=== PATIENT | female | born 1945 | race Caucasian/White ===

== ENCOUNTER 2019-11-29 14:34 | Outpatient (REF) | payer MEDICARE, SELFPAY ==
[2019-11-29 21:16] LABS: ALT 17 U/L (14-59); AST 12 U/L (15-37); Albumin 3.5 g/dL (3.4-5.0); Alkaline Phosphatase 92 U/L (46-116); Anion Gap 6.8 mmol/L (3-11); BUN 30 mg/dL (7-18); Bilirubin, Total 0.2 mg/dL (0.2-1.0); CO2 25.2 mmol/L (21.0-32.0); CREATININE 1.37 mg/dL (0.55-1.02); Calcium 8.4 mg/dL (8.5-10.1); Calculated LDL 93 mg/dL (<100); Chloride 110 mmol/L (98-107); Cholesterol 167 mg/dL (<200); Glucose 94 mg/dL (74-106); HDL Cholesterol 47 mg/dL (40-60); Potassium 4.1 mmol/L (3.5-5.1); Sodium 142 mmol/L (136-145); TSH (W/Ref FT4) 1.13 uIU/mL (0.36-3.74); Total Protein 6.9 g/dL (6.4-8.2); Triglyceride 138 mg/dL (<150)
[2019-11-29 23:01] LABS: HCT 42.9 % (36.0-46.0); HGB 13.4 g/dL (11.2-15.7); MCH 29.5 pg (27.0-33.0); MCHC 31.2 % (32.0-36.0); MCV 94.3 fL (80-95); MPV 12.6 fL (8.0-11.0); Platelet Count 174 10^3/uL (130-400); RBC 4.55 10^6/uL (3.93-5.22); RDW 14.6 % (11.7-14.6); RDW-SD 50.3 fL; WBC 6.62 10^3/uL (4.4-10.8)
[2019-12-01 05:20] LABS: Vitamin D 25 Total 23.4 ng/ml (30-100)
== END 2019-11-29 14:54 ==
LOC: LBN 14:34
PROVIDERS: PCP Family Medicine; Visit Provider Family Medicine
DX: E11.9 Type 2 diabetes mellitus without complications (principal); I10 Essential (primary) hypertension; E55.9 Vitamin D deficiency, unspecified; R00.2 Palpitations; I25.10 Atherosclerotic heart disease of native coronary artery without angina pectoris; E66.01 Morbid (severe) obesity due to excess calories
CPT/HCPCS: 80053; 80061; 82306; 85027; 83036; 84443

== ENCOUNTER 2020-09-26 08:49 | Emergency (ER) | payer MEDICARE, SELFPAY ==
[2020-09-26] VITALS (30 sets, daily range): BP systolic 92–162; BP diastolic 46–99; PULSE 61–78; RESP 15–45; TEMP 36.3–36.6; O2SAT 93–99
--- NOTE | 2020-09-26 08:45 | RT.EKG_ITS ---
APPROVED REPORT Exam: Resting ECG Reason for Exam: sob Patient Location: E HR:65 bpm ECG Measurements Heart Rate 65 AXIS ME 189 P 54 QRSd 115 QRS -9 QT 421 T 67 QTc 439 Conclusion Sinus rhythm...normal P axis, V-rate 60- 99 Nonspecific intraventricular conduction delay...QRSd >115mS, not LBBB/RBBB
[2020-09-26 09:25] LABS: Abs Immature Grans 0.03 10^3/uL (0.0-0.06); Absolute Basophil Count 0.02 10^3/uL (0.0-0.2); Absolute Eosinophil Count 0.13 10^3/uL (0.0-0.7); Absolute Lymphocyte Count 1.22 10^3/uL (1.2-3.4); Absolute Monocyte Count 0.67 10^3/uL (0.1-0.8); Absolute Neutrophil Count 4.17 10^3/uL (1.2-6.7); Basophils % 0.3; Eosinophils % 2.1; HCT 41.2 % (36.0-46.0); HGB 12.8 g/dL (11.2-15.7); Immature Grans % 0.5; Lymphocytes % 19.6; MCH 29.1 pg (27.0-33.0); MCHC 31.1 % (32.0-36.0); MCV 93.6 fL (80-95); MPV 11.9 fL (8.0-11.0); Monocytes % 10.7; Neutrophils % 66.8; Nucleated RBC 0 %; Platelet Count 127 10^3/uL (130-400); RDW 15.1 % (11.7-14.6); RDW-SD 52.3 fL; WBC 6.24 10^3/uL (4.4-10.8)
[2020-09-26 09:26] LABS: Source Nasal/Nares
--- NOTE | 2020-09-26 09:33 | ED.GENADUL_ITS ---
Discharge Plan Disposition Patient Disposition: HOME Condition: Stable Discharge Details Clinical Impression: Acute UTI, COVID-19 ED Provider: Maddie Barlow Home Meds and New Rx's Prescriptions: New prednisone 20 mg tablet 40 mg PO DAILY 5 Days Qty: 10 RF: 0 cephalexin 500 mg capsule 500 mg PO TID 7 Days Qty: 21 RF: 0 Continued albuterol sulfate [ProAir HFA] 90 mcg/actuation HFA aerosol inhaler 1 - 2 puff Inhalation Q4H PRN Qty: 3 RF: 5 triamcinolone acetonide 0.1 % ointment 1 applic Topical BID PRN (Reason: rash) Qty: 80 RF: 3 acetaminophen [Tylenol Extra Strength] 500 MG tablet 1,000 mg PO Q4H PRN RF: 0 diphenhydramine HCl [Benadryl Allergy] 25 MG tablet 25 mg PO DAILY PRNRF: 0 furosemide 20 mg tablet 20 mg PO DAILY PRN (Reason: edema) Qty: 90 RF: 4 diltiazem HCl 30 mg tablet 30 mg PO BID PRN (Reason: Esophageal spasms) Qty: 100 RF: 0 Eliquis 5 mg tablet 5 mg PO BID Qty: 180 RF: 12 omeprazole 20 mg capsule,delayed release(DR/EC) 20 mg PO DAILY Qty: 90 RF: 4 oxybutynin chloride 5 mg tablet 10 mg PO BID PRN (Reason: bladder spasms) Qty: 360 RF: 4 diltiazem HCl 240 mg capsule,extended release 24 hr 240 mg PO DAILY Qty: 90 RF: 5 bupropion HCl 300 mg tablet extended release 24 hr 300 mg PO QAM Qty: 90 RF: 4 Discharge Instructions Instructions: Urinary Tract Infection in Women (ED), Viral Syndrome (ED) Additional Instructions: Please take your antibiotic as prescribed, yogurt daily while on antibiotic Take the prednisone daily, you received a dose today We have supplied you with a pulse oximeter, please check your oxygen levels, especially if you are feeling short of breath and if you are below 90%, you must be reevaluated and likely admitted in the emergency room, leave the Pulsoxymeter on your finger for at least a minute I scheduled you for a monoclonal antibody infusion which is going to you will help your symptoms from becoming worse You will receive a call to schedule this, I recommend receiving it Isolate completely from 14 days from diagnosis If you have been exposed to anybody, the recommendation is you make them aware that you havetested Covid positive Medical Decision Making Patient is alert, oriented, of decisional capacity, she is ambulatory for 2 minutes without hypoxia in fact she did not get below 96%, she appears well, we discussed admission, however patient would like to be discharged home, she feels comfortable being discharged home She is instructed regarding the need to isolate for the next 13 days She was given monoclonal antibody after reviewing risk and benefit and she is agreeable to this She is also placed on prednisone given her history of COPD Her chest x-ray does not show evidence of infiltrate, her diagnostic labs are reassuring She is afebrile and otherwise nontoxic in appearance at this moment She is feeling symptomatically improved Negative troponin, negative EKG, CT negative interpretation BMP within normal limits Clinically low suspicion for pulmonary embolism discharged home with stable blood pressure, 95% on room air She is given a pulse oximeter for reassessment at home and encouraged to return immediately if her sat dips low 90% Care management will follow up with patient to reassess and she is encouraged to call her doctor and let them know that she is Covid positive Medical Records Medical records reviewed: Yes I reviewed the patient's medical records. Lab Data Lab results reviewed: Yes I reviewed the patient's lab results. HPI General Mode of arrival: ambulatory . Date/Time Provider Initiated Documentation: 09/26/20 08:50 . Limitations to Documentation: no limitations . Information obtained by: patient . HPI Narrative: This 75-year-old female with history of COPD, atrial fibrillation, and hypertension presents with report of shortness of breath and cough since Thursday. She states she has been getting around her apartment okay but she has been dyspneic with exertion. She denies fever or chills. She denies any chest pain unless she is coughing. She denies any weight gain, orthopnea, calf pain or swelling. She does not smoke tobacco. She denies any falls or injuries. She states she feels weak. Denies known sick contact .she is also had urinary frequency per patient. She does live independently reportedly. She denies any new medications. She has been using her inhalers at home without relief in her symptoms. Related Data Home Medications Medication Instructions Recorded Confirmed acetaminophen [Tylenol Extra 1,000 mg PO Q4H PRN tab-cap 08/06/15 05/28/20 Strength] diphenhydramine HCl [Benadryl 25 mg PO DAILY PRN 05/20/16 05/28/20 Allergy] triamcinolone acetonide 0.1 % 1 applic TOPICAL BID PRN #80 appful 01/26/18 05/28/20 topical ointment furosemide 20 mg tablet 20 mg PO DAILY PRN #90 tab-cap 04/05/19 05/28/20 diltiazem HCl 30 mg tablet 30 mg PO BID PRN #100 tab-cap 07/01/19 05/28/20 albuterol sulfate 90 mcg/actuation 1 - 2 puff INHALATION Q4H PRN #3 11/29/19 05/28/20 aerosol inhaler inhaler apixaban 5 mg tablet 5 mg PO BID #180 tab 04/26/20 05/28/20 bupropion HCl 300 mg 24 hr tablet, 300 mg PO QAM #90 tab 04/26/20 05/28/20 extended release diltiazem HCl 240 mg capsule,24 240 mg PO DAILY #90 cap 04/26/20 05/28/20 hr,extended release omeprazole 20 mg capsule,delayed 20 mg PO DAILY #90 cap 04/26/20 05/28/20 release oxybutynin chloride 5 mg tablet 10 mg PO BID PRN #360 tab 04/26/20 05/28/20 cephalexin 500 mg PO TID 7 Days #21 cap 09/26/20 prednisone 40 mg PO DAILY 5 Days #10 tab 09/26/20 Previous Rx's Medication Instructions Recorded triamcinolone acetonide 0.1 % 1 applic TOPICAL BID PRN #80 appful 01/26/18 topical ointment furosemide 20 mg tablet 20 mg PO DAILY PRN #90 tab-cap 04/05/19 diltiazem HCl 30 mg tablet 30 mg PO BID PRN #100 tab-cap 07/01/19 albuterol sulfate 90 mcg/actuation 1 - 2 puff INHALATION Q4H PRN #3 11/29/19 aerosol inhaler inhaler apixaban 5 mg tablet 5 mg PO BID #180 tab 04/26/20 bupropion HCl 300 mg 24 hr tablet, 300 mg PO QAM #90 tab 04/26/20 extended release diltiazem HCl 240 mg capsule,24 240 mg PO DAILY #90 cap 04/26/20 hr,extended release omeprazole 20 mg capsule,delayed 20 mg PO DAILY #90 cap 04/26/20 release oxybutynin chloride 5 mg tablet 10 mg PO BID PRN #360 tab 04/26/20 cephalexin 500 mg PO TID 7 Days #21 cap 09/26/20 prednisone 40 mg PO DAILY 5 Days #10 tab 09/26/20 Allergies Allergy/AdvReac Type Severity Reaction Status Date / Time Tetanus Vaccines and Toxoid Allergy Severe Massive Verified 09/26/20 10:02 [Tetanus Vaccines \E&E\ Local Toxoid] Reaction amoxicillin Allergy Unknown HIVES Verified 09/26/20 10:02 atenolol AdvReac Intermediate Fluid Verified 09/26/20 10:02 Retention morphine AdvReac Intermediate Jittery Verified 09/26/20 10:02 codeine AdvReac Unknown ANXIETY Verified 09/26/20 10:02 Iodinated Contrast Media AdvReac Unknown ANXIETY Verified 09/26/20 10:02 [Iodinated Contrast- Oral and IV Dye] meperidine AdvReac Unknown NAUSEA/VOMI Verified 09/26/20 10:02 TING promethazine AdvReac Unknown ANXIETY Verified 09/26/20 10:02 General Stated Complaint: SOB VINEET: 3 Review of Systems All systems reviewed & are unremarkable except as noted in HPI and below PFSH Medical History (Updated 09/26/20 @ 11:30 by BRITNI Lares) Abnormal mammogram (01/08/03) Abnormal mammogram, unspecified 01/08/03 Abnormal renal function elevated creatinine Acute myocardial infarction (08/24/12) 2006 ECHO showing LVH 75% Anxiety Appendicitis (03/11/07) CAD (coronary artery disease) (03/29/13) Clostridium difficile infection 03/11/07 Clostridium difficile infection (03/11/07) COPD with acute exacerbation (04/17/16) Depressive disorder Disorder of gallbladder 03/11/07 Disorder of gallbladder (03/11/07) Essential hypertension Hiatal hernia (03/11/07) EGD; inflammation Hip arthritis (09/26/14) 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 Hyperlipidemia Lipoma 03/11/07 removed 04/05/12 by Fabrice Lares Lipoma (03/11/07) Lumbar disc prolapse with compression radiculopathy (03/11/07) right sided sciatica w/ disc herniation L5- XRAY 2015 - djd Meralgia paresthetica (01/08/02) right Morbid obesity (08/06/15) Need for subacute bacterial endocarditis prophylaxis (05/02/14) Clinda 600mg once - 60 min before procedure Osteopenia 2003 T-scores: -0.8, -0.2; -1.8 Palpitations (08/24/12) Psoriasis (08/30/12) Shingles (03/10/17) Shortness of breath (11/05/15) Tobacco use disorder quit 2004 Unspecified appendicitis 03/11/07 Urinary, incontinence, stress female (08/24/12) Ventral hernia with obstruction but no gangrene (03/11/07) epigastric and ventral Vitamin D deficiency (05/26/08) Weight loss (03/09/17) Surgical History (System 09/26/20 @ 10:02 by Ye Muñiz) Abdominal hysterectomy endometriosis Appendectomy Biopsy of breast (04/05/12) lipoma; left breast Cholecystectomy Extraction of cataract 11/14/16 DR. MARISCAL; LEFT EYE HERNIA REPAIR (~07/2013) Replacement of total knee joint 1995 LEFT 2004 RIGHT S/P abdominal hysterectomy endometriosis S/P appendectomy S/P breast biopsy, left 02/10/12 lipoma S/P cholecystectomy S/P hernia repair 07/10/13 S/P total knee replacement 02/09/95 left Status post abdominal hysterectomy Status post appendectomy Status post breast biopsy Status post cholecystectomy Status post hernia repair Status post total knee replacement Family History (System 09/26/20 @ 10:02 by Ye Muñiz) Mother , age 61 Diabetes Essential hypertension Heart disease Hyperlipidemia DVT (deep venous thrombosis) Asthma Father , age 75 Essential hypertension Heart disease Hyperlipidemia Stroke Lung cancer Sister , age 41 Lung cancer Maternal Grandfather , age 88 No problems noted. Paternal Grandfather No problems noted. Maternal Grandmother , age 88 Hyperlipidemia Hypertension Paternal Grandmother Essential hypertension Hyperlipidemia Brother , age 70 Diabetes Essential hypertension Heart disease Alcohol abuse Brother , age 68 No problems noted. Son Depression Hyperlipidemia Alcohol abuse Heart disease Hypertension Son No problems noted. Daughter Essential hypertension Depression DVT (deep venous thrombosis) Asthma Alcohol abuse Hyperlipidemia Substance abuse Social History (System 09/26/20 @ 10:02 by Ye Muñiz) Smoking/Tobacco Use Status: Never Tobacco: How many years used: 30 Smoking risk assessment performed?: Yes Alcohol Intake: never Drug use: Never Substance use type: does not use Caregiver/Support person: No Household members: none Communication Needs: Hard of Hearing Pets and animals: No Sexually active: No Current gender identity: decline to answer What is your relationship status?: How often do you talk on the phone with friends or family?: twice per week How often do you get together with friends or relatives?: decline to answer How often do you attend episcopalian or rastafari services?: decline to answer Do you belong to any clubs or organized social groups?: decline to answer Panel score (0-1 are the most socially isolated patients): 0 What type of physical activity do you participate in: none and walking Frequency: 3-4 times per week Trish/Judaism: Gnosticist Special trish needs: No Seatbelt use: always Helmet use: No Drive intox or ride w/intox guard driver: No Do you feel safe at home: Yes Do you feel safe in your relationship?: Yes Would you like helpful sources: No Exam Const General: cooperative and no acute distress Neck Neck: no JVD Chest Chest: normal inspection of the chest Resp Effort & Inspection: normal respiratory effort Auscultation: diminished lung sounds Cardio Rate: regular rate Rhythm: regular rhythm GI Inspection: normal to inspection Other: Nontender Skin General skin exam: no rashes or lesions noted Neuro General: patient alert and patient oriented x3 Extrem Other: No calf swelling or tenderness appreciated Course Vital Signs Vital signs: Vital Signs Temperature 36.6 C 09/26/20 08:54 Pulse 78 09/26/20 08:54 Respiratory Rate 22 09/26/20 08:54 Pulse Oximetry 95 09/26/20 08:54 Temperature 36.6 C 09/26/20 08:54 Temperature Source Temporal Artery Scan 09/26/20 08:54 Pulse 78 09/26/20 08:54 Respiratory Rate 22 09/26/20 09:01 Respiratory Effort 09/26/20 09:01 Respiratory Depth Normal 09/26/20 09:01 Respiratory Pattern Normal 09/26/20 09:01 Blood Pressure 142/53 H 09/26/20 09:05 Blood Pressure Position Supine 09/26/20 08:54 Pulse Oximetry 95 09/26/20 08:54 Oxygen Delivery Method Room Air 09/26/20 08:54 Oxygen Flow Rate 0 09/26/20 08:54 Pain Level 0 09/26/20 08:54 Lab/Test Results Lab/Test Results: Laboratory Tests Range/Units 09/26/20 09/26/20 09:00 09:00 WBC (4.4-10.8) 10^3/uL 6.24 RBC (3.93-5.22) 10^6/uL 4.40 Hgb (11.2-15.7) g/dL 12.8 Hct (36.0-46.0) % 41.2 MCV (80-95) fL 93.6 MCH (27.0-33.0) pg 29.1 MCHC (32.0-36.0) % 31.1 L RDW (11.7-14.6) % 15.1 H Plt Count (130-400) 10^3/uL 127 L MPV (8.0-11.0) fL 11.9 H Immature Gran % 0.5 Neutrophils % 66.8 Lymphocytes % 19.6 Monocytes % 10.7 Eosinophils % 2.1 Basophils % 0.3 Nucleated RBC % % 0 Absolute Neutrophils (1.2-6.7) 10^3/uL 4.17 Absolute Lymphocytes (1.2-3.4) 10^3/uL 1.22 Absolute Monocytes (0.1-0.8) 10^3/uL 0.67 Absolute Eosinophils (0.0-0.7) 10^3/uL 0.13 Absolute Basophils (0.0-0.2) 10^3/uL 0.02 COVID-19 Source Nasal/Nares
[2020-09-26] MEDS: Albuterol/Ipratropium 3 ML UPD VIAL UPD (09:41)
[2020-09-26] MEDS: methylPREDNISolone SUCC 125 MG VIAL IVP (09:41)
[2020-09-26 09:43] LABS: ALT 28 U/L (14-59); AST 14 U/L (15-37); Albumin 3.1 g/dL (3.4-5.0); Alkaline Phosphatase 80 U/L (46-116); Anion Gap 7.5 mmol/L (3-11); BUN 31 mg/dL (7-18); Bilirubin, Total 0.5 mg/dL (0.2-1.0); CO2 25.5 mmol/L (21.0-32.0); CREATININE 1.4 mg/dL (0.55-1.02); Calcium 8.4 mg/dL (8.5-10.1); Chloride 108 mmol/L (98-107); Estimated GFR 36.86 (mL/min/1.73m2); Glucose 105 mg/dL (74-106); NT-proBNP 127 pg/mL (<300); Potassium 4.1 mmol/L (3.5-5.1); Sodium 141 mmol/L (136-145)
[2020-09-26 09:43] LABS: Bilirubin Negative (Negative); Blood Trace-intact (Negative); Clarity Sl Cloudy (Clear); Glucose Negative (Negative); Ketones Negative (Negative); Leukocyte Esterase Small (Negative); Nitrite Positive (Negative); Urobilinogen 0.2 EU/dL (Up TO 0.2)
[2020-09-26 09:44] LABS: Troponin I < 0.05 ng/mL (<0.06)
[2020-09-26 09:51] LABS: Bacteria Many HPF (Negative); C & S Indicated? Yes; Casts Negative LPF (Negative); Crystals Rare Amorphous HPF (Negative); Epithelial Cells Few HPF (Negative); Mucus Trace (Negative)
[2020-09-26 10:27] LABS: COVID-19 PCR POSITIVE (Negative)
--- NOTE | 2020-09-26 10:54 | DI.RAD_ITS ---
Exam(s) XR PORTABLE CHEST AP EXAM: XR PORTABLE CHEST AP CLINICAL HISTORY: cough, shortness of breath since thursday, copd. TECHNIQUE: 2D digital imaging was performed. COMPARISON: No exams were available for comparison FINDINGS: Heart size is normal. The mediastinum is not widened. Lungs are clear. No infiltrates nor obvious pleural effusions. IMPRESSION: No acute pulmonary findings on this single AP portable view of the chest. DATA REPOSITORY: RADIATION DOSE DELIVERED: All CT scans at this facility use at least one of these dose optimization techniques: automated exposure control; mA and/or kV adjustment per patient size (includes targeted e xams where dose is matched to clinical indication); or iterative reconstruction.
--- NOTE | 2020-09-26 11:00 | CHAPLAIN ---
Chema Hannah lives in the [facility]. Another tenant there (an [facility] on-call retread builder) called knowing that Brielle had lost her sense of smell and taste would likely be a PUI upon arrival in the ED. She is PUI. Eleanor Garcia RN, asked if Brielle if her health information could be shared with Kiley Sol, the Director of the [facility]. Brielle gave her consent, and Eleanor then gave me permission to let Kiley know that Brielle had tested positive for COVID19. I let Kiley know about the positive test for Brielle.
[2020-09-27 07:14] VITALS: BP 138/70; PULSE 74; RESP 20; TEMP 36.6; O2SAT 97
== END 2020-09-26 13:05 | disposition home or self-care (01) ==
PROVIDERS: Emergency Provider Physician Assistant; PCP Family Medicine
DX: N39.0 Urinary tract infection, site not specified (principal); B96.29 Other Escherichia coli [E. coli] as the cause of diseases classified elsewhere; U07.1 COVID-19; R06.09 Other forms of dyspnea; J44.9 Chronic obstructive pulmonary disease, unspecified; I10 Essential (primary) hypertension
CPT/HCPCS: 80053; 87077; 87635; 93005; 94640; 96365; 99284; 71045; 81003; 81015; 83735; 83880; 84484; 85025; 87086; 87186; 93010; J2930; J7620

== ENCOUNTER 2021-03-05 19:19 | Emergency (ER) | payer MEDICARE, SELFPAY ==
[2021-03-05] VITALS (38 sets, daily range): BP systolic 111–153; BP diastolic 42–96; PULSE 61–84; RESP 13–21; TEMP 36.5; O2SAT 91–99
--- NOTE | 2021-03-05 19:15 | RT.EKG_ITS ---
APPROVED REPORT Exam: Resting ECG Reason for Exam: dizzy Patient Location: E HR:66 bpm ECG Measurements Heart Rate 66 AXIS TN 195 P 61 QRSd 111 QRS 9 QT 420 T 62 QTc 442 Conclusion Sinus rhythm...normal P axis No ST elevation
--- NOTE | 2021-03-05 19:45 | DI.RAD_ITS ---
Exam(s) XR CHEST 2V PA LATERAL EXAM: XR CHEST 2V PA LATERAL CLINICAL HISTORY: dizziness. TECHNIQUE: 2D digital imaging was performed. COMPARISON: CR XR PORTABLE CHEST AP from 09/26/2020 FINDINGS: Heart size slightly prominent. Mediastinum unchanged. Lungs are clear. No infiltrates nor pleural effusions. IMPRESSION: No acute pulmonary findings.Mild cardiomegaly. DATA REPOSITORY: RADIATION DOSE DELIVERED:
--- NOTE | 2021-03-05 19:45 | DI.CT_ITS ---
Exam(s) CT BRAIN NECK CTA EXAM: CT BRAIN NECK CTA CLINICAL HISTORY: dizziness. TECHNIQUE: Imaging Protocol: Axial CT angiography was performed with multi-slice acquisition and mu lti-planar and/or 3D reconstructions. CONTRAST MATERIAL: Intravenous: Omnipaque 350 Contrast volume:structured data in ml COMPARISON: CT CHEST FOR PULMONARY EMBOLUS from 07/16/2016 FINDINGS: CTA Neck W: Aortic arch anatomy: The aortic arch anatomy is conventional. Common carotid arteries ascend with normal luminal diameters. There is mild partially calcified plaq ue at both carotid bulbs without hemodynamically significant stenosis (approximately 10 percent bilat eral). No significant stenosis at the level of the proximal internal carotid arteries in the neck. Internal carotid arteries higher up in the neck are patent as well as in the skull base-carotid canal s. Posterior circulation: Vertebral arteries both originate in conventional fashion off of the subclavian arteries without obvi ous stenosis at their origins. Vertebral arteries ascend with equal luminal diameters within the for amen transversarium and without evidence of intraluminal thrombus nor dissection. At the skull base both vertebral arteries contribute equally to the formation of the basilar artery. There is no obvio us calcification in the vertebral arteries at the skull base. CTA Brain W: Anterior circulation: Both internal carotid arteries are patent in the skull base-carotid canals as well as within the cave rnous sinuses with some mild mural calcification therein. Supraclinoid aspects of these vessels are patent and nonaneurysmal. Both A1 segments are patent as are the anterior cerebral arteries. There is no evidence of aneurysm at the level of the anterior communicating artery. Middle cerebral arteries are. No aneurysms. Posterior circulation: Basilar artery ascends in the midline no evidence of significant stenosis. Distally basilar artery g sharri off patent bilateral superior cerebellar arteries. Above this level gives off patent bilateral posterior cerebral arteries. There are no posterior communicating arteries on either side of the cir [id number]. CT BRAIN: There is no evidence of intracranial hemorrhage, mass effect, or shift of midline structures. There are no extra-axial fluid collections. Ventricles are not enlarged or shifted. There are no ring enh ancing lesions in the brain and no abnormal meningeal enhancement. IMPRESSION: 1. Mild atherosclerotic disease at the level the carotid bifurcations on both sides the neck. No hem odynamically significant stenosis. Vertebral arteries are patent bilaterally in the neck. 2. Intracranial arteries appear patent. No incidental aneurysm seen. 3. No acute intracranial findings. No ring enhancing lesions in the brain and no abnormal meningea l enhancement. RADIATION DOSE DELIVERED: 2,195.73mGy.cm Total DLP DATA REPOSITORY: All CT scans at this facility are submitted to the National Radiology Data Registry (NRDR) Dose Index Registry (DIR) with the [employer] (A[employer]). RADIATION OPTIMIZATION: All CT scans at this facility use at least one of these dose optimization te chniques: automated exposure control; mA and/or kV adjustment per patient size (includes targeted exa ms where dose is matched to clinical indication); or iterative reconstruction.
[2021-03-05] MEDS: Meclizine 25 MG TAB PO (19:58)
--- NOTE | 2021-03-05 20:04 | W.ED.GENAD ---
Discharge Plan Disposition Patient Disposition: HOME Condition: Stable Discharge Details Clinical Impression: Dizziness, Acute UTI Primary Care Provider: Chanel Garcia ED Provider: Maddie Barlow Home Meds and New Rx's Prescriptions: New meclizine 25 mg tablet 25 mg PO BID PRNQty: 10 RF: 0 cefdinir 300 mg capsule 300 mg PO DAILY Qty: 10 RF: 0 Continued albuterol sulfate [ProAir HFA] 90 mcg/actuation HFA aerosol inhaler 1 - 2 puff Inhalation Q4H PRN Qty: 3 RF: 5 cholecalciferol (vitamin D3) 50 mcg (2,000 unit) capsule 50 mcg PO DAILY RF: 0 triamcinolone acetonide 0.1 % ointment 1 applic Topical BID PRN (Reason: rash) Qty: 80 RF: 3 acetaminophen [Tylenol Extra Strength] 500 MG tablet 1,000 mg PO Q4H PRN RF: 0 diphenhydramine HCl [Benadryl Allergy] 25 MG tablet 25 mg PO DAILY PRNRF: 0 furosemide 20 mg tablet 20 mg PO DAILY PRN (Reason: edema) Qty: 90 RF: 4 Eliquis 5 mg tablet 5 mg PO BID Qty: 180 RF: 12 omeprazole 20 mg capsule,delayed release(DR/EC) 20 mg PO DAILY Qty: 90 RF: 4 oxybutynin chloride 5 mg tablet 10 mg PO BID PRN (Reason: bladder spasms) Qty: 360 RF: 4 diltiazem HCl 240 mg capsule,extended release 24 hr 240 mg PO DAILY Qty: 90 RF: 5 diltiazem HCl 30 mg tablet 30 mg PO BID PRN (Reason: Esophageal spasms) Qty: 100 RF: 0 Discharge Instructions Instructions: Urinary Tract Infection in Women (ED), Dizziness (ED) Additional Instructions: Please follow-up with your pcp for recheck in 24 hours meclizine as needed for dizziness antibiotic starting tomorrow as prescribed regular fluid hydration Referrals: Chanel Garcia MD, [place] [Primary Care Provider] - Discharge Data Discharge Date/Time-TO BE ENTERED AT DEPARTURE: 03/06/21 00:30 Medical Decision Making pt appears well, ambulatory with steady gate Feels marked improvement We will treat for urinary tract infection, patient has had a cough for the past several 3 days and will initiate cefdinir instead of Keflex which will also treat her urinary tract infection Urine will be sent for culture Her diagnostic labs are unchanged when compared to prior Her CTA of her head and neck do not show acute abnormality, her symptoms were peripheral in nature I do not see an obvious infiltrate on patient's x-ray however virtual radiology read as possible left lower lobe infiltrate, and given her age and comorbidities, I will treat her urinary tract infection with cefdinir which should appropriately treat urinary tract infection and pneumonia Ambulatory trial with orthostatic performed, patient will ambulating independently, feels marked improvement and actually does not report any dizziness or weakness at this time Recheck in 24 to 48 hours with PCP recommended She will be discharged home at this time, orthostatics negative, ambulatory with steady gait, nonfocal neurological exam HPI General Mode of arrival: ambulatory. Date/Time Provider Initiated Documentation: 03/05/21 19:35. Limitations to Documentation: no limitations. Information obtained by: patient. HPI Narrative: This very pleasant 76-year-old female presents with report of lightheadedness and dizziness when she went from sitting to standing. Her symptoms began this afternoon. She states she went to stand up and felt lightheaded and dizzy. She had to sit right back down, she tried standing 3 times and was unsuccessful so ambulance was called. She denies any falls or injuries. She denies prior history of similar symptoms in the past. She denies any cough, wheeze, shortness of breath. She denies any known sick contacts. She denies any urinary symptoms. Related Data Home Medications Medication Instructions Recorded Confirmed acetaminophen [Tylenol Extra 1,000 mg PO Q4H PRN tab-cap 08/06/15 03/05/21 Strength] diphenhydramine HCl [Benadryl 25 mg PO DAILY PRN 05/20/16 03/05/21 Allergy] triamcinolone acetonide 0.1 % 1 applic TOPICAL BID PRN #80 appful 01/26/18 03/05/21 topical ointment furosemide 20 mg tablet 20 mg PO DAILY PRN #90 tab-cap 04/05/19 03/05/21 albuterol sulfate 90 mcg/actuation 1 - 2 puff INHALATION Q4H PRN #3 11/29/19 03/05/21 aerosol inhaler inhaler apixaban 5 mg tablet 5 mg PO BID #180 tab 04/26/20 03/05/21 diltiazem HCl 240 mg capsule,24 240 mg PO DAILY #90 cap 04/26/20 03/05/21 hr,extended release omeprazole 20 mg capsule,delayed 20 mg PO DAILY #90 cap 04/26/20 03/05/21 release oxybutynin chloride 5 mg tablet 10 mg PO BID PRN #360 tab 04/26/20 03/05/21 diltiazem HCl 30 mg tablet 30 mg PO BID PRN #100 tab-cap 09/30/20 03/05/21 cholecalciferol (vitamin D3) 50 50 mcg PO DAILY 12/24/20 03/05/21 mcg (2,000 unit) capsule meclizine 25 mg PO BID PRN #10 tab 03/05/21 cefdinir 300 mg PO DAILY #10 cap 03/06/21 Previous Rx's Medication Instructions Recorded triamcinolone acetonide 0.1 % 1 applic TOPICAL BID PRN #80 appful 01/26/18 topical ointment furosemide 20 mg tablet 20 mg PO DAILY PRN #90 tab-cap 04/05/19 albuterol sulfate 90 mcg/actuation 1 - 2 puff INHALATION Q4H PRN #3 11/29/19 aerosol inhaler inhaler apixaban 5 mg tablet 5 mg PO BID #180 tab 04/26/20 diltiazem HCl 240 mg capsule,24 240 mg PO DAILY #90 cap 04/26/20 hr,extended release omeprazole 20 mg capsule,delayed 20 mg PO DAILY #90 cap 04/26/20 release oxybutynin chloride 5 mg tablet 10 mg PO BID PRN #360 tab 04/26/20 diltiazem HCl 30 mg tablet 30 mg PO BID PRN #100 tab-cap 09/30/20 meclizine 25 mg PO BID PRN #10 tab 03/05/21 cefdinir 300 mg PO DAILY #10 cap 03/06/21 Allergies Allergy/AdvReac Type Severity Reaction Status Date / Time Tetanus Vaccines and Toxoid Allergy Severe Massive Verified 03/05/21 19:24 [Tetanus Vaccines \E&E\ Local Toxoid] Reaction amoxicillin Allergy Unknown HIVES Verified 03/05/21 19:24 atenolol AdvReac Intermediate Fluid Verified 03/05/21 19:24 Retention bupropion AdvReac Intermediate nausea Verified 01/21/21 10:55 [From Wellbutrin SR] morphine AdvReac Intermediate Jittery Verified 01/21/21 10:42 COVID-19 (SARS-CoV-2) AdvReac Mild redness Verified 01/21/21 10:57 vaccine, [place] (Pheizer) codeine AdvReac Unknown ANXIETY Verified 03/05/21 19:24 Iodinated Contrast Media AdvReac Unknown ANXIETY Verified 03/05/21 19:24 [Iodinated Contrast- Oral and IV Dye] meperidine AdvReac Unknown NAUSEA/VOMI Verified 03/05/21 19:24 TING promethazine AdvReac Unknown ANXIETY Verified 03/05/21 19:24 General Stated Complaint: GenMedical VINEET: 3 Review of Systems All systems reviewed & are unremarkable except as noted in HPI and below PFSH All Active Problems (Updated 03/05/21 @ 23:31 by BRITNI Lares) Dizziness (Acute) Acute UTI (Acute) Advance care planning (Acute) Acute UTI (Acute) COVID-19 (Acute) Tobacco use disorder (Acute) Coronary artery spasm (Acute 03/11/07) Weight loss (Chronic 03/09/17) Vitamin D deficiency (Chronic 05/26/08) Psoriasis (Chronic 08/30/12) Palpitations (Chronic 08/24/12) Osteopenia (Chronic) 2003 T-scores: -0.8, -0.2; -1.8 Need for subacute bacterial endocarditis prophylaxis (Chronic 05/02/14) Clinda 600mg once - 60 min before procedure Morbid obesity (Chronic 08/06/15) Meralgia paresthetica (Chronic 01/08/02) right 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) right sided sciatica w/ disc herniation L5- XRAY 2014 - djd Hyperlipidemia (Chronic) 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 Urinary, incontinence, stress female (Chronic 08/24/12) Essential hypertension (Chronic) Depressive disorder (Chronic) COPD with acute exacerbation (Chronic 04/17/16) Anxiety (Chronic) Abnormal renal function (Chronic) elevated creatinine CAD (coronary artery disease) (Chronic 03/29/13) Medical History (Updated 03/05/21 @ 23:31 by BRITNI Lares) Abnormal mammogram (01/08/03) Abnormal mammogram, unspecified 01/08/03 Acute myocardial infarction (08/24/12) 2006 ECHO showing LVH 75% Appendicitis (03/11/07) Clostridium difficile infection 03/11/07 Clostridium difficile infection (03/11/07) Disorder of gallbladder 03/11/07 Disorder of gallbladder (03/11/07) Hiatal hernia (03/11/07) EGD; inflammation Lipoma 03/11/07 removed 04/05/12 by Fabrice Lares Lipoma (03/11/07) Shingles (03/10/17) Shortness of breath (11/05/15) Tobacco use disorder quit 2004 Unspecified appendicitis 03/11/07 Ventral hernia with obstruction but no gangrene (03/11/07) epigastric and ventral Surgical History (System 09/26/20 @ 10:02 by Ye Muñiz) Abdominal hysterectomy endometriosis Appendectomy Biopsy of breast (04/05/12) lipoma; left breast Cholecystectomy Extraction of cataract 11/14/16 DR. MARISCAL; LEFT EYE HERNIA REPAIR (~07/2013) Replacement of total knee joint 1995 LEFT 2004 RIGHT S/P abdominal hysterectomy endometriosis S/P appendectomy S/P breast biopsy, left 02/10/12 lipoma S/P cholecystectomy S/P hernia repair 07/10/13 S/P total knee replacement 02/09/95 left Status post abdominal hysterectomy Status post appendectomy Status post breast biopsy Status post cholecystectomy Status post hernia repair Status post total knee replacement Family History (System 09/26/20 @ 10:02 by Ye Muñiz) Mother , age 61 Diabetes Essential hypertension Heart disease Hyperlipidemia DVT (deep venous thrombosis) Asthma Father , age 75 Essential hypertension Heart disease Hyperlipidemia Stroke Lung cancer Sister , age 41 Lung cancer Maternal Grandfather , age 88 No problems noted. Paternal Grandfather No problems noted. Maternal Grandmother , age 88 Hyperlipidemia Hypertension Paternal Grandmother Essential hypertension Hyperlipidemia Brother , age 70 Diabetes Essential hypertension Heart disease Alcohol abuse Brother , age 68 No problems noted. Son Depression Hyperlipidemia Alcohol abuse Heart disease Hypertension Son No problems noted. Daughter Essential hypertension Depression DVT (deep venous thrombosis) Asthma Alcohol abuse Hyperlipidemia Substance abuse Social History (System 09/26/20 @ 10:02 by Ye Muñiz) Smoking/Tobacco Use Status: Never Tobacco: How many years used: 30 Smoking risk assessment performed?: Yes Alcohol Intake: never Drug use: Never Substance use type: does not use Caregiver/Support person: No Household members: none Communication Needs: Hard of Hearing Pets and animals: No Sexually active: No Current gender identity: decline to answer What is your relationship status?: How often do you talk on the phone with friends or family?: twice per week How often do you get together with friends or relatives?: decline to answer How often do you attend episcopalian or roman catholic services?: decline to answer Do you belong to any clubs or organized social groups?: decline to answer Panel score (0-1 are the most socially isolated patients): 0 What type of physical activity do you participate in: none and walking Frequency: 3-4 times per week Trish/Congregational: Temple Special trish needs: No Seatbelt use: always Helmet use: No Drive intox or ride w/intox electric lift truck driver: No Do you feel safe at home: Yes Do you feel safe in your relationship?: Yes Would you like helpful sources: No Exam Const General: cooperative, comfortable and no acute distress Orientation: alert and oriented x3 HENMT Head: normal to inspection Mouth: oral mucosae normal Throat: uvula midline Eyes Pupils: PERRL EOM: EOM intact bilaterally and No nystagmus Neck Other: No carotid bruit Resp Effort & Inspection: normal respiratory effort Auscultation: clear to auscultation bilaterally Cardio Rate: regular rate Rhythm: regular rhythm GI Other: Nontender abdominal exam Skin General skin exam: no rashes or lesions noted Neuro General: patient alert and patient oriented x3 Cranial Nerves: no nystagmus Speech: speech normal Gait: normal gait Motor: strength 5/5 throughout Sensory Exam: no sensory deficits noted Other: Negative xzmynu-mzug-gueetp, negative heel antoine, negative pronator Extrem Other: 1+ edema to bilateral lower extremities, distal pulses intact Course Vital Signs Vital signs: Vital Signs Temperature 36.5 C 03/05/21 19:19 Pulse 70 03/05/21 19:19 Respiratory Rate 14 03/05/21 19:19 Blood Pressure 153/96 H 03/05/21 19:19 Pulse Oximetry 95 03/05/21 19:19 Temperature 36.5 C 03/05/21 19:19 Temperature Source Temporal Artery Scan 03/05/21 19:19 Pulse 70 03/05/21 19:19 Respiratory Rate 14 03/05/21 19:19 Respiratory Effort Non-Labored 03/05/21 19:27 Respiratory Depth Normal 03/05/21 19:27 Respiratory Pattern Normal 03/05/21 19:27 Blood Pressure 153/96 H 03/05/21 19:19 Blood Pressure Position Sitting 03/05/21 19:19 Pulse Oximetry 95 03/05/21 19:19 Oxygen Delivery Method Room Air 03/05/21 19:19 Oxygen Flow Rate 0 03/05/21 19:19 Pain Level 0 03/05/21 19:19
[2021-03-05 20:05] LABS: HCT 44.6 % (36.0-46.0); HGB 13.5 g/dL (11.2-15.7); MCH 28.3 pg (27.0-33.0); MCHC 30.3 % (32.0-36.0); MCV 93.5 fL (80-95); MPV 11.2 fL (8.0-11.0); Platelet Count 175 10^3/uL (130-400); RBC 4.77 10^6/uL (3.93-5.22); RDW 14.9 % (11.7-14.6); RDW-SD 51.6 fL
[2021-03-05 20:22] LABS: Bilirubin Negative (Negative); Blood Negative (Negative); Clarity Cloudy (Clear); Glucose Negative (Negative); Ketones Negative (Negative); Leukocyte Esterase Negative (Negative); Nitrite Positive (Negative); Specific Gravity >= 1.030 (1.005-1.025); Urobilinogen 0.2 EU/dL (Up TO 0.2)
[2021-03-05 20:38] LABS: Bacteria Packed HPF (Negative); C & S Indicated? Yes; Crystals Negative HPF (Negative); Epithelial Cells Few HPF (Negative); Mucus Negative (Negative); RBC Negative HPF (0-2)
[2021-03-05 20:41] LABS: ALT 17 U/L (14-59); AST 12 U/L (15-37); Albumin 3.4 g/dL (3.4-5.0); Alkaline Phosphatase 93 U/L (46-116); Anion Gap 7.8 mmol/L (3-11); BUN 27 mg/dL (7-18); Bilirubin, Total 0.4 mg/dL (0.2-1.0); CO2 27.2 mmol/L (21.0-32.0); CREATININE 1.4 mg/dL (0.55-1.02); Calcium 8.9 mg/dL (8.5-10.1); Chloride 108 mmol/L (98-107); Estimated GFR 36.76 (mL/min/1.73m2); Glucose 95 mg/dL (74-106); Potassium 4.1 mmol/L (3.5-5.1); Sodium 143 mmol/L (136-145); TSH (W/Ref FT4) 1.55 uIU/mL (0.36-3.74); Total Protein 7.9 g/dL (6.4-8.2); Troponin I < 50 ng/L (<or=60)
[2021-03-05] MEDS: Omnipaque 350 MG/ML 100 ML BTL IV (22:05)
[2021-03-05] MEDS: Normal Saline Flush 10 ML SYR IVP (22:06)
--- NOTE | 2021-03-05 22:58 | DI.VRAD_ITS ---
PROCEDURE INFORMATION: Exam: CT Angiography Head Without And With Contrast, Arteriography Exam date and time: 03/05/2021 7:53 PM Age: 76 years old Clinical indication: Other: Dizzy TECHNIQUE: Imaging protocol: Computed tomographic angiography of the head without and with contrast. Exam focused on the arteries. 3D rendering (Not supervised by radiologist): MIP and/or 3D reconstructed images were created by the technologist. Total images: [id number] COMPARISON: No relevant prior studies available. FINDINGS: ANTERIOR CIRCULATION: Right internal carotid artery: Calcification cavernous segment right ICA. Right middle cerebral artery: There is mild atherosclerotic disease in the right M1 segment without significant stenosis or occlusion. Right anterior cerebral artery: No occlusion or significant stenosis. No aneurysm. Left internal carotid artery: Calcification cavernous segment left ICA. Left middle cerebral artery: No occlusion or significant stenosis. No aneurysm. Left anterior cerebral artery: No occlusion or significant stenosis. No aneurysm. POSTERIOR CIRCULATION: Right vertebral artery: No occlusion or significant stenosis. No aneurysm. Left vertebral artery: No occlusion or significant stenosis. No aneurysm. Basilar artery: No occlusion or significant stenosis. No aneurysm. Right posterior cerebral artery: No occlusion or significant stenosis. No aneurysm. Left posterior cerebral artery: No occlusion or significant stenosis. No aneurysm. HEAD: Brain: Unremarkable. No acute intracranial hemorrhage. No significant white matter disease. No edema. Cerebral ventricles: Normal. No ventriculomegaly. Bones/joints: Unremarkable. No acute fracture. Paranasal sinuses: Visualized sinuses are normal. No fluid levels. Mastoid air cells: Visualized mastoids are normal. No mastoid effusion. Soft tissues: Unremarkable. IMPRESSION: No large vessel occlusion. Unremarkable CT head. PROCEDURE INFORMATION: Exam: CT Angiography Neck Without And With Contrast Exam date and time: 03/05/2021 7:53 PM Age: 76 years old Clinical indication: Other: Dizzy TECHNIQUE: Imaging protocol: Computed tomographic angiography of the neck without and with contrast. 3D rendering (Not supervised by radiologist): MIP and/or 3D reconstructed images were created by the technologist. COMPARISON: No relevant prior studies available. FINDINGS: Right common carotid artery: No stenosis. No dissection or occlusion. Right internal carotid artery: Mild calcified plaque involving the right carotid bulb. Right external carotid artery: No occlusion or stenosis of the origin. Left common carotid artery: No stenosis. No dissection or occlusion. Left internal carotid artery: Minimal calcified plaque involving the left carotid bulb. Left external carotid artery: No occlusion or stenosis of the origin. Right vertebral artery: No stenosis. No dissection or occlusion. Left vertebral artery: No stenosis. No dissection or occlusion. Thyroid: 7 mm right thyroid lobe nodule. Soft tissues: Normal. No significant soft tissue swelling. Bones/joints: No acute fracture. IMPRESSION: Minimal bilateral carotid stenosis. REFERENCES: NASCET CRITERIA. The degree of internal carotid artery stenosis is based on NASCET criteria. Normal is no stenosis. Mild is less than 50% stenosis. Moderate is 50-69% stenosis. Severe is 70% to 99% stenosis. Total occlusion is no detectable patent lumen. Dictated and Authenticated by: Konstantin Napier MD. Ordering:JOSE Perkins MD
--- NOTE | 2021-03-05 23:00 | DI.VRAD_ITS ---
PROCEDURE INFORMATION: Exam: XR Chest Exam date and time: 03/05/2021 7:53 PM Age: 76 years old Clinical indication: Other: Dizziness TECHNIQUE: Imaging protocol: XR of the chest. Views: 2 views. Total images: 3 COMPARISON: CR XR PORTABLE CHEST AP 09/26/2020 10:49 AM FINDINGS: Lungs: There is increased opacity in the retrocardiac region as seen on lateral view only. Pulmonary harleen: Unremarkable contours. Pleural spaces: No pleural effusion. No pneumothorax. Heart/Mediastinum: Stable mediastinal contours. Heart is mildly enlarged. Bones/joints: Unremarkable. Intraperitoneal space: Visualized upper abdomen is unremarkable. IMPRESSION: Possible lower lobe pneumonia only appreciated on the lateral view. This can be further evaluated with a noncontrast chest CT as felt clinically indicated. Dictated and Authenticated by: Konstantin Napier MD. Ordering:JOSE Perkins MD
[2021-03-05 23:03] LABS: Troponin I < 50 ng/L (<or=60)
[2021-03-05] MEDS: cefTRIAXone 1 GM/50 ML BAG IVPB (23:51)
[2021-03-06] VITALS: PULSE 70; RESP 19
[2021-03-06 00:10] VITALS: PULSE 69; RESP 19
== END 2021-03-06 00:30 | disposition home or self-care (01) ==
PROVIDERS: Emergency Provider Physician Assistant; PCP Family Medicine
DX: R42 Dizziness and giddiness (principal); N39.0 Urinary tract infection, site not specified; B96.89 Other specified bacterial agents as the cause of diseases classified elsewhere; I10 Essential (primary) hypertension
CPT/HCPCS: 36415; 70496; 70498; 80053; 85027; 93005; 96365; 99285; 71046; 81003; 81015; 83735; 84443; 84484; 87086; 93010; 99284; J0696; J3490

== ENCOUNTER 2021-03-25 10:40 | Outpatient (REF) | payer MEDICARE, SELFPAY ==
[2021-03-27 12:49] LABS: COVID-19 RT-PCR UVMMC Result Negative (Negative)
== END 2021-03-25 10:41 | disposition home or self-care (01) ==
LOC: LBN 10:40
PROVIDERS: PCP Family Medicine; Visit Provider Family Medicine
DX: R06.02 Shortness of breath (principal); Z20.822 Contact with and (suspected) exposure to COVID-19
CPT/HCPCS: U0003

== ENCOUNTER 2021-04-02 01:25 | Outpatient (CLI) | payer MEDICARE, SELFPAY ==
--- NOTE | 2021-04-02 06:45 | DI.NM_ITS ---
APPROVED REPORT Exam: Pharmacologic paired w/ low level exercise Patient Location: Out-Patient Room/Bed: Stress Nurse: Domi Louie RN Ordering Provider:CHANDRIKA ROJAS, Contact Number: [phone] BMI: 56.57 Baseline Rhythm: Atrial Fibrillation Indications: SOB Medical History Medical History: Dizziness, SOB, Hx tobacco use, Coronary artery spasm, palpitations, HLD, HTN, Depre ssive disorder, Anxiety, CAD, COPD, Asthma Cardiac Medications: Omeprazole, Diltiazem, Apixaban, Albuterol sulfate Allergies: Bupropion, Morphine, Codeine, Iodinated contrast media, Meperidine, Promethazine, Amoxicil eunice, Atenolol Cardiac Risk Factors: FHX of CAD, HTN, Hyperlipidemia, SOB, COPD, Smoking (former) , Obesity, CVD Previous Cardiac Procedures: None Pretest Chest Pain Characteristics: No chest pain, baseline dyspnea w/ minimal exertion Exercise History: Sedentary Physical Disabilities: Legs Lung Sounds: Diminished Heart Sounds: Irregular, Tachycardia Stress Test Details Test: Pharmacologic stress was paired with low level exercise. Reason for pharmacologic stress test: physical limitation. Nuclear Acquisition: Rest Tc-99m/Stress Tc-99m 1 day Rest Isotope: Tc-99m Sestamibi. Dose: 13.7 Date: 04/02/2021 Injection Time: 0930 Stress Isotope: Tc-99m Sestamibi. Dose: 45.0 Date: 04/02/2021 Injection Time: 1115 HR Resting HR Supine: 96 bpm Max Heart Rate (APMHR): 146.793828 bpm Resting HR Standin bpm Target HR (85% APMHR): 124.399429 bpm Max HR Achieved: 154 bpm % of APMHR: 105.48 Recovery HR: 102 bpm BP Resting BP Supine: 98/68 mmHg Resting BP Standin/64 mmHg Max BP: 120/64 mmHg Recovery BP: 114/64 mmHg ECG Resting ECG: Atrial Fibrillation Ectopy: None Stress ECG: Atrial Fibrillation ST Change: No significant ST segment changes noted Arrhythmia: None Recovery ECG: Atrial Fibrillation Recovery ST Change: No significant ST segment changes noted Recovery Arrhythmia: None Clinical Stress Symptoms: Dyspnea, Headache Rate Pressure Product: 07923 Stress ECG Conclusion 1. Electrocardiogram showed atrial fibrillation, poor R wave progression 2. Patient underwent pharmacologic stress coupled with low-level exercise 3. Peak heart rate achieved was greater than 100% of predicted for age 4. There was no electrocardiographic evidence of myocardial ischemia 5. See MPI report Stress Test Summary STAGE HR BP Symptoms NOTES Supine 96 98/68 1 min post Lexiscan injection 135 severe SOB 3 min post Lexiscan injection 100 112/72 GRUBER 6 min post Lexiscan injection 102 114/64 symptoms resolved Standing 105 120/64 Patient walked on treadmill while receiving lexiscan injection. Patient walked at 0.8 mph w/ 0% grade , decreased to 0.5 mph, and stopped early per patient request. MPI Conclusion Normal myocardial perfusion without evidence of ischemia or prior infarction Normal wall motion, EF 46% Radiologist Interpretation Radiologist agrees with Senior Principal Architect's Interpretation. Radiologist Interpretation by: Konstantin Dejesus MD Interpretation Date/Time: 04/02/2021 16:10:50
[2021-04-02] MEDS: Regadenoson 0.4 MG/5 ML SYR IVP (11:06)
== END 2021-04-02 01:45 ==
LOC: DI 01:26
PROVIDERS: PCP Family Medicine; Visit Provider Family Medicine
DX: R06.02 Shortness of breath (principal); I10 Essential (primary) hypertension; Z87.891 Personal history of nicotine dependence; R42 Dizziness and giddiness
CPT/HCPCS: 78452; 93016; 93018; 93017; J2785

== ENCOUNTER 2021-06-04 06:16 | Outpatient (CLI) | payer MEDICARE, SELFPAY | END 2021-06-04 06:17 | disposition home or self-care (01) | LOC: RT 06:17 | PROVIDERS: PCP Family Medicine; Visit Provider Family Medicine ==

== ENCOUNTER → 2021-06-19 00:24 | Outpatient (CLI) | payer MEDICARE, SELFPAY | PROVIDERS: PCP Family Medicine; Visit Provider Family Medicine ==

== ENCOUNTER 2022-06-03 08:57 | Outpatient (CLI) | payer MEDICARE, SELFPAY ==
[2022-06-03 12:44] LABS: HCT 47.3 % (36.0-46.0); HGB 15.1 g/dL (11.2-15.7); MCHC 31.9 % (32.0-36.0); MCV 94 fL (80-95); MPV 11.9 fL (8.0-11.0); Platelet Count 184 10^3/uL (130-400); RBC 5.04 10^6/uL (3.93-5.22); RDW 14.6 % (11.7-14.6); RDW-SD 50.5 fL; WBC 7.36 10^3/uL (4.4-10.8)
[2022-06-03 13:28] LABS: ALT 20 U/L (14-59); AST 15 U/L (15-37); Albumin 3.5 g/dL (3.4-5.0); Alkaline Phosphatase 95 U/L (46-116); Anion Gap 8.7 mmol/L (3-11); BUN 30 mg/dL (7-18); Bilirubin, Total 0.7 mg/dL (0.2-1.0); CO2 24.3 mmol/L (21.0-32.0); CREATININE 1.6 mg/dL (0.55-1.02); Calcium 8.9 mg/dL (8.5-10.1); Chloride 108 mmol/L (98-107); Estimated GFR 33.42 (mL/min/1.73m2); Glucose 99 mg/dL (74-106); Potassium 4.5 mmol/L (3.5-5.1); Sodium 141 mmol/L (136-145); TSH (W/Ref FT4) 1.38 uIU/mL (0.36-3.74); Total Protein 7.6 g/dL (6.4-8.2); Vitamin B12 332 pg/mL (193-986)
[2022-06-04 10:43] LABS: Hepatitis C Ab w Rflx HCV PCR Negative (Negative)
[2022-06-04 10:53] LABS: HIV-1/2 Ag & Ab Screen Negative (Negative)
== END 2022-06-03 08:58 | disposition home or self-care (01) ==
LOC: LOS 08:58
PROVIDERS: PCP Family Medicine; Referring Provider Family Medicine; Visit Provider Family Medicine
DX: R00.2 Palpitations (principal); I10 Essential (primary) hypertension; R63.4 Abnormal weight loss; R06.02 Shortness of breath; E78.5 Hyperlipidemia, unspecified; Z86.39 Personal history of other endocrine, nutritional and metabolic disease; Z11.4 Encounter for screening for human immunodeficiency virus [HIV]; Z11.59 Encounter for screening for other viral diseases
CPT/HCPCS: 36415; 80053; 85027; 86803; 87389; 82607; 84443

== ENCOUNTER 2022-10-10 12:30 | Outpatient (REF) | payer MEDICARE, SELFPAY | END 2022-10-10 12:31 | disposition home or self-care (01) | LOC: LBN 12:30 | PROVIDERS: PCP Family Medicine; Visit Provider Nurse Practitioner Family | DX: R39.15 Urgency of urination (principal); R82.79 Other abnormal findings on microbiological examination of urine | CPT/HCPCS: 87077; 87086; 87186 ==

== ENCOUNTER → 2022-11-13 08:22 | Outpatient (BNVA) | payer MEDICARE, SELFPAY | PROVIDERS: PCP Family Medicine; Referring Provider Family Medicine; Visit Provider Physical Therapy Assistant | DX: T81.89XD Other complications of procedures, not elsewhere classified, subsequent encounter | CPT/HCPCS: 99213 ==

== ENCOUNTER → 2022-11-20 09:52 | Outpatient (BNVA) | payer MEDICARE, SELFPAY | PROVIDERS: PCP Family Medicine; Referring Provider Family Medicine; Visit Provider Physical Therapy Assistant | DX: L98.9 Disorder of the skin and subcutaneous tissue, unspecified (principal) | CPT/HCPCS: 99212 ==

== ENCOUNTER → 2022-12-04 10:01 | Outpatient (BNVA) | payer MEDICARE, SELFPAY | PROVIDERS: PCP Family Medicine; Referring Provider Family Medicine; Visit Provider Surgery | DX: T81.89XA Other complications of procedures, not elsewhere classified, initial encounter (principal); L90.5 Scar conditions and fibrosis of skin; F17.210 Nicotine dependence, cigarettes, uncomplicated | CPT/HCPCS: 11403; 12001 ==

== ENCOUNTER 2022-12-04 11:02 | Outpatient (REF) | payer MEDICARE, SELFPAY ==
--- NOTE | 2022-12-04 10:45 | SKI_PTH ---
PATIENT: Chema Tcuker LOC: [facility] U#:[id number] AGE/SX: 77/F ROOM: RE12/04/[address]: Yvonne Newton : 1945 BED: DIS: 12/04/2022 SPEC #: [id number] RECD: 12/04/22 12:46 STATUS: CALLY REEdmund #: [id number] BETTYE: 12/04/22 10:[address]: Yvonne Newton DEPT: Surgical Specimen RECD BY: Maddie Nick ENTERED: 12/04/22 12:47 SP TYPE: OLIVIA SANON DR: Chanel Garcia MD, DC Tissues: 1 - SKIN BIOPSY(SHAVE/PUNCH) Procedures: GROSS AND MICRO LEVEL 4 SPECIAL STAIN 1 Comments: [id number]
== END 2022-12-04 11:03 | disposition home or self-care (01) ==
LOC: LBN 11:02
PROVIDERS: PCP Family Medicine; Visit Provider Surgery
DX: T81.89XA Other complications of procedures, not elsewhere classified, initial encounter (principal); L90.5 Scar conditions and fibrosis of skin
CPT/HCPCS: 88305; 88312

== ENCOUNTER → 2022-12-18 14:00 | Outpatient (BNVA) | payer MEDICARE, SELFPAY | PROVIDERS: PCP Family Medicine; Referring Provider Family Medicine; Visit Provider Surgery | DX: Z48.817 Encounter for surgical aftercare following surgery on the skin and subcutaneous tissue (principal); T81.89XD Other complications of procedures, not elsewhere classified, subsequent encounter ==

== ENCOUNTER 2023-10-23 15:25 | Outpatient (REF) | payer OTHER, SELFPAY ==
[2023-10-23 15:31] LABS: Bilirubin Negative (Negative); Blood Negative (Negative); Clarity Sl Cloudy (Clear); Glucose Negative (Negative); Ketones Trace mg/dL (Negative); Leukocyte Esterase Negative (Negative); Nitrite Negative (Negative); Urobilinogen 0.2 mg/dL (Up to 0.2)
[2023-10-23 22:23] LABS: MCH 23.6 pg (27.0-33.0); MCHC 28.2 % (32.0-36.0); MCV 84 fL (80-95); Platelet Count 186 10^3/uL (130-400); RBC 4.66 10^6/uL (3.93-5.22); RDW 18.9 % (11.7-14.6); RDW-SD 55.8 fL
[2023-10-23 23:25] LABS: ALT 20 U/L (14-59); AST 13 U/L (15-37); Albumin 3.5 g/dL (3.4-5.0); Alkaline Phosphatase 105 U/L (46-116); Anion Gap 11.5 mmol/L (3-11); BUN 29 mg/dL (7-18); Bilirubin, Total 0.57 mg/dL (0.2-1.0); CO2 27.5 mmol/L (21.0-32.0); CREATININE 1.5 mg/dL (0.55-1.02); Calculated LDL 89 mg/dL (<100); Chloride 106 mmol/L (98-107); Cholesterol 152 mg/dL (<200); Estimated GFR 35.89 (mL/min/1.73m2); Glucose 107 mg/dL (74-106); HDL Cholesterol 50 mg/dL (40-60); Magnesium 2.3 mg/dL (1.8-2.4); Potassium 4.2 mmol/L (3.5-5.1); Sodium 145 mmol/L (136-145); TSH (W/Ref FT4) 1.26 uIU/mL (0.36-3.74); Triglyceride 69 mg/dL (<150)
== END 2023-10-23 15:26 | disposition home or self-care (01) ==
LOC: LBN 15:25
PROVIDERS: PCP Family Medicine; Visit Provider Nurse Practitioner Family
DX: N39.0 Urinary tract infection, site not specified (principal); I10 Essential (primary) hypertension; R25.2 Cramp and spasm; I25.10 Atherosclerotic heart disease of native coronary artery without angina pectoris; E78.5 Hyperlipidemia, unspecified; R21 Rash and other nonspecific skin eruption; E03.9 Hypothyroidism, unspecified
CPT/HCPCS: 80053; 80061; 85027; 81003; 83735; 84443

== ENCOUNTER 2023-12-23 10:32 | Emergency (ER) | payer OTHER, SELFPAY ==
[2023-12-23] VITALS (14 sets, daily range): BP systolic 149–158; BP diastolic 64–71; PULSE 58–81; RESP 11–23; TEMP 36.3; O2SAT 93–95
--- NOTE | 2023-12-23 10:30 | RT.EKG_ITS ---
APPROVED REPORT Exam: Resting ECG Reason for Exam: dizziness Patient Location: E HR:54 bpm ECG Measurements Heart Rate [address] [id number] P [id number] QRSd 117 QRS 65 QT 476 T 58 QTc 453 Conclusion Atrial fibrillation...? atrial activity Nonspecific intraventricular conduction delay...QRSd >115mS, not LBBB/RBBB Nonspecific repol abnormality, diffuse leads...ST dep, T flat/neg, ant/lat/inf I have reviewed and interpreted ECG and agree with software generated interpretation.
--- NOTE | 2023-12-23 10:30 | DI.CT_ITS ---
Exam(s) CT HEAD WO EXAM: CT HEAD WO CLINICAL HISTORY: Fall, Closed head injury. TECHNIQUE: Imaging Protocol: Axial computed tomography images with coronal and sagittal reformatted images were created and reviewed COMPARISON: CT CT BRAIN NECK CTA from 03/05/2021 FINDINGS: Ventricles and Extra axial spaces: Normal in size and morphology for the patient's age. Hemorrhage: None. Cerebral parenchyma: No evidence of acute infarct or mass. Midline shift: None. Brainstem/Cerebellum: Normal. Calvarium: Hyperostosis frontalis interna. Visualized Paranasal sinuses:Clear. Mastoids: Clear. Soft Tissues: Unremarkable. ORBITS: Unremarkable. PITUITARY: Not enlarged. IMPRESSION: No acute intracranial process. RADIATION DOSE DELIVERED: 922.11mGy.cm Total DLP DATA REPOSITORY: All CT scans at this facility are submitted to the National Radiology Data Registry (NRDR) Dose Index Registry (DIR) with the [employer] [place] [employer] ([employer]). RADIATION OPTIMIZATION: All CT scans at this facility use at least one of these dose optimization te chniques: automated exposure control; mA and/or kV adjustment per patient size (includes targeted exa ms where dose is matched to clinical indication); or iterative reconstruction.
--- NOTE | 2023-12-23 10:45 | ED.GENADUL_ITS ---
Discharge Plan Disposition Patient Disposition: Home Condition: Stable Discharge Details Clinical Impression: Closed head injury without concussion Primary Care Provider: Chanel Garcia ED Provider: Susie Morfin Home Meds and New Rx's Prescriptions: Continued cholecalciferol (vitamin D3) 50 mcg (2,000 unit) capsule 50 mcg PO DAILY triamcinolone acetonide 0.1 % ointment 1 applic Topical BID PRN (Reason: rash) Qty: 80 3RF Rx Instructions: use topically on area. dispense 0.1% oinment in 80 gm tube Shingrix (PF) 50 mcg/0.5 mL suspension for reconstitution 0.5 ml IM ONCE Qty: 1 1RF Rx Instructions: as a single dose. Repeat in 2 months cefpodoxime 200 mg tablet 200 mg PO BID Qty: 14 0RF Rx Instructions: must administer with a meal/food acetaminophen [Tylenol Extra Strength] 500 MG tablet 1,000 mg PO Q4H PRN diphenhydramine HCl [Benadryl Allergy] 25 MG tablet 25 mg PO DAILY PRN oxybutynin chloride 5 mg tablet 10 mg PO BID PRN (Reason: bladder spasms) Qty: 360 4RF omeprazole 20 mg capsule,delayed release(DR/EC) 20 mg PO DAILY Qty: 90 4RF Eliquis 5 mg tablet 5 mg PO BID Qty: 180 12RF diltiazem HCl 30 mg tablet 30 mg PO BID PRN (Reason: Esophageal spasms) Qty: 100 0RF Rx Instructions: take for chest discomfort diltiazem HCl 240 mg capsule,extended release 24 hr 240 mg PO DAILY Qty: 90 5RF furosemide 20 mg tablet 20 mg PO DAILY PRN (Reason: edema) Qty: 90 4RF guaifenesin [Mucinex] 600 mg tablet extended release 12hr 600 mg PO Q12H PRN (Reason: congestion) Qty: 60 3RF albuterol sulfate 90 mcg/actuation HFA aerosol inhaler 1 - 2 puff Inhalation Q4H PRN Qty: 3 5RF meclizine 25 mg tablet 25 mg PO BID PRNQty: 10 0RF Discharge Instructions Instructions: Head injury in adults, Head Injury Observation (DC), Preventing Falls ED Additional Instructions: CT head within normal limits. No evidence of hemorrhage or intracranial bleeding at this time. Please return to the ER for worsening headache, confusion, blurry vision, weakness on one side of your body or the other concerns. Please take Tylenol or Ibuprofen with food every 4-6 hours as needed for pain and swelling. You may apply ice to the back of your head approximately 3 times daily as needed. Follow up with primary care provider in 3-5 days. Return to ED sooner if any worsening or concerns. Referrals: Chanel Garcia MD, [place] [Primary Care Provider] - 3 days HPI General Mode of arrival: EMS . Date/Time Provider Initiated Documentation: 12/23/23 10:44 . Limitations to Documentation: no limitations . Information obtained by: patient, EMS, RN notes reviewed and old records reviewed . HPI Narrative: 78-year-old female presents to the ER via EMS with a chief complaint of mechanical fall she reports that she fell backwards striking the back of her head on a tiled wall. She does have 7 out of 10 pain in the back of her head she has a small hematoma to the scalp no laceration no bleeding. She does take Eliquis daily for atrial fibrillation. She denies any nausea dizziness or changes in vision. No focal neurodeficits noted on exam. No other injuries denies any neck pain or back pain. Other past medical history includes obesity, coronary artery disease, COPD. Related Data Home Medications ?Medication ?Instructions ?Recorded ?Confirmed acetaminophen 500 mg tablet 1,000 mg PO Q4H PRN 08/06/15 12/23/23 (Tylenol Extra Strength) diphenhydramine HCl 25 mg tablet 25 mg PO DAILY PRN 05/20/16 12/23/23 (Benadryl Allergy) triamcinolone acetonide 0.1 % 1 applic topical BID PRN rash #80 01/26/18 12/23/23 topical ointment appful cholecalciferol (vitamin D3) 50 50 mcg PO DAILY 12/24/20 12/23/23 mcg (2,000 unit) capsule meclizine 25 mg tablet 25 mg PO BID PRN #10 tabs 03/05/21 12/23/23 oxybutynin chloride 5 mg tablet 10 mg (2 x 5 mg) PO BID PRN 06/04/23 12/23/23 bladder spasms #360 tabs apixaban 5 mg tablet (Eliquis) 5 mg PO BID #180 tabs 06/09/23 12/23/23 diltiazem HCl 240 mg capsule,24 240 mg PO DAILY #90 caps 06/09/23 12/23/23 hr,extended release diltiazem HCl 30 mg tablet 30 mg PO BID PRN Esophageal spasms 06/09/23 12/23/23 #100 tab-caps furosemide 20 mg tablet 20 mg PO DAILY PRN edema #90 06/09/23 12/23/23 tab-caps guaifenesin 600 mg tablet, 600 mg PO Q12H PRN congestion #60 06/09/23 12/23/23 extended release 12 hr (Mucinex) tabs omeprazole 20 mg capsule,delayed 20 mg PO DAILY #90 caps 06/09/23 12/23/23 release varicella-zoster glycoE [id number] 0.5 ml IM ONCE #1 ea 06/23/23 12/23/23 adj(PF) 50 mcg/0.5 mL IM susp, kit (Shingrix (PF)) albuterol sulfate 90 mcg/actuation 1 - 2 puff inhalation Q4H PRN ##3 10/09/23 12/23/23 aerosol inhaler cefpodoxime 200 mg tablet 200 mg PO BID #14 tabs 10/23/23 12/23/23 Previous Rx's ?Medication ?Instructions ?Recorded triamcinolone acetonide 0.1 % 1 applic topical BID PRN rash #80 01/26/18 topical ointment appful meclizine 25 mg tablet 25 mg PO BID PRN #10 tabs 03/05/21 oxybutynin chloride 5 mg tablet 10 mg (2 x 5 mg) PO BID PRN 06/04/23 bladder spasms #360 tabs apixaban 5 mg tablet (Eliquis) 5 mg PO BID #180 tabs 06/09/23 diltiazem HCl 240 mg capsule,24 240 mg PO DAILY #90 caps 06/09/23 hr,extended release diltiazem HCl 30 mg tablet 30 mg PO BID PRN Esophageal spasms 06/09/23 #100 tab-caps furosemide 20 mg tablet 20 mg PO DAILY PRN edema #90 06/09/23 tab-caps guaifenesin 600 mg tablet, 600 mg PO Q12H PRN congestion #60 06/09/23 extended release 12 hr (Mucinex) tabs omeprazole 20 mg capsule,delayed 20 mg PO DAILY #90 caps 06/09/23 release varicella-zoster glycoE [id number] 0.5 ml IM ONCE #1 ea 06/23/23 adj(PF) 50 mcg/0.5 mL IM susp, kit (Shingrix (PF)) albuterol sulfate 90 mcg/actuation 1 - 2 puff inhalation Q4H PRN ##3 10/09/23 aerosol inhaler cefpodoxime 200 mg tablet 200 mg PO BID #14 tabs 10/23/23 Allergies Allergy/AdvReac Type Severity Reaction Status Date / Time Tetanus Vaccines and Toxoid Allergy Severe Massive Verified 12/23/23 10:43 (Tetanus Vaccines \E&E\ Local Toxoid) Reaction amoxicillin Allergy Unknown HIVES Verified 12/23/23 10:43 atenolol AdvReac Intermediate Fluid Verified 12/23/23 10:43 Retention bupropion (From Wellbutrin AdvReac Intermediate nausea Verified 12/23/23 10:43 SR) morphine AdvReac Intermediate Jittery Verified 12/23/23 10:43 COVID-19 (SARS-CoV-2) AdvReac Mild redness Verified 12/23/23 10:43 vaccine, [place]enix (Pheizer) codeine AdvReac Unknown ANXIETY Verified 12/23/23 10:43 Iodinated Contrast Media AdvReac Unknown ANXIETY Verified 12/23/23 10:43 (Iodinated Contrast- Oral and IV Dye) meperidine AdvReac Unknown NAUSEA/VOMI Verified 12/23/23 10:43 TING promethazine AdvReac Unknown ANXIETY Verified 12/23/23 10:43 General Stated Complaint: Fall/Non TraumaCriteria VINEET: 3 Review of Systems All systems reviewed & are unremarkable except as noted in HPI and below Constitutional Constitutional: Reports frequent falls Integumentary/Breasts Skin/Breast: Reports skin pain and Reports skin swelling Neurologic Neurologic: Reports frequent falls Exam Narrative Exam Narrative: General: Well Developed, Awake and Alert, conversant. Patient is obese. Skin: Warm and Dry HEENT: Head: No palpable deformities, Normocephalic. She does have some scalp swelling hematoma noted to her occipital scalp. No laceration or bleeding noted. Eyes: Pupils PERRLA, EOM's intact. No periorbital eccymosis or step off Ears: Canal patent. Tympanic membranes are clear . No lucia's sign, no hemptympanum. Nose/Face: Atraumatic. Facial bones nontender to palpation and stable with manipulation. Mouth/Throat: No intraoral trauma. Teeth and mandible are intact. Neck: No midline tenderness, no step off, no deformity to palpation of C-spine. Trachea midline. Chest: No surface trauma. Nontender without crepitus or deformity. Lungs clear to ausculatation bilaterally. Heart: RRR, no rubs, murmurs or gallop. Abdomen: No abrasions, ecchymosis, or surface trauma. Nondistended. Nontender to palpation no guarding, rebound, or rigidity. Pelvis: Nontender to palpation and stable to compression. Femoral pulses strong and equal Extremities: no surface trauma. Sensation intact. Peripheral pulses intact and equal. Neuro: ANO x4, GCS 15, cranial nerves II through XII intact. Motor and sensory exam nonfocal. Reflexes are symmetric. Course Vital Signs Vital signs: Vital Signs Temperature 36.3 C L 12/23/23 10:34 Pulse 65 12/23/23 10:34 Respiratory Rate 20 12/23/23 10:34 Blood Pressure 158/64 H 12/23/23 10:34 Pulse Oximetry 93 12/23/23 10:34 Temperature 36.3 C L 12/23/23 10:34 Temperature Source Oral 12/23/23 10:34 Pulse 65 12/23/23 10:34 Respiratory Rate 20 12/23/23 10:34 Respiratory Effort Normal 12/23/23 10:42 Blood Pressure 158/64 H 12/23/23 10:34 Blood Pressure Position Sitting 12/23/23 10:34 Pulse Oximetry 93 12/23/23 10:34 Oxygen Delivery Method Room Air 12/23/23 10:34 Oxygen Flow Rate 0 12/23/23 10:34 Medical Decision Making 78-year-old female presents to the ER via EMS with a chief complaint of mechanical fall she reports that she fell backwards striking the back of her hea d on a tiled wall. She does have 7 out of 10 pain in the back of her head she has a small hematoma to the scalp no laceration no bleeding. She does take Eliquis daily for atrial fibrillation. She denies any nausea dizziness or changes in vision. No focal neurodeficits noted on exam. No other injuries denies any neck pain or back pain. Other past medical history includes obesity, coronary artery disease, COPD. CT WNL, Will discharge with strict return instructions and home care. Discussed CT results with patient who verbalized understanding. Patient discharged in ambulatory condition with her walker she remained hemodynamically stable throughout the remainder of her stay. Discussed tricked return instructions she verbalized understanding. This text was generated using [employer] dictation system, please disregard any oddities of phrase or misspellings. Imaging Data Radiologic Study: Imaging: CT Scan Radiologist's impression: FINDINGS: Ventricles and Extra axial spaces: Normal in size and morphology for the patient's age. Hemorrhage: None. Cerebral parenchyma: No evidence of acute infarct or mass. Midline shift: None. Brainstem/Cerebellum: Normal. Calvarium: Hyperostosis frontalis interna. Visualized Paranasal sinuses:Clear. Mastoids: Clear. Soft Tissues: Unremarkable. ORBITS: Unremarkable. PITUITARY: Not enlarged. IMPRESSION: No acute intracranial process. Quality:SDOH Health Related Social Needs: No Data to Display PFSH All Active Problems (Updated 12/23/23 @ 12:14 by Susie Morfin NP) Closed head injury without concussion (Acute) Leg cramps (Acute ~10/23/23) Trigger finger of left hand (Acute) Non-healing surgical wound (Acute) CAD (coronary artery disease) (Chronic 03/29/13) Abnormal renal function (Chronic) elevated creatinine Anxiety (Chronic) COPD with acute exacerbation (Chronic 04/17/16) Depressive disorder (Chronic) Essential hypertension (Chronic) Urinary, incontinence, stress female (Chronic 08/24/12) 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 Hyperlipidemia (Chronic) 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) right sided sciatica w/ disc herniation L5- XRAY 2014 - djd Meralgia paresthetica (Chronic 01/08/02) right Morbid obesity (Chronic 08/06/15) Need for subacute bacterial endocarditis prophylaxis (Chronic 05/02/14) Clinda 600mg once - 60 min before procedure Osteopenia (Chronic) 2003 T-scores: -0.8, -0.2; -1.8 Palpitations (Chronic 08/24/12) Psoriasis (Chronic 08/30/12) Vitamin D deficiency (Chronic 05/26/08) Weight loss (Chronic 03/09/17) Coronary artery spasm (Acute 03/11/07) Tobacco use disorder (Acute) Acute UTI (Acute) COVID-19 (Acute) New onset-12/23/21 Advance care planning (Acute) Shortness of breath (Acute) Sleep apnea (Acute) Screening for HIV (human immunodeficiency virus) (Acute) Subcutaneous mass of toe of right foot (Acute) medial aspect base of right great toe Skin lesion (Acute) Urinary tract infection (Acute) Medical History Abnormal mammogram (01/08/03) Appendicitis (03/11/07) Clostridium difficile infection (03/11/07) Disorder of gallbladder (03/11/07) Lipoma (03/11/07) Tobacco use disorder quit 2004 Abnormal mammogram, unspecified 01/08/03 Clostridium difficile infection 03/11/07 Unspecified appendicitis 03/11/07 Disorder of gallbladder 03/11/07 Lipoma 03/11/07 removed 04/05/12 by Fabrice Lares Ventral hernia with obstruction but no gangrene (03/11/07) epigastric and ventral Shortness of breath (11/05/15) Shingles (03/10/17) Hiatal hernia (03/11/07) EGD; inflammation Acute myocardial infarction (08/24/12) 2006 ECHO showing LVH 75% Surgical History Status post abdominal hysterectomy Status post appendectomy Status post breast biopsy Status post cholecystectomy Status post hernia repair Status post total knee replacement S/P abdominal hysterectomy endometriosis S/P cholecystectomy S/P appendectomy S/P total knee replacement 02/09/95 left S/P breast biopsy, left 02/10/12 lipoma S/P hernia repair 07/10/13 Replacement of total knee joint 1995 LEFT 2004 RIGHT Abdominal hysterectomy endometriosis HERNIA REPAIR (~07/2013) Cholecystectomy Extraction of cataract 11/14/16 DR. MARISCAL; LEFT EYE Biopsy of breast (04/05/12) lipoma; left breast Appendectomy Family History Mother , age 61 Diabetes Essential hypertension Heart disease Hyperlipidemia DVT (deep venous thrombosis) Asthma Father , age 75 Essential hypertension Heart disease Hyperlipidemia Stroke Lung cancer Sister , age 41 Lung cancer Maternal Grandfather , age 88 No problems noted. Paternal Grandfather No problems noted. Maternal Grandmother , age 88 Hyperlipidemia Hypertension Paternal Grandmother Essential hypertension Hyperlipidemia Brother , age 70 Diabetes Essential hypertension Heart disease Alcohol abuse Brother , age 68 No problems noted. Son Depression Hyperlipidemia Alcohol abuse Heart disease Hypertension Son No problems noted. Daughter Essential hypertension Depression DVT (deep venous thrombosis) Asthma Alcohol abuse Hyperlipidemia Substance abuse Social History Smoking/Tobacco Use Status: Former Tobacco Use tobacco type: cigarettes Quit Date: 12/17/03 Tobacco: How many years used: 30 Smoking risk assessment performed?: Yes Alcohol Intake: never Drug use: Never Substance use type: does not use Caregiver/Support person: No Household members: none Communication Needs: Hard of Hearing Pets and animals: No Sexually active: No Current gender identity: female and decline to answer What is your relationship status?: How often do you talk on the phone with friends or family?: twice per week How often do you get together with friends or relatives?: decline to answer How often do you attend baptist or hindu services?: decline to answer Do you belong to any clubs or organized social groups?: decline to answer Panel score (0-1 are the most socially isolated patients): 0 What type of physical activity do you participate in: none and walking Frequency: 3-4 times per week Trish/Yarsani: Uatsdin Special trish needs: No Seatbelt use: always Helmet use: No Drive intox or ride w/intox lease purchase driver: No Do you feel safe at home: Yes Do you feel safe in your relationship?: Yes Would you like helpful sources: No
[2023-12-23] MEDS: Acetaminophen 500 MG TAB PO (11:00)
== END 2023-12-23 12:29 | disposition home or self-care (01) ==
PROVIDERS: Emergency Provider Registered Nurse Emergency; PCP Family Medicine
DX: S09.8XXA Other specified injuries of head, initial encounter (principal); I25.10 Atherosclerotic heart disease of native coronary artery without angina pectoris; I25.2 Old myocardial infarction; I48.91 Unspecified atrial fibrillation; J44.9 Chronic obstructive pulmonary disease, unspecified; Z79.01 Long term (current) use of anticoagulants; Z87.891 Personal history of nicotine dependence; W01.198A Fall on same level from slipping, tripping and stumbling with subsequent striking against other object, initial encounter; Y93.01 Activity, walking, marching and hiking; Y92.018 Other place in single-family (private) house as the place of occurrence of the external cause
CPT/HCPCS: 93005; 99284; 70450; 93010

== ENCOUNTER 2023-12-28 12:01 | Emergency (ER) | payer OTHER, SELFPAY ==
[2023-12-28] VITALS (26 sets, daily range): BP systolic 142–201; BP diastolic 51–114; PULSE 60–98; RESP 10–30; TEMP 36.5; O2SAT 78–98
--- NOTE | 2023-12-28 12:00 | RT.EKG_ITS ---
APPROVED REPORT Exam: Resting ECG Reason for Exam: shortness of breath Patient Location: E HR:82 bpm ECG Measurements Heart Rate 82 AXIS MO [id number] P [id number] QRSd 118 QRS 32 QT 419 T 46 QTc 490 Conclusion Atrial fibrillation...V-rate 62-101, irreg A-activity Nonspecific intraventricular conduction delay...QRSd >115mS, not LBBB/RBBB Rate controlled atrial fibrillation at a rate of 82. Normal axis. Interventricular conduction delay . QTc within normal limits. No ST segment abnormalities. T wave flattening lead aVL and lead III. Appears similar to prior dated earlier this month.
[2023-12-28 13:00] LABS: Abs Immature Grans 0.01 10^3/uL (0.0-0.06); Absolute Basophil Count 0.03 10^3/uL (0.0-0.2); Absolute Eosinophil Count 0.28 10^3/uL (0.0-0.7); Absolute Lymphocyte Count 1.71 10^3/uL (1.2-3.4); Absolute Monocyte Count 0.73 10^3/uL (0.1-0.8); Absolute Neutrophil Count 3.06 10^3/uL (1.2-6.7); Basophils % 0.5 %; Eosinophils % 4.8 %; HCT 37.4 % (36.0-46.0); HGB 10.6 g/dL (11.2-15.7); Immature Grans % 0.2 %; Lymphocytes % 29.4 %; MCH 22.8 pg (27.0-33.0); MCHC 28.3 % (32.0-36.0); MCV 81 fL (80-95); MPV 10.9 fL (8.0-11.0); Monocytes % 12.5 %; Neutrophils % 52.6 %; Platelet Count 149 10^3/uL (130-400); RBC 4.64 10^6/uL (3.93-5.22); RDW 19.6 % (11.7-14.6); RDW-SD 56.2 fL; WBC 5.82 10^3/uL (4.4-10.8)
[2023-12-28 13:12] LABS: INR 1.1 (0.9-1.1); Prothrombin Time 11.1 sec (9.1-11.1)
[2023-12-28 13:34] LABS: Bilirubin Negative (Negative); Blood Negative (Negative); Clarity Clear (Clear); Glucose Negative (Negative); Ketones Negative (Negative); Leukocyte Esterase Negative (Negative); Nitrite Negative (Negative); Specific Gravity 1.015 (1.005-1.025); pH 6.5 (5-8)
[2023-12-28 13:37] LABS: ALT 19 U/L (14-59); AST 18 U/L (15-37); Albumin 3.4 g/dL (3.4-5.0); Alkaline Phosphatase 97 U/L (46-116); Anion Gap 7.3 mmol/L (3-11); BUN 18 mg/dL (7-18); Bilirubin, Total 0.74 mg/dL (0.2-1.0); CO2 30.7 mmol/L (21.0-32.0); CREATININE 1.3 mg/dL (0.55-1.02); Calcium 9.2 mg/dL (8.5-10.1); Chloride 106 mmol/L (98-107); Estimated GFR 42.62 (mL/min/1.73m2); Glucose 95 mg/dL (74-106); Lipase 18 U/L (16-77); Potassium 3.7 mmol/L (3.5-5.1); Sodium 144 mmol/L (136-145); Total Protein 7.4 g/dL (6.4-8.2); Troponin I 10 ng/L (<or=51)
[2023-12-28] MEDS: Omnipaque 350 MG/ML 100 ML BTL IJ (14:00)
[2023-12-28] MEDS: Normal Saline - Diluent 50 ML VIAL IJ (14:02)
[2023-12-28] MEDS: LORazepam 2 MG/ML VIAL 0.5 MG IVP (14:17)
--- NOTE | 2023-12-28 14:30 | ED.GENADUL_ITS ---
Discharge Plan Disposition Patient Disposition: Home Condition: Stable Discharge Details Clinical Impression: Rectal bleeding Primary Care Provider: Chanel Garcia ED Provider: Chito Brown Home Meds and New Rx's Prescriptions: Continued cholecalciferol (vitamin D3) 50 mcg (2,000 unit) capsule 50 mcg PO DAILY triamcinolone acetonide 0.1 % ointment 1 applic Topical BID PRN (Reason: rash) Qty: 80 3RF Rx Instructions: use topically on area. dispense 0.1% oinment in 80 gm tube Shingrix (PF) 50 mcg/0.5 mL suspension for reconstitution 0.5 ml IM ONCE Qty: 1 1RF Rx Instructions: as a single dose. Repeat in 2 months acetaminophen [Tylenol Extra Strength] 500 MG tablet 1,000 mg PO Q4H PRN diphenhydramine HCl [Benadryl Allergy] 25 MG tablet 25 mg PO DAILY PRN oxybutynin chloride 5 mg tablet 10 mg PO BID PRN (Reason: bladder spasms) Qty: 360 4RF omeprazole 20 mg capsule,delayed release(DR/EC) 20 mg PO DAILY Qty: 90 4RF diltiazem HCl 30 mg tablet 30 mg PO BID PRN (Reason: Esophageal spasms) Qty: 100 0RF Rx Instructions: take for chest discomfort diltiazem HCl 240 mg capsule,extended release 24 hr 240 mg PO DAILY Qty: 90 5RF furosemide 20 mg tablet 20 mg PO DAILY PRN (Reason: edema) Qty: 90 4RF guaifenesin [Mucinex] 600 mg tablet extended release 12hr 600 mg PO Q12H PRN (Reason: congestion) Qty: 60 3RF albuterol sulfate 90 mcg/actuation HFA aerosol inhaler 1 - 2 puff Inhalation Q4H PRN Qty: 3 5RF meclizine 25 mg tablet 25 mg PO BID PRNQty: 10 0RF Held Eliquis 5 mg tablet 5 mg PO BID Qty: 180 12RF Hold Instructions: Resume on 01/04/24. HOLD ELIQUIS UNTIL CLEARED BY PCP/CARDIOLOGY TO RESTART Discharge Instructions Instructions: GI bleed Additional Instructions: You were seen in the emergency department for your bleeding internal hemorrhoid, GI bleeding is common at your age. You need to be taking lots of [id number] stool softeners so that you are not straining to go to the bathroom and worsening your hemorrhoid. Your CT showed no active GI bleeding, you need to speak with your primary care provider about possibly restarting Eliquis, you need to monitor yourself for increased GI bleeding once this happens. Please return to the emergency department for any increasing signs of blood loss like dizziness, syncope, severe increase in GI bleeding. Referrals: Chanel Garcia MD, [place] [Primary Care Provider] - Discharge Data Discharge Date/Time-TO BE ENTERED AT DEPARTURE: 12/28/23 15:54 HPI General Date/Time Provider Initiated Documentation: 12/28/23 12:29 . HPI Narrative: This 78-year-old female presents with report as bleeding from her rectum status post fall. Patient states that she fell on Thursday and has had some intermittent bleeding since Thursday from her rectum. She denies any actual stool but when she sits on the toilet she notes blood in the bowl. Patient states she takes Eliquis and discontinued her Eliquis last evening. She states she has not had bleeding since early this morning. She denies any new shortness of breath or chest discomfort. She denies any fever or chills. She does have some pain around the tailbone region per patient. She denies any pain medication that she has been taking. Has had hemorrhoidal bleeding before denies prior GI bleed. Denies any alcohol use or nonsteroidal use. Related Data Home Medications ?Medication ?Instructions ?Recorded ?Confirmed acetaminophen 500 mg tablet 1,000 mg PO Q4H PRN 08/06/15 12/28/23 (Tylenol Extra Strength) diphenhydramine HCl 25 mg tablet 25 mg PO DAILY PRN 05/20/16 12/28/23 (Benadryl Allergy) triamcinolone acetonide 0.1 % 1 applic topical BID PRN rash #80 01/26/18 12/28/23 topical ointment appful cholecalciferol (vitamin D3) 50 50 mcg PO DAILY 12/24/20 12/28/23 mcg (2,000 unit) capsule meclizine 25 mg tablet 25 mg PO BID PRN #10 tabs 03/05/21 12/28/23 oxybutynin chloride 5 mg tablet 10 mg (2 x 5 mg) PO BID PRN 06/04/23 12/28/23 bladder spasms #360 tabs apixaban 5 mg tablet (Eliquis) 5 mg PO BID #180 tabs 06/09/23 12/28/23 diltiazem HCl 240 mg capsule,24 240 mg PO DAILY #90 caps 06/09/23 12/28/23 hr,extended release diltiazem HCl 30 mg tablet 30 mg PO BID PRN Esophageal spasms 06/09/23 12/28/23 #100 tab-caps furosemide 20 mg tablet 20 mg PO DAILY PRN edema #90 06/09/23 12/28/23 tab-caps guaifenesin 600 mg tablet, 600 mg PO Q12H PRN congestion #60 06/09/23 12/28/23 extended release 12 hr (Mucinex) tabs omeprazole 20 mg capsule,delayed 20 mg PO DAILY #90 caps 06/09/23 12/28/23 release varicella-zoster glycoE [id number] 0.5 ml IM ONCE #1 ea 06/23/23 12/28/23 adj(PF) 50 mcg/0.5 mL IM susp, kit (Shingrix (PF)) albuterol sulfate 90 mcg/actuation 1 - 2 puff inhalation Q4H PRN ##3 10/09/23 12/28/23 aerosol inhaler Previous Rx's ?Medication ?Instructions ?Recorded triamcinolone acetonide 0.1 % 1 applic topical BID PRN rash #80 01/26/18 topical ointment appful meclizine 25 mg tablet 25 mg PO BID PRN #10 tabs 03/05/21 oxybutynin chloride 5 mg tablet 10 mg (2 x 5 mg) PO BID PRN 06/04/23 bladder spasms #360 tabs apixaban 5 mg tablet (Eliquis) 5 mg PO BID #180 tabs 06/09/23 diltiazem HCl 240 mg capsule,24 240 mg PO DAILY #90 caps 06/09/23 hr,extended release diltiazem HCl 30 mg tablet 30 mg PO BID PRN Esophageal spasms 06/09/23 #100 tab-caps furosemide 20 mg tablet 20 mg PO DAILY PRN edema #90 06/09/23 tab-caps guaifenesin 600 mg tablet, 600 mg PO Q12H PRN congestion #60 06/09/23 extended release 12 hr (Mucinex) tabs omeprazole 20 mg capsule,delayed 20 mg PO DAILY #90 caps 06/09/23 release varicella-zoster glycoE [id number] 0.5 ml IM ONCE #1 ea 06/23/23 adj(PF) 50 mcg/0.5 mL IM susp, kit (Shingrix (PF)) albuterol sulfate 90 mcg/actuation 1 - 2 puff inhalation Q4H PRN ##3 10/09/23 aerosol inhaler Allergies Allergy/AdvReac Type Severity Reaction Status Date / Time Tetanus Vaccines and Toxoid Allergy Severe Massive Verified 12/28/23 12:16 (Tetanus Vaccines \E&E\ Local Toxoid) Reaction amoxicillin Allergy Unknown HIVES Verified 12/28/23 12:16 atenolol AdvReac Intermediate Fluid Verified 12/28/23 12:16 Retention bupropion (From Wellbutrin AdvReac Intermediate nausea Verified 12/28/23 12:16 SR) morphine AdvReac Intermediate Jittery Verified 12/28/23 12:16 COVID-19 (SARS-CoV-2) AdvReac Mild redness Verified 12/28/23 12:16 vaccine, [place] (Pheizer) codeine AdvReac Unknown ANXIETY Verified 12/28/23 12:16 Iodinated Contrast Media AdvReac Unknown ANXIETY Verified 12/28/23 12:16 (Iodinated Contrast- Oral and IV Dye) meperidine AdvReac Unknown NAUSEA/VOMI Verified 12/28/23 12:16 TING promethazine AdvReac Unknown ANXIETY Verified 12/28/23 12:16 General Stated Complaint: RespSymp VINEET: 3 Exam Narrative Exam Narrative: 78-year-old female presenting in no acute distress, abdomen nontender, small bruises noted lumbar spine sacral region, external hemorrhoids noted without any evidence of bleeding, at the 11 o'clock position with anoscope, patient does have an macerated internal hemorrhoid that has the appearance of recent bleeding and is tender, no obvious external bleeding, alert and oriented, ambulatory with steady gait, cardiac rate rhythm regular, distal pulses intact Course Vital Signs Vital signs: Vital Signs Temperature 36.5 C 12/28/23 12:13 Pulse 79 12/28/23 12:13 Respiratory Rate 24 12/28/23 12:13 Blood Pressure 201/75 H 12/28/23 12:13 Pulse Oximetry 96 12/28/23 12:13 Temperature 36.5 C 12/28/23 14:17 Temperature Source Oral 12/28/23 12:33 Pulse 79 12/28/23 12:33 Respiratory Rate 24 12/28/23 12:33 Respiratory Effort Normal, Non-Labored, Short of Breath 12/28/23 13:07 Blood Pressure 201/75 H 12/28/23 12:33 Blood Pressure Position Sitting 12/28/23 12:33 Pulse Oximetry 96 12/28/23 12:33 Oxygen Delivery Method Room Air 12/28/23 12:33 Oxygen Flow Rate 0 12/28/23 12:33 Lab/Test Results Lab/Test Results: Laboratory Tests Range/Units 12/28/23 12/28/23 12:08 12:27 WBC (4.4-10.8) 10^3/uL 5.82 RBC (3.93-5.22) 10^6/uL 4.64 Hgb (11.2-15.7) g/dL 10.6 L Hct (36.0-46.0) % 37.4 MCV (80-95) fL 81 MCH (27.0-33.0) pg 22.8 L MCHC (32.0-36.0) % 28.3 L RDW (11.7-14.6) % 19.6 H Plt Count (130-400) 10^3/uL 149 MPV (8.0-11.0) fL 10.9 Immature Gran % % 0.2 Neutrophils % % 52.6 Lymphocytes % % 29.4 Monocytes % % 12.5 Eosinophils % % 4.8 Basophils % % 0.5 Nucleated RBC % (0.0-0.3) % 0.0 Absolute Neutrophils (1.2-6.7) 10^3/uL 3.06 Absolute Lymphocytes (1.2-3.4) 10^3/uL 1.71 Absolute Monocytes (0.1-0.8) 10^3/uL 0.73 Absolute Eosinophils (0.0-0.7) 10^3/uL 0.28 Absolute Basophils (0.0-0.2) 10^3/uL 0.03 PT (9.1-11.1) sec 11.1 INR (0.9-1.1) 1.1 Sodium (136-145) mmol/L 144 Potassium (3.5-5.1) mmol/L 3.7 Chloride (98-107) mmol/L 106 Carbon Dioxide (21.0-32.0) mmol/L 30.7 Anion Gap (3-11) mmol/L 7.3 BUN (7-18) mg/dL 18 Creatinine (0.55-1.02) mg/dL 1.3 H Est GFR (CKD-EPI 2020) (mL/min/1.73m2) 42.62 Glucose (74-106) mg/dL 95 Calcium (8.5-10.1) mg/dL 9.2 Total Bilirubin (0.2-1.0) mg/dL 0.74 AST (15-37) U/L 18 ALT (14-59) U/L 19 Alkaline Phosphatase (46-116) U/L 97 Troponin I (<or=51) ng/L 10 Total Protein (6.4-8.2) g/dL 7.4 Albumin (3.4-5.0) g/dL 3.4 Lipase (16-77) U/L 18 Urine Color (Yellow) Yellow Urine Clarity (Clear) Clear Urine pH (5-8) 6.5 Ur Specific [place] (1.005-1.025) 1.015 Urine Protein (Neg-Trace) mg/dL Negative Urine Ketones (Negative) mg/dL Negative Urine Blood (Negative) Negative Urine Nitrite (Negative) Negative Urine Bilirubin (Negative) Negative Urine Urobilinogen (Up to 0.2) mg/dL 2.0 H Ur Leukocyte Esterase (Negative) Negative Urine Glucose (Negative) mg/dL Negative ABO/Rh A Negative Antibody Screen NEGATIVE Medical Decision Making 78-year-old female in no acute distress with internal hemorrhoid I suspect is bleeding, given recent trauma and patient being anticoagulated on Eliquis I did order CT abdomen and pelvis. If the CT abdomen and pelvis is negative and patient remains hemodynamically stable, surgical consult given that patient is on Eliquis with a recently bleeding internal hemorrhoid. Hemodynamically stable aside from mild elevation in blood pressure. Hemoglobin 10.6 unchanged from prior. Pending CTA and surgical consultation at this time. Quality:SDOH Health Related Social Needs: No Data to Display PFSH All Active Problems (Updated 12/28/23 @ 15:15 by BRITNI Triana) Rectal bleeding (Acute) Atrial fibrillation (Chronic) Closed head injury without concussion (Acute) Leg cramps (Acute ~10/23/23) Trigger finger of left hand (Acute) Non-healing surgical wound (Acute) CAD (coronary artery disease) (Chronic 03/29/13) Abnormal renal function (Chronic) elevated creatinine Anxiety (Chronic) COPD with acute exacerbation (Chronic 04/17/16) Depressive disorder (Chronic) Essential hypertension (Chronic) Urinary, incontinence, stress female (Chronic 08/24/12) 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 Hyperlipidemia (Chronic) 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) right sided sciatica w/ disc herniation L5- XRAY 2014 - djd Meralgia paresthetica (Chronic 01/08/02) right Morbid obesity (Chronic 08/06/15) Need for subacute bacterial endocarditis prophylaxis (Chronic 05/02/14) Clinda 600mg once - 60 min before procedure Osteopenia (Chronic) 2003 T-scores: -0.8, -0.2; -1.8 Palpitations (Chronic 08/24/12) Psoriasis (Chronic 08/30/12) Vitamin D deficiency (Chronic 05/26/08) Weight loss (Chronic 03/09/17) Coronary artery spasm (Acute 03/11/07) Tobacco use disorder (Acute) Acute UTI (Acute) COVID-19 (Acute) New onset-12/23/21 Advance care planning (Acute) Shortness of breath (Acute) Sleep apnea (Acute) Screening for HIV (human immunodeficiency virus) (Acute) Subcutaneous mass of toe of right foot (Acute) medial aspect base of right great toe Skin lesion (Acute) Urinary tract infection (Acute) Medical History Abnormal mammogram (01/08/03) Appendicitis (03/11/07) Clostridium difficile infection (03/11/07) Disorder of gallbladder (03/11/07) Lipoma (03/11/07) Tobacco use disorder quit 2004 Abnormal mammogram, unspecified 01/08/03 Clostridium difficile infection 03/11/07 Unspecified appendicitis 03/11/07 Disorder of gallbladder 03/11/07 Lipoma 03/11/07 removed 04/05/12 by Fabrice Lares Ventral hernia with obstruction but no gangrene (03/11/07) epigastric and ventral Shortness of breath (11/05/15) Shingles (03/10/17) Hiatal hernia (03/11/07) EGD; inflammation Acute myocardial infarction (08/24/12) 2006 ECHO showing LVH 75% Surgical History Status post abdominal hysterectomy Status post appendectomy Status post breast biopsy Status post cholecystectomy Status post hernia repair Status post total knee replacement S/P abdominal hysterectomy endometriosis S/P cholecystectomy S/P appendectomy S/P total knee replacement 02/09/95 left S/P breast biopsy, left 02/10/12 lipoma S/P hernia repair 07/10/13 Replacement of total knee joint 1995 LEFT 2004 RIGHT Abdominal hysterectomy endometriosis HERNIA REPAIR (~07/2013) Cholecystectomy Extraction of cataract 11/14/16 DR. MARISCAL; LEFT EYE Biopsy of breast (04/05/12) lipoma; left breast Appendectomy Family History Mother , age 61 Diabetes Essential hypertension Heart disease Hyperlipidemia DVT (deep venous thrombosis) Asthma Father , age 75 Essential hypertension Heart disease Hyperlipidemia Stroke Lung cancer Sister , age 41 Lung cancer Maternal Grandfather , age 88 No problems noted. Paternal Grandfather No problems noted. Maternal Grandmother , age 88 Hyperlipidemia Hypertension Paternal Grandmother Essential hypertension Hyperlipidemia Brother , age 70 Diabetes Essential hypertension Heart disease Alcohol abuse Brother , age 68 No problems noted. Son Depression Hyperlipidemia Alcohol abuse Heart disease Hypertension Son No problems noted. Daughter Essential hypertension Depression DVT (deep venous thrombosis) Asthma Alcohol abuse Hyperlipidemia Substance abuse Social History Smoking/Tobacco Use Status: Former Tobacco Use tobacco type: cigarettes Quit Date: 12/17/03 Tobacco: How many years used: 30 Smoking risk assessment performed?: Yes Alcohol Intake: never Drug use: Never Substance use type: does not use Caregiver/Support person: No Household members: none Communication Needs: Hard of Hearing Pets and animals: No Sexually active: No Current gender identity: female and decline to answer What is your relationship status?: How often do you talk on the phone with friends or family?: twice per week How often do you get together with friends or relatives?: decline to answer How often do you attend restorationist or holiness services?: decline to answer Do you belong to any clubs or organized social groups?: decline to answer Panel score (0-1 are the most socially isolated patients): 0 What type of physical activity do you participate in: none and walking Frequency: 3-4 times per week Trish/Yarsani: Rastafarian Special trish needs: No Seatbelt use: always Helmet use: No Drive intox or ride w/intox team driver: No Do you feel safe at home: Yes Do you feel safe in your relationship?: Yes Would you like helpful sources: No
--- NOTE | 2023-12-28 14:37 | DI.CT_ITS ---
Exam(s) CT ABDOMEN PELVIS CTA EXAM: CT ABDOMEN PELVIS CTA CLINICAL HISTORY: rectal bleeding post fall. TECHNIQUE: Imaging Protocol: Axial CT angiography was performed with multi-slice acquisition and m ulti-planar and/or 3D reconstructions. CONTRAST MATERIAL: Intravenous: Omnipaque 350 Contrast volume:100 mL Oral: no COMPARISON: DX [facility]U from 10/04/2008 CR LUMBAR SPINE COMPLETE from 09/26/2014 CT CHEST FOR PULMONARY EMBOLUS from 07/16/2016 CT,NM,TMT NM MPI REST STRESS GRP from 04/02/2021 FINDINGS: Vascular Structures: The heart is enlarged. Celiac [place]:Mild narrowing at origin. SMA: No evidence of stenosis. LUIS EDUARDO: Patent. Renal Arteries: No evidence of stenosis. There is a single renal artery perfusing each kidney. Are retroaortic left renal vein. Aorta: No aneurysm. No dissection. Atherosclerotic calcifications and mild mural thrombus. Iliac Arteries: Dfdu-qj-bofrjody atherosclerotic calcifications. No evidence of stenosis. Common Femoral Arteries: No evidence of stenosis. Soft Tissues:Prior anterior abdominal wall hernia repair with mesh in place. No recurrence hernia. Edema in the anterior abdominal wall. No focal collection. Lung bases:Mild right lower lobe atelectasis. Expiratory changes. The heart is enlarged. Liver: Normal size. Normal density. No measurable mass. Gallbladder and biliary tract: Status post cholecystectomy. No gallbladder wall thickening. No bili brian dilation. Pancreas: Normal density, no abnormal calcifications or inflammatory process. Spleen: Normal. Kidneys: Normal size, contour and axis. No obstructive uropathy. No masses seen. No evidence of calcu li. Adrenal glands: No masses seen. Bladder: No gross wall thickening. No evidence of calculi. No evidence of mass. Bowel: No obstruction or bowel wall thickening. Mild diverticulosis. Normal quantity of stool. No active GI bleeding identified. Peritoneal cavity: No ascites. No focal collection. No mesenteric inflammatory response. Bones: Moderate compression fracture of L4 appears old. No acute spine or pelvic fractures Lymph nodes: Within normal limits. Reproductive: Status post hysterectomy. IMPRESSION: Atherosclerotic changes of the aorta and branch vessels however no significant stenosis. Mild diverticulosis. No active GI bleed is identified. RADIATION DOSE DELIVERED: Total DLP DATA REPOSITORY: All CT scans at this facility are submitted to the National Radiology Data Registry (NRDR) Dose Index Registry (DIR) with the [employer] (ACR). RADIATION OPTIMIZATION: All CT scans at this facility use at least one of these dose optimization te chniques: automated exposure control; mA and/or kV adjustment per patient size (includes targeted exa ms where dose is matched to clinical indication); or iterative reconstruction.
[2023-12-28 14:56] LABS: Troponin I 11 ng/L (<or=51)
--- NOTE | 2023-12-28 14:59 | W.EDPROG ---
Date of service: 12/28/23 Time of Service: 14:59 Medical Decision Making This dictation utilizes [id number] dictation software and may contain unedited grammatical errors. Patient seen in signout from Maddie Barlow PA-C, please see her complete note. Essentially this 78-year-old female has a macerated area inside her rectum of internal hemorrhoid that is bleeding. She had a fall 1 week ago and discontinued Eliquis due to this, she has been having intermittent blood and up in the toilet when using the bathroom. She has been hemodynamically stable, has anemia with a hemoglobin of 10.6 and a negative CTA of the abdomen/pelvis that was pending at time of signout. Per land the plan is consult with surgery to make sure there is no need for admission and the patient can likely go home with follow-up at her PCP/Gen Surg outpatient visit. Patients' medical history: Myocardial infarction, atrial fibrillation, coronary artery disease, COPD, hypertension, hyperlipidemia, morbid obesity. Pertinent exam findings / vital signs include benign abdomen, see Maddie Barlow note for rectal exam. Differential / pathologies of concern include bleeding internal hemorrhoid, anemia. Diagnostic studies of: -Reviewed labs, went over them with surgery, platelet and hemoglobin count is fine for discharge, CTA shows no active GI bleeding. Interventions of: -Recommend stool softeners, follow-up with PCP for timing of restarting Eliquis. ED Course/Assessment/Plan: 78-year-old female presents with some intermittent blood per rectum, noted when she is toileting, she had stopped her Eliquis from a fall last week, her hemoglobin and platelets are fine I did discuss with general surgery on-call Dr. Cardona, reasonable for disposition home, recommends that she perform stool softeners to help not exacerbate her hemorrhoid, patient was comfortable with this disposition and will return for any further episodes of bleeding and will follow-up with her primary care provider for timing on restarting Eliquis. Findings not consistent with active GI bleeding, extravasation, symptomatic anemia. Disposition of rectal bleeding. Patient verbalized understanding of the plan and return to ED criteria and engaged in shared decision making. Medical Records Medical records reviewed: Yes I reviewed the patient's medical records. Imaging Data Radiologic Study: Attestation: I personally reviewed and interpreted this imaging study as follows: Imaging: CT Scan Radiologist's impression: EXAM: CT ABDOMEN PELVIS CTA CLINICAL HISTORY: rectal bleeding post fall. TECHNIQUE: Imaging Protocol: Axial CT angiography was performed with multi-slice acquisition and multi-planar and/or 3D reconstructions. CONTRAST MATERIAL: Intravenous: Omnipaque 350 Contrast volume:100 mL Oral: no COMPARISON: DX [facility]U from 10/04/2008 CR LUMBAR SPINE COMPLETE from 09/26/2014 CT CHEST FOR PULMONARY EMBOLUS from 07/16/2016 CT,NM,TMT NM MPI REST STRESS GRP from 04/02/2021 FINDINGS: Vascular Structures: The heart is enlarged. Celiac Kinsley:Mild narrowing at origin. SMA: No evidence of stenosis. LUIS EDUARDO: Patent. Renal Arteries: No evidence of stenosis. There is a single renal artery perfusing each kidney. Are retroaortic left renal vein. Aorta: No aneurysm. No dissection. Atherosclerotic calcifications and mild mural thrombus. Iliac Arteries: Cwea-of-tfansbbr atherosclerotic calcifications. No evidence of stenosis. Common Femoral Arteries: No evidence of stenosis. Soft Tissues:Prior anterior abdominal wall hernia repair with mesh in place. No recurrence hernia. Edema in the anterior abdominal wall. No focal collection. Lung bases:Mild right lower lobe atelectasis. Expiratory changes. The heart is enlarged. Liver: Normal size. Normal density. No measurable mass. Gallbladder and biliary tract: Status post cholecystectomy. No gallbladder wall thickening. No biliary dilation. Pancreas: Normal density, no abnormal calcifications or inflammatory process. Spleen: Normal. Kidneys: Normal size, contour and axis. No obstructive uropathy. No masses seen. No evidence of calculi. Adrenal glands: No masses seen. Bladder: No gross wall thickening. No evidence of calculi. No evidence of mass. Bowel: No obstruction or bowel wall thickening. Mild diverticulosis. Normal quantity of stool. No active GI bleeding identified. Peritoneal cavity: No ascites. No focal collection. No mesenteric inflammatory response. Bones: Moderate compression fracture of L4 appears old. No acute spine or pelvic fractures Lymph nodes: Within normal limits. Reproductive: Status post hysterectomy. IMPRESSION: Atherosclerotic changes of the aorta and branch vessels however no significant stenosis. Mild diverticulosis. No active GI bleed is identified. Lab Data Lab results reviewed: Yes I reviewed the patient's lab results. Labs: Laboratory Tests Range/Units 12/28/23 12/28/23 12/28/23 12:08 12:27 14:24 WBC (4.4-10.8) 10^3/uL 5.82 RBC (3.93-5.22) 10^6/uL 4.64 Hgb (11.2-15.7) g/dL 10.6 L Hct (36.0-46.0) % 37.4 MCV (80-95) fL 81 MCH (27.0-33.0) pg 22.8 L MCHC (32.0-36.0) % 28.3 L RDW (11.7-14.6) % 19.6 H Plt Count (130-400) 10^3/uL 149 MPV (8.0-11.0) fL 10.9 Immature Gran % % 0.2 Neutrophils % % 52.6 Lymphocytes % % 29.4 Monocytes % % 12.5 Eosinophils % % 4.8 Basophils % % 0.5 Nucleated RBC % (0.0-0.3) % 0.0 Absolute Neutrophils (1.2-6.7) 10^3/uL 3.06 Absolute Lymphocytes (1.2-3.4) 10^3/uL 1.71 Absolute Monocytes (0.1-0.8) 10^3/uL 0.73 Absolute Eosinophils (0.0-0.7) 10^3/uL 0.28 Absolute Basophils (0.0-0.2) 10^3/uL 0.03 PT (9.1-11.1) sec 11.1 INR (0.9-1.1) 1.1 Sodium (136-145) mmol/L 144 Potassium (3.5-5.1) mmol/L 3.7 Chloride (98-107) mmol/L 106 Carbon Dioxide (21.0-32.0) mmol/L 30.7 Anion Gap (3-11) mmol/L 7.3 BUN (7-18) mg/dL 18 Creatinine (0.55-1.02) mg/dL 1.3 H Est GFR (CKD-EPI 2020) (mL/min/1.73m2) 42.62 Glucose (74-106) mg/dL 95 Calcium (8.5-10.1) mg/dL 9.2 Total Bilirubin (0.2-1.0) mg/dL 0.74 AST (15-37) U/L 18 ALT (14-59) U/L 19 Alkaline Phosphatase (46-116) U/L 97 Troponin I (<or=51) ng/L 10 11 Total Protein (6.4-8.2) g/dL 7.4 Albumin (3.4-5.0) g/dL 3.4 Lipase (16-77) U/L 18 Urine Color (Yellow) Yellow Urine Clarity (Clear) Clear Urine pH (5-8) 6.5 Ur Specific [place] (1.005-1.025) 1.015 Urine Protein (Neg-Trace) mg/dL Negative Urine Ketones (Negative) mg/dL Negative Urine Blood (Negative) Negative Urine Nitrite (Negative) Negative Urine Bilirubin (Negative) Negative Urine Urobilinogen (Up to 0.2) mg/dL 2.0 H Ur Leukocyte Esterase (Negative) Negative Urine Glucose (Negative) mg/dL Negative ABO/Rh A Negative Antibody Screen NEGATIVE Quality:SDOH Health Related Social Needs: No Data to Display Discharge Plan Disposition Patient Disposition: Home Condition: Stable Discharge Details Clinical Impression: Rectal bleeding Primary Care Provider: Chanel Garcia ED Provider: Chito Brown Home Meds and New Rx's Prescriptions: Continued cholecalciferol (vitamin D3) 50 mcg (2,000 unit) capsule 50 mcg PO DAILY triamcinolone acetonide 0.1 % ointment 1 applic Topical BID PRN (Reason: rash) Qty: 80 3RF Rx Instructions: use topically on area. dispense 0.1% oinment in 80 gm tube Shingrix (PF) 50 mcg/0.5 mL suspension for reconstitution 0.5 ml IM ONCE Qty: 1 1RF Rx Instructions: as a single dose. Repeat in 2 months acetaminophen [Tylenol Extra Strength] 500 MG tablet 1,000 mg PO Q4H PRN diphenhydramine HCl [Benadryl Allergy] 25 MG tablet 25 mg PO DAILY PRN oxybutynin chloride 5 mg tablet 10 mg PO BID PRN (Reason: bladder spasms) Qty: 360 4RF omeprazole 20 mg capsule,delayed release(DR/EC) 20 mg PO DAILY Qty: 90 4RF diltiazem HCl 30 mg tablet 30 mg PO BID PRN (Reason: Esophageal spasms) Qty: 100 0RF Rx Instructions: take for chest discomfort diltiazem HCl 240 mg capsule,extended release 24 hr 240 mg PO DAILY Qty: 90 5RF furosemide 20 mg tablet 20 mg PO DAILY PRN (Reason: edema) Qty: 90 4RF guaifenesin [Mucinex] 600 mg tablet extended release 12hr 600 mg PO Q12H PRN (Reason: congestion) Qty: 60 3RF albuterol sulfate 90 mcg/actuation HFA aerosol inhaler 1 - 2 puff Inhalation Q4H PRN Qty: 3 5RF meclizine 25 mg tablet 25 mg PO BID PRNQty: 10 0RF Held Eliquis 5 mg tablet 5 mg PO BID Qty: 180 12RF Hold Instructions: Resume on 01/04/24. HOLD ELIQUIS UNTIL CLEARED BY PCP/CARDIOLOGY TO RESTART Discharge Instructions Instructions: GI bleed Additional Instructions: You were seen in the emergency department for your bleeding internal hemorrhoid, GI bleeding is common at your age. You need to be taking lots of [id number] stool softeners so that you are not straining to go to the bathroom and worsening your hemorrhoid. Your CT showed no active GI bleeding, you need to speak with your primary care provider about possibly restarting Eliquis, you need to monitor yourself for increased GI bleeding once this happens. Please return to the emergency department for any increasing signs of blood loss like dizziness, syncope, severe increase in GI bleeding. Referrals: Chanel Garcia MD, [place] [Primary Care Provider] - Discharge Data Discharge Date/Time-TO BE ENTERED AT DEPARTURE: 12/28/23 15:54
[2023-12-28 15:33] LABS: Troponin I 9 ng/L (<or=51)
== END 2023-12-28 15:54 | disposition home or self-care (01) ==
PROVIDERS: Physician Assistant; Emergency Provider Physician Assistant; PCP Family Medicine
DX: K62.5 Hemorrhage of anus and rectum; D64.9 Anemia, unspecified; K64.8 Other hemorrhoids; I25.2 Old myocardial infarction; I48.91 Unspecified atrial fibrillation; Z79.01 Long term (current) use of anticoagulants
CPT/HCPCS: 00123; 36415; 80053; 83690; 86850; 86900; 86901; 93005; 96374; 99285; 46600; 74174; 81003; 84484; 85025; 85610; 93010; J2060; J3490

== ENCOUNTER 2023-12-31 08:50 | Outpatient (CLI) | payer OTHER, SELFPAY ==
--- NOTE | 2023-12-31 08:30 | DI.RAD_ITS ---
Exam(s) XR SHOULDER RT COMPLETE 2+V EXAM: XR SHOULDER RT COMPLETE 2+V CLINICAL HISTORY: right shoulder pain, M25.511. TECHNIQUE: 2D digital imaging was performed. Five views. COMPARISON: No exams were available for comparison FINDINGS: BONES: No acute fracture is present. No bony destructive lesion is seen. JOINTS: No dislocation present. The glenohumeral joint space is maintained. Minimal periarticular s purring. Mild spurring at the AC joint and undersurface of the acromion. SOFT TISSUE: Normal. IMPRESSION: Mild degenerative changes. DATA REPOSITORY: RADIATION DOSE DELIVERED:
--- NOTE | 2023-12-31 08:30 | DI.RAD_ITS ---
Exam(s) XR CHEST 2V PA LATERAL EXAM: XR CHEST 2V PA LATERAL CLINICAL HISTORY: SOB, R06.02; essential HTN, I10. TECHNIQUE: 2D digital imaging was performed. COMPARISON: CR,XR XR CHEST 2V PA LATERAL from 03/05/[address] ABDOMEN PELVIS CTA from 12/28/2023 FINDINGS: 2 views: There is cardiomegaly again evident. The mediastinum is not widened There is pulmonary venous hypertension pattern. No actual airspace edema and no pleural effusions. No confluent infiltrates. Slight tenting of the right hemidiaphragm noted. IMPRESSION: Cardiomegaly. Pulmonary venous hypertension pattern. No Lisa B lines. DATA REPOSITORY: RADIATION DOSE DELIVERED:
== END 2023-12-31 09:10 ==
LOC: DI 08:50
PROVIDERS: PCP Family Medicine; Visit Provider Family Medicine
DX: M25.511 Pain in right shoulder (principal); I10 Essential (primary) hypertension; R06.02 Shortness of breath
CPT/HCPCS: 71046; 73030

== ENCOUNTER 2023-12-31 11:06 | Outpatient (REF) | payer OTHER, SELFPAY ==
[2023-12-31 13:11] LABS: HGB 10.4 g/dL (11.2-15.7); MCH 22.6 pg (27.0-33.0); MCHC 28.1 % (32.0-36.0); MCV 80 fL (80-95); Platelet Count 150 10^3/uL (130-400); RDW 19.9 % (11.7-14.6); RDW-SD 57.1 fL; WBC 4.83 10^3/uL (4.4-10.8)
[2023-12-31 13:26] LABS: ALT 16 U/L (14-59); AST 15 U/L (15-37); Albumin 3.5 g/dL (3.4-5.0); Alkaline Phosphatase 96 U/L (46-116); Anion Gap 5.8 mmol/L (3-11); BUN 22 mg/dL (7-18); Bilirubin, Total 0.67 mg/dL (0.2-1.0); CO2 29.2 mmol/L (21.0-32.0); CREATININE 1.4 mg/dL (0.55-1.02); Calcium 8.9 mg/dL (8.5-10.1); Chloride 108 mmol/L (98-107); Estimated GFR 38.99 (mL/min/1.73m2); Glucose 108 mg/dL (74-106); Potassium 4.3 mmol/L (3.5-5.1); Sodium 143 mmol/L (136-145); TSH (W/Ref FT4) 1.69 uIU/mL (0.36-3.74)
[2023-12-31 13:31] LABS: Hemoglobin A1C 5.6 % (<5.7)
== END 2023-12-31 11:07 | disposition home or self-care (01) ==
LOC: LBN 11:06
PROVIDERS: PCP Family Medicine; Visit Provider Family Medicine
DX: I48.91 Unspecified atrial fibrillation (principal); I10 Essential (primary) hypertension; E11.9 Type 2 diabetes mellitus without complications; E03.9 Hypothyroidism, unspecified; R06.02 Shortness of breath; Z23 Encounter for immunization; M25.511 Pain in right shoulder
CPT/HCPCS: 80053; 85027; 83036; 84443

== ENCOUNTER 2024-02-16 15:56 | Outpatient (CLI) | payer MEDICARE, SELFPAY ==
--- NOTE | 2024-02-16 09:30 | DI.RAD_ITS ---
Exam(s) XR SHOULDER LT COMPLETE 2+V EXAM: XR SHOULDER LT COMPLETE 2+V CLINICAL HISTORY: LEFT SHOULDER PAIN. TECHNIQUE: 2D digital imaging was performed of the left shoulder. Two images were obtained. AP, Gr ashey, Y-view and axillary views were obtained. COMPARISON: No exams were available for comparison FINDINGS: BONES: No acute fracture is present. No bony destructive lesion is seen. JOINTS: No dislocation present. There are degenerative changes seen at the acromioclavicular joint. The glenohumeral joint is well maintained. SOFT TISSUE: There is a faint calcification in the soft tissues adjacent to the greater tuberosity beckman ggesting calcific tendinitis. IMPRESSION: Degenerative changes of the AC joint and calcific tendinitis. DATA REPOSITORY: RADIATION DOSE DELIVERED:
== END 2024-02-16 15:57 | disposition home or self-care (01) ==
LOC: DIORS 15:56
PROVIDERS: PCP Family Medicine; Referring Provider Family Medicine; Visit Provider Student in an Organized Health Care Education/Training Program
DX: M25.512 Pain in left shoulder (principal); M19.011 Primary osteoarthritis, right shoulder; M19.012 Primary osteoarthritis, left shoulder; G56.01 Carpal tunnel syndrome, right upper limb; I48.91 Unspecified atrial fibrillation; Z79.01 Long term (current) use of anticoagulants; J44.9 Chronic obstructive pulmonary disease, unspecified; E66.01 Morbid (severe) obesity due to excess calories; Z68.43 Body mass index [BMI] 50.0-59.9, adult
CPT/HCPCS: 99214; 73030

== ENCOUNTER 2024-03-04 00:51 | Outpatient (CLI) | payer MEDICARE, SELFPAY ==
--- NOTE | 2024-03-04 11:10 | DI.RAD_ITS ---
Exam(s) RF JOINT INJ. FLUORO GUID RAD EXAM: RF JOINT INJ. FLUORO GUID RAD CLINICAL HISTORY: R SHOULDER PAIN,fluoro guided injection,arthritis,m19.011. TECHNIQUE: 2D and realtime digital imaging was performed. CONTRAST MATERIAL: Intra-articular Omnipaque 300 total 1 cc COMPARISON: Prior plain films reviewed. FINDINGS: This RIGHT shoulder glenohumeral joint therapeutic injection was performed at the request of the [facility] orthopedic surgeon. Patient was consented prior to this procedure Patient was placed in supine position on the fluoroscopy table. Using sterile technique and adequate skin-subcutaneous anesthesia, fluoroscopic guidance was used to advance a 22 gauge spinal needle into the glenohumeral joint via an anterior approach. Intra-articular position was confirmed with injection of Omnipaque 300. Thereafter a sterile solution of 40 milligrams Depo-Medrol and 4 cc 0.5 percent bupivacaine was injec mxax into the joint. Patient tolerated this procedure well and there were no intraprocedural complications. IMPRESSION: Successful right glenohumeral joint steroid injection using fluoroscopic guidance. RADIATION DOSE DELIVERED: Ka,r=7.74mGy
--- NOTE | 2024-03-04 11:10 | DI.RAD_ITS ---
Exam(s) RF JOINT INJ. FLUORO GUID RAD EXAM: RF JOINT INJ. FLUORO GUID RAD CLINICAL HISTORY: L SHOULDER PAIN,fluoro guided injection,m19.012. TECHNIQUE: 2D and realtime digital imaging was performed. CONTRAST MATERIAL: Intra-articular Omnipaque 300-1 cc COMPARISON: Prior plain films reviewed. FINDINGS: This left shoulder glenohumeral joint therapeutic injection was performed at the request of the refer [facility] orthopedic surgeon. Patient was consented prior to this procedure Patient was placed in supine position on the fluoroscopy table. Using sterile technique and adequate skin-subcutaneous anesthesia, fluoroscopic guidance was used to advance a 22 gauge spinal needle into the glenohumeral joint via an anterior approach. Intra-articular position was confirmed with injection of 1 cc of Omnipaque 300. Thereafter a sterile solution of 40 milligrams Depo-Medrol and 4 cc 0.5 percent bupivacaine was injec maxx into the joint. Patient tolerated this procedure well and there were no intraprocedural complications IMPRESSION: Successful left shoulder glenohumeral joint steroid injection using fluoroscopic guidance. RADIATION DOSE DELIVERED: Ka,r=11.8mGy
[2024-03-04] MEDS: methylPREDNISolone ACETATE 40 MG/ML VIAL IM (12:30)
[2024-03-04] MEDS: Bupivacaine 0.5% Pres-Free 10 ML VIAL 6 ML IJ (12:32)
[2024-03-04] MEDS: Omnipaque 300 MG/ML 10 ML BTL IJ (12:33)
[2024-03-04] MEDS: Lidocaine 1% Pres-Free 30 ML VIAL IJ (12:34)
== END 2024-03-04 01:11 ==
LOC: DI 00:51
PROVIDERS: PCP Family Medicine; Visit Provider Student in an Organized Health Care Education/Training Program
DX: M19.011 Primary osteoarthritis, right shoulder (principal); M19.012 Primary osteoarthritis, left shoulder
CPT/HCPCS: 20610; 77002; J0665; J1010

== ENCOUNTER → 2024-03-17 10:20 | Outpatient (BNVA) | payer MEDICARE, SELFPAY | PROVIDERS: PCP Family Medicine; Referring Provider Student in an Organized Health Care Education/Training Program; Visit Provider Nurse Practitioner Adult Health | DX: G56.01 Carpal tunnel syndrome, right upper limb (principal) | CPT/HCPCS: 95907; 99214 ==

== ENCOUNTER 2024-04-14 11:14 | Outpatient (CLI) | payer MEDICARE, SELFPAY ==
[2024-04-14 12:01] LABS: ALT 22 U/L (14-59); AST 17 U/L (15-37); Albumin 3.4 g/dL (3.4-5.0); Alkaline Phosphatase 95 U/L (46-116); Anion Gap 5.3 mmol/L (3-11); BUN 24 mg/dL (7-18); Bilirubin, Total 0.56 mg/dL (0.2-1.0); CO2 29.7 mmol/L (21.0-32.0); CREATININE 1.3 mg/dL (0.55-1.02); Calcium 9.7 mg/dL (8.5-10.1); Chloride 108 mmol/L (98-107); Estimated GFR 42.35 (mL/min/1.73m2); Glucose 107 mg/dL (74-106); Potassium 4.6 mmol/L (3.5-5.1); Sodium 143 mmol/L (136-145); Total Protein 7.6 g/dL (6.4-8.2); Vitamin B12 424 pg/mL (193-986)
== END 2024-04-14 11:15 | disposition home or self-care (01) ==
LOC: LBO 11:15
PROVIDERS: PCP Family Medicine; Visit Provider Family Medicine
DX: E55.9 Vitamin D deficiency, unspecified (principal); I10 Essential (primary) hypertension; E53.8 Deficiency of other specified B group vitamins
CPT/HCPCS: 36415; 80053; 82306; 82607

== ENCOUNTER → 2024-05-26 14:32 | Outpatient (BNVA) | payer MEDICARE, SELFPAY | PROVIDERS: PCP Family Medicine; Referring Provider Family Medicine; Visit Provider Student in an Organized Health Care Education/Training Program | DX: G56.01 Carpal tunnel syndrome, right upper limb (principal); M18.12 Unilateral primary osteoarthritis of first carpometacarpal joint, left hand; R20.0 Anesthesia of skin | CPT/HCPCS: 99214 ==

== ENCOUNTER 2024-07-03 21:24 | Observation (INO) | payer MEDICARE, SELFPAY ==
--- NOTE | 2024-07-03 21:15 | RT.EKG_ITS ---
APPROVED REPORT Exam: Resting ECG Reason for Exam: SOB Patient Location: E HR:69 bpm ECG Measurements Heart Rate 69 AXIS IN [id number] P [id number] QRSd 118 QRS 57 QT 447 T 63 QTc 478 Conclusion Atrial fibrillation, rate 69 No interval abnormalities No STEMI No significant changes from priors
--- NOTE | 2024-07-03 21:15 | DI.RAD_ITS ---
Exam(s) XR CHEST 2V PA LATERAL EXAM: XR CHEST 2V PA LATERAL CLINICAL HISTORY: Shortness of breath TECHNIQUE: 2D digital imaging was performed. Two views. COMPARISON: CR XR CHEST 2V PA LATERAL from 12/31/2023 FINDINGS: Exam was performed on a stretcher. Exam is limited by under penetration and part due to patient bod y habitus. Abdominal soft tissues overlie the lung bases which are mostly obscured. There overlying monitoring leads. HEART: Enlarged, not significantly changed. Aorta: Not dilated. Calcification at the arch. PULMONARY VASCULATURE: Prominent. Main pulmonary artery is enlarged which is unchanged. MEDIASTINUM: Unremarkable. LUNGS: Extremely limited evaluation. Pulmonary edema not excluded. Basilar infiltrates also not exc luded. PLEURAL SPACE: No pleural effusion or pneumothorax. BONE:Unremarkable for age. SOFT TISSUES: Unremarkable. IMPRESSION: Extremely limited exam. Cardiomegaly. Question CHF. The preliminary [facility] report was reviewed. DATA REPOSITORY: RADIATION DOSE DELIVERED:
[2024-07-03 21:23] VITALS: BP 158/72; PULSE 70; RESP 22; TEMP 36.4; O2SAT 98
[2024-07-03 21:28] VITALS: BP 161/57; PULSE 67; RESP 19; TEMP 36.4; O2SAT 98
[2024-07-03 21:51] VITALS: PULSE 73; RESP 24; RESP 5; RESP 7; O2SAT 97
[2024-07-03 21:51] LABS: Abs Immature Grans 0.02 10^3/uL (0.0-0.06); Absolute Basophil Count 0.05 10^3/uL (0.0-0.2); Absolute Eosinophil Count 0.36 10^3/uL (0.0-0.7); Absolute Lymphocyte Count 1.31 10^3/uL (1.2-3.4); Absolute Monocyte Count 0.87 10^3/uL (0.1-0.8); Absolute Neutrophil Count 4.36 10^3/uL (1.2-6.7); Basophils % 0.7 %; Eosinophils % 5.2 %; HCT 30.4 % (36.0-46.0); HGB 8.5 g/dL (11.2-15.7); Immature Grans % 0.3 %; Lymphocytes % 18.8 %; MCH 20.9 pg (27.0-33.0); MCV 75 fL (80-95); Monocytes % 12.5 %; Neutrophils % 62.5 %; RBC 4.07 10^6/uL (3.93-5.22); RDW 20.8 % (11.7-14.6); RDW-SD 54.4 fL; WBC 6.97 10^3/uL (4.4-10.8)
[2024-07-03] MEDS: Albuterol/Ipratropium 3 ML UPD VIAL UPD (21:51)
[2024-07-03] MEDS: methylPREDNISolone SUCC 125 MG VIAL IVP (21:52)
[2024-07-03 22:07] LABS: Anisocytosis 1+; Diff Comment RBC Morph Reviewed; Hypochromasia 1+; Platelet Count 150 10^3/uL (130-400)
[2024-07-03 22:08] LABS: Microcytosis 1+
--- NOTE | 2024-07-03 22:36 | ED.GENADUL_ITS ---
Discharge Plan Disposition Patient Disposition: Admit to [facility] Condition: Stable Discharge Details Chief Complaint: RespSymp Clinical Impression: COPD with acute exacerbation, CAD (coronary artery disease), Essential hypertension, Shortness of breath, Sleep apnea Primary Care Provider: Chanel Garcia ED Provider: Kelly Nicolas Home Meds and New Rx's Prescriptions: No Action cholecalciferol (vitamin D3) 50 mcg (2,000 unit) capsule 50 mcg PO DAILY fluticasone propion-salmeterol [Advair Diskus] 500-50 mcg/dose blister with device 1 inh inhalation BID Qty: 180 5RF furosemide 40 mg tablet 40 mg PO DAILY Qty: 90 4RF triamcinolone acetonide 0.1 % ointment 1 applic Topical BID PRN (Reason: rash) Qty: 80 3RF Rx Instructions: use topically on area. dispense 0.1% oinment in 80 gm tube Shingrix (PF) 50 mcg/0.5 mL suspension for reconstitution 0.5 ml IM ONCE Qty: 1 1RF Rx Instructions: as a single dose. Repeat in 2 months acetaminophen [Tylenol Extra Strength] 500 MG tablet 1,000 mg PO Q4H PRN diphenhydramine HCl [Benadryl Allergy] 25 MG tablet 25 mg PO DAILY PRN omeprazole 20 mg capsule,delayed release(DR/EC) 20 mg PO DAILY Qty: 90 4RF Eliquis 5 mg tablet 5 mg PO BID Qty: 180 12RF diltiazem HCl 30 mg tablet 30 mg PO BID PRN (Reason: Esophageal spasms) Qty: 100 0RF Rx Instructions: take for chest discomfort diltiazem HCl 240 mg capsule,extended release 24 hr 240 mg PO DAILY Qty: 90 5RF guaifenesin [Mucinex] 600 mg tablet extended release 12hr 600 mg PO Q12H PRN (Reason: congestion) Qty: 60 3RF albuterol sulfate 90 mcg/actuation HFA aerosol inhaler 1 - 2 puff Inhalation Q4H PRN Qty: 3 5RF oxybutynin chloride 5 mg tablet 10 mg PO BID PRN (Reason: bladder spasms) Qty: 360 4RF HPI General Mode of arrival: EMS . Date/Time Provider Initiated Documentation: 07/03/24 21:29 . Limitations to Documentation: no limitations . Information obtained by: patient, EMS and old records reviewed . HPI Narrative: This is a 79-year-old female patient with a past medical history significant for COPD, atrial fibrillation on Eliquis, CAD, hyperlipidemia, and sleep apnea presenting for evaluation of shortness of breath. The patient reports that she has had increased work of breathing especially with exertion, that has not responded to her home inhalers. She reports that she has been taking her furosemide as prescribed for her edema, and has noted improvement in her peripheral edema and a decrease in her weight. She has not had any fevers, states she has a chronic cough with mucus but this is not changed from her baseline. She has not required hospitalization for her breathing in some time, and has not taken steroids recently. EMS noted the patient to have no wheezing, but had marked increase in her work of breathing just with standing and pivoting to the stretcher. She was placed on supplemental oxygen for transport. Related Data Home Medications ?Medication ?Instructions ?Recorded ?Confirmed acetaminophen 500 mg tablet 1,000 mg PO Q4H PRN 08/05/07/03/24 (Tylenol Extra Strength) diphenhydramine HCl 25 mg tablet 25 mg PO DAILY PRN 05/20/16 07/03/24 (Benadryl Allergy) triamcinolone acetonide 0.1 % 1 applic topical BID PRN rash #80 01/26/18 07/03/24 topical ointment appful cholecalciferol (vitamin D3) 50 50 mcg PO DAILY 12/24/20 07/03/24 mcg (2,000 unit) capsule apixaban 5 mg tablet (Eliquis) 5 mg PO BID #180 tabs 06/09/23 07/03/24 diltiazem HCl 240 mg capsule,24 240 mg PO DAILY #90 caps 06/09/23 07/03/24 hr,extended release diltiazem HCl 30 mg tablet 30 mg PO BID PRN Esophageal spasms 06/09/23 07/03/24 #100 tab-caps guaifenesin 600 mg tablet, 600 mg PO Q12H PRN congestion #60 06/09/23 07/03/24 extended release 12 hr (Mucinex) tabs omeprazole 20 mg capsule,delayed 20 mg PO DAILY #90 caps 06/09/23 07/03/24 release varicella-zoster glycoE [id number] 0.5 ml IM ONCE #1 ea 06/23/23 07/03/24 adj(PF) 50 mcg/0.5 mL IM susp, kit (Shingrix (PF)) albuterol sulfate 90 mcg/actuation 1 - 2 puff inhalation Q4H PRN ##3 10/09/23 07/03/24 aerosol inhaler fluticasone 500 mcg-salmeterol 50 1 inh inhalation BID #180 ea 12/31/23 07/03/24 mcg/dose blistr powdr for inhalation (Advair Diskus) furosemide 40 mg tablet 40 mg PO DAILY edema #90 tab-caps 12/31/23 07/03/24 oxybutynin chloride 5 mg tablet 10 mg (2 x 5 mg) PO BID PRN 06/14/24 07/03/24 bladder spasms #360 tabs Previous Rx's ?Medication ?Instructions ?Recorded triamcinolone acetonide 0.1 % 1 applic topical BID PRN rash #80 01/26/18 topical ointment appful apixaban 5 mg tablet (Eliquis) 5 mg PO BID #180 tabs 06/09/23 diltiazem HCl 240 mg capsule,24 240 mg PO DAILY #90 caps 06/09/23 hr,extended release diltiazem HCl 30 mg tablet 30 mg PO BID PRN Esophageal spasms 06/09/23 #100 tab-caps guaifenesin 600 mg tablet, 600 mg PO Q12H PRN congestion #60 06/09/23 extended release 12 hr (Mucinex) tabs omeprazole 20 mg capsule,delayed 20 mg PO DAILY #90 caps 06/09/23 release varicella-zoster glycoE [id number] 0.5 ml IM ONCE #1 ea 06/23/23 adj(PF) 50 mcg/0.5 mL IM susp, kit (Shingrix (PF)) albuterol sulfate 90 mcg/actuation 1 - 2 puff inhalation Q4H PRN ##3 10/09/23 aerosol inhaler fluticasone 500 mcg-salmeterol 50 1 inh inhalation BID #180 ea 12/31/23 mcg/dose blistr powdr for inhalation (Advair Diskus) furosemide 40 mg tablet 40 mg PO DAILY edema #90 tab-caps 12/31/23 oxybutynin chloride 5 mg tablet 10 mg (2 x 5 mg) PO BID PRN 06/14/24 bladder spasms #360 tabs Allergies Allergy/AdvReac Type Severity Reaction Status Date / Time Tetanus Vaccines and Toxoid Allergy Severe Massive Verified 07/03/24 21:35 (Tetanus Vaccines \E&E\ Local Toxoid) Reaction amoxicillin Allergy Unknown HIVES Verified 07/03/24 21:35 atenolol AdvReac Intermediate Fluid Verified 07/03/24 21:35 Retention bupropion (From Wellbutrin AdvReac Intermediate nausea Verified 07/03/24 21:35 SR) morphine AdvReac Intermediate Jittery Verified 07/03/24 21:35 COVID-19 (SARS-CoV-2) AdvReac Mild redness Verified 07/03/24 21:35 vaccine, [place] (Pheizer) codeine AdvReac Unknown ANXIETY Verified 07/03/24 21:35 Iodinated Contrast Media AdvReac Unknown ANXIETY Verified 07/03/24 21:35 (Iodinated Contrast- Oral and IV Dye) meperidine AdvReac Unknown NAUSEA/VOMI Verified 07/03/24 21:35 TING promethazine AdvReac Unknown ANXIETY Verified 07/03/24 21:35 General Stated Complaint: RespSymp VINEET: 3 Exam Narrative Exam Narrative: Gen: Awake and alert, in acute respiratory distress HEENT: Non-icteric sclera Neck: Supple Lungs: Increased respiratory effort and tachypnea appreciated, with diminished lung sounds in the bases. CV: Appears well perfused, heart with irregularly irregular rate and rhythm, strong distal pulses Abdomen: Non-distended MSK: Moves 4 extremities without apparent limitation in ROM. The patient has 2+ peripheral edema bilaterally, no unilateral calf tenderness Skin: Visualized skin without rashes, cyanosis. Neuro: No obvious focal deficits or facial asymmetry. Speaks in full, clear sentences. Gait deferred Psych: Appropriate for situation. Course Vital Signs Vital signs: Vital Signs Temperature 36.4 C L 07/03/24 21: Pulse 70 07/03/24 21:23 Respiratory Rate 22 07/03/24 21:23 Blood Pressure 158/72 H 07/03/24 21:23 Pulse Oximetry 98 07/03/24 21:23 Temperature 36.4 C 07/03/24 21:28 Temperature Source Temporal Artery Scan 07/03/24 21:28 Pulse 73 07/03/24 21:51 Respiratory Rate 24 07/03/24 21:51 Respiratory Effort Short of Breath, Labored 07/03/24 21:28 Respiratory Depth Normal 07/03/24 21:28 Blood Pressure 161/57 H 07/03/24 21:28 Blood Pressure Position Sitting 07/03/24 21:28 Pulse Oximetry 97 07/03/24 21:51 Oxygen Delivery Method Nasal Cannula 07/03/24 21:51 Oxygen Flow Rate 1 07/03/24 21:51 Lab/Test Results Lab/Test Results: Laboratory Tests Range/Units 07/03/24 21:45 WBC (4.4-10.8) 10^3/uL 6.97 RBC (3.93-5.22) 10^6/uL 4.07 Hgb (11.2-15.7) g/dL 8.5 L Hct (36.0-46.0) % 30.4 L MCV (80-95) fL 75 L MCH (27.0-33.0) pg 20.9 L MCHC (32.0-36.0) % 28.0 L RDW (11.7-14.6) % 20.8 H Plt Count (130-400) 10^3/uL 150 MPV (8.0-11.0) fL Immature Gran % % 0.3 Neutrophils % % 62.5 Lymphocytes % % 18.8 Monocytes % % 12.5 Eosinophils % % 5.2 Basophils % % 0.7 Nucleated RBC % (0.0-0.3) % 0.0 Absolute Neutrophils (1.2-6.7) 10^3/uL 4.36 Absolute Lymphocytes (1.2-3.4) 10^3/uL 1.31 Absolute Monocytes (0.1-0.8) 10^3/uL 0.87 H Absolute Eosinophils (0.0-0.7) 10^3/uL 0.36 Absolute Basophils (0.0-0.2) 10^3/uL 0.05 RBC Morphology See Below Hypochromasia 1+ Anisocytosis 1+ Microcytosis 1+ Sodium Cancelled Potassium Cancelled Chloride Cancelled Carbon Dioxide Cancelled Anion Gap Cancelled BUN Cancelled Creatinine Cancelled Est GFR (CKD-EPI 2020) Cancelled Glucose Cancelled Calcium Cancelled Magnesium Cancelled Total Bilirubin Cancelled AST Cancelled ALT Cancelled Alkaline Phosphatase Cancelled Troponin I Cancelled NT-Pro-B Natriuret Pep Cancelled Total Protein Cancelled Albumin Cancelled Medical Decision Making This is a 79-year-old female patient presenting for evaluation of shortness of breath. Differential includes but is not limited to reactive airway disease exacerbation, heart failure exacerbation and pulmonary edema, pleural effusion, pneumothorax, pneumonia, bronchitis, no upper respiratory symptoms to suggest URI. The patient is without DVT symptoms to significantly increase my concern for PE, and she is appropriately anticoagulated. I considered ACS, arrhythmia, metabolic and electrolyte derangements, dehydration, anemia. My initial EKG shows an atrial fibrillation with a controlled ventricular rate, and no evidence for acute ischemia, interval abnormality, or ectopy. No significant change from priors. We will obtain laboratory studies to include CBC, CMP, magnesium, troponin, BNP, and will obtain a chest x-ray. I will provide the patient with a duo nebulizer treatment as well as a dose of methylprednisolone for presumed reactive airway disease exacerbation in the setting of her diminished lung sounds. -I independently interpreted the laboratory studies, which show no significant leukocytosis or thrombocytopenia, the patient does have a slightly worsened anemia compared to priors, but these are over 1-year-old, hemoglobin 8.5. The ch emistry panel is without evidence of electrolyte abnormality, new or worsening kidney dysfunction, or liver injury. BNP is slightly elevated to 642, initial troponin negative. Chest x-ray without obvious large lobar pneumonia, does have some venous congestion, limited slightly by habitus and patient positioning. I did confirm with the patient that she has never had an allergy to ceftriaxone and note that it has been given on prior ED visits. I provided her with a dose of ceftriaxone and azithromycin given the presumed COPD component to her respiratory distress. The patient has been saturating in between 90 and 94% here in the emergency department, with minimal exertion remains with significant decrease in her work of breathing that is concerning enough to me that I worry about the patient's success in the outpatient environment. I reached out to the hospitalist, who has graciously accepted this patient for admission to their service. The patient remained hemodynamically appropriate while under my care, transferred to their service with incident. Kelly Nicolas MD Quality:SDOH Health Related Social Needs: Health related social needs food insecurity (Z59.41), transportation insecurity (Z59.82), problems with daily activities (Z73.9) Health related social needs details TRANSPORTATION TO AND FROM APPTS AND GETTING AROUND [facility] All Active Problems (Updated 07/03/24 @ 23:59 by Kelly Nicolas MD) Numbness of left hand (Acute) Arthritis of carpometacarpal (CMC) joint of left thumb (Acute) Morbid obesity with BMI of 50.0-59.9, adult (Acute) B12 deficiency (Acute) Carpal tunnel syndrome of right wrist (Acute) Arthritis of right shoulder region (Acute) Arthritis of left shoulder region (Acute) Right shoulder pain (Acute) Atrial fibrillation (Chronic) Leg cramps (Acute ~10/23/23) Trigger finger of left hand (Acute) Non-healing surgical wound (Acute) CAD (coronary artery disease) (Chronic 03/29/13) Abnormal renal function (Chronic) elevated creatinine Anxiety (Chronic) COPD with acute exacerbation (Chronic 04/17/16) Depressive disorder (Chronic) Essential hypertension (Chronic) Urinary, incontinence, stress female (Chronic 08/24/12) 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 Hyperlipidemia (Chronic) 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) right sided sciatica w/ disc herniation L5- XRAY 2014 - djd Meralgia paresthetica (Chronic 01/08/02) right Morbid obesity (Chronic 08/06/15) Need for subacute bacterial endocarditis prophylaxis (Chronic 05/02/14) Clinda 600mg once - 60 min before procedure Osteopenia (Chronic) 2003 T-scores: -0.8, -0.2; -1.8 Palpitations (Chronic 08/24/12) Psoriasis (Chronic 08/30/12) Vitamin D deficiency (Chronic 05/26/08) Weight loss (Chronic 03/09/17) Coronary artery spasm (Acute 03/11/07) Tobacco use disorder (Acute) Acute UTI (Acute) COVID-19 (Acute) New onset-12/23/21 Advance care planning (Acute) Shortness of breath (Acute) Sleep apnea (Acute) Screening for HIV (human immunodeficiency virus) (Acute) Subcutaneous mass of toe of right foot (Acute) medial aspect base of right great toe Skin lesion (Acute) Urinary tract infection (Acute) Medical History Abnormal mammogram (01/08/03) Appendicitis (03/11/07) Clostridium difficile infection (03/11/07) Disorder of gallbladder (03/11/07) Lipoma (03/11/07) Tobacco use disorder quit 2004 Abnormal mammogram, unspecified 01/08/03 Clostridium difficile infection 03/11/07 Unspecified appendicitis 03/11/07 Disorder of gallbladder 03/11/07 Lipoma 03/11/07 removed 04/05/12 by Fabrice Lares Ventral hernia with obstruction but no gangrene (03/11/07) epigastric and ventral Shortness of breath (11/05/15) Shingles (03/10/17) Hiatal hernia (03/11/07) EGD; inflammation Acute myocardial infarction (08/24/12) 2006 ECHO showing LVH 75% Surgical History Status post abdominal hysterectomy Status post appendectomy Status post breast biopsy Status post cholecystectomy Status post hernia repair Status post total knee replacement S/P abdominal hysterectomy endometriosis S/P cholecystectomy S/P appendectomy S/P total knee replacement 02/09/95 left S/P breast biopsy, left 02/10/12 lipoma S/P hernia repair 07/10/13 Replacement of total knee joint 1995 LEFT 2004 RIGHT Abdominal hysterectomy endometriosis HERNIA REPAIR (~07/2013) Cholecystectomy Extraction of cataract 11/14/16 DR. MARISCAL; LEFT EYE Biopsy of breast (04/05/12) lipoma; left breast Appendectomy Family History Mother , age 61 Diabetes Essential hypertension Heart disease Hyperlipidemia DVT (deep venous thrombosis) Asthma Father , age 75 Essential hypertension Heart disease Hyperlipidemia Stroke Lung cancer Sister , age 41 Lung cancer Maternal Grandfather , age 88 No problems noted. Paternal Grandfather No problems noted. Maternal Grandmother , age 88 Hyperlipidemia Hypertension Paternal Grandmother Essential hypertension Hyperlipidemia Brother , age 70 Diabetes Essential hypertension Heart disease Alcohol abuse Brother , age 68 No problems noted. Son Depression Hyperlipidemia Alcohol abuse Heart disease Hypertension Son No problems noted. Daughter Essential hypertension Depression DVT (deep venous thrombosis) Asthma Alcohol abuse Hyperlipidemia Substance abuse Social History Smoking/Tobacco Use Status: Former Tobacco Use tobacco type: cigarettes Quit Date: 12/17/03 Tobacco: How many years used: 30 Smoking risk assessment performed?: Yes Alcohol Intake: never Drug use: Never Substance use type: does not use Caregiver/Support person: No Household members: none Housing: apartment Communication Needs: Hard of Hearing Pets and animals: No Sexually active: No Current gender identity: female and decline to answer What is your relationship status?: How often do you talk on the phone with friends or family?: twice per week How often do you get together with friends or relatives?: decline to answer How often do you attend yarsani or tenriism services?: decline to answer Do you belong to any clubs or organized social groups?: decline to answer Panel score (0-1 are the most socially isolated patients): 0 What type of physical activity do you participate in: none and walking Frequency: 3-4 times per week Trish/Buddhist: Yarsanism Special trish needs: No Seatbelt use: always Helmet use: No Drive intox or ride w/intox trolley coach driver: No Do you feel safe at home: Yes Do you feel safe in your relationship?: Yes Would you like helpful sources: No
[2024-07-03 22:42] LABS: ALT 14 U/L (14-59); AST 19 U/L (15-37); Albumin 3.6 g/dL (3.4-5.0); Alkaline Phosphatase 83 U/L (46-116); Anion Gap 5.5 mmol/L (3-11); BUN 44 mg/dL (7-18); Bilirubin, Total 0.7 mg/dL (0.2-1.0); CO2 30.5 mmol/L (21.0-32.0); CREATININE 1.5 mg/dL (0.55-1.02); Calcium 9.5 mg/dL (8.5-10.1); Chloride 106 mmol/L (98-107); Estimated GFR 35.67 (mL/min/1.73m2); Glucose 96 mg/dL (74-106); Magnesium 2.4 mg/dL (1.8-2.4); NT-proBNP 642 pg/mL (<300); Potassium 3.8 mmol/L (3.5-5.1); Sodium 142 mmol/L (136-145); Total Protein 7.2 g/dL (6.4-8.2); Troponin I 14 ng/L (<or=51)
--- NOTE | 2024-07-03 23:25 | DI.VRAD_ITS ---
PROCEDURE INFORMATION: Exam: XR Chest Exam date and time: 07/03/2024 10:57 PM Age: 79 years old Clinical indication: Shortness of breath TECHNIQUE: Imaging protocol: Radiologic exam of the chest. Views: 2 views. COMPARISON: CR XR CHEST 2V PA LATERAL 12/31/2023 9:17 AM FINDINGS: Lungs: Study limited by patient body habitus and apical lordotic projection. Equivocal pulmonary venous congestion. Allowing for limitations there is no discernible airspace opacity. Pleural spaces: Unremarkable. No pleural effusion. No pneumothorax. Heart/Mediastinum: Allowing for study limitations there is equivocal cardiomegaly. Bones/joints: Unremarkable. IMPRESSION: 1. Study limited by patient body habitus and apical lordotic projection. 2. Equivocal pulmonary venous congestion. Dictated and Authenticated by: Melchor Conti MD. Orderin St. Andrei Mendoza MD
[2024-07-03] MEDS: AZITHROMYCIN 500 MG in Normal Saline 250 ML 250 MG IVPB (23:55)
[2024-07-03 23:58] LABS: Troponin I 13 ng/L (<or=51)
[2024-07-04] VITALS (8 sets, daily range): BP systolic 120–151; BP diastolic 61–97; PULSE 84–98; RESP 16–24; TEMP 36.4–36.7; O2SAT 93–97
--- NOTE | 2024-07-04 00:03 | HPE_ITS ---
Date of service: 07/04/24 Time of Service: 00:03 Assessment and Plan Assessment and plan (1) COPD with acute exacerbation: Status: Chronic Assessment and plan: -patient presented with increased SOB despite inhaler use at home -given methylpred and nebs in ED, breating improved at ret but still dyspnic with exertion -continue prednisone 40mg daily, nebs and prn albuterol -continue CTX and azithro (2) Sleep apnea: Status: Acute Assessment and plan: - CPAP HS (3) Atrial fibrillation: Status: Chronic Assessment and plan: -continue home dilt and eliquis (4) CAD (coronary artery disease): Status: Chronic Assessment and plan: -not currently on therapy (5) Morbid obesity with BMI of 50.0-59.9, adult: Status: Acute Assessment and plan: -recommend ongoing weight loss discussions with PCP History of Present Illness History of Present Illness Chief Complaint: Shortness of breath Narrative: 79-year-old morbidly obese female with a past medical history of COPD, A-fib on Eliquis, coronary artery disease, hyperlipidemia and sleep apnea presented to the emergency department shortness of breath. Patient states that over the last few days she has had increased exertional dyspnea that did not respond to her home inhalers. Additionally, she has been taking Lasix for bilateral lower extremity edema and has even noticed improvement of her edema as well as decrease in her weight. She denied any fever, states she has a chronic cough but no change in her mucus production, denies lightheadedness, dizziness, nausea vomiting or diarrhea. In the emergency department the patient was noted as having normal vital signs, normal CBC and CMP but was short of breath particularly with exertion. Imaging was also without any acute findings. Patient had IV methylprednisolone and nebulizer treatment he did have some improvement of her symptoms, though she continued to be extremely dyspneic with exertion even desaturating with ambulation. At which time emergency room physician paged hospitalist for admission for patient with exertional dyspnea secondary to acute exacerbation of COPD. Review of Systems All systems reviewed & are unremarkable except as noted in HPI and below PFSH All Active Problems (Updated 07/03/24 @ 23:59 by Kelly Nicolas MD) Numbness of left hand (Acute) Arthritis of carpometacarpal (CMC) joint of left thumb (Acute) Morbid obesity with BMI of 50.0-59.9, adult (Acute) B12 deficiency (Acute) Carpal tunnel syndrome of right wrist (Acute) Arthritis of right shoulder region (Acute) Arthritis of left shoulder region (Acute) Right shoulder pain (Acute) Atrial fibrillation (Chronic) Leg cramps (Acute ~10/23/23) Trigger finger of left hand (Acute) Non-healing surgical wound (Acute) CAD (coronary artery disease) (Chronic 03/29/13) Abnormal renal function (Chronic) elevated creatinine Anxiety (Chronic) COPD with acute exacerbation (Chronic 04/17/16) Depressive disorder (Chronic) Essential hypertension (Chronic) Urinary, incontinence, stress female (Chronic 08/24/12) 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 Hyperlipidemia (Chronic) 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) right sided sciatica w/ disc herniation L5- XRAY 2014 - djd Meralgia paresthetica (Chronic 01/08/02) right Morbid obesity (Chronic 08/06/15) Need for subacute bacterial endocarditis prophylaxis (Chronic 05/02/14) Clinda 600mg once - 60 min before procedure Osteopenia (Chronic) 2003 T-scores: -0.8, -0.2; -1.8 Palpitations (Chronic 08/24/12) Psoriasis (Chronic 08/30/12) Vitamin D deficiency (Chronic 05/26/08) Weight loss (Chronic 03/09/17) Coronary artery spasm (Acute 03/11/07) Tobacco use disorder (Acute) Acute UTI (Acute) COVID-19 (Acute) New onset-12/23/21 Advance care planning (Acute) Shortness of breath (Acute) Sleep apnea (Acute) Screening for HIV (human immunodeficiency virus) (Acute) Subcutaneous mass of toe of right foot (Acute) medial aspect base of right great toe Skin lesion (Acute) Urinary tract infection (Acute) Medical History Abnormal mammogram (01/08/03) Appendicitis (03/11/07) Clostridium difficile infection (03/11/07) Disorder of gallbladder (03/11/07) Lipoma (03/11/07) Tobacco use disorder quit 2004 Abnormal mammogram, unspecified 01/08/03 Clostridium difficile infection 03/11/07 Unspecified appendicitis 03/11/07 Disorder of gallbladder 03/11/07 Lipoma 03/11/07 removed 04/05/12 by Fabrice Lares Ventral hernia with obstruction but no gangrene (03/11/07) epigastric and ventral Shortness of breath (11/05/15) Shingles (03/10/17) Hiatal hernia (03/11/07) EGD; inflammation Acute myocardial infarction (08/24/12) 2006 ECHO showing LVH 75% Surgical History Status post abdominal hysterectomy Status post appendectomy Status post breast biopsy Status post cholecystectomy Status post hernia repair Status post total knee replacement S/P abdominal hysterectomy endometriosis S/P cholecystectomy S/P appendectomy S/P total knee replacement 02/09/95 left S/P breast biopsy, left 02/10/12 lipoma S/P hernia repair 07/10/13 Replacement of total knee joint 1995 LEFT 2004 RIGHT Abdominal hysterectomy endometriosis HERNIA REPAIR (~07/2013) Cholecystectomy Extraction of cataract 11/14/16 DR. MARISCAL; LEFT EYE Biopsy of breast (04/05/12) lipoma; left breast Appendectomy Family History Mother , age 61 Diabetes Essential hypertension Heart disease Hyperlipidemia DVT (deep venous thrombosis) Asthma Father , age 75 Essential hypertension Heart disease Hyperlipidemia Stroke Lung cancer Sister , age 41 Lung cancer Maternal Grandfather , age 88 No problems noted. Paternal Grandfather No problems noted. Maternal Grandmother , age 88 Hyperlipidemia Hypertension Paternal Grandmother Essential hypertension Hyperlipidemia Brother , age 70 Diabetes Essential hypertension Heart disease Alcohol abuse Brother , age 68 No problems noted. Son Depression Hyperlipidemia Alcohol abuse Heart disease Hypertension Son No problems noted. Daughter Essential hypertension Depression DVT (deep venous thrombosis) Asthma Alcohol abuse Hyperlipidemia Substance abuse Social History Smoking/Tobacco Use Status: Former Tobacco Use tobacco type: cigarettes Quit Date: 12/17/03 Tobacco: How many years used: 30 Smoking risk assessment performed?: Yes Alcohol Intake: never Drug use: Never Substance use type: does not use Caregiver/Support person: No Household members: none Housing: apartment Communication Needs: Hard of Hearing Pets and animals: No Sexually active: No Current gender identity: female and decline to answer What is your relationship status?: How often do you talk on the phone with friends or family?: twice per week How often do you get together with friends or relatives?: decline to answer How often do you attend gnosticist or confucianism services?: decline to answer Do you belong to any clubs or organized social groups?: decline to answer Panel score (0-1 are the most socially isolated patients): 0 What type of physical activity do you participate in: none and walking Frequency: 3-4 times per week Trish/Cheondoism: Restorationist Special trish needs: No Seatbelt use: always Helmet use: No Drive intox or ride w/intox fast food delivery driver: No Do you feel safe at home: Yes Do you feel safe in your relationship?: Yes Would you like helpful sources: No Meds Allergies and Home Medications Allergies Allergy/AdvReac Type Severity Reaction Status Date / Time Tetanus Vaccines and Toxoid Allergy Severe Massive Verified 07/03/24 21:35 (Tetanus Vaccines \E&E\ Local Toxoid) Reaction amoxicillin Allergy Unknown HIVES Verified 07/03/24 21:35 atenolol AdvReac Intermediate Fluid Verified 07/03/24 21:35 Retention bupropion (From Wellbutrin AdvReac Intermediate nausea Verified 07/03/24 21:35 SR) morphine AdvReac Intermediate Jittery Verified 07/03/24 21:35 COVID-19 (SARS-CoV-2) AdvReac Mild redness Verified 07/03/24 21:35 vaccine, [place] (Pheizer) codeine AdvReac Unknown ANXIETY Verified 07/03/24 21:35 Iodinated Contrast Media AdvReac Unknown ANXIETY Verified 07/03/24 21:35 (Iodinated Contrast- Oral and IV Dye) meperidine AdvReac Unknown NAUSEA/VOMI Verified 07/03/24 21:35 TING promethazine AdvReac Unknown ANXIETY Verified 07/03/24 21:35 Home Medications ?Medication ?Instructions ?Recorded ?Confirmed ?Type acetaminophen 500 mg tablet 1,000 mg PO Q4H PRN 08/06/15 07/03/24 History (Tylenol Extra Strength) diphenhydramine HCl 25 mg tablet 25 mg PO DAILY PRN 05/20/16 07/03/24 History (Benadryl Allergy) triamcinolone acetonide 0.1 % 1 applic topical BID PRN rash #80 01/26/18 07/03/24 Rx topical ointment appful cholecalciferol (vitamin D3) 50 50 mcg PO DAILY 12/24/20 07/03/24 History mcg (2,000 unit) capsule apixaban 5 mg tablet (Eliquis) 5 mg PO BID #180 tabs 06/09/23 07/03/24 Rx diltiazem HCl 240 mg capsule,24 240 mg PO DAILY #90 caps 06/09/23 07/03/24 Rx hr,extended release diltiazem HCl 30 mg tablet 30 mg PO BID PRN Esophageal spasms 06/09/23 07/03/24 Rx #100 tab-caps guaifenesin 600 mg tablet, 600 mg PO Q12H PRN congestion #60 06/09/23 07/03/24 Rx extended release 12 hr (Mucinex) tabs omeprazole 20 mg capsule,delayed 20 mg PO DAILY #90 caps 06/09/23 07/03/24 Rx release varicella-zoster glycoE [id number] 0.5 ml IM ONCE #1 ea 06/23/23 07/03/24 Rx adj(PF) 50 mcg/0.5 mL IM susp, kit (Shingrix (PF)) albuterol sulfate 90 mcg/actuation 1 - 2 puff inhalation Q4H PRN ##3 10/09/23 07/03/24 Rx aerosol inhaler fluticasone 500 mcg-salmeterol 50 1 inh inhalation BID #180 ea 12/31/23 07/03/24 Rx mcg/dose blistr powdr for inhalation (Advair Diskus) furosemide 40 mg tablet 40 mg PO DAILY edema #90 tab-caps 12/31/23 07/03/24 Rx oxybutynin chloride 5 mg tablet 10 mg (2 x 5 mg) PO BID PRN 06/14/24 07/03/24 Rx bladder spasms #360 tabs Exam Narrative Exam Narrative: Morbidly obese female laying in bed in no acute distress, ANO x 4, heart regular rate rhythm, lungs with minimal end expiratory wheezing bilaterally though diminished breath sounds due to body habitus, abdomen morbidly obese, soft, nontender, nondistended Results Labs 07/03/24 21:45 07/03/24 22:05 Labs: Laboratory Results - last 24 hr 07/03/24 07/03/24 07/03/24 21:45 22:05 23:35 WBC 6.97 RBC 4.07 Hgb 8.5 L Hct 30.4 L MCV 75 L MCH 20.9 L MCHC 28.0 L RDW 20.8 H Plt Count 150 MPV Immature Gran % 0.3 Neutrophils % 62.5 Lymphocytes % 18.8 Monocytes % 12.5 Eosinophils % 5.2 Basophils % 0.7 Nucleated RBC % 0.0 Absolute Neutrophils 4.36 Absolute Lymphocytes 1.31 Absolute Monocytes 0.87 H Absolute Eosinophils 0.36 Absolute Basophils 0.05 RBC Morphology See Below Hypochromasia 1+ Anisocytosis 1+ Microcytosis 1+ Sodium Cancelled 142 Potassium Cancelled 3.8 Chloride Cancelled 106 Carbon Dioxide Cancelled 30.5 Anion Gap Cancelled 5.5 BUN Cancelled 44 H Creatinine Cancelled 1.5 H Est GFR (CKD-EPI 2020) Cancelled 35.67 Glucose Cancelled 96 Calcium Cancelled 9.5 Magnesium Cancelled 2.4 Total Bilirubin Cancelled 0.7 AST Cancelled 19 ALT Cancelled 14 Alkaline Phosphatase Cancelled 83 Troponin I Cancelled 14 13 NT-Pro-B Natriuret Pep Cancelled 642 H Total Protein Cancelled 7.2 Albumin Cancelled 3.6 Last Vital Signs Temp 97.6 F 07/03/24 21:28 Pulse 73 07/03/24 21:51 Resp 24 07/03/24 21:51 BP 161/57 H 07/03/24 21:28 Pulse Ox 97 07/03/24 21:51 Time Spent Time spent with Patient: >75 minutes Time was spent: preparing to see the patient(eg.review tests), obtaining and/or reviewing separately otained hiistory, ordering medications,tests, procedures, referring, communicating with other health career development director, indepentently interpreting results, counseling the patient and care coordination
[2024-07-04] MEDS: Water,Injection,Sterile 10 ML VIAL (00:54)
[2024-07-04] MEDS: cefTRIAXone 1 GM/50 ML BAG IVPB (00:58)
--- NOTE | 2024-07-04 01:18 | W.PCEDHO ---
Registration Status: Primary Language: Preferred Language: ED Information & Data Chief Complaint RespSymp 07/03/24 22:36 Triage Note Pt BIBEMS w/ increasing SOB 07/03/24 21:23 @home. COPD hx, but not on home O2. Reports sxs started ~0000 Thursday into Thursday evening. Tried home inhalers and 'took an extra fluid pill' and reports no improvement in sxs. Denies other sxs. Medical / Surgical History (Last Reviewed 05/26/24 @ 17:34 by Rakesh Holloway MD) Abnormal mammogram (01/08/03) Appendicitis (03/11/07) Clostridium difficile infection (03/11/07) Disorder of gallbladder (03/11/07) Lipoma (03/11/07) Tobacco use disorder Abnormal mammogram, unspecified Clostridium difficile infection Unspecified appendicitis Disorder of gallbladder Lipoma Ventral hernia with obstruction but no gangrene (03/11/07) Shortness of breath (11/05/15) Shingles (03/10/17) Hiatal hernia (03/11/07) Acute myocardial infarction (08/24/12) (Last Reviewed 05/26/24 @ 17:34 by Rakesh Holloway MD) Status post abdominal hysterectomy Status post appendectomy Status post breast biopsy Status post cholecystectomy Status post hernia repair Status post total knee replacement S/P abdominal hysterectomy S/P cholecystectomy S/P appendectomy S/P total knee replacement S/P breast biopsy, left S/P hernia repair Replacement of total knee joint Abdominal hysterectomy HERNIA REPAIR (~07/2013) Cholecystectomy Extraction of cataract Biopsy of breast (04/05/12) Appendectomy Most Recent Vital Signs Temperature 36.4 C 07/03/24 21:28 Temperature Source Temporal Artery Scan 07/03/24 21:28 Pulse 73 07/03/24 21:51 Respiratory Rate 24 07/03/24 21:51 Respiratory Effort Short of Breath, Labored 07/03/24 21:28 Respiratory Depth Normal 07/03/24 21:28 Blood Pressure 161/57 H 07/03/24 21:28 Blood Pressure Position Sitting 07/03/24 21:28 Pulse Oximetry 95 07/04/24 00:40 Oxygen Delivery Method Nasal Cannula 07/04/24 00:40 Oxygen Flow Rate 2 07/04/24 00:40 Allergies Tetanus Vaccines and Toxoid (Tetanus Vaccines \E&E\ Toxoid) Allergy (Severe, Verified 07/03/24 21:35) Massive Local Reaction amoxicillin Allergy (Unknown, Verified 07/03/24 21:35) HIVES atenolol Adverse Reaction (Intermediate, Verified 07/03/24 21:35) Fluid Retention bupropion (From Wellbutrin SR) Adverse Reaction (Intermediate, Verified 07/03/24 21:35) nausea morphine Adverse Reaction (Intermediate, Verified 07/03/24 21:35) Jittery COVID-19 (SARS-CoV-2) vaccine, [place] Adverse Reaction (Mild, Verified 07/03/24 21:35) redness (Pheizer) codeine Adverse Reaction (Unknown, Verified 07/03/24 21:35) ANXIETY Iodinated Contrast Media (Iodinated Contrast- Oral and IV Dye) Adverse Reaction (Unknown, Verified 07/03/24 21:35) ANXIETY meperidine Adverse Reaction (Unknown, Verified 07/03/24 21:35) NAUSEA/VOMITING promethazine Adverse Reaction (Unknown, Verified 07/03/24 21:35) ANXIETY Precautions Isolation Standard precaution 07/03/24 21:28 IV IV Catheter Type [Right Hand] Peripheral IV IV Catheter Gauge [Right Hand] 20 Diagnostics 07/04/24 07/03/24 07/03/24 Range/Units 00:30 23:35 22:05 WBC (4.4-10.8) 10^3/uL RBC (3.93-5.22) 10^6/uL Hgb (11.2-15.7) g/dL Hct (36.0-46.0) % MCV (80-95) fL MCH (27.0-33.0) pg MCHC (32.0-36.0) % RDW (11.7-14.6) % Plt Count (130-400) 10^3/uL MPV (8.0-11.0) fL Immature Gran % % Neutrophils % % Lymphocytes % % Monocytes % % Eosinophils % % Basophils % % Nucleated RBC % (0.0-0.3) % Absolute Neutrophils (1.2-6.7) 10^3/uL Absolute Lymphocytes (1.2-3.4) 10^3/uL Absolute Monocytes (0.1-0.8) 10^3/uL Absolute Eosinophils (0.0-0.7) 10^3/uL Absolute Basophils (0.0-0.2) 10^3/uL RBC Morphology Hypochromasia Anisocytosis Microcytosis Sodium 142 Potassium 3.8 Chloride 106 Carbon Dioxide 30.5 Anion Gap 5.5 BUN 44 H Creatinine 1.5 H Est GFR (CKD-EPI 2020) 35.67 Glucose 96 Calcium 9.5 Magnesium 2.4 Total Bilirubin 0.7 AST 19 ALT 14 Alkaline Phosphatase 83 Troponin I Cancelled 13 14 NT-Pro-B Natriuret Pep 642 H Total Protein 7.2 Albumin 3.6 05/25/25 Range/Units 21:45 WBC 6.97 (4.4-10.8) 10^3/uL RBC 4.07 (3.93-5.22) 10^6/uL Hgb 8.5 L (11.2-15.7) g/dL Hct 30.4 L (36.0-46.0) % MCV 75 L (80-95) fL MCH 20.9 L (27.0-33.0) pg MCHC 28.0 L (32.0-36.0) % RDW 20.8 H (11.7-14.6) % Plt Count 150 (130-400) 10^3/uL MPV (8.0-11.0) fL Immature Gran % 0.3 % Neutrophils % 62.5 % Lymphocytes % 18.8 % Monocytes % 12.5 % Eosinophils % 5.2 % Basophils % 0.7 % Nucleated RBC % 0.0 (0.0-0.3) % Absolute Neutrophils 4.36 (1.2-6.7) 10^3/uL Absolute Lymphocytes 1.31 (1.2-3.4) 10^3/uL Absolute Monocytes 0.87 H (0.1-0.8) 10^3/uL Absolute Eosinophils 0.36 (0.0-0.7) 10^3/uL Absolute Basophils 0.05 (0.0-0.2) 10^3/uL RBC Morphology See Below Hypochromasia 1+ Anisocytosis 1+ Microcytosis 1+ Sodium Cancelled Potassium Cancelled Chloride Cancelled Carbon Dioxide Cancelled Anion Gap Cancelled BUN Cancelled Creatinine Cancelled Est GFR (CKD-EPI 2020) Cancelled Glucose Cancelled Calcium Cancelled Magnesium Cancelled Total Bilirubin Cancelled AST Cancelled ALT Cancelled Alkaline Phosphatase Cancelled Troponin I Cancelled NT-Pro-B Natriuret Pep Cancelled Total Protein Cancelled Albumin Cancelled Intake and Output - 24 Hour Total 07/03/24 21:17 thru 07/04/24 00:54 Intake Total 250 Balance 250 Weight 156.036 kg Intake: IV 250 Falls Risk Assessment History of Falls No History 07/03/24 21:28 Contributing Factors Impairments 07/03/24 21:28 Ambulatory Aids Uses ambulatory device + 07/03/24 21:28 Tubes/Lines None 07/03/24 21:28 Gait Evaluation W/any additional score 07/03/24 21:28 Cognition No cognitive impairment 07/03/24 21:28 Fall Total Score 53 07/03/24 21:28 Level of Risk High Risk 07/03/24 21:28 Problems (Last Reviewed 05/26/24 @ 17:34 by Rakesh Holloway MD) Morbid obesity with BMI of 50.0-59.9, adult (Acute) Atrial fibrillation (Chronic) CAD (coronary artery disease) (Chronic 03/29/13) COPD with acute exacerbation (Chronic 04/17/16) Sleep apnea (Acute) v v v v v v v v v Sending and/or Receiving Nurses: Please use comment section below to note any information pertinent to the patient hand-off not included above. Information / Comments:no questions Report received from:Jeannine MILLARD
[2024-07-04 06:26] LABS: HCT 32.1 % (36.0-46.0); HGB 8.8 g/dL (11.2-15.7); MCH 20.6 pg (27.0-33.0); MCV 75 fL (80-95); Platelet Count 150 10^3/uL (130-400); RBC 4.27 10^6/uL (3.93-5.22); RDW-SD 55.3 fL; WBC 7.24 10^3/uL (4.4-10.8)
[2024-07-04 06:35] LABS: Anion Gap 7.1 mmol/L (3-11); BUN 37 mg/dL (7-18); CO2 29.9 mmol/L (21.0-32.0); CREATININE 1.3 mg/dL (0.55-1.02); Calcium 9.2 mg/dL (8.5-10.1); Chloride 104 mmol/L (98-107); Estimated GFR 42.35 (mL/min/1.73m2); Glucose 166 mg/dL (74-106); Potassium 4.1 mmol/L (3.5-5.1); Sodium 141 mmol/L (136-145)
[2024-07-04 07:21] LABS: RDW 20.7 % (11.7-14.6)
[2024-07-04 07:22] LABS: MCHC 27.4 % (32.0-36.0)
[2024-07-04] MEDS: predniSONE 20 MG TAB 40 MG PO (08:05)
[2024-07-04] MEDS: Normal Saline Flush 10 ML SYR IVP ×2 (08:05)
[2024-07-04] MEDS: dilTIAZem CD 120 MG CAPCR 240 MG PO (08:05)
[2024-07-04] MEDS: Omeprazole 20 MG CAPCR PO (08:06)
[2024-07-04] MEDS: Apixaban 5 MG TAB PO (08:06)
[2024-07-04] MEDS: Acetaminophen 325 MG TAB PO (08:12)
[2024-07-04] MEDS: Budesonide/Formoterol 160/4.5 6 GM 60 PUFF INH IH (08:21)
[2024-07-04 12:37] LABS: Iron 23 ug/dL (50-170); Total Iron Binding Capacity 462 ug/dL (250-450); Transferrin Sat 5 % (15-50)
--- NOTE | 2024-07-04 12:46 | DSE_ITS ---
Date of service: 07/04/24 Time of Service: 12:46 DS: Diagnosis Discharge Diagnosis (1) COPD with acute exacerbation: Status: Chronic (2) Sleep apnea: Status: Acute (3) Atrial fibrillation: Status: Chronic (4) CAD (coronary artery disease): Status: Chronic (5) Morbid obesity with BMI of 50.0-59.9, adult: Status: Acute Discharge Plan Disposition Patient Disposition: Home Condition: Improving Discharge Details Reason For Visit: Exertional dysonea Admit Date/Time: 07/04/24 00:02 Admit Provider: Galen Lancaster Attending Provider: Galen Lancaster Primary Care Provider: Chanel Garcia Hospital Course Hospital Course: This 79-year-old morbidly obese female with a past medical history of COPD ( no official PFT results on file), A-fib on Eliquis, coronary artery disease, hyperlipidemia and sleep apnea presented to the emergency department shortness of breath; reported increased exertional dyspnea not responding to home inhalers, increased orthopnea. [place] in the ED showed normal vital signs, normal CMP and CBC except for H&H at 8.5 & 30.4 with previous values in 12/2023 at 10.4 & 37. Imaging result suspicious for pulmonary edema/CHF as per reports.The patient mentioned taking Lasix for bilateral lower extremity edema with noticeable improvement. In the ED, the patient received IV methylprednisolone and nebulizer treatment with some improvement in symptoms but remained short of breath particularly with exertion and even desaturating with ambulation.The hospitalist admitted the patient for patient with exertional dyspnea secondary to acute exacerbation of COPD. Iron studies were positive and IV iron was administered; oral supplementation on discharge. The patient was hemodynamically stable,ambulating without exertion or hypoxia on RA and requested to be discharged home and agrees to complete outpatient echocardigram. Patient aware to take furosemide 20 mg orally around 16:00 on Tuesdays and Thursday in addition to her morning dose; on subsequent days ,she will resume only her morning home dose. Follow-up with PCP within 7 days of discharge,please. Commendations for PCP follow-up: Iron studies follow-up Anemia work-up GLP-1 follow-up and discussion PFT testing Outpatient echocardiogram f/u -last on 10/10/2014 with grade 1- diastolic dysfunction Discussed with Dr. Bashir Home Meds and New Rx's Prescriptions: New prednisone 20 mg Tablet 40 mg PO DAILY Qty: 6 0RF Rx Instructions: The hospital dispensed your doses for Thursday and Thursday after you pointed that delivery would not occur until . ferrous sulfate 325 mg (65 mg iron) tablet 325 mg PO DAILY Qty: 30 0RF Continued cholecalciferol (vitamin D3) 50 mcg (2,000 unit) capsule 50 mcg PO DAILY fluticasone propion-salmeterol [Advair Diskus] 500-50 mcg/dose blister with device 1 inh inhalation BID Qty: 180 5RF furosemide 40 mg tablet 40 mg PO DAILY Qty: 90 4RF triamcinolone acetonide 0.1 % ointment 1 applic Topical BID PRN (Reason: rash) Qty: 80 3RF Rx Instructions: use topically on area. dispense 0.1% oinment in 80 gm tube Shingrix (PF) 50 mcg/0.5 mL suspension for reconstitution 0.5 ml IM ONCE Qty: 1 1RF Rx Instructions: as a single dose. Repeat in 2 months diphenhydramine HCl [Benadryl Allergy] 25 MG tablet 25 mg PO DAILY PRN omeprazole 20 mg capsule,delayed release(DR/EC) 20 mg PO DAILY Qty: 90 4RF Eliquis 5 mg tablet 5 mg PO BID Qty: 180 12RF diltiazem HCl 30 mg tablet 30 mg PO BID PRN (Reason: Esophageal spasms) Qty: 100 0RF Rx Instructions: take for chest discomfort diltiazem HCl 240 mg capsule,extended release 24 hr 240 mg PO DAILY Qty: 90 5RF guaifenesin [Mucinex] 600 mg tablet extended release 12hr 600 mg PO Q12H PRN (Reason: congestion) Qty: 60 3RF albuterol sulfate 90 mcg/actuation HFA aerosol inhaler 1 - 2 puff Inhalation Q4H PRN Qty: 3 5RF oxybutynin chloride 5 mg tablet 10 mg PO BID PRN (Reason: bladder spasms) Qty: 360 4RF Changed acetaminophen [Tylenol Extra Strength] 500 MG tablet 1,000 mg PO TID PRNQty: 0 0RF Discharge Instructions Referrals: Chanel Garcia MD, [place] [Primary Care Provider] - (Follow-up within 7 days of discharge) Activity:: Activity as Tolerated Equipment/Supplies:: No Equipment Needed Diet:: heart healthy Discharge Orders Discharge Orders: Discharge Order (Routine); Ordered 07/04/24 Ordered By: Lillian Cantu Other Ambulatory Orders: US echocardiogram (Routine) Timeframe: 10 Day Facility: [facility] - Location: DIAGNOSTIC IMAGING Ordered By: Lillian Cantu DS: Summary Time Spent with Patient providing and/or coordinating discharge services: Greater than 30 minutes Status at Discharge Functional status at discharge: uses cane/walker Overall status at discharge: patient is progressing back to baseline Mental Status: mental status grossly normal Speech and Movement: speech and movement normal Mood: congruent mood Affect: normal affect Quality:SDOH Health Related Social Needs: Health related social needs food insecurity (Z59.41), transportation insecurity (Z59.82), problems with daily activities (Z73.9) Health related social needs details TRANSPORTATION TO AND FROM APPTS AND GETTING AROUND Health related social needs details: TRANSPORTATION TO AND FROM APPTS AND GETTING AROUND Exam Narrative Exam Narrative: This 79 yo morbidly obese female patient appearing of stated age , in bed in no acute distress, ANO x 4, heart regular rate rhythm positive murmur, no wheezing , decreased left base breath sound , abdomen morbidly obese, soft, nontender, nondistended, moves all 4 ext, ambulates in hallway w/o hypoxia or decompensation Psych Mental Status: mental status grossly normal Speech and Movement: speech and movement normal Mood: congruent mood Affect: normal affect DS: Data Vitals/I&O Vitals and I&O: Vital Signs Temperature 36.7 C 07/04/24 11:50 Temperature Source Temporal Artery Scan 07/04/24 11:50 Pulse 98 H 07/04/24 11:50 Pulse Rhythm Irregular 07/04/24 01:45 Respiratory Rate 16 07/04/24 11:50 Respiratory Effort Normal 07/04/24 01:45 Respiratory Depth Normal 07/04/24 01:45 Respiratory Pattern Normal 07/04/24 01:45 Blood Pressure 134/61 07/04/24 11:50 Blood Pressure Mean 85 07/04/24 11:50 Blood Pressure Position Sitting 07/03/24 21:28 Pulse Oximetry 95 07/04/24 11:50 Oxygen Delivery Method Room Air 07/04/24 11:50 Oxygen Flow Rate 0 07/04/24 11:50 Pain Level 4 07/04/24 08:12 Comment Dyspnea on exertion 07/04/24 01:45 Intake & Output 07/03/24 07/04/24 07/04/24 23:59 11:59 23:59 Intake Total 1440 / 1440 Balance 1440 / 1440 Weight 156.036 kg 152.861 kg Intake: IV 300 / 300 Oral 1140 / 1140 Other: Urine Color Yellow Urine Appearance Clear Urine Odor Normal Comment voided in bathroom Data Completed and Pending Labs on day of discharge: Labs from last 24 hours 07/04/24 07/04/24 07/03/24 06:00 00:30 23:35 WBC 7.24 RBC 4.27 Hgb 8.8 L Hct 32.1 L MCV 75 L MCH 20.6 L MCHC 27.4 L RDW 20.7 H Plt Count 150 MPV Immature Gran % Neutrophils % Lymphocytes % Monocytes % Eosinophils % Basophils % Nucleated RBC % Absolute Neutrophils Absolute Lymphocytes Absolute Monocytes Absolute Eosinophils Absolute Basophils RBC Morphology Hypochromasia Anisocytosis Microcytosis Sodium 141 Potassium 4.1 Chloride 104 Carbon Dioxide 29.9 Anion Gap 7.1 BUN 37 H Creatinine 1.3 H Est GFR (CKD-EPI 2020) 42.35 Glucose 166 H Calcium 9.2 Magnesium Iron 23 L TIBC 462 H Transferrin % Sat 5 L Ferritin Pending Total Bilirubin AST ALT Alkaline Phosphatase Troponin I Cancelled 13 NT-Pro-B Natriuret Pep Total Protein Albumin 07/03/24 07/03/24 22:05 21:45 WBC 6.97 RBC 4.07 Hgb 8.5 L Hct 30.4 L MCV 75 L MCH 20.9 L MCHC 28.0 L RDW 20.8 H Plt Count 150 MPV Immature Gran % 0.3 Neutrophils % 62.5 Lymphocytes % 18.8 Monocytes % 12.5 Eosinophils % 5.2 Basophils % 0.7 Nucleated RBC % 0.0 Absolute Neutrophils 4.36 Absolute Lymphocytes 1.31 Absolute Monocytes 0.87 H Absolute Eosinophils 0.36 Absolute Basophils 0.05 RBC Morphology See Below Hypochromasia 1+ Anisocytosis 1+ Microcytosis 1+ Sodium 142 Cancelled Potassium 3.8 Cancelled Chloride 106 Cancelled Carbon Dioxide 30.5 Cancelled Anion Gap 5.5 Cancelled BUN 44 H Cancelled Creatinine 1.5 H Cancelled Est GFR (CKD-EPI 2020) 35.67 Cancelled Glucose 96 Cancelled Calcium 9.5 Cancelled Magnesium 2.4 Cancelled Iron TIBC Transferrin % Sat Ferritin Total Bilirubin 0.7 Cancelled AST 19 Cancelled ALT 14 Cancelled Alkaline Phosphatase 83 Cancelled Troponin I 14 Cancelled NT-Pro-B Natriuret Pep 642 H Cancelled Total Protein 7.2 Cancelled Albumin 3.6 Cancelled PFSH All Active Problems (Updated 07/04/24 @ 13:23 by Lillian Cantu APRN) Numbness of left hand (Acute) Arthritis of carpometacarpal (CMC) joint of left thumb (Acute) Morbid obesity with BMI of 50.0-59.9, adult (Acute) B12 deficiency (Acute) Carpal tunnel syndrome of right wrist (Acute) Arthritis of right shoulder region (Acute) Arthritis of left shoulder region (Acute) Right shoulder pain (Acute) Atrial fibrillation (Chronic) Leg cramps (Acute ~10/23/23) Trigger finger of left hand (Acute) Non-healing surgical wound (Acute) CAD (coronary artery disease) (Chronic 03/29/13) Abnormal renal function (Chronic) elevated creatinine Anxiety (Chronic) COPD with acute exacerbation (Chronic 04/17/16) Depressive disorder (Chronic) Essential hypertension (Chronic) Urinary, incontinence, stress female (Chronic 08/24/12) 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 Hyperlipidemia (Chronic) 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) right sided sciatica w/ disc herniation L5- XRAY 2014 - djd Meralgia paresthetica (Chronic 01/08/02) right Morbid obesity (Chronic 08/06/15) Need for subacute bacterial endocarditis prophylaxis (Chronic 05/02/14) Clinda 600mg once - 60 min before procedure Osteopenia (Chronic) 2003 T-scores: -0.8, -0.2; -1.8 Palpitations (Chronic 08/24/12) Psoriasis (Chronic 08/30/12) Vitamin D deficiency (Chronic 05/26/08) Weight loss (Chronic 03/09/17) Coronary artery spasm (Acute 03/11/07) Tobacco use disorder (Acute) Acute UTI (Acute) COVID-19 (Acute) New onset-12/23/21 Advance care planning (Acute) Shortness of breath (Acute) Sleep apnea (Acute) Screening for HIV (human immunodeficiency virus) (Acute) Subcutaneous mass of toe of right foot (Acute) medial aspect base of right great toe Skin lesion (Acute) Urinary tract infection (Acute) Medical History Abnormal mammogram (01/08/03) Appendicitis (03/11/07) Clostridium difficile infection (03/11/07) Disorder of gallbladder (03/11/07) Lipoma (03/11/07) Tobacco use disorder quit 2004 Abnormal mammogram, unspecified 01/08/03 Clostridium difficile infection 03/11/07 Unspecified appendicitis 03/11/07 Disorder of gallbladder 03/11/07 Lipoma 03/11/07 removed 04/05/12 by Fabrice Lares Ventral hernia with obstruction but no gangrene (03/11/07) epigastric and ventral Shortness of breath (11/05/15) Shingles (03/10/17) Hiatal hernia (03/11/07) EGD; inflammation Acute myocardial infarction (08/24/12) 2006 ECHO showing LVH 75% Surgical History Status post abdominal hysterectomy Status post appendectomy Status post breast biopsy Status post cholecystectomy Status post hernia repair Status post total knee replacement S/P abdominal hysterectomy endometriosis S/P cholecystectomy S/P appendectomy S/P total knee replacement 02/09/95 left S/P breast biopsy, left 02/10/12 lipoma S/P hernia repair 07/10/13 Replacement of total knee joint 1995 LEFT 2004 RIGHT Abdominal hysterectomy endometriosis HERNIA REPAIR (~07/2013) Cholecystectomy Extraction of cataract 11/14/16 DR. MARISCAL; LEFT EYE Biopsy of breast (04/05/12) lipoma; left breast Appendectomy Family History Mother , age 61 Diabetes Essential hypertension Heart disease Hyperlipidemia DVT (deep venous thrombosis) Asthma Father , age 75 Essential hypertension Heart disease Hyperlipidemia Stroke Lung cancer Sister , age 41 Lung cancer Maternal Grandfather , age 88 No problems noted. Paternal Grandfather No problems noted. Maternal Grandmother , age 88 Hyperlipidemia Hypertension Paternal Grandmother Essential hypertension Hyperlipidemia Brother , age 70 Diabetes Essential hypertension Heart disease Alcohol abuse Brother , age 68 No problems noted. Son Depression Hyperlipidemia Alcohol abuse Heart disease Hypertension Son No problems noted. Daughter Essential hypertension Depression DVT (deep venous thrombosis) Asthma Alcohol abuse Hyperlipidemia Substance abuse Social History Smoking/Tobacco Use Status: Former Tobacco Use tobacco type: cigarettes Quit Date: 12/17/03 Tobacco: How many years used: 30 Smoking risk assessment performed?: Yes Alcohol Intake: never Drug use: Never Substance use type: does not use Caregiver/Support person: No Household members: none Housing: apartment Communication Needs: Hard of Hearing Pets and animals: No Sexually active: No Current gender identity: female and decline to answer What is your relationship status?: How often do you talk on the phone with friends or family?: twice per week How often do you get together with friends or relatives?: decline to answer How often do you attend muslim or oriental orthodox services?: decline to answer Do you belong to any clubs or organized social groups?: decline to answer Panel score (0-1 are the most socially isolated patients): 0 What type of physical activity do you participate in: none and walking Frequency: 3-4 times per week Trish/Nondenominational: Religious Special trish needs: No Seatbelt use: always Helmet use: No Drive intox or ride w/intox electric train driver: No Do you feel safe at home: Yes Do you feel safe in your relationship?: Yes Would you like helpful sources: No Time Spent with Patient Time Spent with Patient: 70-84 minutes4 Time was spent: preparing to see the patient(eg.review tests), obtaining and/or reviewing separately otained hiistory, ordering medications,tests, procedures, referring, communicating with other health healthcare market consultant, indepentently interpreting results, counseling the patient and care coordination
[2024-07-04] MEDS: FERUMOXYTOL 510 MG in Normal Saline 50 ML 134 MG IVPB (14:11)
[2024-07-06 15:33] LABS: Ferritin 20 ng/mL (8-252)
== END 2024-07-04 15:08 | disposition home or self-care (01) ==
LOC: ER 07-04 00:47 → MS 07-04 01:41
PROVIDERS: Admitting Provider Family Medicine; Emergency Provider Emergency Medicine; PCP Family Medicine; Responsible Provider Nurse Practitioner Acute Care; Visit Provider Family Medicine
DX: J44.1 Chronic obstructive pulmonary disease with (acute) exacerbation (principal); I48.91 Unspecified atrial fibrillation; I25.10 Atherosclerotic heart disease of native coronary artery without angina pectoris; E66.01 Morbid (severe) obesity due to excess calories; Z68.43 Body mass index [BMI] 50.0-59.9, adult; I51.89 Other ill-defined heart diseases; Z79.899 Other long term (current) drug therapy; Z79.01 Long term (current) use of anticoagulants; E78.5 Hyperlipidemia, unspecified; Z73.9 Problem related to life management difficulty, unspecified; Z59.82 Transportation insecurity; Z59.41 Food insecurity; E53.8 Deficiency of other specified B group vitamins; M19.011 Primary osteoarthritis, right shoulder; M19.012 Primary osteoarthritis, left shoulder; I10 Essential (primary) hypertension; E55.9 Vitamin D deficiency, unspecified; G57.11 Meralgia paresthetica, right lower limb
CPT/HCPCS: 00123; 36415; 80048; 80053; 85027; 93005; 94640; 96365; 96367; 96375; 99285; 71046; 82728; 83540; 83550; 83735; 83880; 84484; 85025; 93010; 94664; 94760; 99236; G0378; J0456; J0696; J2919; J7512; J7620; Q0138

== ENCOUNTER 2024-07-13 06:07 | Day surgery (SDC) | payer MEDICARE, SELFPAY ==
[2024-07-13 06:29] VITALS: BP 129/91; PULSE 67; RESP 18; TEMP 36.6; O2SAT 97
[2024-07-13] MEDS: Cephalexin 500 MG CAP 1000 MG PO (06:35)
--- NOTE | 2024-07-13 07:10 | PDOC.DSDIS_ITS ---
Date of service: 07/13/24 Discharge Plan Disposition Patient Disposition: Home Condition: Good Discharge Details Reason For Visit: R ECTR Attending Provider: Rakesh Holloway Primary Care Provider: Chanel Garcia Home Meds and New Rx's Prescriptions: New ibuprofen 600 mg tablet 600 mg PO TID PRN (Reason: pain) Qty: 90 0RF Continued cholecalciferol (vitamin D3) 50 mcg (2,000 unit) capsule 50 mcg PO DAILY fluticasone propion-salmeterol [Advair Diskus] 500-50 mcg/dose blister with device 1 inh inhalation BID Qty: 180 5RF Zepbound 2.5 mg/0.5 mL pen injector 2.5 mg subcut QWEEK Qty: 6 3RF Patient Comments: haven't started furosemide 40 mg tablet 60 mg PO QDAY Qty: 135 4RF triamcinolone acetonide 0.1 % ointment 1 applic Topical BID PRN (Reason: rash) Qty: 80 3RF Rx Instructions: use topically on area. dispense 0.1% oinment in 80 gm tube Shingrix (PF) 50 mcg/0.5 mL suspension for reconstitution 0.5 ml IM ONCE Qty: 1 1RF Rx Instructions: as a single dose. Repeat in 2 months omeprazole 20 mg capsule,delayed release(DR/EC) 20 mg PO DAILY Qty: 90 4RF Eliquis 5 mg tablet 5 mg PO BID Qty: 180 12RF diltiazem HCl 30 mg tablet 30 mg PO BID PRN (Reason: Esophageal spasms) Qty: 100 0RF Rx Instructions: take for chest discomfort diltiazem HCl 240 mg capsule,extended release 24 hr 240 mg PO DAILY Qty: 90 5RF albuterol sulfate 90 mcg/actuation HFA aerosol inhaler 1 - 2 puff Inhalation Q4H PRN Qty: 3 5RF oxybutynin chloride 5 mg tablet 10 mg PO BID PRN (Reason: bladder spasms) Qty: 360 4RF acetaminophen [Tylenol Extra Strength] 500 MG tablet 1,000 mg PO TID PRNQty: 0 0RF ferrous sulfate 325 mg (65 mg iron) tablet 325 mg PO DAILY Qty: 30 0RF Discharge Instructions Stand Alone Forms: Jewel Bui Tunnel Release, Dustin Montoya (DSU) Referrals: Rakesh Holloway MD [ [facility] STAFF PHYSICIAN] - Activity:: Activity as Tolerated Remove Dressings/Wound Care:: 48 hours Shower/Bathe:: 48 hours Diet:: As Tolerated Discharge Orders Discharge Orders: Discharge Order (Routine); Ordered 07/13/24 Ordered By: Pj Haile DS: Diagnosis Discharge Diagnosis (1) Carpal tunnel syndrome of right wrist: Status: Acute
--- NOTE | 2024-07-13 07:31 | W.PM.OP ---
Operative Note Operative Note PRE-OP DIAGNOSIS: Right Carpal Tunnel Syndrome POST-OP DIAGNOSIS: same PROCEDURE: Right Endoscopic Carpal Tunnel Release SURGEON: Rakesh Holloway ANESTHESIA TYPE: Local By Surgeon Refer to Anesthesia Record ESTIMATED BLOOD LOSS: 0 PATHOLOGY: none sent TOURNIQUET TIME: 6 COMPLICATIONS: None Patient was transported to: same day Patient's condition: stable Indications: I have seen Brielle in clinic for symptoms of carpal tunnel syndrome. The numbness, tingling, and pain limited function. Clinical exam findings confirmed the diagnosis of carpal tunnel syndrome. Nonoperative measures such as bracing, time, activity modifications had been tried but disability and pain persisted. I discussed carpal tunnel release with the patient. I reviewed the risks of the procedure to include, but not limited to, bleeding, infection, pain, stiffness, incomplete release, damage to nerves or vessels, persistent numbness, recurrence. Despite these risks, the patient elected to proceed. Findings: There was tightened carpal tunnel. This was dilated and released successfully with the endoscopic with increased space within the tunnel. The antebrachial fascia was released proximally freeing the median nerve at the wrist. Procedure Description: Brielle was greeted in the preoperative holding area where the correct side was identified and marked. The consent was reviewed with the patient and signed. The history and physical was updated. All questions were answered. SHe was taken back to the operating room. The patient was placed into the supine position on the operating room table with the right arm on an arm board. A nonsterile tourniquet was placed high onto the arm. All bony prominences were well padded. Prophylactic antibiotics in the form of Cephalexin were administered in DSU prior to coming to the OR. The right arm was then prepped with Chloraprep and draped in a standard fashion with stockinette and extremity drape. A timeout to confirm correct identity, side and site, procedure, allergies, anesthesia, and medical concerns was performed. The surgical site was marked in the volar wrist creases in line with the radial border of the fourth ray. This area was anesthetized with approximately 6cc of 1% Lidocaine. The limb was then exsanguinated with an Esmarch. The skin was incised with a 15 blade, approximately 1cm. The skin only was cut and the deeper tissue was dissected bluntly with a tenotomy scissor, avoiding passing nerve and venous structures. The fascia was penetrated and opened bluntly. A two-prong skin hook was placed under this proximal fascial edge. A series of hamate finders were used to identify and dilate the carpal tunnel. Synovial elevator was used to free synovial attachments to the underside of the transverse carpal ligament. My thumb was kept in the palm to ann the distal extent of the carpal tunnel and correctly position the hand. The Microaire endoscope was inserted without difficulty and without resistance. Excellent visualization showed horizontally running fibers of the transverse carpal ligament (TCL). The distal extent of the TCL was visualized and the end of the scope palpated with the thumb. The blade was elevated and withdrawn from distal to proximal. The TCL was split into two flaps. The endoscope was reinserted to confirm complete release and any remnant ligament was incised. The scope was withdrawn and the proximal aspect of the carpal tunnel was grossly inspected and appeared release with the median nerve visible. The antebrachial fascia at the level of the wrist was then freed from the overlying skin and then the underlying median nerve with blunt dissection. This was transected longitudinally for about 3cm proximal to the wrist incision. The wound was then irrigated with easy flow of irrigant distally and proximally. The incision was closed with a single 4-0 Nylon suture. The wound was dressed with Xeroform, Gauze, Kerlix and Jae. The tourniquet was deflated with the initial dressing and held with some pressure. Blood flow returned easily to all digits with capillary refill less than 2 seconds. The patient tolerated the procedure well and was returned to the Same Day Surgery area in a stable condition suffering no known complication. Date of Procedure: 07/13/24
[2024-07-13] MEDS: Sodium Bicarbonate 50 MEQ/50 ML VIAL (07:35)
[2024-07-13] MEDS: Lidocaine 1% Multi-Dose W/EPI 1/100,000 50 ML VIAL (07:35)
[2024-07-13 08:05] VITALS: BP 120/78; PULSE 79; RESP 16; TEMP 36.6; O2SAT 97
== END 2024-07-13 08:19 | disposition home or self-care (01) ==
PROVIDERS: PCP Family Medicine; Visit Provider Student in an Organized Health Care Education/Training Program
PROC: 01N54ZZ Release Median Nerve, Percutaneous Endoscopic Approach (ICD-10-PCS; CPT 29848; principal; 2024-07-13 07:30)
DX: G56.01 Carpal tunnel syndrome, right upper limb (principal)
CPT/HCPCS: 29848; J2004

== ENCOUNTER → 2024-07-22 10:49 | Outpatient (BNVA) | payer MEDICARE, SELFPAY | PROVIDERS: PCP Family Medicine; Referring Provider Family Medicine; Visit Provider Physician Assistant | DX: Z47.89 Encounter for other orthopedic aftercare (principal); G56.01 Carpal tunnel syndrome, right upper limb | CPT/HCPCS: 99024 ==

== ENCOUNTER 2024-07-29 00:24 | Outpatient (CLI) | payer MEDICARE, SELFPAY ==
--- NOTE | 2024-07-29 13:10 | DI.US_ITS ---
APPROVED REPORT EXAM: Comprehensive 2D, Doppler, and color-flow Echocardiogram Patient Location: Out-Patient [employer]: [employer] ([employer]) Indications: SOB, A Fib, Acute exac COPD Other Information Study Quality: Fair. Technically limited study due to body habitus. Conclusion Moderate concentric left ventricular hypertrophy. Ejection fraction is 60%. Wall motion is normal Normal right ventricular size and function Right atrium is mildly dilated. Left atrium is moderately dilated The aortic valve is calcified and probably trileaflet. There is moderate aortic stenosis. Peak gradient is 42, mean 27 mmHg. Calculated aortic valve area is 1 cm??. There is trace aortic regurgitation Mitral annular calcification and calcified mitral leaflets. Moderate mitral stenosis, mild mitral regurgitation Mild to moderate tricuspid regurgitation. Estimated right ventricular systolic pressure is 41 mmHg Wall motion Left Ventricle The left ventricle is normal size. The left ventricular systolic function is normal. The left ventricular ejection fraction is within the normal range. Moderate concentric left ventricular hypertrophy. There is normal LV segmental wall motion. There is no ventricular septal defect visualized. LVEF is 60%. Right Ventricle Right ventricle is grossly normal in size. Right ventricular systolic function is grossly normal. Atria Left atrium is moderately dilated. Right atrium is mildly dilated. The interatrial septum is intact with no evidence for an atrial septal defect. Aortic Valve Aortic valve is calcified. Aortic valve is probably trileaflet. Moderate aortic stenosis. Highest mean aortic valve gradient is 42.44mmHg. Highest mean aortic valve gradient is 27.12mmHg. Calculated RUBIN by the continuity equation is 1.0cm2. Trace aortic regurgitation. Mitral Valve The mitral valve is calcified and displays decreased opening. Moderate mitral stenosis. Mild mitral regurgitation. Tricuspid Valve The tricuspid valve is normal in structure. There is no tricuspid valve stenosis. Mild to moderate tricuspid regurgitation. The RVSP is 40.8 mmHg. Pulmonic Valve The pulmonary valve is normal in structure. There is no pulmonic valvular stenosis. Trace pulmonic regurgitation. Great Vessels The aortic root is normal in size. The ascending aorta is normal in size. Aortic arch is not well visualized. The IVC collapses <50% with inspiration. Pericardium There is no pericardial effusion. 2D Dimensions IVSD d PLAX 1.32 cm F: 0.6-1.0 Ao Root d 2.66 cm F: 2.7 - 3.3 LVPW d PLAX 1.33 cm F: 0.6 - 1.0 Ao Asc Diam d 3.05 cm F: 2.3 - 3.1 LVID d PLAX 5.03 cm F: 3.8 - 5.2 LVDs 3.44 cm F: 2.2 - 3.5 LV EF Teichholz 59.3 % FS 31.64 % LV EDV (Teich) 120.2 mL LV ESV (Teich) 48.9 mL M-Mode TAPSE 2.42 cm (M/F) >1.7 Auto EF LV EDV A4C 159.5 mL LV EDV A2C 186.7 mL LV EDV BP 174.2 mL LV ESV A4C 70.0 mL LV ESV A2C 79.4 mL LV ESV BP 75.8 mL LVEF(%) A4C 56.1 % LVEF(%) A2C 57.5 % LVEF(%) BP 56.5 % LV SV A4C 89.5 ml LV SV A2C 107.3 ml LV SV BP 98.4 ml LV CO A4C 4.0 L/min LV CO A2C 5.4 L/min LV CO BP 4.7 L/min HR A4C 45.06 BPM HR A2C 50.14 BPM LV EDV Index (BP) LA Volume LA Length A4C 6.8 cm LA Length A2C 5.8 cm LA Area A4C s 29.74 cm2 LA Area A2C s 26.58 cm2 LA Vol A4C A-L 110.51 mL LA Vol A2C A-L 102.84 mL LA Vol Biplane A-L 115.1 mL LA Vol/BSA A4C A-L LA Vol/BSA A2C A-L LA Vol/BSA BP A-L 47.6 mL/m2 LA Vol A4C MOD 104.1 mL LA Vol A2C MOD 98.9 mL LA Vol BP MOD 109.3 mL RA Volume RA Area A4C 20.5 cm2 RA ESV A4C (A-L) 54.0mL RA Vol/BSA A4C A-L RA Length A4C 6.6 cm RA ESV A4C (MOD) 51.8mL LV Diastology MV E' medial 0.073 (>0.07 m/s) MV E Vmax 2.08 (0.4-1.3 m/s) MV E' lateral 0.113 (>0.1 m/s) Aortic Valve AoV Vmax 3.26 m/s LVOT Vmax 1.03 m/s AoV Peak Grad 42.4 mmHg LVOT Peak Grad 4.3 mmHg AoV Area (Vmax) 0.98 cm2 LVOT VTI 0.308 m AoV VTI 0.965 m LVOT Mean Grad 2.9 mmHg AoV Mean Buddy. 2.49 m/s LVOT SV 95.81 mL AoV Mean Grad 27.1 mmHg LVOT Diam s 1.95 cm AoV Area (VTI) 0.99 cm2 AV Regurg Peak Gr. 42.44 mmHg Velocity Ratio 0.32 Mitral Valve MV Vmax TIPS 2.29 m/s MR Vmax 3.53 m/s MV Mean Grad 8.7 (<2mmHg) MR VTI 1.354 m MV PHT 172 msec MR Peak Grad 60.3 mmHg MV Area PHT 1.35 cm2 MR Mean Grad 41.8 mmHg MV VTI 0.654 m Pulmonary Valve PV Vmax 0.82 (0.5-1.5 m/s) RVOT Vmax 0.78 m/s PV Peak Grad 2.7 mmHg RVOT Peak Gr. 2.5 mmHg PV Mean Buddy 0.61 m/s RVOT VTI 0.194 m PV Mean Grad 1.7 mmHg RVOT Mean Gr. 1.2 mmHg Tricuspid Valve RA Pressure 8.00 mmHg TR Vmax 2.87 m/s TV S' 0.12 m/s TR Peak Grad 32.8 mmHg RVSP (TR) 40.8 mmHg
== END 2024-07-29 00:44 ==
LOC: DI 00:24
PROVIDERS: PCP Family Medicine; Visit Provider Internal Medicine Cardiovascular Disease
DX: I48.91 Unspecified atrial fibrillation (principal); J44.1 Chronic obstructive pulmonary disease with (acute) exacerbation; R06.02 Shortness of breath
CPT/HCPCS: 93306

== ENCOUNTER 2024-07-29 01:18 | Outpatient (CLI) | payer MEDICARE, SELFPAY ==
[2024-07-29 14:22] LABS: HCT 41.6 % (36.0-46.0); HGB 11.9 g/dL (11.2-15.7); MCH 24.3 pg (27.0-33.0); MCHC 28.6 % (32.0-36.0); MCV 85 fL (80-95); Platelet Count 152 10^3/uL (130-400); RDW-SD 87.6 fL; WBC 7.68 10^3/uL (4.4-10.8)
[2024-07-29 14:48] LABS: RDW 30.1 % (11.7-14.6)
[2024-07-29 15:54] LABS: Iron 178 ug/dL (50-170)
[2024-07-29 16:03] LABS: ALT 24 U/L (14-59); AST 16 U/L (15-37); Albumin 3.6 g/dL (3.4-5.0); Alkaline Phosphatase 103 U/L (46-116); Anion Gap 6.4 mmol/L (3-11); BUN 23 mg/dL (7-18); Bilirubin, Total 0.7 mg/dL (0.2-1.0); CO2 33.6 mmol/L (21.0-32.0); CREATININE 1.5 mg/dL (0.55-1.02); Calcium 9.1 mg/dL (8.5-10.1); Chloride 103 mmol/L (98-107); Estimated GFR 35.67 (mL/min/1.73m2); Ferritin 47 ng/mL (8-252); Glucose 119 mg/dL (74-106); Potassium 3.6 mmol/L (3.5-5.1); Sodium 143 mmol/L (136-145); Total Protein 7.4 g/dL (6.4-8.2)
== END 2024-07-29 01:19 | disposition home or self-care (01) ==
LOC: LBO 01:18
PROVIDERS: PCP Family Medicine; Visit Provider Family Medicine
DX: D50.9 Iron deficiency anemia, unspecified (principal); I10 Essential (primary) hypertension
CPT/HCPCS: 36415; 80053; 85027; 82728; 83540

== ENCOUNTER 2024-08-05 00:59 | Outpatient (CLI) | payer MEDICARE, SELFPAY ==
[2024-08-05] MEDS: Inhaler, Assist Device 1 EACH MC (16:00)
[2024-08-05] MEDS: Levalbuterol HFA 15 GM INH 4 PUFF IH (16:01)
--- NOTE | 2024-08-14 10:17 | W.PFT ---
Date of service: 08/05/24 Time of Service: 14:55 Pulmonary Function Test Result Indications: COPD Interpretation Spirometry: No airflow limitation. Restrictive spirometry. No significant bronchodilator response. Lung Volumes: Moderate restrictive lung disease Diffusion Capacity: Borderline diffusion Airway Pressure: Normal airways resistance Impression Moderate restrictive lung disease with a borderline low diffusion but no airflow obstruction. Clinical Correlation therefore is recommended.
== END 2024-08-05 01:00 | disposition home or self-care (01) ==
LOC: RT 01:00
PROVIDERS: PCP Family Medicine; Visit Provider Student in an Organized Health Care Education/Training Program
DX: J44.9 Chronic obstructive pulmonary disease, unspecified (principal)
CPT/HCPCS: 94060; 94726; 94729; 94762

== ENCOUNTER 2024-08-22 10:21 | Observation (INO) | payer MEDICARE, SELFPAY ==
[2024-08-22] VITALS (57 sets, daily range): BP systolic 110–180; BP diastolic 48–115; PULSE 52–89; RESP 10–26; TEMP 36–36.7; O2SAT 91–96
--- NOTE | 2024-08-22 10:45 | RT.EKG_ITS ---
APPROVED REPORT Exam: Resting ECG Reason for Exam: weakness Patient Location: E HR:69 bpm ECG Measurements Heart Rate 69 AXIS MN [id number] P [id number] QRSd 123 QRS 36 QT 467 T 58 QTc 502 Conclusion Atrial fibrillation...? atrial activity Nonspecific intraventricular conduction delay...QRSd >115mS, not LBBB/RBBB No Occlusion MD
[2024-08-22 11:07] LABS: Glucose Negative (Negative)
[2024-08-22 11:10] LABS: Abs Immature Grans 0.02 10^3/uL (0.0-0.06); HCT 41.4 % (36.0-46.0); HGB 12.3 g/dL (11.2-15.7); Immature Grans % 0.3 %; MCH 24.9 pg (27.0-33.0); MCHC 29.7 % (32.0-36.0); MCV 84 fL (80-95); Platelet Count 168 10^3/uL (130-400); RBC 4.93 10^6/uL (3.93-5.22); RDW 25.3 % (11.7-14.6); RDW-SD 75.3 fL; WBC 7.89 10^3/uL (4.4-10.8)
[2024-08-22] MEDS: Normal Saline 500 ML IV (11:13)
[2024-08-22 11:20] LABS: Anisocytosis 2+; Hypochromasia 1+
[2024-08-22 11:36] LABS: ALT 18 U/L (14-59); AST 19 U/L (15-37); Albumin 3.6 g/dL (3.4-5.0); Alkaline Phosphatase 93 U/L (46-116); Anion Gap 8.3 mmol/L (3-11); BUN 32 mg/dL (7-18); Bilirubin, Total 0.7 mg/dL (0.2-1.0); CO2 30.7 mmol/L (21.0-32.0); Calcium 9.1 mg/dL (8.5-10.1); Chloride 105 mmol/L (98-107); Estimated GFR 38.75 (mL/min/1.73m2); Glucose 108 mg/dL (74-106); Potassium 3.8 mmol/L (3.5-5.1); Sodium 144 mmol/L (136-145); TSH (W/Ref FT4) 0.98 uIU/mL (0.36-3.74); Total Protein 7.2 g/dL (6.4-8.2); Troponin I 13 ng/L (<or=51)
[2024-08-22 12:46] LABS: Troponin I 11 ng/L (<or=51)
[2024-08-22] MEDS: Normal Saline - Diluent 50 ML VIAL IJ (13:09)
[2024-08-22] MEDS: Omnipaque 350 MG/ML 500 ML BTL-Imaging package IJ (13:13)
--- NOTE | 2024-08-22 13:14 | DI.CT_ITS ---
Exam(s) CT BRAIN NECK CTA EXAM: CT BRAIN NECK CTA CLINICAL HISTORY: confusion. TECHNIQUE: Imaging Protocol: Axial CT angiography was performed with multi- slice acquisition and multi-planar and/or 3D reconstructions. CONTRAST MATERIAL: Intravenous: Omnipaque 350 contrast volume:70 mL COMPARISON: CT CT BRAIN NECK CTA from 03/05/[address] HEAD WO from 12/23/2023 FINDINGS: The evaluation is somewhat limited due to the patient's body habitus. CT Head W/O and W: Ventricles and Extra axial spaces: Normal in size and morphology for the patient's age. Hemorrhage: None. Cerebral parenchyma: There is no evidence of an acute territorial infarct or mass effect. There is an old area of encephalomalacia involving the left occipital lobe. Midline shift: None. Brainstem/Cerebellum: Normal. Calvarium: Normal. Visualized Paranasal sinuses/Mastoids: Clear. Soft Tissues: Unremarkable. Enhancement: Unremarkable. CTA Neck W: Common Carotid: Right: No dissection, occlusion or significant stenosis. Mild atherosclerotic calcification is seen in the carotid bulb. No significant stenosis is seen. Left: No dissection, occlusion or significant stenosis. There is mild atherosclerotic calcifications seen in the carotid bulb. No significant stenosis is present. External Carotid: Right: No occlusion or significant stenosis. Left: There is no evidence of occlusion. There is atherosclerotic calcification at the origin of the left external carotid artery with marked stenosis present. Internal Carotid: Right: No dissection, occlusion or significant stenosis. Left: No dissection, occlusion or significant stenosis. Vertebral Artery: Right: No dissection, occlusion or significant stenosis. Left: No dissection, occlusion or significant stenosis. Lung Apices: Normal. Bones: Within normal limits for the patient's age. Soft Tissues: Normal. Thyroid gland: Unremarkable. CTA Brain W: Internal Carotid Arteries: Atherosclerotic calcification is seen in the cavernous portions of the internal carotid arteries bilaterally. Less than 50 percent stenosis is noted. Anterior Cerebral Arteries: Right: No aneurysm, occlusion or significant stenosis. Left: No aneurysm, occlusion or significant stenosis. Middle Cerebral Arteries: Right: No aneurysm, occlusion or significant stenosis. Left: No aneurysm, occlusion or significant stenosis. Posterior Cerebral Arteries: Right: No aneurysm, occlusion or significant stenosis. Left: No aneurysm, occlusion or significant stenosis. Vertebral Arteries: Right: No aneurysm, occlusion or significant stenosis. Left: No aneurysm, occlusion or significant stenosis. Basilar Artery: No aneurysm, occlusion or significant stenosis. IMPRESSION: 1. No large vessel occlusion or significant stenosis on the CT angiography of the head. 2. No acute intracranial process. 3. Atherosclerotic calcification is seen at the origin of the left external carotid artery. This results in marked stenosis. RADIATION DOSE DELIVERED: 2,634.53mGy.cm Total DLP DATA REPOSITORY: All CT scans at this facility are submitted to the National Radiology Data Registry (NRDR) Dose Index Registry (DIR) with the [employer] (ACR). RADIATION OPTIMIZATION: All CT scans at this facility use at least one of these dose optimization techniques: automated exposure control; mA and/or kV adjustment per patient size (includes targeted exams where dose is matched to clinical indication); or iterative reconstruction.
--- NOTE | 2024-08-22 15:15 | DI.MRI_ITS ---
Exam(s) MR BRAIN WO EXAM: MR BRAIN WO CLINICAL HISTORY: confusion TECHNIQUE: Multiplanar multisequence MRI of the brain was performed. COMPARISON: No exams were available for comparison FINDINGS: CEREBRAL PARENCHYMA: There is no evidence of intracranial hemorrhage, mass effect, or shift of midline structures. There are no extra-axial fluid collections. Ventricles are not enlarged or shifted. There is no significant focal signal abnormality in the cerebellar hemispheres nor within the greg and midbrain. There is a thin ribbon of restricted diffusion in the periventricular white matter immediately adjacent to the left lateral ventricle, consistent with acute ischemic event. PITUITARY GLAND: No mass nor parasellar abnormality. No obvious abnormality in the cavernous sinuses. FLOW VOIDS: The expected flow void are noted. No evidence of obvious aneurysm nor obvious vascular malformation. PARANASAL SINUSES: The visualized paranasal sinuses appear unremarkable. No obvious finding ORBITS: Previous bilateral cataract surgery. IMPRESSION: There is thin strip of restricted diffusion in the white matter adjacent to the left lateral ventricle. Concern for acute ischemic event. No hemorrhage. Report called by myself to ER provider 08/22/2024 at 4:35 p.m. DATA REPOSITORY:
--- NOTE | 2024-08-22 16:17 | ED.GENADUL_ITS ---
Discharge Plan Discharge Details Chief Complaint: AMS/LOC Primary Care Provider: Chanel Garcia ED Provider: Maddie Barlow Home Meds and New Rx's Prescriptions: No Action cholecalciferol (vitamin D3) 50 mcg (2,000 unit) capsule 50 mcg PO DAILY fluticasone propion-salmeterol [Advair Diskus] 500-50 mcg/dose blister with device 1 inh inhalation BID Qty: 180 5RF Zepbound 2.5 mg/0.5 mL pen injector 2.5 mg subcut QWEEK Qty: 6 3RF Patient Comments: haven't started furosemide 40 mg tablet 60 mg PO QDAY Qty: 135 4RF triamcinolone acetonide 0.1 % ointment 1 applic Topical BID PRN (Reason: rash) Qty: 80 3RF Rx Instructions: use topically on area. dispense 0.1% oinment in 80 gm tube Shingrix (PF) 50 mcg/0.5 mL suspension for reconstitution 0.5 ml IM ONCE Qty: 1 1RF Rx Instructions: as a single dose. Repeat in 2 months omeprazole 20 mg capsule,delayed release(DR/EC) 20 mg PO DAILY Qty: 90 4RF diltiazem HCl 30 mg tablet 30 mg PO BID PRN (Reason: Esophageal spasms) Qty: 100 0RF Rx Instructions: take for chest discomfort albuterol sulfate 90 mcg/actuation HFA aerosol inhaler 1 - 2 puff Inhalation Q4H PRN Qty: 3 5RF oxybutynin chloride 5 mg tablet 10 mg PO BID PRN (Reason: bladder spasms) Qty: 360 4RF ferrous sulfate 325 mg (65 mg iron) tablet 325 mg PO DAILY Qty: 90 4RF diltiazem HCl 240 mg capsule,extended release 24hr 240 mg PO DAILY Qty: 90 5RF Eliquis 5 mg tablet 5 mg PO BID Qty: 180 12RF acetaminophen [Tylenol Extra Strength] 500 MG tablet 1,000 mg PO TID PRNQty: 0 0RF ibuprofen 600 mg tablet 600 mg PO TID PRN (Reason: pain) Qty: 90 0RF HPI General Date/Time Provider Initiated Documentation: 08/22/24 10:45 . HPI Narrative: This is a 79-year-old female with a history of COPD, atrial fibrillation, B12 deficiency, depression, coronary artery disease, palpitations, and chronic anticoagulation, presenting with confusion. She reports feeling well when she went to bed around 9 or 10 PM but woke up at approximately 2 AM feeling confused. She was unable to use her [place] or phone, devices she normally operates without difficulty. She is unsure of what transpired between waking up at 2 AM and her arrival here. She recalls a sense of something being amiss. Despite feeling very confused, she is unable to describe any other sensations. She reports no pain, including headaches or known trauma. She also reports no falls today or similar symptoms in the past. She does not consume alcohol and has not started any new medications. She reports no urinary symptoms. Related Data Home Medications ?Medication ?Instructions ?Recorded ?Confirmed triamcinolone acetonide 0.1 % 1 applic topical BID PRN rash #80 01/26/18 08/22/24 topical ointment appful cholecalciferol (vitamin D3) 50 50 mcg PO DAILY 08/22/24 mcg (2,000 unit) capsule diltiazem HCl 30 mg tablet 30 mg PO BID PRN Esophageal spasms 06/09/23 08/22/24 #100 tab-caps omeprazole 20 mg capsule,delayed 20 mg PO DAILY #90 ca ps 06/09/23 08/22/24 release varicella-zoster glycoE [id number] 0.5 ml IM ONCE #1 e a 06/23/23 08/22/24 adj(PF) 50 mcg/0.5 mL IM susp, kit (Shingrix (PF)) albuterol sulfate 90 mcg/actuation 1 - 2 puff inhalati on Q4H PRN ##3 10/09/23 08/22/24 aerosol inhaler fluticasone 500 mcg-salmeterol 50 1 inh inhalation BID #180 ea 12/31/23 08/22/24 mcg/dose blistr powdr for inhalation (Advair Diskus) oxybutynin chloride 5 mg tablet 10 mg (2 x 5 mg) PO BI D PRN 06/14/24 08/22/24 bladder spasms #360 tabs acetaminophen 500 mg tablet 1,000 mg (2 x 500 mg) PO T ID PRN 07/04/24 08/22/24 (Tylenol Extra Strength) #0 tab-caps furosemide 40 mg tablet 60 mg (1.5 x 40 mg) PO QDAY edema 07/12/24 08/22/24 #135 tab-caps tirzepatide (weight loss) 2.5 2.5 mg (0.5 mL) subcut Q WEEK #6 mL 07/12/24 08/22/24 mg/0.5 mL subcutaneous pen injector (Zepbound) ibuprofen 600 mg tablet 600 mg PO TID PRN pain #90 t abs 07/13/24 08/22/24 ferrous sulfate 325 mg (65 mg 325 mg PO DAILY #90 tabs 07/29/24 08/22/24 iron) tablet diltiazem HCl 240 mg capsule,24 240 mg PO DAILY #90 ca ps 08/01/24 08/22/24 hr,extended release apixaban 5 mg tablet (Eliquis) 5 mg PO BID #180 tabs 0 08/22/24 08/22/24 Previous Rx's ?Medication ?Instructions ?Recorded triamcinolone acetonide 0.1 % 1 applic topical BID PRN rash #80 01/26/18 topical ointment appful diltiazem HCl 30 mg tablet 30 mg PO BID PRN Esophageal spasms 06/09/23 #100 tab-caps omeprazole 20 mg capsule,delayed 20 mg PO DAILY #90 ca ps 06/09/23 release varicella-zoster glycoE [id number] 0.5 ml IM ONCE #1 e a 06/23/23 adj(PF) 50 mcg/0.5 mL IM susp, kit (Shingrix (PF)) albuterol sulfate 90 mcg/actuation 1 - 2 puff inhalati on Q4H PRN ##3 10/09/23 aerosol inhaler fluticasone 500 mcg-salmeterol 50 1 inh inhalation BID #180 ea 12/31/23 mcg/dose blistr powdr for inhalation (Advair Diskus) oxybutynin chloride 5 mg tablet 10 mg (2 x 5 mg) PO BI D PRN 06/14/24 bladder spasms #360 tabs acetaminophen 500 mg tablet 1,000 mg (2 x 500 mg) PO T ID PRN 07/04/24 (Tylenol Extra Strength) #0 tab-caps furosemide 40 mg tablet 60 mg (1.5 x 40 mg) PO QDAY edema 07/12/24 #135 tab-caps tirzepatide (weight loss) 2.5 2.5 mg (0.5 mL) subcut Q WEEK #6 mL 07/12/24 mg/0.5 mL subcutaneous pen injector (Zepbound) ibuprofen 600 mg tablet 600 mg PO TID PRN pain #90 t abs 07/13/24 ferrous sulfate 325 mg (65 mg 325 mg PO DAILY #90 tabs 07/29/24 iron) tablet diltiazem HCl 240 mg capsule,24 240 mg PO DAILY #90 ca ps 08/01/24 hr,extended release apixaban 5 mg tablet (Eliquis) 5 mg PO BID #180 tabs 0 08/22/24 Allergies Allergy/AdvReac Type Severity Reaction Status Date / Time Tetanus Vaccines and Toxoid Allergy Severe Massive Verified 08/22/24 11:39 (Tetanus Vaccines \E&E\ Local Toxoid) Reaction amoxicillin Allergy Unknown HIVES Verified 08/22/24 11:39 atenolol AdvReac Intermediate Fluid Verified 08/22/24 11:39 Retention bupropion (From Wellbutrin AdvReac Intermediate nausea Verified 08/22/24 11:39 SR) morphine AdvReac Intermediate Jittery Verified 08/22/24 11:39 COVID-19 (SARS-CoV-2) AdvReac Mild redness Verified 08/22/24 11:39 vaccine, [place] (Pheizer) codeine AdvReac Unknown ANXIETY Verified 08/22/24 11:39 Iodinated Contrast Media AdvReac Unknown ANXIETY Verified 08/22/24 11:39 (Iodinated Contrast- Oral and IV Dye) meperidine AdvReac Unknown NAUSEA/VOMI Verified 08/22/24 11:39 TING promethazine AdvReac Unknown ANXIETY Verified 08/22/24 11:39 General Stated Complaint: AMS/LOC VINEET: 3 Exam Narrative Exam Narrative: General Appearance: Alert and oriented, tearful. Vital signs: Within normal limits. HEENT: Within normal limits. Respiratory: Clear to auscultation, no respiratory distress. Cardiovascular: Regular rate and rhythm, no murmur. Gastrointestinal: No abdominal tenderness. Neurological: Negative [id number]-[id number] test, negative heel-antoine test, GCS 15, negative pronator drift. Psychiatric: Tearful. Course Vital Signs Vital signs: Vital Signs Pulse 79 08/22/24 10:32 Respiratory Rate 20 08/22/24 10:32 Blood Pressure 180/54 H 08/22/24 10:32 Pulse Oximetry 93 08/22/24 10:32 Temperature 36.4 C L 08/22/24 11:22 Temperature Source Oral 08/22/24 11:22 Pulse 59 L 08/22/24 15:31 Pulse 59 L 08/22/24 15:31 Respiratory Rate 16 08/22/24 15:31 Blood Pressure 151/62 H 08/22/24 15:30 Blood Pressure Mean 88 08/22/24 15:30 Pulse Oximetry 91 L 08/22/24 15:31 Oxygen Delivery Method Room Air 08/22/24 14:35 Oxygen Flow Rate 0 08/22/24 14:35 Pain Level 0 08/22/24 11:22 Lab/Test Results Lab/Test Results: Laboratory Tests Range/Units 08/22/24 08/22/24 08/22/24 10:30 11:00 12:00 WBC (4.4-10.8) 10^3/uL 7.89 RBC (3.93-5.22) 10^6/uL 4.93 Hgb (11.2-15.7) g/dL 12.3 Hct (36.0-46.0) % 41.4 MCV (80-95) fL 84 MCH (27.0-33.0) pg 24.9 L MCHC (32.0-36.0) % 29.7 L RDW (11.7-14.6) % 25.3 H Plt Count (130-400) 10^3/uL 168 MPV (8.0-11.0) fL Immature Gran % % 0.3 Neutrophils % % 66.9 Lymphocytes % % 17.2 Monocytes % % 10.9 Eosinophils % % 3.9 Basophils % % 0.8 Nucleated RBC % (0.0-0.3) % 0.0 Absolute Neutrophils (1.2-6.7) 10^3/uL 5.28 Absolute Lymphocytes (1.2-3.4) 10^3/uL 1.36 Absolute Monocytes (0.1-0.8) 10^3/uL 0.86 H Absolute Eosinophils (0.0-0.7) 10^3/uL 0.31 Absolute Basophils (0.0-0.2) 10^3/uL 0.06 RBC Morphology See Below Hypochromasia 1+ Anisocytosis 2+ Sodium (136-145) mmol/L 144 Potassium (3.5-5.1) mmol/L 3.8 Chloride (98-107) mmol/L 105 Carbon Dioxide (21.0-32.0) mmol/L 30.7 Anion Gap (3-11) mmol/L 8.3 BUN (7-18) mg/dL 32 H Creatinine (0.55-1.02) mg/dL 1.4 H Est GFR (CKD-EPI 2020) (mL/min/1.73m2) 38.75 Glucose (74-106) mg/dL 108 H Calcium (8.5-10.1) mg/dL 9.1 Total Bilirubin (0.2-1.0) mg/dL 0.7 AST (15-37) U/L 19 ALT (14-59) U/L 18 Alkaline Phosphatase (46-116) U/L 93 Troponin I (<or=51) ng/L 13 11 Total Protein (6.4-8.2) g/dL 7.2 Albumin (3.4-5.0) g/dL 3.6 TSH (0.36-3.74) uIU/mL 0.98 Urine Color (Yellow) Other Urine Clarity (Clear) Sl Cloudy Urine pH (5-8) 7.0 Ur Specific [place] (1.005-1.025) 1.015 Urine Protein (Neg-Trace) mg/dL Negative Urine Ketones (Negative) mg/dL Negative Urine Blood (Negative) Negative Urine Nitrite (Negative) Negative Urine Bilirubin (Negative) Negative Urine Urobilinogen (Up to 0.2) mg/dL 0.2 Ur Leukocyte Esterase (Negative) Negative Urine Glucose (Negative) mg/dL Negative Medical Decision Making Results: Two troponins negative. Elevated creatinine and BUN. CBC within normal limits. Urinalysis negative for infection. CTA head and neck: no acute abnormality, atherosclerotic stenosis in external carotid artery. Initial Assessment: 79-year-old female with history of COPD, atrial fibrillation, B12 deficiency, depression, coronary artery disease, palpitations, chronic anticoagulation, presents with confusion. Symptoms started around 2:00 AM, resolved by 2:00 PM. No pain, headache, trauma, falls, alcohol consumption, new medications, or urinary symptoms. Alert and oriented, able to follow commands, difficulty with phone, negative [id number]-nadk-baipyb, negative heel antoine, GCS 15, negative pronator drift, no abdominal tenderness, cardiac regular sinus, lungs clear, tearful. Differential Diagnosis: - TGA: Suspected due to transient nature of symptoms, resolved by 2 PM. Plan: observation, MRI. - TIA: Suspected due to transient nature of symptoms, resolved by 2 PM. Plan: observation, MRI, potential addition of aspirin or Eliquis. ED Course: - Two troponins negative. - Creatinine and BUN consistent with higher. - CBC within normal limits. - Urinalysis did not show infection. - CTA head and neck does not show acute abnormality, read by me. - Atherosclerotic stenosis in external carotid artery. - Case discussed with Dr. Aldana, neurologist at [facility]. - MRI pending. Final Assessment: Symptoms resolved by 2 PM. Observation for 24 hours recommended. MRI pending. Potential addition of aspirin or Eliquis if acute stroke confirmed. Clinical Impression: - TGA - TIA Disposition: - Admission: 24-hour observation under Dr. Jauregui's service. - Follow-Up: Check lipid panel. MDM Components Evaluation: - Number of Differential Diagnoses or Management Options: TGA, TIA. - Amount and Complexity of Data Reviewed: Troponins, creatinine, BUN, CBC, urinalysis, CTA head and neck, consultation with Dr. Aldana. - Risk of Complication and Morbidity or Mortality: Potential acute stroke, requires observation and further diagnostic imaging. Quality:SDOH Health Related Social Needs: Health related social needs food insecurity transpo in security daily activities Health related social needs details TRANSPORTATION TO AND FROM [facility] AND GETTING AROUND [facility] All Active Problems COPD (chronic obstructive pulmonary disease) (Chronic) Numbness of left hand (Acute) Arthritis of carpometacarpal (CMC) joint of left thumb (Acute) Morbid obesity with BMI of 50.0-59.9, adult (Acute) B12 deficiency (Acute) Carpal tunnel syndrome of right wrist (Acute) S/P ECTR: 07/13/2024 Arthritis of right shoulder region (Acute) Arthritis of left shoulder region (Acute) Right shoulder pain (Acute) Atrial fibrillation (Chronic) Leg cramps (Acute ~10/23/23) Trigger finger of left hand (Acute) Non-healing surgical wound (Acute) CAD (coronary artery disease) (Chronic 03/29/13) Abnormal renal function (Chronic) elevated creatinine Anxiety (Chronic) COPD with acute exacerbation (Chronic 04/17/16) Depressive disorder (Chronic) Essential hypertension (Chronic) Urinary, incontinence, stress female (Chronic 08/24/12) 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 Hyperlipidemia (Chronic) 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) right sided sciatica w/ disc herniation L5- XRAY 2015 - djd Meralgia paresthetica (Chronic 01/08/02) right Morbid obesity (Chronic 08/06/15) Need for subacute bacterial endocarditis prophylaxis (Chronic 05/02/14) Clinda 600mg once - 60 min before procedure Osteopenia (Chronic) 2003 T-scores: -0.8, -0.2; -1.8 Palpitations (Chronic 08/24/12) Psoriasis (Chronic 08/30/12) Vitamin D deficiency (Chronic 05/26/08) Weight loss (Chronic 03/09/17) Coronary artery spasm (Acute 03/11/07) Tobacco use disorder (Acute) Acute UTI (Acute) COVID-19 (Acute) New onset-12/23/21 Advance care planning (Acute) Shortness of breath (Acute) Sleep apnea (Acute) Screening for HIV (human immunodeficiency virus) (Acute) Subcutaneous mass of toe of right foot (Acute) medial aspect base of right great toe Skin lesion (Acute) Urinary tract infection (Acute) Medical History Diastolic dysfunction Abnormal mammogram (01/08/03) Appendicitis (03/11/07) Clostridium difficile infection (03/11/07) Disorder of gallbladder (03/11/07) Lipoma (03/11/07) Tobacco use disorder quit 2004 Abnormal mammogram, unspecified 01/08/03 Clostridium difficile infection 03/11/07 Unspecified appendicitis 03/11/07 Disorder of gallbladder 03/11/07 Lipoma 03/11/07 removed 04/05/12 by Fabrice Lares Ventral hernia with obstruction but no gangrene (03/11/07) epigastric and ventral Shortness of breath (11/05/15) Shingles (03/10/17) Hiatal hernia (03/11/07) EGD; inflammation Acute myocardial infarction (08/24/12) 2006 ECHO showing LVH 75% Surgical History (Updated 07/13/24 @ 07:10 by BRITNI Jin) Status post abdominal hysterectomy Status post appendectomy Status post breast biopsy Status post cholecystectomy Status post hernia repair Status post total knee replacement S/P abdominal hysterectomy endometriosis S/P cholecystectomy S/P appendectomy S/P total knee replacement 02/09/95 left S/P breast biopsy, left 02/10/12 lipoma S/P hernia repair 07/10/13 Replacement of total knee joint 1995 LEFT 2005 RIGHT Abdominal hysterectomy endometriosis HERNIA REPAIR (~07/2013) Cholecystectomy Extraction of cataract 11/14/16 DR. MARISCAL; LEFT EYE Biopsy of breast (04/05/12) lipoma; left breast Appendectomy Family History Mother , age 61 Diabetes Essential hypertension Heart disease Hyperlipidemia DVT (deep venous thrombosis) Asthma Father , age 75 Essential hypertension Heart disease Hyperlipidemia Stroke Lung cancer Sister , age 41 Lung cancer Maternal Grandfather , age 88 No problems noted. Paternal Grandfather No problems noted. Maternal Grandmother , age 88 Hyperlipidemia Hypertension Paternal Grandmother Essential hypertension Hyperlipidemia Brother , age 70 Diabetes Essential hypertension Heart disease Alcohol abuse Brother , age 68 No problems noted. Son Depression Hyperlipidemia Alcohol abuse Heart disease Hypertension Son No problems noted. Daughter Essential hypertension Depression DVT (deep venous thrombosis) Asthma Alcohol abuse Hyperlipidemia Substance abuse Social History Smoking/Tobacco Use Status: Former Tobacco Use tobacco type: cigarettes Quit Date: 12/17/03 Tobacco: How many years used: 30 Smoking risk assessment performed?: Yes Alcohol Intake: never Drug use: Never Substance use type: does not use Caregiver/Support person: No Household members: none Housing: apartment Communication Needs: Hard of Hearing Pets and animals: No Sexually active: No Current gender identity: female and decline to answer What is your relationship status?: How often do you talk on the phone with friends or family?: twice per week How often do you get together with friends or relatives?: decline to answer How often do you attend caodaism or amish services?: decline to answer Do you belong to any clubs or organized social groups?: decline to answer Panel score (0-1 are the most socially isolated patients): 0 What type of physical activity do you participate in: none and walking Frequency: 3-4 times per week Trish/Anabaptist: Anabaptist Special trish needs: No Seatbelt use: always Helmet use: No Drive intox or ride w/intox 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
--- NOTE | 2024-08-22 16:57 | NUR.NOTE ---
Patient stated she needed to go to the bathroom. I advised her that I would check in briefly with her nurse and be back. Per nurse she can get up and use the commode as she has done a few times already today. Returned to room to assist patient and she refused to use commode becoming agitated and wanting to go to the bathroom. I told her I would want to check back in with her nurse and would return, to which she was very upset and was yelling at me as I left the room. Per nurse she can go to the bathroom if she goes by wheelchair, nurse confirmed that she could stand and pivot on her own as she has done it a few times already today. Returned to patient, she yelled at me to get there and help her. Assisted her into a sitting position with minimal need for help. Patient was able to stand and pivot to chair with minimal assistance. Brought patient into the hallway to go to the bathroom. She was very agitated by items being in the way as well as a patient being in the hallway near the bathroom. I went around patient to open the bathroom door. From there I began to move her into the bathroom and without saying anything or waiting for me to stop she got up, took a few steps and fell. I then called to a nurse who was nearby for help.
--- NOTE | 2024-08-22 17:26 | HPE_ITS ---
Date of service: 08/22/24 Time of Service: 17:26 Assessment and Plan Assessment and plan (1) CVA (cerebral vascular accident): Status: Chronic Assessment and plan: Will place cs to pt/ot/st. complete bubble study. d/w neuro in am 2/2 new finding of cva while on eliquis (2) CAD (coronary artery disease): Status: Chronic Assessment and plan: stable (3) Essential hypertension: Status: Chronic Assessment and plan: optimize in outpatient setting (4) Hyperlipidemia: Status: Chronic Assessment and plan: cw statin, will d/w neuro maximizing therapy (5) Tobacco use disorder: Status: Acute Assessment and plan: nicoderm as needed (6) Atrial fibrillation: Status: Chronic Assessment and plan: HR at 59, cw eliquis History of Present Illness History of Present Illness Chief Complaint: confusion Narrative: This is a 79-year-old female who presents to the ED today with confusion which resolved by the time the patient was seen in the ED. Patient went to bed approximately 10:00 last night and woke up at 2 this morning feeling confused and having difficulty opening her Mckenna or other devices was brought into the ED for further evaluation and treatment. While she was in the ED a consultation to teleneurology was done. Recommendation was to do a CT MRI and echocardiogram and her MRI asked she did show a small CVA. Patient will be admitted to the hospital service for further evaluation and treatment. Of note the patient is on Eliquis but states that she has not taken it over the last 3 to 4 days. This information is not verified but reported to the patient. Of note the patient did get a echocardiogram in July but has not had a formal. In reviewing the ED note, the patient was presented to Dr. Mendez of the neurology service. In reviewing her diagnostic data her CBC is essentially benign CMP does show an elevation of her BUN and creatinine of 32/1.4. Glucose 108 urinalysis is benign. Brain MRI shows a thin strip of restricted diffusion in the white matter adjacent to the left lateral ventricle concerning for ischemic event no hemorrhage CT done on admission was negative EKG showed possible A-fib but awaiting official read by cardiology. In reviewing her EKG she does appear to have paroxysmal A-fib. Patient is on Eliquis normally but has not taken it over the last few days Review of Systems All systems reviewed & are unremarkable except as noted in HPI and below PFSH All Active Problems (Updated 08/22/24 @ 17:34 by Baljit Jauregui MD) CVA (cerebral vascular accident) (Chronic) COPD (chronic obstructive pulmonary disease) (Chronic) Numbness of left hand (Acute) Arthritis of carpometacarpal (CMC) joint of left thumb (Acute) Morbid obesity with BMI of 50.0-59.9, adult (Acute) B12 deficiency (Acute) Carpal tunnel syndrome of right wrist (Acute) S/P ECTR: 07/13/2024 Arthritis of right shoulder region (Acute) Arthritis of left shoulder region (Acute) Right shoulder pain (Acute) Atrial fibrillation (Chronic) Leg cramps (Acute ~10/23/23) Trigger finger of left hand (Acute) Non-healing surgical wound (Acute) CAD (coronary artery disease) (Chronic 03/29/13) Abnormal renal function (Chronic) elevated creatinine Anxiety (Chronic) COPD with acute exacerbation (Chronic 04/17/16) Depressive disorder (Chronic) Essential hypertension (Chronic) Urinary, incontinence, stress female (Chronic 08/24/12) 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 Hyperlipidemia (Chronic) 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) right sided sciatica w/ disc herniation L5- XRAY 2015 - djd Meralgia paresthetica (Chronic 01/08/02) right Morbid obesity (Chronic 08/06/15) Need for subacute bacterial endocarditis prophylaxis (Chronic 05/02/14) Clinda 600mg once - 60 min before procedure Osteopenia (Chronic) 2003 T-scores: -0.8, -0.2; -1.8 Palpitations (Chronic 08/24/12) Psoriasis (Chronic 08/30/12) Vitamin D deficiency (Chronic 05/26/08) Weight loss (Chronic 03/09/17) Coronary artery spasm (Acute 03/11/07) Tobacco use disorder (Acute) Acute UTI (Acute) COVID-19 (Acute) New onset-12/23/21 Advance care planning (Acute) Shortness of breath (Acute) Sleep apnea (Acute) Screening for HIV (human immunodeficiency virus) (Acute) Subcutaneous mass of toe of right foot (Acute) medial aspect base of right great toe Skin lesion (Acute) Urinary tract infection (Acute) Medical History (Updated 08/22/24 @ 17:34 by Baljit Jauregui MD) Diastolic dysfunction Abnormal mammogram (01/08/03) Appendicitis (03/11/07) Clostridium difficile infection (03/11/07) Disorder of gallbladder (03/11/07) Lipoma (03/11/07) Tobacco use disorder quit 2004 Abnormal mammogram, unspecified 01/08/03 Clostridium difficile infection 03/11/07 Unspecified appendicitis 03/11/07 Disorder of gallbladder 03/11/07 Lipoma 03/11/07 removed 04/05/12 by Fabrice Lares Ventral hernia with obstruction but no gangrene (03/11/07) epigastric and ventral Shortness of breath (11/05/15) Shingles (03/10/17) Hiatal hernia (03/11/07) EGD; inflammation Acute myocardial infarction (08/24/12) 2006 ECHO showing LVH 75% Surgical History (Updated 07/13/24 @ 07:10 by BRITNI Jin) Status post abdominal hysterectomy Status post appendectomy Status post breast biopsy Status post cholecystectomy Status post hernia repair Status post total knee replacement S/P abdominal hysterectomy endometriosis S/P cholecystectomy S/P appendectomy S/P total knee replacement 02/09/95 left S/P breast biopsy, left 02/10/12 lipoma S/P hernia repair 07/10/13 Replacement of total knee joint 1995 LEFT 2004 RIGHT Abdominal hysterectomy endometriosis HERNIA REPAIR (~07/2013) Cholecystectomy Extraction of cataract 11/14/16 DR. MARISCAL; LEFT EYE Biopsy of breast (04/05/12) lipoma; left breast Appendectomy Family History Mother , age 61 Diabetes Essential hypertension Heart disease Hyperlipidemia DVT (deep venous thrombosis) Asthma Father , age 75 Essential hypertension Heart disease Hyperlipidemia Stroke Lung cancer Sister , age 41 Lung cancer Maternal Grandfather , age 88 No problems noted. Paternal Grandfather No problems noted. Maternal Grandmother , age 88 Hyperlipidemia Hypertension Paternal Grandmother Essential hypertension Hyperlipidemia Brother , age 70 Diabetes Essential hypertension Heart disease Alcohol abuse Brother , age 68 No problems noted. Son Depression Hyperlipidemia Alcohol abuse Heart disease Hypertension Son No problems noted. Daughter Essential hypertension Depression DVT (deep venous thrombosis) Asthma Alcohol abuse Hyperlipidemia Substance abuse Social History Smoking/Tobacco Use Status: Former Tobacco Use tobacco type: cigarettes Quit Date: 12/17/03 Tobacco: How many years used: 30 Smoking risk assessment performed?: Yes Alcohol Intake: never Drug use: Never Substance use type: does not use Caregiver/Support person: No Household members: none Housing: apartment Communication Needs: Hard of Hearing Pets and animals: No Sexually active: No Current gender identity: female and decline to answer What is your relationship status?: How often do you talk on the phone with friends or family?: twice per week How often do you get together with friends or relatives?: decline to answer How often do you attend hindu or jewish services?: decline to answer Do you belong to any clubs or organized social groups?: decline to answer Panel score (0-1 are the most socially isolated patients): 0 What type of physical activity do you participate in: none and walking Frequency: 3-4 times per week Trish/Protestant: Adventism Special trish needs: No Seatbelt use: always Helmet use: No Drive intox or ride w/intox class a regional truck driver: No Would you like helpful sources: No Additional Social history: confused Meds Allergies and Home Medications Allergies Allergy/AdvReac Type Severity Reaction Status Date / Time Tetanus Vaccines and Toxoid Allergy Severe Massive Verified 08/22/24 11:39 (Tetanus Vaccines \E&E\ Local Toxoid) Reaction amoxicillin Allergy Unknown HIVES Verified 08/22/24 11:39 atenolol AdvReac Intermediate Fluid Verified 08/22/24 11:39 Retention bupropion (From Wellbutrin AdvReac Intermediate nausea Verified 08/22/24 11:39 SR) morphine AdvReac Intermediate Jittery Verified 08/22/24 11:39 COVID-19 (SARS-CoV-2) AdvReac Mild redness Verified 08/22/24 11:39 vaccine, [place] (Pheizer) codeine AdvReac Unknown ANXIETY Verified 08/22/24 11:39 Iodinated Contrast Media AdvReac Unknown ANXIETY Verified 08/22/24 11:39 (Iodinated Contrast- Oral and IV Dye) meperidine AdvReac Unknown NAUSEA/VOMI Verified 08/22/24 11:39 TING promethazine AdvReac Unknown ANXIETY Verified 08/22/24 11:39 Home Medications ?Medication ?Instructions ?Recorded ?Confirmed ?Type triamcinolone acetonide 0.1 % 1 applic topical BID PRN rash #80 01/26/18 08/22/24 Rx topical ointment appful cholecalciferol (vitamin D3) 50 50 mcg PO DAILY 08/22/24 History mcg (2,000 unit) capsule diltiazem HCl 30 mg tablet 30 mg PO BID PRN Esophageal spasms 06/09/23 08/22/24 Rx #100 tab-caps omeprazole 20 mg capsule,delayed 20 mg PO DAILY #90 ca ps 06/09/23 08/22/24 Rx release varicella-zoster glycoE [id number] 0.5 ml IM ONCE #1 e a 06/23/23 08/22/24 Rx adj(PF) 50 mcg/0.5 mL IM susp, kit (Shingrix (PF)) albuterol sulfate 90 mcg/actuation 1 - 2 puff inhalati on Q4H PRN ##3 10/09/23 08/22/24 Rx aerosol inhaler fluticasone 500 mcg-salmeterol 50 1 inh inhalation BID #180 ea 12/31/23 08/22/24 Rx mcg/dose blistr powdr for inhalation (Advair Diskus) oxybutynin chloride 5 mg tablet 10 mg (2 x 5 mg) PO BI D PRN 06/14/24 08/22/24 Rx bladder spasms #360 tabs acetaminophen 500 mg tablet 1,000 mg (2 x 500 mg) PO T ID PRN 07/04/24 08/22/24 Rx (Tylenol Extra Strength) #0 tab-caps furosemide 40 mg tablet 60 mg (1.5 x 40 mg) PO QDAY edema 07/12/24 08/22/24 Rx #135 tab-caps tirzepatide (weight loss) 2.5 2.5 mg (0.5 mL) subcut Q WEEK #6 mL 07/12/24 08/22/24 Rx mg/0.5 mL subcutaneous pen injector (Zepbound) ibuprofen 600 mg tablet 600 mg PO TID PRN pain #90 t abs 07/13/24 08/22/24 Rx ferrous sulfate 325 mg (65 mg 325 mg PO DAILY #90 tabs 07/29/24 08/22/24 Rx iron) tablet diltiazem HCl 240 mg capsule,24 240 mg PO DAILY #90 ca ps 08/01/24 08/22/24 Rx hr,extended release apixaban 5 mg tablet (Eliquis) 5 mg PO BID #180 tabs 0 08/22/24 08/22/24 Rx Exam Narrative Exam Narrative: HEEENT-NCAT MMM EOMI PERRLA, SYMMETRIC SMILE AND EYEBROW RAISE CV-IR IR NO MRG LUNGS-CTAB NO AMU SNTNDBSA EXT-1PLUS ANETA BILAT NEURO-CN 2-12 INTACT TESTED, NO FOCAL DEFICIETS [id number] Results Labs 08/22/24 11:00 08/22/24 11:00 Labs: Laboratory Results - last 24 hr 08/22/24 08/22/24 08/22/24 10:30 11:00 12:00 WBC 7.89 RBC 4.93 Hgb 12.3 Hct 41.4 MCV 84 MCH 24.9 L MCHC 29.7 L RDW 25.3 H Plt Count 168 MPV Immature Gran % 0.3 Neutrophils % 66.9 Lymphocytes % 17.2 Monocytes % 10.9 Eosinophils % 3.9 Basophils % 0.8 Nucleated RBC % 0.0 Absolute Neutrophils 5.28 Absolute Lymphocytes 1.36 Absolute Monocytes 0.86 H Absolute Eosinophils 0.31 Absolute Basophils 0.06 RBC Morphology See Below Hypochromasia 1+ Anisocytosis 2+ Sodium 144 Potassium 3.8 Chloride 105 Carbon Dioxide 30.7 Anion Gap 8.3 BUN 32 H Creatinine 1.4 H Est GFR (CKD-EPI 2020) 38.75 Glucose 108 H Calcium 9.1 Total Bilirubin 0.7 AST 19 ALT 18 Alkaline Phosphatase 93 Troponin I 13 11 Total Protein 7.2 Albumin 3.6 TSH 0.98 Urine Color Other Urine Clarity Sl Cloudy Urine pH 7.0 Ur Specific [place] 1.015 Urine Protein Negative Urine Ketones Negative Urine Blood Negative Urine Nitrite Negative Urine Bilirubin Negative Urine Urobilinogen 0.2 Ur Leukocyte Esterase Negative Urine Glucose Negative Last Vital Signs Temp 36.4 C L 08/22/24 11:22 Pulse 59 L 08/22/24 15:31 Resp 16 08/22/24 15:31 BP 151/62 H 08/22/24 15:30 Pulse Ox 91 L 08/22/24 15:31 Time Spent Time spent with Patient: 40-54 minutes Time was spent: preparing to see the patient(eg.review tests), obtaining and/or reviewing separately otained hiistory, ordering medications,tests, procedures, referring, communicating with other health career technical education teacher, indepentently interpreting results, counseling the patient and care coordination
--- NOTE | 2024-08-22 17:53 | W.PC.ACHO ---
Registration Status: REG ER Primary Language: Preferred Language: Luxembourgish ED Information & Data Chief Complaint AMS/LOC 08/22/24 16:18 Triage Note pt confused. oriented to 08/22/24 10:36 person. not sure what is going on but knows something is wrong. thinks this started during the night when she got up to go to the bathroom. unable to work her phone or tablet. thinks she has been awake since then. denies recent falls but feels weak all over. Medical / Surgical History (Last Reviewed 07/13/24 @ 06:30 by Berta Conroy RN) Diastolic dysfunction Abnormal mammogram (01/08/03) Appendicitis (03/11/07) Clostridium difficile infection (03/11/07) Disorder of gallbladder (03/11/07) Lipoma (03/11/07) Tobacco use disorder Abnormal mammogram, unspecified Clostridium difficile infection Unspecified appendicitis Disorder of gallbladder Lipoma Ventral hernia with obstruction but no gangrene (03/11/07) Shortness of breath (11/05/15) Shingles (03/10/17) Hiatal hernia (03/11/07) Acute myocardial infarction (08/24/12) (Last Reviewed 07/13/24 @ 06:30 by Berta Conroy RN) Status post abdominal hysterectomy Status post appendectomy Status post breast biopsy Status post cholecystectomy Status post hernia repair Status post total knee replacement S/P abdominal hysterectomy S/P cholecystectomy S/P appendectomy S/P total knee replacement S/P breast biopsy, left S/P hernia repair Replacement of total knee joint Abdominal hysterectomy HERNIA REPAIR (~07/2013) Cholecystectomy Extraction of cataract Biopsy of breast (04/05/12) Appendectomy Most Recent Vital Signs Temperature 36.4 C L 08/22/24 11:22 Temperature Source Oral 08/22/24 11:22 Pulse 64 08/22/24 17:30 Pulse 65 08/22/24 17:30 Respiratory Rate 13 08/22/24 17:30 Blood Pressure 151/62 H 08/22/24 15:30 Blood Pressure Mean 88 08/22/24 15:30 Pulse Oximetry 95 08/22/24 17:30 Oxygen Delivery Method Room Air 08/22/24 14:35 Oxygen Flow Rate 0 08/22/24 14:35 Pain Level 0 08/22/24 11:22 Allergies Tetanus Vaccines and Toxoid (Tetanus Vaccines \E&E\ Toxoid) Allergy (Severe, Verified 08/22/24 11:39) Massive Local Reaction amoxicillin Allergy (Unknown, Verified 08/22/24 11:39) HIVES atenolol Adverse Reaction (Intermediate, Verified 08/22/24 11:39) Fluid Retention bupropion (From Wellbutrin SR) Adverse Reaction (Intermediate, Verified 08/22/24 11:39) nausea morphine Adverse Reaction (Intermediate, Verified 08/22/24 11:39) Jittery COVID-19 (SARS-CoV-2) vaccine, [place] Adverse Reaction (Mild, Verified 08/22/24 11:39) redness (Pheizer) codeine Adverse Reaction (Unknown, Verified 08/22/24 11:39) ANXIETY Iodinated Contrast Media (Iodinated Contrast- Oral and IV Dye) Adverse Reaction (Unknown, Verified 08/22/24 11:39) ANXIETY meperidine Adverse Reaction (Unknown, Verified 08/22/24 11:39) NAUSEA/VOMITING promethazine Adverse Reaction (Unknown, Verified 08/22/24 11:39) ANXIETY Active Medications Generic Name Dose Route Start Last Admin Trade Name Woodyq PRN Reason Stop Dose Admin Iohexol 500 ml 08/22/24 13:15 08/22/24 13:13 Omnipaque 350 Mg/Ml 500 Ml Btl-Imaging Package IJ 09/21/24 23:59 70 ml DIRECTED CHRISTINA Administration Sodium Chloride 50 ml 08/22/24 13:15 08/22/24 13:09 Normal Saline - Diluent 50 Ml Vial IJ 50 ml .FOR DI USE CHRISTINA Administration IV IV Catheter Type [Right Peripheral IV Antecubital] IV Catheter Gauge [Right 18 Antecubital] Diet Orders Category Date Time Status Regular/Normal [DIET] Nutrition 08/22/24 Dinner Active Diagnostics 08/22/24 08/22/24 08/22/24 Range/Units 12:00 11:00 10:30 WBC 7.89 (4.4-10.8) 10^3/uL RBC 4.93 (3.93-5.22) 10^6/uL Hgb 12.3 (11.2-15.7) g/dL Hct 41.4 (36.0-46.0) % MCV 84 (80-95) fL MCH 24.9 L (27.0-33.0) pg MCHC 29.7 L (32.0-36.0) % RDW 25.3 H (11.7-14.6) % Plt Count 168 (130-400) 10^3/uL MPV (8.0-11.0) fL Immature Gran % 0.3 % Neutrophils % 66.9 % Lymphocytes % 17.2 % Monocytes % 10.9 % Eosinophils % 3.9 % Basophils % 0.8 % Nucleated RBC % 0.0 (0.0-0.3) % Absolute Neutrophils 5.28 (1.2-6.7) 10^3/uL Absolute Lymphocytes 1.36 (1.2-3.4) 10^3/uL Absolute Monocytes 0.86 H (0.1-0.8) 10^3/uL Absolute Eosinophils 0.31 (0.0-0.7) 10^3/uL Absolute Basophils 0.06 (0.0-0.2) 10^3/uL RBC Morphology See Below Hypochromasia 1+ Anisocytosis 2+ Sodium 144 (136-145) mmol/L Potassium 3.8 (3.5-5.1) mmol/L Chloride 105 (98-107) mmol/L Carbon Dioxide 30.7 (21.0-32.0) mmol/L Anion Gap 8.3 (3-11) mmol/L BUN 32 H (7-18) mg/dL Creatinine 1.4 H (0.55-1.02) mg/dL Est GFR (CKD-EPI 2020) 38.75 (mL/min/1.73m2) Glucose 108 H (74-106) mg/dL Calcium 9.1 (8.5-10.1) mg/dL Total Bilirubin 0.7 (0.2-1.0) mg/dL AST 19 (15-37) U/L ALT 18 (14-59) U/L Alkaline Phosphatase 93 (46-116) U/L Troponin I 11 13 (<or=51) ng/L Total Protein 7.2 (6.4-8.2) g/dL Albumin 3.6 (3.4-5.0) g/dL TSH 0.98 (0.36-3.74) uIU/mL Urine Color Other (Yellow) Urine Clarity Sl Cloudy (Clear) Urine pH 7.0 (5-8) Ur Specific [place] 1.015 (1.005-1.025) Urine Protein Negative (Neg-Trace) mg/dL Urine Ketones Negative (Negative) mg/dL Urine Blood Negative (Negative) Urine Nitrite Negative (Negative) Urine Bilirubin Negative (Negative) Urine Urobilinogen 0.2 (Up to 0.2) mg/dL Ur Leukocyte Esterase Negative (Negative) Urine Glucose Negative (Negative) mg/dL Intake and Output - 24 Hour Total 08/22/24 10:15 thru 08/22/24 14:54 Intake Total 10 Output Total 1000 Balance -990 Weight 156 kg Intake: IV 10 Output: Urine 1000 Other: # Voids 3 Falls Risk Assessment History of Falls No History 08/22/24 11:22 Contributing Factors Confusion,Impairments, 08/22/24 11:22 Medications Ambulatory Aids Uses ambulatory device 08/22/24 11:22 Tubes/Lines With any additional score 08/22/24 11:22 Gait Evaluation W/any additional score 08/22/24 11:22 Cognition Cognitive impairment 08/22/24 11:22 Fall Total Score 79 08/22/24 11:22 Level of Risk Maximum Risk 08/22/24 11:22 Problems (Last Reviewed 07/13/24 @ 06:30 by Berta Conroy RN) CVA (cerebral vascular accident) (Chronic) Atrial fibrillation (Chronic) CAD (coronary artery disease) (Chronic 03/29/13) Essential hypertension (Chronic) Hyperlipidemia (Chronic) Tobacco use disorder (Acute) Notes 08/22/24 16:57 Nursing Notes by Domi Kaufman Patient stated she needed to go to the bathroom. I advised her that I would check in briefly with her nurse and be back. Per nurse she can get up and use the commode as she has done a few times already today. Returned to room to assist patient and she refused to use commode becoming agitated and wanting to go to the bathroom. I told her I would want to check back in with her nurse and would return, to which she was very upset and was yelling at me as I left the room. Per nurse she can go to the bathroom if she goes by wheelchair, nurse confirmed that she could stand and pivot on her own as she has done it a few times already today. Returned to patient, she yelled at me to get there and help her. Assisted her into a sitting position with minimal need for help. Patient was able to stand and pivot to chair with minimal assistance. Brought patient into the hallway to go to the bathroom. She was very agitated by items being in the way as well as a patient being in the hallway near the bathroom. I went around patient to open the bathroom door. From there I began to move her into the bathroom and without saying anything or waiting for me to stop she got up, took a few steps and fell. I then called to a nurse who was nearby for help. Initialized on 08/22/24 16:57 - END OF NOTE v v v v v v v v v Sending and/or Receiving Nurses: Please use comment section below to note any information pertinent to the patient hand-off not included above. Information / Comments: 18 G R AC, per ED nurse pt fell in ED, right elbow skin abrasion noted. Report received from: Ramya Butler ED Nurse
[2024-08-22] MEDS: Normal Saline Flush 10 ML SYR (19:57)
[2024-08-22] MEDS: Apixaban 5 MG TAB PO (19:57)
[2024-08-23 01:13] VITALS: BP 143/68; PULSE 67; RESP 22; TEMP 36; O2SAT 93
[2024-08-23 06:17] VITALS: BP 165/75; PULSE 89; RESP 18; TEMP 36.8; O2SAT 94
[2024-08-23] MEDS: Cholecalciferol (Vitamin D3) 1,000 UNIT TAB 2000 UNITS PO (08:27)
[2024-08-23] MEDS: Omeprazole 20 MG CAPCR PO (08:27)
[2024-08-23] MEDS: Furosemide 40 MG TAB 60 MG PO (08:27)
[2024-08-23] MEDS: dilTIAZem CD 120 MG CAPCR 240 MG PO (08:27)
[2024-08-23] MEDS: Apixaban 5 MG TAB PO (08:28)
--- NOTE | 2024-08-23 11:40 | PT.INIE ---
PT Notes Visit Reasons: TIA (cardiology) Physical Therapy Inpatient Initial Evaluation Date: 08/23/2024 Referring Doctor:Dr Jauregui PT Orders: PT CONSULT:PT Evaluation and treatment Precautions:Standard Patient Profile/Admitting Diagnosis: Chema is a 79yo female who presented to the ED on 08/22/2024 with confusion which resolved prior to her being assessed in ED. While she was in the ED a consultation to teleneurology was done. Recommendation was to do a CT MRI and echocardiogram and her MRI did show a small CVA There is thin strip of restricted diffusion in the white matter adjacent to the left lateral ventricle. Patient will be admitted to the hospital service for further evaluation and treatment. PMHX: CVA (cerebral vascular accident) (Chronic) COPD (chronic obstructive pulmonary disease) (Chronic) Numbness of left hand (Acute) Arthritis of carpometacarpal (CMC) joint of left thumb (Acute) Morbid obesity with BMI of 50.0-59.9, adult (Acute) B12 deficiency (Acute) Carpal tunnel syndrome of right wrist (Acute) S/P ECTR: 5Arthritis of right shoulder region (Acute) Arthritis of left shoulder region (Acute) Right shoulder pain (Acute) Atrial fibrillation (Chronic) Leg cramps (Acute ~10/23/23) Trigger finger of left hand (Acute) Non-healing surgical wound (Acute) CAD (coronary artery disease) (Chronic 03/29/13) Abnormal renal function (Chronic) elevated creatinine Anxiety (Chronic) COPD with acute exacerbation (Chronic 04/17/16) Depressive disorder (Chronic) Essential hypertension (Chronic) Urinary, incontinence, stress female (Chronic 08/24/12) 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 Hyperlipidemia (Chronic) 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) right sided sciatica w/ disc herniation L5- XRAY 2014 - djd Meralgia paresthetica (Chronic 01/08/02) right Morbid obesity (Chronic 08/06/15) Need for subacute bacterial endocarditis prophylaxis (Chronic 05/02/14) Clinda 600mg once - 60 min before procedure Osteopenia (Chronic) 2003 T-scores: -0.8, -0.2; -1.8 Palpitations (Chronic 08/24/12) Psoriasis (Chronic 08/30/12) Vitamin D deficiency (Chronic 05/26/08) Weight loss (Chronic 03/09/17) Coronary artery spasm (Acute 03/11/07) Tobacco use disorder (Acute) Acute UTI (Acute) COVID-19 (Acute) New onset-12/23/21Advance care planning (Acute) Shortness of breath (Acute) Sleep apnea (Acute) Screening for HIV (human immunodeficiency virus) (Acute) Subcutaneous mass of toe of right foot (Acute) medial aspect base of right great toeSkin lesion (Acute) Urinary tract infection (Acute) Medical History (Updated 08/22/24 @ 17:34 by Baljit Jauregui MD) Diastolic dysfunction Abnormal mammogram (01/08/03) Appendicitis (03/11/07) Clostridium difficile infection (03/11/07) Disorder of gallbladder (03/11/07) Lipoma (03/11/07) Tobacco use disorder quit 2004Abnormal mammogram, unspecified 01/08/03Clostridium difficile infection 03/11/07Unspecified appendicitis 03/11/07Disorder of gallbladder 03/11/07Lipoma 03/11/07 removed 04/05/12 by Fabrice LaresVentral hernia with obstruction but no gangrene (03/11/07) epigastric and ventral Shortness of breath (11/05/15) Shingles (03/10/17) Hiatal hernia (03/11/07) EGD; inflammation Acute myocardial infarction (08/24/12) 2006 ECHO showing LVH 75% Surgical History (Updated 07/13/24 @ 07:10 by BRITNI Jin) Status post abdominal hysterectomy Status post appendectomy Status post breast biopsy Status post cholecystectomy Status post hernia repair Status post total knee replacement S/P abdominal hysterectomy endometriosis S/P cholecystectomy S/P appendectomy S/P total knee replacement 02/09/95 leftS/P breast biopsy, left 02/10/12 lipomaS/P hernia repair 07/10/13Replacement of total knee joint 1995 LEFT 2004 RIGHTAbdominal hysterectomy endometriosis HERNIA REPAIR (~07/2013) Cholecystectomy Extraction of cataract 11/14/16 DR. MARISCAL; LEFT EYE Biopsy of breast (04/05/12) lipoma; left breast Appendectomy Social History/Home Situation: Pt resides in [facility], operated by [facility] with elevator access.. SHe is independent with [employer], independent showers , independent HM, she has friends or takes cab to grocery store. Equipment Owned/DME: [employer] Subjective:Pt reports she was going home today. She states they offer 2 meals per day but you have to pay for them. She states sometimes she goes to lunch. She states she has a high bed and a tall chair she sits on. SHe notes needing assist to get up from low surfaces. Objective: [] General Observation: Pt presented semireclined. Mental Status: A+0x 4, cooperative , motivated , able to follow instructions and agreeable to participate in PT evaluation Pain:denies ROM: [] BUE:WNL Right Lower Extremity: WFL Left Lower Extremity: WFL Strength: [] Right Upper Extremity: 3/5 Left Upper Extremity: 3/5 Right Lower Extremity:hip 3/5 , knee and ankle 5/5 Left Lower Extremity: hip 3/5 knee and ankle 5/5 Sensation: intact Bed Mobility/Transfers: [] Supine to sit Independent Sit to stand SBA from >19 height, Max A of 2 from 17 Stand to sit SBA Bed to chair SBA with 4WW Gait: amb with 4ww SBA 100 feet x 2 with w/c follow for safety. Pt demonstrates ability to manage brakes and control 4WW without assistance for turning and speed. Balance: [] Static Sitting: Normal Dynamic Sitting: Good Static Standing: Good Dynamic Standing: good - Special Tests: [] Mobility Limitations Standardized Measure [] [facility] AM-PAC 6 clicks Basic Mobility Inpatient Short Form: [] Raw Score: 22 CMS Score:20.91% Informed Consent/Education: Patient instructed in purpose of PT consult. Assessment: Brielle demonstrates no residual deficits. Pt with no impairments in motor coordination. at this time Patient is a 79yo female who presents with clinical signs and symptoms consistent with current/admitting diagnoses that have resulted to mobility limitations, gait instability, generalized weakness, and impairment of motor control as demonstrated by the following impairment level findings: 1. Decreased strength to BLE hip major muscle groups 2. Impaired standing balance 3. Impaired functional activity tolerance Impairments are contributing to the following functional limitations: 1. Inability to safely ambulate without assistive device 2. Increase completion time for mobility ADL performance 3. Increased fall risk Patient is assessed as a low complexity based on the following: History: 79-year-old female with impairment level findings, functional limitations, and past medical history as indicated above Examination: Demonstrable impairment in strength, balance, and mobility level with underlying impairments and functional limitations as documented above Presentation: stable Decision Making:low Goals: N/A. pt discharge to home with HHPT Plan of Care/Treatment Plan: N/A. DISCHARGE RECOMMENDATIONS: Home with HHPT TREATMENT CODE/TIME:43582, [id number]/ [id number] Thank you for the opportunity to participate in the care of this patient. Jessa Gillespie PT [facility]
--- NOTE | 2024-08-23 12:23 | W.SPSTE ---
Date of service: 08/23/24 Time of Service: 12:23 Subjective Clinical (Bedside) Swallow Evaluation - Inpatient Speech Language Pathology Referred by: (Can this auto-populate from the consult order?) Time(s) of visit: 12:10-12:15, 12:24-12:35 Total patient contact: 21 min Referral Type: Routine Swallow Consult Precautions: Standard, Fall, Full Code Reason for Referral/HPI: Patient is a 79 y/o F who with history of HTN, HL, CHF, CAD, COPD, Afib on Eliquis, presented to [facility] ED after waking up in the middle of the night feeling confused and unable to do normal tasks. On initial presentation she was alert but not oriented, unable to answer basic quetsions, but without aphasia. Imaging completed was admitted with CVA, with small area of restricted diffusion in white matter adjacent to left lateral ventricle concerning for ischemic event. [employer] consulted to rule out dysphagia concerns prior to d/c and provide d/c recommendations. [employer] IMPRESSIONS & RECOMMENDATIONS: Patient presents with safe/WFL swallow function at this time. She is partially edentulous but tolerates a regular texture diet at baseline, and appears with good tolerance as well this date. Very brief cognitive/communication screen indicates FURTHER INPATIENT [employer] SERVICES: No further [employer] services indicated DISCHARGE RECOMMENDATIONS: Please place outpatient [employer] referral if indicated upon follow up with neurology/PCP Diet Recommendations: ? SOLIDS: 7-Regular Solids LIQUIDS: 0-Thin Liquids MEDICATIONS: Whole With 0-Thin Liquids RISK MANAGEMENT: Level of Assistance/Supervision: Independent Positioning and environment: Up to chair Oral hygiene BID/2x per day Using friction with toothbrush on all oral structures as tolerated Education Provided to: Nursing Patient Physician Topics Addressed: impact of current diagnoses on swallow function role of [employer] in management of swallow disorders overt s/sx to monitor for re: potential aspiration of food / liquids impact of current diagnosis on cognitive/communication function s/sx to monitor to indicate outpatient [employer] referral. SUBJECTIVE: Patient received: alert/awake. Agreeable to evaluation. Pain Reported n/a Baseline Swallow Function: Patient denies swallowing difficulty prior to admission and eats a regular diet at baseline. Denies new swallowing deficits. 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 Speech: WFL Oral Mechanism Examination: Dentition: Partial natural dentition Oral mucosa: WFL ? Cranial Nerve Assessment: CN V ? Trigeminal Facial Sensation WNL Jaw Strength/ROM WNL ?WNL CN VII- Facial WNL labial ROM, strength, coordination. WNL lingual sensation WNL CN IX ? Glossopharyngeal WNL palatal elevation with phonation. No evidence of nasal emissions WNL CN X ? Vagus WNL Vocal quality and volume. Strong/sharp volitional cough WNL CX XII ? Hypoglossal MILD/SLIGHT deviation to R , normal strength to resistance bilaterally and protrusion. WNL/MILD PO Intake: Trials Assessed: IDDSI 0 Thin Liquids IDDSI 6 Soft & Bite Size Solid IDDSI 7 Regular Solid Oral Phase Findings: WFL Pharyngeal Phase Findings: WFL Esophageal Phase Findings: ? No observed or reported symptoms at bedside ? [place] Swallow Protocol Results: PASS Complete/uninterrupted without s/sx aspiration PLAN: No further [employer] services indicated at this time. Please re-refer as needed.
--- NOTE | 2024-08-23 13:47 | DSE_ITS ---
Date of service: 08/23/24 Time of Service: 13:47 DS: Diagnosis Discharge Diagnosis (1) CVA (cerebral vascular accident): Status: Chronic (2) CAD (coronary artery disease): Status: Chronic (3) Essential hypertension: Status: Chronic (4) Hyperlipidemia: Status: Chronic (5) Tobacco use disorder: Status: Acute (6) Atrial fibrillation: Status: Chronic Discharge Plan Disposition Patient Disposition: Home Condition: Stable Discharge Details Reason For Visit: TIA Admit Date/Time: 08/22/24 16:07 Admit Provider: Baljit Jauregui Attending Provider: Baljit Jauregui Primary Care Provider: Chanel Garcia Hospital Course Hospital Course: This is a 79-year-old female who presents with confusion for 1 day duration. While she was in the hospital an MRI was performed which was indicative of CVA and I added that documentation (1. I did discuss the case with neurology at [facility] Dr. Cerda who recommended resuming her Eliquis and statin. We did offer physical, occupational, speech, and medical social work but the patient did not want this as an outpatient. I will also fax into her PCP Dr. Garcia. History of Present Illness Chief Complaint: confusion Narrative: This is a 79-year-old female who presents to the ED today with confusion which resolved by the time the patient was seen in the ED. Patient went to bed approximately 10:00 last night and woke up at 2 this morning feeling confused and having difficulty opening her Mckenna or other devices was brought into the ED for further evaluation and treatment. While she was in the ED a consultation to teleneurology was done. Recommendation was to do a CT MRI and echocardiogram and her MRI asked she did show a small CVA. Patient will be admitted to the hospital service for further evaluation and treatment. Of note the patient is on Eliquis but states that she has not taken it over the last 3 to 4 days. This information is not verified but reported to the patient. Of note the patient did get a echocardiogram in July but has not had a formal. In reviewing the ED note, the patient was presented to Dr. Mendez of the neurology service. In reviewing her diagnostic data her CBC is essentially benign CMP does show an elevation of her BUN and creatinine of 32/1.4. Glucose 108 urinalysis is benign. Brain MRI shows a thin strip of restricted diffusion in the white matter adjacent to the left lateral ventricle concerning for ischemic event no hemorrhage CT done on admission was negative EKG showed possible A-fib but awaiting official read by cardiology. In reviewing her EKG she does appear to have paroxysmal A-fib. Patient is on Eliquis normally but has not taken it over the last few days Assessment and plan (1) CVA (cerebral vascular accident): Status: Chronic Assessment and plan: Will place cs to pt/ot/st. complete bubble study. d/w neuro in am 2/2 new finding of cva while on eliquis (2) CAD (coronary artery disease): Status: Chronic Assessment and plan: stable (3) Essential hypertension: Status: Chronic Assessment and plan: optimize in outpatient setting (4) Hyperlipidemia: Status: Chronic Assessment and plan: cw statin, will d/w neuro maximizing therapy (5) Tobacco use disorder: Status: Acute Assessment and plan: nicoderm as needed (6) Atrial fibrillation: Status: Chronic Assessment and plan: HR at 59, cw eliquis MRI Brain MPRESSION: There is thin strip of restricted diffusion in the white matter adjacent to the left lateral ventricle. Concern for acute ischemic event. No hemorrhage. Recommendations for Follow Up Recommended tests to be ordered by follow up provider: Follow up with echocardiogram with bubble study at discretion of PCP Home Meds and New Rx's Prescriptions: New simvastatin 20 mg tablet 20 mg PO DAILY Qty: 30 0RF Continued cholecalciferol (vitamin D3) 50 mcg (2,000 unit) capsule 50 mcg PO DAILY fluticasone propion-salmeterol [Advair Diskus] 500-50 mcg/dose blister with device 1 inh inhalation BID Qty: 180 5RF Zepbound 2.5 mg/0.5 mL pen injector 2.5 mg subcut QWEEK Qty: 6 3RF Patient Comments: haven't started furosemide 40 mg tablet 60 mg PO QDAY Qty: 135 4RF triamcinolone acetonide 0.1 % ointment 1 applic Topical BID PRN (Reason: rash) Qty: 80 3RF Rx Instructions: use topically on area. dispense 0.1% oinment in 80 gm tube omeprazole 20 mg capsule,delayed release(DR/EC) 20 mg PO DAILY Qty: 90 4RF diltiazem HCl 30 mg tablet 30 mg PO BID PRN (Reason: Esophageal spasms) Qty: 100 0RF Rx Instructions: take for chest discomfort albuterol sulfate 90 mcg/actuation HFA aerosol inhaler 1 - 2 puff Inhalation Q4H PRN Qty: 3 5RF oxybutynin chloride 5 mg tablet 10 mg PO BID PRN (Reason: bladder spasms) Qty: 360 4RF ferrous sulfate 325 mg (65 mg iron) tablet 325 mg PO DAILY Qty: 90 4RF diltiazem HCl 240 mg capsule,extended release 24hr 240 mg PO DAILY Qty: 90 5RF Eliquis 5 mg tablet 5 mg PO BID Qty: 180 12RF acetaminophen [Tylenol Extra Strength] 500 MG tablet 1,000 mg PO TID PRNQty: 0 0RF ibuprofen 600 mg tablet 600 mg PO TID PRN (Reason: pain) Qty: 90 0RF Discontinued Shingrix (PF) 50 mcg/0.5 mL suspension for reconstitution 0.5 ml IM ONCE Qty: 1 1RF Rx Instructions: as a single dose. Repeat in 2 months Discharge Instructions Referrals: Chanel Garcia MD, [place] [Primary Care Provider, Medicine] Referral Note: follow up in 5-7 days Activity:: Activity as Tolerated Equipment/Supplies:: No Equipment Needed Diet:: As Tolerated Discharge Orders Discharge Orders: Discharge Order (Routine); Ordered 08/23/24 Ordered By: Baljit Jauregui DS: Summary Time Spent with Patient providing and/or coordinating discharge services: Greater than 30 minutes Status at Discharge Functional status at discharge: uses cane/walker Overall status at discharge: patient is progressing back to baseline Mental Status: mental status grossly normal Speech and Movement: speech and movement normal Mood: congruent mood Affect: normal affect Quality:SDOH Health Related Social Needs: Health related social needs daily activities Health related social needs details Feels like she cou ld use a little more help. Health related social needs details: Feels like she could use a little more help. Exam Psych Mental Status: mental status grossly normal Speech and Movement: speech and movement normal Mood: congruent mood Affect: normal affect DS: Data Vitals/I&O Vitals and I&O: Vital Signs Temperature 36.8 C 08/23/24 06:17 Temperature Source Temporal Artery Scan 08/23/24 06:17 Pulse 89 08/23/24 06:17 Pulse Rhythm Regular 08/22/24 18:12 Pulse 65 08/22/24 17:30 Respiratory Rate 18 08/23/24 06:17 Respiratory Effort Normal, Non-Labored 08/22/24 18:12 Respiratory Depth Normal 08/22/24 18:12 Respiratory Pattern Normal 08/22/24 18:12 Blood Pressure 165/75 H 08/23/24 06:17 Blood Pressure Mean 105 08/23/24 06:17 Pulse Oximetry 94 08/23/24 06:17 Oxygen Delivery Method Room Air 08/23/24 06:17 Oxygen Flow Rate 0 08/23/24 06:17 Pain Level 0 08/23/24 08:34 Comment pt requested to be left alone to sleep, will get when pt wakes up 08/23/24 00:33 Intake & Output 08/22/24 08/23/24 08/23/24 23:59 11:59 23:59 Intake Total 1060 / 1070 450 / 690 240 / 690 Output Total 1750 / 1750 700 / 700 Balance -690 / -680 -250 / -10 240 / -10 Weight 151.999 kg 150.1 kg Intake: IV 510 / 520 Oral 550 / 550 450 / 690 240 / 690 Output: Urine 1750 / 1750 700 / 700 Other: Urine Color Yellow Yellow Urine Appearance Cloudy Cloudy Urine Odor Normal Normal Stool Size Small Small Moderate Stool Characteristics Soft Soft Formed Formed Brown Brown PFSH All Active Problems (Updated 08/22/24 @ 17:34 by Baljit Jauregui MD) CVA (cerebral vascular accident) (Chronic) COPD (chronic obstructive pulmonary disease) (Chronic) Numbness of left hand (Acute) Arthritis of carpometacarpal (CMC) joint of left thumb (Acute) Morbid obesity with BMI of 50.0-59.9, adult (Acute) B12 deficiency (Acute) Carpal tunnel syndrome of right wrist (Acute) S/P ECTR: 07/13/2024 Arthritis of right shoulder region (Acute) Arthritis of left shoulder region (Acute) Right shoulder pain (Acute) Atrial fibrillation (Chronic) Leg cramps (Acute ~10/23/23) Trigger finger of left hand (Acute) Non-healing surgical wound (Acute) CAD (coronary artery disease) (Chronic 03/29/13) Abnormal renal function (Chronic) elevated creatinine Anxiety (Chronic) COPD with acute exacerbation (Chronic 04/17/16) Depressive disorder (Chronic) Essential hypertension (Chronic) Urinary, incontinence, stress female (Chronic 08/24/12) 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 Hyperlipidemia (Chronic) 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) right sided sciatica w/ disc herniation L5- XRAY 2014 - djd Meralgia paresthetica (Chronic 01/08/02) right Morbid obesity (Chronic 08/06/15) Need for subacute bacterial endocarditis prophylaxis (Chronic 05/02/14) Clinda 600mg once - 60 min before procedure Osteopenia (Chronic) 2003 T-scores: -0.8, -0.2; -1.8 Palpitations (Chronic 08/24/12) Psoriasis (Chronic 08/30/12) Vitamin D deficiency (Chronic 05/26/08) Weight loss (Chronic 03/09/17) Coronary artery spasm (Acute 03/11/07) Tobacco use disorder (Acute) Acute UTI (Acute) COVID-19 (Acute) New onset-12/23/21 Advance care planning (Acute) Shortness of breath (Acute) Sleep apnea (Acute) Screening for HIV (human immunodeficiency virus) (Acute) Subcutaneous mass of toe of right foot (Acute) medial aspect base of right great toe Skin lesion (Acute) Urinary tract infection (Acute) Medical History (Updated 08/22/24 @ 17:34 by Baljit Jauregui MD) Diastolic dysfunction Abnormal mammogram (01/08/03) Appendicitis (03/11/07) Clostridium difficile infection (03/11/07) Disorder of gallbladder (03/11/07) Lipoma (03/11/07) Tobacco use disorder quit 2004 Abnormal mammogram, unspecified 01/08/03 Clostridium difficile infection 03/11/07 Unspecified appendicitis 03/11/07 Disorder of gallbladder 03/11/07 Lipoma 03/11/07 removed 04/05/12 by Fabrice Lares Ventral hernia with obstruction but no gangrene (03/11/07) epigastric and ventral Shortness of breath (11/05/15) Shingles (03/10/17) Hiatal hernia (03/11/07) EGD; inflammation Acute myocardial infarction (08/24/12) 2006 ECHO showing LVH 75% Surgical History (Updated 07/13/24 @ 07:10 by BRITNI Jin) Status post abdominal hysterectomy Status post appendectomy Status post breast biopsy Status post cholecystectomy Status post hernia repair Status post total knee replacement S/P abdominal hysterectomy endometriosis S/P cholecystectomy S/P appendectomy S/P total knee replacement 02/09/95 left S/P breast biopsy, left 02/10/12 lipoma S/P hernia repair 07/10/13 Replacement of total knee joint 1995 LEFT 2005 RIGHT Abdominal hysterectomy endometriosis HERNIA REPAIR (~07/2013) Cholecystectomy Extraction of cataract 11/14/16 DR. MARISCAL; LEFT EYE Biopsy of breast (04/05/12) lipoma; left breast Appendectomy Family History Mother , age 61 Diabetes Essential hypertension Heart disease Hyperlipidemia DVT (deep venous thrombosis) Asthma Father , age 75 Essential hypertension Heart disease Hyperlipidemia Stroke Lung cancer Sister , age 41 Lung cancer Maternal Grandfather , age 88 No problems noted. Paternal Grandfather No problems noted. Maternal Grandmother , age 88 Hyperlipidemia Hypertension Paternal Grandmother Essential hypertension Hyperlipidemia Brother , age 70 Diabetes Essential hypertension Heart disease Alcohol abuse Brother , age 68 No problems noted. Son Depression Hyperlipidemia Alcohol abuse Heart disease Hypertension Son No problems noted. Daughter Essential hypertension Depression DVT (deep venous thrombosis) Asthma Alcohol abuse Hyperlipidemia Substance abuse Social History Smoking/Tobacco Use Status: Former Tobacco Use tobacco type: cigarettes Quit Date: 12/17/03 Tobacco: How many years used: 30 Smoking risk assessment performed?: Yes Alcohol Intake: never Drug use: Never Substance use type: does not use Caregiver/Support person: No Household members: none Housing: apartment Communication Needs: Hard of Hearing Pets and animals: No Sexually active: No Current gender identity: female and decline to answer What is your relationship status?: How often do you talk on the phone with friends or family?: twice per week How often do you get together with friends or relatives?: decline to answer How often do you attend religion or buddhism services?: decline to answer Do you belong to any clubs or organized social groups?: decline to answer Panel score (0-1 are the most socially isolated patients): 0 What type of physical activity do you participate in: none and walking Frequency: 3-4 times per week Trish/Congregational: [employer] Special trish needs: No Seatbelt use: always Helmet use: No Drive intox or ride w/intox 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
[2024-08-23] MEDS: Normal Saline Flush 10 ML SYR (14:00)
--- NOTE | 2024-08-23 14:04 | CMDISCH_ITS ---
Date of service: 08/23/24 Time of Service: 14:04 LACE Index Scoring Tool Questions: Length of Stay (in days): 1 Was the patient admitted via the E.D.?: Yes Comorbidities: Chronic Pulmonary Disease E.D. Visits: 2 Answers: Total Score: 8 Risk of Readmission: Low Risk Care Management Discharge Plan Reason for Hospitalization: TIA Discharge Plan: Chema will be discharged home today, with no new service as patient declined wanting home health. She will follow up with her community providers and continue per her plan of care. Chema will transport via private vehicle. Patient/Family Education Needs: Review discharge instructions, activity, limitations, and plan of care. Discuss Ask me three. SDOH Health Related Social Needs: Health related social needs daily activities Health related social needs details Feels like she cou ld use a little more help. Health related social needs details: Feels like she could use a little more help.
--- NOTE | 2024-08-23 15:02 | CHAPLAIN ---
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 She lives at the [facility] and told me about what she's been doing lately. Her daughter was visiting with her. Brielle said she's being discharged today and looking forward to going home.
--- NOTE | 2024-08-26 14:50 | PDOC.HHF2F_ITS ---
Home Health Referral Home Health Orders Clinical synopsis of why skilled professionals are needed: cva Medical diagnosis necessitation home health referral: cva Physical Therapist: Check all that apply Increase strength & endurance for safe mobility at home: Ordered To design/establish home maintenance program: Ordered Fall reduction therapy program for patient with history of frequent falls: Ordered Home safety evaluation and teaching/gait training including stair management (if applicable): Ordered Occupational Therapist: Evaluate and treat for patient unable to perform ADL/IADL/self-care: Ordered Upper extremity strengthening, range and motion: Ordered Speech Therapist: Check all that apply For swallow evaluation/therapy due to dysphagia: Ordered Cognition/memory: Ordered Speech/communication disorders: Ordered Xray Tech: Assist with community resources: Ordered Assist with longterm care planning: Ordered Home Bound Status Requires the aid of supportive device (check all that apply): Walker Patient has a condition such that leaving home is medically contraindicated (Describe): cva Describe why leaving home would require a considerable and taxing effort: Req uires frequent rest periods Encounter Date and Reason: I certify that a FTF encounter for this patient was performed on August 26, 2024 and that such encounter was related to the primary reason the patient requires home health services. The encounter was conducted in the following manner: * By me as the certifying physician, HAIR STYLIST, PA or * By an inpatient physician, HAIR STYLIST or PA during an inpatient stay who communicated findings to me, Certification And Authentication I certify that I composed the above information based on my clinical judgment relating to this patient's medical condition and, if applicable, clinical findings communicated to me by the NPP or inpatient physician who performed the FTF encounter. Name of Provider that will be monitoring home health services: Chanel Garcia
--- NOTE | 2024-09-27 17:03 | HPE_ITS ---
Date of service: 09/27/24 Time of Service: 17:04 Assessment and Plan Assessment and plan (1) GIB (gastrointestinal bleeding): Status: Chronic Assessment and plan: Per ED physician consulted general surgery has been placed and plan for further intervention on this hospitalization. I have not put the patient in the ICU precautionary as she does have some continued GI bleed and has been on Eliquis. Repeat CBC in the a.m. (2) CAD (coronary artery disease): Status: Chronic Assessment and plan: No active chest pain or anginal equivalents at this time monitor (3) Atrial fibrillation: Status: Chronic Assessment and plan: Patient had been on Eliquis but will need to see what her scope shows before resuming this medication. Will do has-bled score in the a.m. (4) CVA (cerebral vascular accident): Status: Chronic Assessment and plan: Recent admission for this problem in August. But as mentioned above for some reason her chart is not reflective of this history. Will reach out to IT in the a.m. (5) COPD with acute exacerbation: Status: Chronic Assessment and plan: Continue with inhalers. History of Present Illness History of Present Illness Chief Complaint: GIB Narrative: This is a 79-year-old female who was actually here in August of this year and at that time suffered a CVA. Patient does not have any significant sequelae from the CVA but for what ever reason that hospital stay is not in her regular chart. At any rate patient comes in today with complaints of bright red blood per rectum. This this is an intermittent problem and she was seen in December 2023 for the same issue. Patient states that that usually resolves but this time it did not resolve she continues to bleed. Of note, the patient was started on Eliquis secondary to her recent CVA. If I remember right the patient was only taking her Eliquis intermittently when she had her CVA. Patient states that her last colonoscopy was approximately 10 years ago and the only thing she remembers about it is that she became hypotensive and required 2 different attempts secondary to her low blood pressure. Patient did get an echocardiogram on her last admission but I cannot access that data for some reason. In reviewing her prior history though she has been diagnosed with aortic stenosis in the past. Patient did get a CT angiogram of her abdomen and pelvis and it was benign. She is noted to have mild hypokalemia as well as an elevated BUN to creatinine ratio. Her hemoglobin is currently 11 and hematocrit is 36. Review of Systems All systems reviewed & are unremarkable except as noted in HPI and below PFSH All Active Problems (Updated 09/27/24 @ 17:09 by Baljit Jauregui MD) GIB (gastrointestinal bleeding) (Chronic) Rectal bleed (Acute) Aortic stenosis (Chronic) Foot pain, left (Acute) Left carotid stenosis (Acute) CVA (cerebral vascular accident) (Chronic) COPD (chronic obstructive pulmonary disease) (Chronic) Numbness of left hand (Acute) Arthritis of carpometacarpal (CMC) joint of left thumb (Acute) Morbid obesity with BMI of 50.0-59.9, adult (Acute) B12 deficiency (Acute) Carpal tunnel syndrome of right wrist (Acute) S/P ECTR: 07/13/2024 Arthritis of right shoulder region (Acute) Arthritis of left shoulder region (Acute) Right shoulder pain (Acute) Atrial fibrillation (Chronic) Leg cramps (Acute ~10/23/23) Trigger finger of left hand (Acute) Non-healing surgical wound (Acute) CAD (coronary artery disease) (Chronic 03/29/13) Abnormal renal function (Chronic) elevated creatinine Anxiety (Chronic) COPD with acute exacerbation (Chronic 04/17/16) Depressive disorder (Chronic) Essential hypertension (Chronic) Urinary, incontinence, stress female (Chronic 08/24/12) 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 Hyperlipidemia (Chronic) 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) right sided sciatica w/ disc herniation L5- XRAY 2014 - djd Meralgia paresthetica (Chronic 01/08/02) right Morbid obesity (Chronic 08/06/15) Need for subacute bacterial endocarditis prophylaxis (Chronic 05/02/14) Clinda 600mg once - 60 min before procedure Osteopenia (Chronic) 2003 T-scores: -0.8, -0.2; -1.8 Palpitations (Chronic 08/24/12) Psoriasis (Chronic 08/30/12) Vitamin D deficiency (Chronic 05/26/08) Weight loss (Chronic 03/09/17) Coronary artery spasm (Acute 03/11/07) Tobacco use disorder (Acute) Acute UTI (Acute) COVID-19 (Acute) New onset-12/23/21 Advance care planning (Acute) Shortness of breath (Acute) Sleep apnea (Acute) Screening for HIV (human immunodeficiency virus) (Acute) Subcutaneous mass of toe of right foot (Acute) medial aspect base of right great toe Skin lesion (Acute) Urinary tract infection (Acute) Medical History (Updated 09/27/24 @ 17:09 by Baljit Jauregui MD) Diastolic dysfunction Abnormal mammogram (01/08/03) Appendicitis (03/11/07) Clostridium difficile infection (03/11/07) Disorder of gallbladder (03/11/07) Lipoma (03/11/07) Tobacco use disorder quit 2004 Abnormal mammogram, unspecified 01/08/03 Clostridium difficile infection 03/11/07 Unspecified appendicitis 03/11/07 Disorder of gallbladder 03/11/07 Lipoma 03/11/07 removed 04/05/12 by Fabrice Lares Ventral hernia with obstruction but no gangrene (03/11/07) epigastric and ventral Shortness of breath (11/05/15) Shingles (03/10/17) Hiatal hernia (03/11/07) EGD; inflammation Acute myocardial infarction (08/24/12) 2006 ECHO showing LVH 75% Surgical History (Updated 08/24/24 @ 00:03 by BASILIO SHERMAN) Status post abdominal hysterectomy Status post appendectomy Status post breast biopsy Status post cholecystectomy Status post hernia repair Status post total knee replacement S/P abdominal hysterectomy endometriosis S/P cholecystectomy S/P appendectomy S/P total knee replacement 02/09/95 left S/P breast biopsy, left 02/10/12 lipoma S/P hernia repair 07/10/13 Replacement of total knee joint 1995 LEFT 2004 RIGHT Abdominal hysterectomy endometriosis HERNIA REPAIR (~07/2013) Cholecystectomy Extraction of cataract 11/14/16 DR. MARISCAL; LEFT EYE Biopsy of breast (04/05/12) lipoma; left breast Appendectomy Family History Mother , age 61 Diabetes Essential hypertension Heart disease Hyperlipidemia DVT (deep venous thrombosis) Asthma Father , age 75 Essential hypertension Heart disease Hyperlipidemia Stroke Lung cancer Sister , age 41 Lung cancer Maternal Grandfather , age 88 No problems noted. Paternal Grandfather No problems noted. Maternal Grandmother , age 88 Hyperlipidemia Hypertension Paternal Grandmother Essential hypertension Hyperlipidemia Brother , age 70 Diabetes Essential hypertension Heart disease Alcohol abuse Brother , age 68 No problems noted. Son Depression Hyperlipidemia Alcohol abuse Heart disease Hypertension Son No problems noted. Daughter Essential hypertension Depression DVT (deep venous thrombosis) Asthma Alcohol abuse Hyperlipidemia Substance abuse Social History Smoking/Tobacco Use Status: Former Tobacco Use tobacco type: cigarettes Quit Date: 12/17/03 Tobacco: How many years used: 30 Smoking risk assessment performed?: Yes Alcohol Intake: never Drug use: Never Substance use type: does not use Caregiver/Support person: No Household members: none Housing: apartment Communication Needs: Hard of Hearing Pets and animals: No Sexually active: No Current gender identity: female and decline to answer What is your relationship status?: How often do you talk on the phone with friends or family?: twice per week How often do you get together with friends or relatives?: decline to answer How often do you attend zoroastrianism or yazidi services?: decline to answer Do you belong to any clubs or organized social groups?: decline to answer Panel score (0-1 are the most socially isolated patients): 0 What type of physical activity do you participate in: none and walking Frequency: 3-4 times per week Trish/Latter Day: Restorationism Special trish needs: No Seatbelt use: always Helmet use: No Drive intox or ride w/intox solo truck driver: No Do you feel safe at home: Yes Do you feel safe in your relationship?: Yes Would you like helpful sources: No Meds Allergies and Home Medications Allergies Allergy/AdvReac Type Severity Reaction Status Date / Time Tetanus Vaccines and Toxoid Allergy Severe Massive Verified 09/27/24 14:16 (Tetanus Vaccines \E&E\ Local Toxoid) Reaction amoxicillin Allergy Unknown HIVES Verified 09/27/24 14:16 atenolol AdvReac Intermediate Fluid Verified 09/27/24 14:16 Retention bupropion (From Wellbutrin AdvReac Intermediate nausea Verified 09/27/24 14:16 SR) morphine AdvReac Intermediate Jittery Verified 09/27/24 14:16 COVID-19 (SARS-CoV-2) AdvReac Mild redness Verified 09/27/24 14:16 vaccine, [place]oenix (Pheizer) codeine AdvReac Unknown ANXIETY Verified 09/27/24 14:16 Iodinated Contrast Media AdvReac Unknown ANXIETY Verified 09/27/24 14:16 (Iodinated Contrast- Oral and IV Dye) meperidine AdvReac Unknown NAUSEA/VOMI Verified 09/27/24 14:16 TING promethazine AdvReac Unknown ANXIETY Verified 09/27/24 14:16 Home Medications ?Medication ?Instructions ?Recorded ?Confirmed ?Type triamcinolone acetonide 0.1 % 1 applic topical BID PRN rash #80 01/26/18 09/27/24 Rx topical ointment appful cholecalciferol (vitamin D3) 50 50 mcg PO DAILY 09/27/24 History mcg (2,000 unit) capsule acetaminophen 500 mg tablet 1,000 mg (2 x 500 mg) PO T ID PRN 09/06/24 09/27/24 Rx (Tylenol Extra Strength) pain #90 tab-caps albuterol sulfate 90 mcg/actuation 1 - 2 puff inhalati on Q4H PRN ##3 09/06/24 09/27/24 Rx aerosol inhaler atorvastatin 40 mg tablet 40 mg PO QHS #90 tabs 09/27/24 Rx diltiazem HCl 240 mg capsule,24 240 mg PO DAILY #90 ca ps 09/06/24 09/27/24 Rx hr,extended release diltiazem HCl 30 mg tablet 30 mg PO BID PRN Esophageal spasms 09/06/24 09/27/24 Rx #100 tab-caps fluticasone 500 mcg-salmeterol 50 1 inh inhalation BID #180 ea 09/06/24 09/27/24 Rx mcg/dose blistr powdr for inhalation (Advair Diskus) furosemide 40 mg tablet 60 mg (1.5 x 40 mg) PO QDAY edema 09/06/24 09/27/24 Rx #135 tab-caps omeprazole 20 mg capsule,delayed 20 mg PO DAILY #90 ca ps 09/06/24 09/27/24 Rx release oxybutynin chloride 5 mg tablet 10 mg (2 x 5 mg) PO BI D PRN 09/06/24 09/27/24 Rx bladder spasms #360 tabs apixaban 5 mg tablet (Eliquis) 5 mg PO BID #180 tabs 0 09/09/24 09/27/24 Rx bupropion HCl 300 mg 24 hr tablet, 300 mg PO QAM #90 t abs 09/20/24 09/27/24 Rx extended release Exam Narrative Exam Narrative: HEENT-normocephalic atraumatic mucous membranes moist oropharynx is clear Neck-no lymphadenopathy no JVD no thyromegaly [id number] systolic ejection murmur regular rate and rhythm Pulm-clear to auscultation bilaterally good air exchange no accessory muscle use Abdomen-distended bowel sounds present x 4 no significant tenderness to palpation Extremities-1+ lower extremity bilaterally Neurologic-cranial nerves II through XII intact as tested reflexes upper lower extremity normal as tested Psych-alert and orient x 3 no apparent distress can give linear history Results Labs 08/22/24 11:00 08/22/24 11:00 Last Vital Signs Temp 36.8 C 08/23/24 06:17 Pulse 89 08/23/24 06:17 Resp 18 08/23/24 06:17 BP 165/75 H 08/23/24 06:17 Pulse Ox 94 08/23/24 06:17 Time Spent Time spent with Patient: 40-54 minutes Time was spent: preparing to see the patient(eg.review tests), obtaining and/or reviewing separately otained hiistory, ordering medications,tests, procedures, referring, communicating with other health care process manager, indepentently interpreting results, counseling the patient and care coordination
== END 2024-08-23 14:41 | disposition home or self-care (01) ==
LOC: ER 10:45 → MS 17:52
PROVIDERS: Admitting Provider Hospitalist; Emergency Provider Physician Assistant; PCP Family Medicine; Responsible Provider Hospitalist; Visit Provider Hospitalist
DX: I63.9 Cerebral infarction, unspecified (principal); I48.0 Paroxysmal atrial fibrillation; I25.10 Atherosclerotic heart disease of native coronary artery without angina pectoris; E78.5 Hyperlipidemia, unspecified; I11.0 Hypertensive heart disease with heart failure; I50.9 Heart failure, unspecified; J44.9 Chronic obstructive pulmonary disease, unspecified; Z79.01 Long term (current) use of anticoagulants; F17.210 Nicotine dependence, cigarettes, uncomplicated; Z79.899 Other long term (current) drug therapy; E66.01 Morbid (severe) obesity due to excess calories; Z68.43 Body mass index [BMI] 50.0-59.9, adult; E53.8 Deficiency of other specified B group vitamins; F41.9 Anxiety disorder, unspecified; F32.A Depression, unspecified; N39.3 Stress incontinence (female) (male); G57.11 Meralgia paresthetica, right lower limb; E55.9 Vitamin D deficiency, unspecified; M85.80 Other specified disorders of bone density and structure, unspecified site
CPT/HCPCS: 00123; 36415; 70496; 70498; 80053; 92610; 93005; 94640; 96360; 97161; 97530; 99285; 70551; 81003; 84443; 84484; 85025; 93010; 94664; 99222; 99239; G0378

== ENCOUNTER 2024-09-09 01:28 | Outpatient (CLI) | payer MEDICARE, SELFPAY ==
--- NOTE | 2024-09-09 08:00 | DI.RAD_ITS ---
Exam(s) XR FOOT LT COMPLETE EXAM: XR FOOT LT COMPLETE CLINICAL HISTORY: left foot pain, Lateral aspect, M79.672. TECHNIQUE: 2D digital imaging was performed. COMPARISON: No exams were available for comparison FINDINGS: 3 views There is osteopenia. No evidence of fracture nor diastasis of the Lisfranc joint. Soft tissue swelling dorsally of the meta tarsals but no metatarsal fractures. There are minimal degenerative changes in the great toe metatarsophalangeal joint and other articulations. There is enthesophyte on the posterior calcaneus Achilles insertion site. IMPRESSION: As above but no acute osseous findings. DATA REPOSITORY: RADIATION DOSE DELIVERED:
== END 2024-09-09 01:48 ==
PROVIDERS: PCP Family Medicine; Visit Provider Family Medicine
DX: M19.072 Primary osteoarthritis, left ankle and foot (principal); M77.52 Other enthesopathy of left foot and ankle
CPT/HCPCS: 73630

== ENCOUNTER 2024-09-27 12:41 | Inpatient (IN) | payer MEDICARE, SELFPAY ==
[2024-09-27] VITALS (35 sets, daily range): BP systolic 108–143; BP diastolic 49–90; PULSE 53–79; RESP 12–24; TEMP 36.6–36.7; O2SAT 84–97
--- NOTE | 2024-09-27 13:19 | W.ED.GENAD ---
Discharge Plan Disposition Patient Disposition: Admit to [facility] Discharge Details Clinical Impression: Rectal bleed Primary Care Provider: Chanel Garcia ED Provider: Vicente Paula Home Meds and New Rx's Prescriptions: No Action cholecalciferol (vitamin D3) 50 mcg (2,000 unit) capsule 50 mcg PO DAILY bupropion HCl 300 mg tablet extended release 24 hr 300 mg PO QAM Qty: 90 4RF triamcinolone acetonide 0.1 % ointment 1 applic Topical BID PRN (Reason: rash) Qty: 80 3RF Rx Instructions: use topically on area. dispense 0.1% oinment in 80 gm tube atorvastatin 40 mg tablet 40 mg PO QHS Qty: 90 4RF oxybutynin chloride 5 mg tablet 10 mg PO BID PRN (Reason: bladder spasms) Qty: 360 4RF omeprazole 20 mg capsule,delayed release(DR/EC) 20 mg PO DAILY Qty: 90 4RF furosemide 40 mg tablet 60 mg PO QDAY Qty: 135 4RF fluticasone propion-salmeterol [Advair Diskus] 500-50 mcg/dose blister with device 1 inh inhalation BID Qty: 180 5RF diltiazem HCl 240 mg capsule,extended release 24 hr 240 mg PO DAILY Qty: 90 5RF diltiazem HCl 30 mg tablet 30 mg PO BID PRN (Reason: Esophageal spasms) Qty: 100 0RF Rx Instructions: take for chest discomfort albuterol sulfate 90 mcg/actuation HFA aerosol inhaler 1 - 2 puff Inhalation Q4H PRN Qty: 3 5RF acetaminophen [Tylenol Extra Strength] 500 mg tablet 1,000 mg PO TID PRN (Reason: pain) Qty: 90 4RF Eliquis 5 mg tablet 5 mg PO BID Qty: 180 12RF HPI General Date/Time Provider Initiated Documentation: 09/27/24 12:53. HPI Narrative: The patient is a 79-year-old female with a history of atrial fibrillation, presenting with a bleeding hemorrhoid. She reports the presence of a 2-inch internal hemorrhoid that has been bleeding since September 26, 2024, with blood visible in the toilet water following bowel movements. The patient experiences nausea secondary to the bleeding. She denies fever, chills, pain, lightheadedness, or weakness. Due to the severity of the bleeding, she omitted her dose of Eliquis last night. She recalls a previous significant drop in iron levels, suggestive of internal bleeding. The patient has a recent history of cerebrovascular accident (stroke) resulting in memory impairment and difficulty with her right hand, although she reports no significant issues with reading or speaking. She notes that her internal hemorrhoid was initially diagnosed on anoscope several years ago. PAST SURGICAL HISTORY: Cholecystectomy, appendectomy, and hysterectomy. Related Data Home Medications ?Medication ?Instructions ?Recorded ?Confirmed triamcinolone acetonide 0.1 % 1 applic topical BID PRN rash #80 01/26/18 09/27/24 topical ointment appful cholecalciferol (vitamin D3) 50 50 mcg PO DAILY 12/24/20 09/27/24 mcg (2,000 unit) capsule acetaminophen 500 mg tablet 1,000 mg (2 x 500 mg) PO TID PRN 09/06/24 09/27/24 (Tylenol Extra Strength) pain #90 tab-caps albuterol sulfate 90 mcg/actuation 1 - 2 puff inhalation Q4H PRN ##3 09/06/24 09/27/24 aerosol inhaler atorvastatin 40 mg tablet 40 mg PO QHS #90 tabs 09/06/24 09/27/24 diltiazem HCl 240 mg capsule,24 240 mg PO DAILY #90 caps 09/06/24 09/27/24 hr,extended release diltiazem HCl 30 mg tablet 30 mg PO BID PRN Esophageal spasms 09/06/24 09/27/24 #100 tab-caps fluticasone 500 mcg-salmeterol 50 1 inh inhalation BID #180 ea 09/06/24 09/27/24 mcg/dose blistr powdr for inhalation (Advair Diskus) furosemide 40 mg tablet 60 mg (1.5 x 40 mg) PO QDAY edema 09/06/24 09/27/24 #135 tab-caps omeprazole 20 mg capsule,delayed 20 mg PO DAILY #90 caps 09/06/24 09/27/24 release oxybutynin chloride 5 mg tablet 10 mg (2 x 5 mg) PO BID PRN 09/06/24 09/27/24 bladder spasms #360 tabs apixaban 5 mg tablet (Eliquis) 5 mg PO BID #180 tabs 09/09/24 09/27/24 bupropion HCl 300 mg 24 hr tablet, 300 mg PO QAM #90 tabs 09/20/24 09/27/24 extended release Previous Rx's ?Medication ?Instructions ?Recorded triamcinolone acetonide 0.1 % 1 applic topical BID PRN rash #80 01/26/18 topical ointment appful acetaminophen 500 mg tablet 1,000 mg (2 x 500 mg) PO TID PRN 09/06/24 (Tylenol Extra Strength) pain #90 tab-caps albuterol sulfate 90 mcg/actuation 1 - 2 puff inhalation Q4H PRN ##3 09/06/24 aerosol inhaler atorvastatin 40 mg tablet 40 mg PO QHS #90 tabs 09/06/24 diltiazem HCl 240 mg capsule,24 240 mg PO DAILY #90 caps 09/06/24 hr,extended release diltiazem HCl 30 mg tablet 30 mg PO BID PRN Esophageal spasms 09/06/24 #100 tab-caps fluticasone 500 mcg-salmeterol 50 1 inh inhalation BID #180 ea 09/06/24 mcg/dose blistr powdr for inhalation (Advair Diskus) furosemide 40 mg tablet 60 mg (1.5 x 40 mg) PO QDAY edema 09/06/24 #135 tab-caps omeprazole 20 mg capsule,delayed 20 mg PO DAILY #90 caps 09/06/24 release oxybutynin chloride 5 mg tablet 10 mg (2 x 5 mg) PO BID PRN 09/06/24 bladder spasms #360 tabs apixaban 5 mg tablet (Eliquis) 5 mg PO BID #180 tabs 09/09/24 bupropion HCl 300 mg 24 hr tablet, 300 mg PO QAM #90 tabs 09/20/24 extended release Allergies Allergy/AdvReac Type Severity Reaction Status Date / Time Tetanus Vaccines and Toxoid Allergy Severe Massive Verified 09/27/24 14:16 (Tetanus Vaccines \E&E\ Local Toxoid) Reaction amoxicillin Allergy Unknown HIVES Verified 09/27/24 14:16 atenolol AdvReac Intermediate Fluid Verified 09/27/24 14:16 Retention bupropion (From Wellbutrin AdvReac Intermediate nausea Verified 09/27/24 14:16 SR) morphine AdvReac Intermediate Jittery Verified 09/27/24 14:16 COVID-19 (SARS-CoV-2) AdvReac Mild redness Verified 09/27/24 14:16 vaccine, [place] (Pheizer) codeine AdvReac Unknown ANXIETY Verified 09/27/24 14:16 Iodinated Contrast Media AdvReac Unknown ANXIETY Verified 09/27/24 14:16 (Iodinated Contrast- Oral and IV Dye) meperidine AdvReac Unknown NAUSEA/VOMI Verified 09/27/24 14:16 TING promethazine AdvReac Unknown ANXIETY Verified 09/27/24 14:16 General Stated Complaint: GI Bleed VINEET: 3 Review of Systems All systems reviewed & are unremarkable except as noted in HPI and below Exam Narrative Exam Narrative: Gen: A&O NAD HEENT: NCAT, EOMI, not icteric. External ears normal. No rhinorrhea. Moist mucous membranes. Neck: Supple, full range of motion, no observable masses, No meningeal sign. Lungs: No Respiratory distress. CV: RRR, no edema. Abdomen: Soft, nondistended, No rebound tenderness. Rectal: Normal external examination. There is a bloodsoaked piece of tissue adjacent to the anus. No palpable masses on digital exam, chaperoned by FREEMAN Shabazz, no stool or blood on digital exam glove. MSK: No joint swelling, no redness. Skin: No rashes, petechiae, lesions. Normal color per patient. Neuro: Normal Gait, Grossly intact. Psych: Appropriate for situation. Course Consultations Consultation #1: Case discussed with Dr. Marlow of general surgery was agreeable to plan for admission for colonoscopy Time: 15:23 Consultation #2: Case discussed with Dr. Jauregui hospitalist who is agreeable to admit patient for further care. Vital Signs Vital signs: Vital Signs Temperature 36.6 C 09/27/24 12:49 Pulse 69 09/27/24 12:49 Respiratory Rate 14 09/27/24 12:49 Blood Pressure 108/90 09/27/24 12:49 Pulse Oximetry 93 09/27/24 12:49 Temperature 36.6 C 09/27/24 12:49 Temperature Source Oral 09/27/24 12:49 Pulse 69 09/27/24 12:49 Respiratory Rate 14 09/27/24 12:49 Blood Pressure 108/90 09/27/24 12:49 Blood Pressure Position Sitting 09/27/24 12:49 Pulse Oximetry 93 09/27/24 12:49 Oxygen Delivery Method Room Air 09/27/24 12:49 Oxygen Flow Rate 0 09/27/24 12:49 Lab/Test Results Lab/Test Results: Laboratory Tests Range/Units 09/27/24 09/27/24 09/27/24 13:05 13:19 14:29 WBC (4.4-10.8) 10^3/uL 8.69 RBC (3.93-5.22) 10^6/uL 4.39 Hgb (11.2-15.7) g/dL 10.8 L Hct (36.0-46.0) % 36.5 MCV (80-95) fL 83 MCH (27.0-33.0) pg 24.6 L MCHC (32.0-36.0) % 29.6 L RDW (11.7-14.6) % 20.0 H Plt Count (130-400) 10^3/uL 174 MPV (8.0-11.0) fL 11.0 Immature Gran % % 0.3 Neutrophils % % 70.5 Lymphocytes % % 16.1 Monocytes % % 9.7 Eosinophils % % 2.8 Basophils % % 0.6 Nucleated RBC % (0.0-0.3) % 0.0 Absolute Neutrophils (1.2-6.7) 10^3/uL 6.13 Absolute Lymphocytes (1.2-3.4) 10^3/uL 1.40 Absolute Monocytes (0.1-0.8) 10^3/uL 0.84 H Absolute Eosinophils (0.0-0.7) 10^3/uL 0.24 Absolute Basophils (0.0-0.2) 10^3/uL 0.05 PT (9.1-11.1) sec 11.4 H INR (0.9-1.1) 1.1 Sodium (136-145) mmol/L 142 Potassium (3.5-5.1) mmol/L 3.3 L Chloride (98-107) mmol/L 103 Carbon Dioxide (21.0-32.0) mmol/L 29.5 Anion Gap (3-11) mmol/L 9.5 BUN (7-18) mg/dL 28 H Creatinine (0.55-1.02) mg/dL 1.4 H Est GFR (CKD-EPI 2020) (mL/min/1.73m2) 38.75 Glucose (74-106) mg/dL 104 Calcium (8.5-10.1) mg/dL 9.1 Total Bilirubin (0.2-1.0) mg/dL 0.7 AST (15-37) U/L 20 ALT (14-59) U/L 16 Alkaline Phosphatase (46-116) U/L 83 Troponin I (<or=51) ng/L 15 12 Total Protein (6.4-8.2) g/dL 7.1 Albumin (3.4-5.0) g/dL 3.6 ABO/Rh A Negative Antibody Screen NEGATIVE Medical Decision Making 79-year-old female presents as above. Vital signs within normal limits. Physical exam notable for no obvious ongoing rectal bleeding, no palpable masses or visualized hemorrhoids on rectal exam. Given patient's history of anticoagulation, and reported prior history of bleeding internal hemorrhoid, will obtain CTA abdomen pelvis to assess for possible acute GI hemorrhage. Will check labs to assess for acute anemia, given patient's medical comorbidities, will likely admit patient for colonoscopy as she would be too high risk for outpatient elective procedures given her recent stroke. ECG Data Interpretation: Rhythm: A-fib Rate: 65 bpm [place]: Normal axis Intervals: Normal intervals Other findings: No acute ST segment or T wave changes to suggest acute ischemia. Quality:SDOH Health Related Social Needs: Health related social needs daily activities Health related social needs details Feels like she could use a little more help. PFSH All Active Problems (Updated 09/27/24 @ 15:32 by Vicente Paula MD) Rectal bleed (Acute) Aortic stenosis (Chronic) Foot pain, left (Acute) Left carotid stenosis (Acute) CVA (cerebral vascular accident) (Chronic) COPD (chronic obstructive pulmonary disease) (Chronic) Numbness of left hand (Acute) Arthritis of carpometacarpal (CMC) joint of left thumb (Acute) Morbid obesity with BMI of 50.0-59.9, adult (Acute) B12 deficiency (Acute) Carpal tunnel syndrome of right wrist (Acute) S/P ECTR: 07/13/2024 Arthritis of right shoulder region (Acute) Arthritis of left shoulder region (Acute) Right shoulder pain (Acute) Atrial fibrillation (Chronic) Leg cramps (Acute ~10/23/23) Trigger finger of left hand (Acute) Non-healing surgical wound (Acute) CAD (coronary artery disease) (Chronic 03/29/13) Abnormal renal function (Chronic) elevated creatinine Anxiety (Chronic) COPD with acute exacerbation (Chronic 04/17/16) Depressive disorder (Chronic) Essential hypertension (Chronic) Urinary, incontinence, stress female (Chronic 08/24/12) 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 Hyperlipidemia (Chronic) 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) right sided sciatica w/ disc herniation L5- XRAY 2014 - djd Meralgia paresthetica (Chronic 01/08/02) right Morbid obesity (Chronic 08/06/15) Need for subacute bacterial endocarditis prophylaxis (Chronic 05/02/14) Clinda 600mg once - 60 min before procedure Osteopenia (Chronic) 2003 T-scores: -0.8, -0.2; -1.8 Palpitations (Chronic 08/24/12) Psoriasis (Chronic 08/30/12) Vitamin D deficiency (Chronic 05/26/08) Weight loss (Chronic 03/09/17) Coronary artery spasm (Acute 03/11/07) Tobacco use disorder (Acute) Acute UTI (Acute) COVID-19 (Acute) New onset-12/23/21 Advance care planning (Acute) Shortness of breath (Acute) Sleep apnea (Acute) Screening for HIV (human immunodeficiency virus) (Acute) Subcutaneous mass of toe of right foot (Acute) medial aspect base of right great toe Skin lesion (Acute) Urinary tract infection (Acute) Medical History (Updated 09/27/24 @ 15:32 by Vicente Paula MD) Diastolic dysfunction Abnormal mammogram (01/08/03) Appendicitis (03/11/07) Clostridium difficile infection (03/11/07) Disorder of gallbladder (03/11/07) Lipoma (03/11/07) Tobacco use disorder quit 2004 Abnormal mammogram, unspecified 01/08/03 Clostridium difficile infection 03/11/07 Unspecified appendicitis 03/11/07 Disorder of gallbladder 03/11/07 Lipoma 03/11/07 removed 04/05/12 by Fabrice Lares Ventral hernia with obstruction but no gangrene (03/11/07) epigastric and ventral Shortness of breath (11/05/15) Shingles (03/10/17) Hiatal hernia (03/11/07) EGD; inflammation Acute myocardial infarction (08/24/12) 2006 ECHO showing LVH 75% Surgical History (Updated 08/24/24 @ 00:03 by BASILIO SHERMAN) Status post abdominal hysterectomy Status post appendectomy Status post breast biopsy Status post cholecystectomy Status post hernia repair Status post total knee replacement S/P abdominal hysterectomy endometriosis S/P cholecystectomy S/P appendectomy S/P total knee replacement 02/09/95 left S/P breast biopsy, left 02/10/12 lipoma S/P hernia repair 07/10/13 Replacement of total knee joint 1995 LEFT 2005 RIGHT Abdominal hysterectomy endometriosis HERNIA REPAIR (~07/2013) Cholecystectomy Extraction of cataract 11/14/16 DR. MARISCAL; LEFT EYE Biopsy of breast (04/05/12) lipoma; left breast Appendectomy Family History Mother , age 61 Diabetes Essential hypertension Heart disease Hyperlipidemia DVT (deep venous thrombosis) Asthma Father , age 75 Essential hypertension Heart disease Hyperlipidemia Stroke Lung cancer Sister , age 41 Lung cancer Maternal Grandfather , age 88 No problems noted. Paternal Grandfather No problems noted. Maternal Grandmother , age 88 Hyperlipidemia Hypertension Paternal Grandmother Essential hypertension Hyperlipidemia Brother , age 70 Diabetes Essential hypertension Heart disease Alcohol abuse Brother , age 68 No problems noted. Son Depression Hyperlipidemia Alcohol abuse Heart disease Hypertension Son No problems noted. Daughter Essential hypertension Depression DVT (deep venous thrombosis) Asthma Alcohol abuse Hyperlipidemia Substance abuse Social History Smoking/Tobacco Use Status: Former Tobacco Use tobacco type: cigarettes Quit Date: 12/17/03 Tobacco: How many years used: 30 Smoking risk assessment performed?: Yes Alcohol Intake: never Drug use: Never Substance use type: does not use Caregiver/Support person: No Household members: none Housing: apartment Communication Needs: Hard of Hearing Pets and animals: No Sexually active: No Current gender identity: female and decline to answer What is your relationship status?: How often do you talk on the phone with friends or family?: twice per week How often do you get together with friends or relatives?: decline to answer How often do you attend mandaen or druze services?: decline to answer Do you belong to any clubs or organized social groups?: decline to answer Panel score (0-1 are the most socially isolated patients): 0 What type of physical activity do you participate in: none and walking Frequency: 3-4 times per week Trish/Muslim: Adventism Special trish needs: No Seatbelt use: always Helmet use: No Drive intox or ride w/intox truck driver salesperson: No Do you feel safe at home: Yes Do you feel safe in your relationship?: Yes Would you like helpful sources: No
[2024-09-27 13:39] LABS: Abs Immature Grans 0.03 10^3/uL (0.0-0.06); HCT 36.5 % (36.0-46.0); HGB 10.8 g/dL (11.2-15.7); Immature Grans % 0.3 %; MCH 24.6 pg (27.0-33.0); MCHC 29.6 % (32.0-36.0); MCV 83 fL (80-95); MPV 11.0 fL (8.0-11.0); Platelet Count 174 10^3/uL (130-400); RBC 4.39 10^6/uL (3.93-5.22); RDW 20.0 % (11.7-14.6); RDW-SD 61.1 fL; WBC 8.69 10^3/uL (4.4-10.8)
[2024-09-27 13:40] LABS: INR 1.1 (0.9-1.1); Prothrombin Time 11.4 sec (9.1-11.1)
[2024-09-27 13:47] LABS: ALT 16 U/L (14-59); AST 20 U/L (15-37); Albumin 3.6 g/dL (3.4-5.0); Alkaline Phosphatase 83 U/L (46-116); Anion Gap 9.5 mmol/L (3-11); BUN 28 mg/dL (7-18); Bilirubin, Total 0.7 mg/dL (0.2-1.0); CO2 29.5 mmol/L (21.0-32.0); Calcium 9.1 mg/dL (8.5-10.1); Chloride 103 mmol/L (98-107); Estimated GFR 38.75 (mL/min/1.73m2); Glucose 104 mg/dL (74-106); Potassium 3.3 mmol/L (3.5-5.1); Sodium 142 mmol/L (136-145); Total Protein 7.1 g/dL (6.4-8.2)
--- NOTE | 2024-09-27 14:15 | RT.EKG_ITS ---
APPROVED REPORT Exam: Resting ECG Reason for Exam: Chest Pain Patient Location: E HR:65 bpm ECG Measurements Heart Rate 65 AXIS MO [id number] P [id number] QRSd 135 QRS 69 QT 506 T 88 QTc 528 Conclusion Atrial fibrillation...? atrial activity Nonspecific intraventricular conduction delay...QRSd >115mS, not LBBB/RBBB ------ No STEMI
[2024-09-27 14:55] LABS: Troponin I 15 ng/L (<or=51)
[2024-09-27 15:06] LABS: Troponin I 12 ng/L (<or=51)
[2024-09-27] MEDS: Omnipaque 350 MG/ML 100 ML BTL IJ (16:12)
[2024-09-27] MEDS: Normal Saline - Diluent 50 ML VIAL IJ (16:12)
[2024-09-27] MEDS: Normal Saline Flush 10 ML SYR IVP ×2 (16:13→20:42)
[2024-09-27 16:24] LABS: Troponin I 12 ng/L (<or=51)
--- NOTE | 2024-09-27 16:25 | DI.CT_ITS ---
Exam(s) CT ABDOMEN PELVIS CTA EXAM: CT ABDOMEN PELVIS CTA CLINICAL HISTORY: Concern for GI bleed. TECHNIQUE: Imaging Protocol: Axial computed tomography images with coronal and sagittal reformatted images were created and reviewed CONTRAST MATERIAL: Intravenous: Omnipaque 350 Contrast volume:100 ml Oral: no COMPARISON: CT CT ABDOMEN PELVIS CTA from 12/28/2023 FINDINGS: ABDOMEN and PELVIS: Exam is limited by patient body habitus. Lung Bases: No acute findings. Liver: Normal density. No suspicious mass. Gallbladder and biliary tract: Cholecystectomy. The clips create artifact.. No biliary dilation. Pancreas: Normal density. No abnormal calcifications or inflammatory process. No evidence of mass. Spleen: Normal. Kidneys: Normal size, contour and axis. No radiodense stones. No obstructive uropathy. No suspicious masses seen. Retroaortic left renal vein. Adrenal glands: No masses seen. Vasculature: Abdominal aorta non-dilated. Moderate atherosclerotic changes. Soft tissues: Prior lower anterior abdominal wall hernia repair with mesh in place. Edema in the lower anterior abdominal wall. No focal abscess. Bladder: No gross wall thickening. No calculi.No focal mass. Bowel: No obstruction. No bowel wall thickening. Mild sigmoid diverticulosis. No evidence of diverticulitis. Normal quantity of stool. No GI bleed is visualized. Peritoneal cavity: No ascites. No focal collection. No mesenteric inflammatory response. No free air. Bones: Stable L4 compression fracture. Reproductive organs: Hysterectomy. Lymph nodes: No pathologically enlarged lymph nodes. IMPRESSION:: No acute abnormality in the abdomen or pelvis. No visible GI bleed. RADIATION DOSE DELIVERED: Total DLP Total DLP DATA REPOSITORY: All CT scans at this facility are submitted to the National Radiology Data Registry (NRDR) Dose Index Registry (DIR) with the [employer] (A[employer]). RADIATION OPTIMIZATION: All CT scans at this facility use at least one of these dose optimization techniques: automated exposure control; mA and/or kV adjustment per patient size (includes targeted exams where dose is matched to clinical indication); or iterative reconstruction.
--- NOTE | 2024-09-27 20:08 | W.PC.ACHO ---
Registration Status: ADM IN Primary Language: Preferred Language: Hungarian ED Information & Data Chief Complaint GI Bleed 09/27/24 14:19 Triage Note States she has been bleeding 09/27/24 12:49 profusely from a hemorrhoid for two days. Has changed the dressing 4 times today. Medical / Surgical History (Last Reviewed 07/13/24 @ 06:30 by Berta Conroy, RN) Diastolic dysfunction Abnormal mammogram (01/08/03) Appendicitis (03/11/07) Clostridium difficile infection (03/11/07) Disorder of gallbladder (03/11/07) Lipoma (03/11/07) Tobacco use disorder Abnormal mammogram, unspecified Clostridium difficile infection Unspecified appendicitis Disorder of gallbladder Lipoma Ventral hernia with obstruction but no gangrene (03/11/07) Shortness of breath (11/05/15) Shingles (03/10/17) Hiatal hernia (03/11/07) Acute myocardial infarction (08/24/12) (Last Reviewed 07/13/24 @ 06:30 by Berta Cornoy RN) Status post abdominal hysterectomy Status post appendectomy Status post breast biopsy Status post cholecystectomy Status post hernia repair Status post total knee replacement S/P abdominal hysterectomy S/P cholecystectomy S/P appendectomy S/P total knee replacement S/P breast biopsy, left S/P hernia repair Replacement of total knee joint Abdominal hysterectomy HERNIA REPAIR (~07/2013) Cholecystectomy Extraction of cataract Biopsy of breast (04/05/12) Appendectomy Most Recent Vital Signs Temperature 36.6 C 09/27/24 12:49 Temperature Source Oral 09/27/24 12:49 Pulse 60 09/27/24 15:20 Pulse 63 09/27/24 16:00 Respiratory Rate 14 09/27/24 16:00 Respiratory Effort Normal 09/27/24 14:31 Respiratory Depth Normal 09/27/24 14:31 Respiratory Pattern Normal 09/27/24 14:31 Blood Pressure 116/75 09/27/24 15:01 Blood Pressure Mean 79 09/27/24 15:01 Blood Pressure Position Sitting 09/27/24 12:49 Pulse Oximetry 94 09/27/24 15:10 Oxygen Delivery Method Room Air 09/27/24 12:49 Oxygen Flow Rate 0 09/27/24 12:49 Pain Level 8 09/27/24 14:31 Allergies Tetanus Vaccines and Toxoid (Tetanus Vaccines \E&E\ Toxoid) Allergy (Severe, Verified 09/27/24 14:16) Massive Local Reaction amoxicillin Allergy (Unknown, Verified 09/27/24 14:16) HIVES atenolol Adverse Reaction (Intermediate, Verified 09/27/24 14:16) Fluid Retention bupropion (From Wellbutrin SR) Adverse Reaction (Intermediate, Verified 09/27/24 14:16) nausea morphine Adverse Reaction (Intermediate, Verified 09/27/24 14:16) Jittery COVID-19 (SARS-CoV-2) vaccine, phoenix Adverse Reaction (Mild, Verified 09/27/24 14:16) redness (Pheizer) codeine Adverse Reaction (Unknown, Verified 09/27/24 14:16) ANXIETY Iodinated Contrast Media (Iodinated Contrast- Oral and IV Dye) Adverse Reaction (Unknown, Verified 09/27/24 14:16) ANXIETY meperidine Adverse Reaction (Unknown, Verified 09/27/24 14:16) NAUSEA/VOMITING promethazine Adverse Reaction (Unknown, Verified 09/27/24 14:16) ANXIETY Precautions Isolation Fall precaution 09/27/24 12:53 Active Medications Generic Name Dose Route Start Last Admin Trade Name Freq PRN Reason Stop Dose Admin Iohexol 100 ml 09/27/24 15:00 09/27/24 16:12 Omnipaque 350 Mg/Ml 100 Ml Btl IJ 10/27/24 23:59 100 ml DIRECTED CHRISTINA Administration Sodium Chloride 0 ml 09/27/24 14:48 09/27/24 16:13 Normal Saline Flush 10 Ml Syr IVP 10 ml PRN PRN Administration Sodium Chloride 50 ml 09/27/24 15:00 09/27/24 16:12 Normal Saline - Diluent 50 Ml Vial IJ 50 ml DIRECTED CHRISTINA Administration IV IV Catheter Type [Right Saline Lock Antecubital] IV Catheter Gauge [Right 20 Antecubital] Diet Orders Category Date Time Status Nothing Per Oral [DIET] Nutrition 09/27/24 16:24 Active Diagnostics 09/27/24 09/27/24 09/27/24 Range/Units 15:55 14:29 13:19 WBC (4.4-10.8) 10^3/uL RBC (3.93-5.22) 10^6/uL Hgb (11.2-15.7) g/dL Hct (36.0-46.0) % MCV (80-95) fL MCH (27.0-33.0) pg MCHC (32.0-36.0) % RDW (11.7-14.6) % Plt Count (130-400) 10^3/uL MPV (8.0-11.0) fL Immature Gran % % Neutrophils % % Lymphocytes % % Monocytes % % Eosinophils % % Basophils % % Nucleated RBC % (0.0-0.3) % Absolute Neutrophils (1.2-6.7) 10^3/uL Absolute Lymphocytes (1.2-3.4) 10^3/uL Absolute Monocytes (0.1-0.8) 10^3/uL Absolute Eosinophils (0.0-0.7) 10^3/uL Absolute Basophils (0.0-0.2) 10^3/uL PT (9.1-11.1) sec INR (0.9-1.1) Sodium (136-145) mmol/L Potassium (3.5-5.1) mmol/L Chloride (98-107) mmol/L Carbon Dioxide (21.0-32.0) mmol/L Anion Gap (3-11) mmol/L BUN (7-18) mg/dL Creatinine (0.55-1.02) mg/dL Est GFR (CKD-EPI 2020) (mL/min/1.73m2) Glucose (74-106) mg/dL Calcium (8.5-10.1) mg/dL Total Bilirubin (0.2-1.0) mg/dL AST (15-37) U/L ALT (14-59) U/L Alkaline Phosphatase (46-116) U/L Troponin I 12 12 15 (<or=51) ng/L Total Protein (6.4-8.2) g/dL Albumin (3.4-5.0) g/dL ABO/Rh Antibody Screen 09/27/24 Range/Units 13:05 WBC 8.69 (4.4-10.8) 10^3/uL RBC 4.39 (3.93-5.22) 10^6/uL Hgb 10.8 L (11.2-15.7) g/dL Hct 36.5 (36.0-46.0) % MCV 83 (80-95) fL MCH 24.6 L (27.0-33.0) pg MCHC 29.6 L (32.0-36.0) % RDW 20.0 H (11.7-14.6) % Plt Count 174 (130-400) 10^3/uL MPV 11.0 (8.0-11.0) fL Immature Gran % 0.3 % Neutrophils % 70.5 % Lymphocytes % 16.1 % Monocytes % 9.7 % Eosinophils % 2.8 % Basophils % 0.6 % Nucleated RBC % 0.0 (0.0-0.3) % Absolute Neutrophils 6.13 (1.2-6.7) 10^3/uL Absolute Lymphocytes 1.40 (1.2-3.4) 10^3/uL Absolute Monocytes 0.84 H (0.1-0.8) 10^3/uL Absolute Eosinophils 0.24 (0.0-0.7) 10^3/uL Absolute Basophils 0.05 (0.0-0.2) 10^3/uL PT 11.4 H (9.1-11.1) sec INR 1.1 (0.9-1.1) Sodium 142 (136-145) mmol/L Potassium 3.3 L (3.5-5.1) mmol/L Chloride 103 (98-107) mmol/L Carbon Dioxide 29.5 (21.0-32.0) mmol/L Anion Gap 9.5 (3-11) mmol/L BUN 28 H (7-18) mg/dL Creatinine 1.4 H (0.55-1.02) mg/dL Est GFR (CKD-EPI 2020) 38.75 (mL/min/1.73m2) Glucose 104 (74-106) mg/dL Calcium 9.1 (8.5-10.1) mg/dL Total Bilirubin 0.7 (0.2-1.0) mg/dL AST 20 (15-37) U/L ALT 16 (14-59) U/L Alkaline Phosphatase 83 (46-116) U/L Troponin I (<or=51) ng/L Total Protein 7.1 (6.4-8.2) g/dL Albumin 3.6 (3.4-5.0) g/dL ABO/Rh A Negative Antibody Screen NEGATIVE Intake and Output - 24 Hour Total 09/27/24 12:41 thru 09/27/24 13:28 Weight 154.221 kg Other: Emesis Description None Falls Risk Assessment History of Falls Previous History 09/27/24 12:53 Contributing Factors Impairments,Incontinence 09/27/24 12:53 Ambulatory Aids Uses ambulatory device + 09/27/24 12:53 Tubes/Lines None 09/27/24 12:53 Gait Evaluation W/any additional score 09/27/24 12:53 Cognition No cognitive impairment 09/27/24 12:53 Fall Total Score 71 09/27/24 12:53 Level of Risk High Risk 09/27/24 12:53 Problems (Last Reviewed 07/13/24 @ 06:30 by Berta Conroy RN) Rectal bleed (Acute) v v v v v v v v v Sending and/or Receiving Nurses: Please use comment section below to note any information pertinent to the patient hand-off not included above. Information / Comments: Report received from: Rafael Gonzalez rn
[2024-09-27] MEDS: Furosemide 20 MG TAB 60 MG PO (20:38)
[2024-09-27] MEDS: Atorvastatin 40 MG TAB PO (20:38)
[2024-09-27] MEDS: POTASSIUM CHLORIDE/0.9% NACL 1,000 ML 75 MEQ IV (20:40)
[2024-09-28] VITALS (11 sets, daily range): BP systolic 120–159; BP diastolic 55–80; PULSE 55–81; RESP 12–38; TEMP 36–36.9; O2SAT 90–94
[2024-09-28] MEDS: Acetaminophen 325 MG TAB PO (01:01)
[2024-09-28] MEDS: Lidocaine 5% Patch 1 PATCH TP (03:37)
[2024-09-28] MEDS: Normal Saline Flush 10 ML SYR IVP ×3 (06:14→20:52)
[2024-09-28 06:27] LABS: Abs Immature Grans 0.02 10^3/uL (0.0-0.06); HCT 36.6 % (36.0-46.0); HGB 10.8 g/dL (11.2-15.7); Immature Grans % 0.3 %; MCH 24.3 pg (27.0-33.0); MCHC 29.5 % (32.0-36.0); MCV 82 fL (80-95); MPV 10.2 fL (8.0-11.0); Platelet Count 145 10^3/uL (130-400); RBC 4.44 10^6/uL (3.93-5.22); RDW 19.7 % (11.7-14.6); RDW-SD 59.3 fL; WBC 6.89 10^3/uL (4.4-10.8)
[2024-09-28 06:48] LABS: ALT 14 U/L (14-59); AST 30 U/L (15-37); Albumin 3.3 g/dL (3.4-5.0); Alkaline Phosphatase 83 U/L (46-116); Anion Gap 7.6 mmol/L (3-11); BUN 22 mg/dL (7-18); Bilirubin, Total 0.8 mg/dL (0.2-1.0); CO2 28.4 mmol/L (21.0-32.0); Calcium 9.1 mg/dL (8.5-10.1); Chloride 106 mmol/L (98-107); Estimated GFR 46.62 (mL/min/1.73m2); Glucose 101 mg/dL (74-106); Potassium 3.6 mmol/L (3.5-5.1); Sodium 142 mmol/L (136-145); Total Protein 6.9 g/dL (6.4-8.2)
[2024-09-28] MEDS: dilTIAZem CD 120 MG CAPCR 240 MG PO (08:14)
--- NOTE | 2024-09-28 08:39 | TELEFU_ITS ---
Date of service: 09/29/24 Time of Service: 12:34 Nutrition Note NOTE: Have visited with patient yesterday and today. Patient NPO yesterday and advanced to clears before colonoscopy today as she is being treated for GIB and continues to have runny/bloods stool. She has a history including CAD, AFib, CVA, COPD, B12 deficiency, depression, obesity, osteopenia, vitamin D deficiency. pt weight history indicates in the 150-155kg is more her UBW. 2+edema noted to bilat leg - pt ordered for furosemide Estimated energy needs are slightly inflated due to current edema skewing predictive equations. -2406kcals (recommend ~2000 for weight loss). 98-127g protein (1.7-2.2g/kg of IBW), 2406mL fluid (1mL per required kcal) NFPE - patientd declined at this time. Obvious edema to bilat legs noted. Diet interview: Lives alone in senior housing in [facility] where she gets meals on wheels to support her intake. She occasionally will do a Plexus protein/meal replacement shake around 3pm. Lunch is biggest meal (meals on wheels) and she gave an example of dinner as ramen. She states she has lost about 60lbs since October and feels this was needed, although it doesn't sound like a lot of it was intentional. She had a CVA about 2 weeks ago and states appetite has been down - taste is off - could be from meds or the CVA. Nutrition DX: Inadequate protein intake and other essential nutrients (including fiber, vitamin C, Iron, Calcium) related to her usual meal pattern of often skip ping breakfast, eating meals on wheels and having low fiber starch based dinner often- with occasional protein/meal replacement drink. I would estimate she often only meets about half of her hestimated protein needs. Would recommend: B12 lab d/t termite treater helper use of PPI, history of deficiency and no current supplement on home med list. Will trial some higher protein ONS with her to see if we can get more consistent protein intake. Would recommend liquid protein concentrate ordered TID for nursing to administer Will monitor intake, labs, weight, ONS tolerance/acceptance Time Spent in Nutritional Counseling and Treatment: 15 min
[2024-09-28] MEDS: buPROPion-XL 150 MG TABCR 300 MG PO (08:42)
[2024-09-28] MEDS: Omeprazole 20 MG CAPCR PO (08:42)
--- NOTE | 2024-09-28 08:43 | INITIAL_ITS ---
Date of service: 09/28/24 Time of Service: 08:43 Care Management Initial Assmt Initial Assessment Reason for Hospitalization: GIB Functional Status/Living Situation Patient Presentation: Brielle, as Chema prefers to be called, was sitting up in bed when CM met with her. She was polite but a bit reserved in manner. Brielle lives alone at [facility]. She has 3 children who live locally. When asked if they had a close, supportive relationship , she was non-committal and stated they are very busy. Her son Anthony did come to visit while CM was meeting with her. During a discussion regarding Advance Directives, Brielle identified her friend Marie Flores as her main support. She stated she is her health care agent as well as financial person. 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 She uses a walker for ambulatory assistance and is independent with ADLs. Brielle did admit that it is difficult for her to get food. She can go to the store and shop however she has difficulty getting the groceries into her apartment as she needs to use her walker. She explained that the [facility] has an elevator but to enter the building you either need to climb stairs or use a ramp. Brielle did state that they can eat at the [facility] however she noted that the food is not very healthy. Brielle was admitted with a GI bleed. Her H&H is stable as are her vital signs. She was seen by surgery in consultation today and will likely have a colonoscopy tomorrow. Town of Residence: [facility] Resides with: Alone Significant Other/Family: Local Employment Status: Retired Instrumental Activities of Daily Living (ADLs): Independent Medications Medication Management: No Issues/Barriers identified Physical Functioning/Mobility Assistive Device: walker Advance Directives Advance Directives: Do you have an Advance Directive: N , 19:23 AD On File at [facility]: N 03/25/21, 11:02 Date Asked 09/27/24 09/27/24, 12:44 AD Date Reviewed COLST On File at [facility] Yes 12/23/23, 11:16 COLST Date Scanned 06/23/23 07/11/24, 12:52 Code Status Resuscitation Status DNR/DNI Insurance Coverage/Financial Issues Insurance: BC/BS Medicare Advantage Care Team Visit Care Team Role Provider Type Chanel Garcia MD, DC Primary Care Provider GAYLE CONTRERAS MEDICAL STAFF InPatient Viktor Pan Other Providers OTHER Dagoberto Marlow DO Other Providers OSTEOPATHIC DOCTOR Vicente Paula MD Emergency Provider [facility] STAFF PHYSICIAN Baljit Jauregui MD Admit Provider [facility] STAFF PHYSICIAN Attending Provider Discharge Potential Discharge Needs: PCP F/U Appt and Surgical F/U Appt Anticipated Barriers to Discharge: None Identified Patient/Family Education Needs: Review discharge instructions, discuss Ask Me Three Transportation: Private vehicle Plan: Anticipate Brielle will be discharged home with no new services when medically cleared. She will follow up with her PCP, surgeon and plan of care and transport with family. CM will follow and continue to assess for discharge needs. Social Determinants of Health Screening Social Determinants of health last assessed in clinic: 09/27/24 Will the Patient Participate in the Screening?: Declined to provide Do you worry about having a steady place to live?: no Problems where you live: no known problems In the past 12 months, have you had to go without electric, gas, oil or water in your home?: no Has lack of transportation kept you from medical appointments or from doing things needed for daily living?: no Has anyone in your life made you feel unsafe or unsupported?: no How hard is it for you to pay for the very basics like food, housing, medical care, and heating? Would you say it is:: Not hard at all Do you want help finding or keeping work or a job?: I do not need or want help If for any reason you need help with day-to-day activities such as bathing, preparing meals, shopping, managing finances, etc., do you get the help you need?: I don?t need any help How often do you feel lonely or isolated from those around you?: Never Do you speak a language other than German at home?: No Does the patient want assistance with any of the above?: No Comments: Patient at this time is complaining of fatigue and does not wish to answer the questions presently. PFSH All Active Problems (Updated 09/28/24 @ 13:12 by Dagoberto Marlow DO) Hemorrhoids (Acute) Anticoagulated (Acute) Anemia (Chronic) COPD with acute exacerbation (Acute 04/17/16) GIB (gastrointestinal bleeding) (Chronic) Rectal bleed (Acute) Foot pain, left (Acute) Left carotid stenosis (Acute) Numbness of left hand (Acute) Arthritis of carpometacarpal (CMC) joint of left thumb (Acute) B12 deficiency (Acute) Carpal tunnel syndrome of right wrist (Acute) S/P ECTR: 07/13/2024 Arthritis of right shoulder region (Acute) Arthritis of left shoulder region (Acute) Right shoulder pain (Acute) Leg cramps (Acute ~10/23/23) Trigger finger of left hand (Acute) Non-healing surgical wound (Acute) Abnormal renal function (Chronic) elevated creatinine Anxiety (Chronic) Depressive disorder (Chronic) Essential hypertension (Chronic) Urinary, incontinence, stress female (Chronic 08/24/12) 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 Hyperlipidemia (Chronic) 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) right sided sciatica w/ disc herniation L5- XRAY 2014 - djd Meralgia paresthetica (Chronic 01/08/02) right Morbid obesity (Chronic 08/06/15) Need for subacute bacterial endocarditis prophylaxis (Chronic 05/02/14) Clinda 600mg once - 60 min before procedure Osteopenia (Chronic) 2003 T-scores: -0.8, -0.2; -1.8 Palpitations (Chronic 08/24/12) Psoriasis (Chronic 08/30/12) Vitamin D deficiency (Chronic 05/26/08) Weight loss (Chronic 03/09/17) Coronary artery spasm (Acute 03/11/07) Tobacco use disorder (Acute) Acute UTI (Acute) COVID-19 (Acute) New onset-12/23/21 Advance care planning (Acute) Shortness of breath (Acute) Screening for HIV (human immunodeficiency virus) (Acute) Subcutaneous mass of toe of right foot (Acute) medial aspect base of right great toe Skin lesion (Acute) Urinary tract infection (Acute) Medical History (Updated 09/28/24 @ 13:12 by Dagoberto Marlow DO) CVA (cerebral vascular accident) Sleep apnea COPD (chronic obstructive pulmonary disease) Aortic stenosis Atrial fibrillation CAD (coronary artery disease) (03/29/13) Morbid obesity with BMI of 50.0-59.9, adult Diastolic dysfunction Abnormal mammogram (01/08/03) Appendicitis (03/11/07) Clostridium difficile infection (03/11/07) Disorder of gallbladder (03/11/07) Lipoma (03/11/07) Tobacco use disorder quit 2004 Abnormal mammogram, unspecified 01/08/03 Clostridium difficile infection 03/11/07 Unspecified appendicitis 03/11/07 Disorder of gallbladder 03/11/07 Lipoma 03/11/07 removed 04/05/12 by Fabrice Lares Ventral hernia with obstruction but no gangrene (03/11/07) epigastric and ventral Shortness of breath (11/05/15) Shingles (03/10/17) Hiatal hernia (03/11/07) EGD; inflammation Acute myocardial infarction (08/24/12) 2006 ECHO showing LVH 75% Surgical History (Updated 08/24/24 @ 00:03 by BASILIO SHERMAN) Status post abdominal hysterectomy Status post appendectomy Status post breast biopsy Status post cholecystectomy Status post hernia repair Status post total knee replacement S/P abdominal hysterectomy endometriosis S/P cholecystectomy S/P appendectomy S/P total knee replacement 02/09/95 left S/P breast biopsy, left 02/10/12 lipoma S/P hernia repair 07/10/13 Replacement of total knee joint 1995 LEFT 2004 RIGHT Abdominal hysterectomy endometriosis HERNIA REPAIR (~07/2013) Cholecystectomy Extraction of cataract 11/14/16 DR. MARISCAL; LEFT EYE Biopsy of breast (04/05/12) lipoma; left breast Appendectomy Family History Mother , age 61 Diabetes Essential hypertension Heart disease Hyperlipidemia DVT (deep venous thrombosis) Asthma Father , age 75 Essential hypertension Heart disease Hyperlipidemia Stroke Lung cancer Sister , age 41 Lung cancer Maternal Grandfather , age 88 No problems noted. Paternal Grandfather No problems noted. Maternal Grandmother , age 88 Hyperlipidemia Hypertension Paternal Grandmother Essential hypertension Hyperlipidemia Brother , age 70 Diabetes Essential hypertension Heart disease Alcohol abuse Brother , age 68 No problems noted. Son Depression Hyperlipidemia Alcohol abuse Heart disease Hypertension Son No problems noted. Daughter Essential hypertension Depression DVT (deep venous thrombosis) Asthma Alcohol abuse Hyperlipidemia Substance abuse Social History Smoking/Tobacco Use Status: Former Tobacco Use tobacco type: cigarettes Quit Date: 12/17/03 Tobacco: How many years used: 30 Smoking risk assessment performed?: Yes Alcohol Intake: never Drug use: Never Substance use type: does not use Caregiver/Support person: No Household members: none Housing: apartment Communication Needs: Hard of Hearing Pets and animals: No Sexually active: No Current gender identity: female and decline to answer What is your relationship status?: How often do you talk on the phone with friends or family?: twice per week How often do you get together with friends or relatives?: decline to answer How often do you attend holiness or jain services?: decline to answer Do you belong to any clubs or organized social groups?: decline to answer Panel score (0-1 are the most socially isolated patients): 0 What type of physical activity do you participate in: none and walking Frequency: 3-4 times per week Trish/Gnosticism: Muslim Special trish needs: No Seatbelt use: always Helmet use: No Drive intox or ride w/intox certified driver examiner: No Do you feel safe at home: Yes Do you feel safe in your relationship?: Yes Would you like helpful sources: No
--- NOTE | 2024-09-28 08:55 | PT.INIE ---
PT Notes Visit Reasons: GIB Physical Therapy Inpatient Initial Evaluation Date: 09/28/2024 Referring Doctor: Baljit Jauregui MD PT Orders: PT CONSULT: Eval/Treat Precautions: Fall. Standard. Activity as tolerated. Patient Profile/Admitting Diagnosis: Emily is a 79-year-old female with past medical history significant for recent CVA CAD, AF, and COPD who presented to the ED with bleeding hemorrhoids with onset on September 26. patient also reported worsening nausea due to said bleeding. PMHX: All Active Problems (Updated 09/27/24 @ 17:09 by Baljit Jauregui MD) GIB (gastrointestinal bleeding) (Chronic) Rectal bleed (Acute) Aortic stenosis (Chronic) Foot pain, left (Acute) Left carotid stenosis (Acute) CVA (cerebral vascular accident) (Chronic) COPD (chronic obstructive pulmonary disease) (Chronic) Numbness of left hand (Acute) Arthritis of carpometacarpal (CMC) joint of left thumb (Acute) Morbid obesity with BMI of 50.0-59.9, adult (Acute) B12 deficiency (Acute) Carpal tunnel syndrome of right wrist (Acute) S/P ECTR: 07/13/2024 Arthritis of right shoulder region (Acute) Arthritis of left shoulder region (Acute) Right shoulder pain (Acute) Atrial fibrillation (Chronic) Leg cramps (Acute ~10/23/23) Trigger finger of left hand (Acute) Non-healing surgical wound (Acute) CAD (coronary artery disease) (Chronic 03/29/13) Abnormal renal function (Chronic) elevated creatinine Anxiety (Chronic) COPD with acute exacerbation (Chronic 04/17/16) Depressive disorder (Chronic) Essential hypertension (Chronic) Urinary, incontinence, stress female (Chronic 08/24/12) 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 Hyperlipidemia (Chronic) 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) right sided sciatica w/ disc herniation L5- XRAY 2014 - djd Meralgia paresthetica (Chronic 01/08/02) right Morbid obesity (Chronic 08/06/15) Need for subacute bacterial endocarditis prophylaxis (Chronic 05/02/14) Clinda 600mg once - 60 min before procedure Osteopenia (Chronic) 2003 T-scores: -0.8, -0.2; -1.8 Palpitations (Chronic 08/24/12) Psoriasis (Chronic 08/30/12) Vitamin D deficiency (Chronic 05/26/08) Weight loss (Chronic 03/09/17) Coronary artery spasm (Acute 03/11/07) Tobacco use disorder (Acute) Acute UTI (Acute) COVID-19 (Acute) New onset-12/23/21 Advance care planning (Acute) Shortness of breath (Acute) Sleep apnea (Acute) Screening for HIV (human immunodeficiency virus) (Acute) Subcutaneous mass of toe of right foot (Acute) medial aspect base of right great toe Skin lesion (Acute) Urinary tract infection (Acute) Medical History (Updated 09/27/24 @ 17:09 by Baljit Jauregui MD) Diastolic dysfunction Abnormal mammogram (01/08/03) Appendicitis (03/11/07) Clostridium difficile infection (03/11/07) Disorder of gallbladder (03/11/07) Lipoma (03/11/07) Tobacco use disorder quit 2004 Abnormal mammogram, unspecified 01/08/03 Clostridium difficile infection 03/11/07 Unspecified appendicitis 03/11/07 Disorder of gallbladder 03/11/07 Lipoma 03/11/07 removed 04/05/12 by Fabrice Lares Ventral hernia with obstruction but no gangrene (03/11/07) epigastric and ventral Shortness of breath (11/05/15) Shingles (03/10/17) Hiatal hernia (03/11/07) EGD; inflammation Acute myocardial infarction (08/24/12) 2006 ECHO showing LVH 75% Surgical History (Updated 08/24/24 @ 00:03 by BASILIO SHERMAN) Status post abdominal hysterectomy Status post appendectomy Status post breast biopsy Status post cholecystectomy Status post hernia repair Status post total knee replacement S/P abdominal hysterectomy endometriosis S/P cholecystectomy S/P appendectomy S/P total knee replacement 02/09/95 left S/P breast biopsy, left 02/10/12 lipoma S/P hernia repair 07/10/13 Replacement of total knee joint 1995 LEFT 2004 RIGHT Abdominal hysterectomy endometriosis HERNIA REPAIR (~07/2013) Cholecystectomy Extraction of cataract 11/14/16 DR. MARISCAL; LEFT EYE Biopsy of breast (04/05/12) lipoma; left breast Appendectomy Social History/Home Situation: Lives alone in an independent custodial facility. Independent with all mobility ADl performance using her 4WW. Rides the RCT or with friends for grocery shopping. Subjective: Agreeable to trying out walking out of her room with walker. Denied headache, chest pain, and lightheadedness throughout session. has had 4 falls in the past year. Patient stated that she has decrased about 10 lbs from last night's measurement. Objective: General Observation: B leg swelling. High BMI. Mental Status: Alert and oriented as to person, place, time, and purpose. Able to pay attention, focus, and respond appropriately. Pain: None reported Vital Signs: HR highest of 124 bpm during ambulation activity. Weighed 332 lbs as measured by Nurse Cristina prior to walking today. ROM: Right Upper Extremity: Shoulder Flexion WFL. Shoulder abduction WFL. Elbow flexion WFL. Wrist flexion WFL. Functional opening and closing of hand WFL. Left Upper Extremity: Shoulder Flexion WFL. Shoulder abduction WFL. Elbow flexion WFL. Wrist flexion WFL. Functional opening and closing of hand WFL. Right Lower Extremity: Hip flexion WFL. Hip abduction WFL. Knee flexion WFL. Ankle dorsiflexion WFL. Ankle plantarflexion WFL. Left Lower Extremity: Hip flexion WFL. Hip abduction WFL. Knee flexion WFL. Ankle dorsiflexion WFL. Ankle plantarflexion WFL. Strength: Right Upper Extremity: Shoulder flexors 4-/5. Shoulder abductors 4-/5. Elbow flexors 4-/5. Elbow extensors 4-/5. Deployment Manager weak but functional. Left Upper Extremity: Shoulder flexors 4-/5. Shoulder abductors 4-/5. Elbow flexors 4-/5. Elbow extensors 4-/5. Deployment Manager strong. Right Lower Extremity: Hip flexors 4-/5. Hip abductors 4-/5. Knee flexors 4/5. Knee extensors 4-/5. Ankle dorsiflexors 4/5. Ankle plantarflexors 4/5. Left Lower Extremity: Hip flexors 4-/5. Hip abductors 4-/5. Knee flexors 4/5. Knee extensors 4-/5. Ankle dorsiflexors 4/5. Ankle plantarflexors 4/5. Bed Mobility/Transfers: Minimal cueing provided for use of B hands as needed for support, movement sequence, AD management, and posture to reduce fall risk and minimize pain report Sit to stand contact guard assist with definite use of B hands for support Stand to sit contact guard assist with definite use of B hands for support Bed to reclining chair contact guard assist with definite use of B hands for support Reclining chair to bed contact guard assist with definite use of B hands for support Gait: After adjusting walker to appropriate height, facilitated safe and correct performance of level surface ambulation covering distance of 80 feet using front wheeled walker with wheelchair follow provided for safety. Gait wide-based. Step height and length decreased. Minimal shortness of breath subsided with rest. Stairs: Not done THERA EX: Instructed and guided patient with safe and great performance of seated exercises after ambulation activity as follows: Seated marches x 10 Ankle DF/PF x 10 Bilateral quadriceps sets with 5 sh x 10 reps Balance: Static Sitting: Normal Dynamic Sitting: Normal Static Standing: Fair Dynamic Standing: Fair Special Tests: Mobility Limitations Standardized Measure [facility] AM-PAC 6 clicks Basic Mobility Inpatient Short Form: Raw Score: 18 CMS Score: 47% deficit Informed Consent/Education: Patient was instructed in purpose of PT consult and plan of care. Agreeable to proceed with established PT POC to achieve personal goals. Assessment: Patient with pre-existing balance issues with 4 falls in the past year and with recent history of CVA in August of 2024 who was managing at home using her 4-wheeled walker now admitted due to gastrointestinal bleeding associated with her hemorrhoids. Patient presents with clinical signs and symptoms consistent with current/admitting diagnoses that have resulted to mobility limitations, gait instability, generalized weakness, and overall ADL decline as demonstrated by the following impairment level findings: 1. Decreased strength to B UE/LE major muscle groups 2. Impaired standing balance 3. Impaired activity tolerance 4. Shortness of breath 5. Swelling in B legs and feet Impairments are contributing to the following functional limitations: 1. Decline in bed mobility skills 2. Decline in transfer skills 3. Difficulty with ambulation without assistive device and physical assistance 4. Increased completion time for mobility ADL performance 5. Increased risk for falls 6. Difficulty with managing steps alone safely Patient is assessed as a 23721 moderate complexity based on the following: History: 79-year-old female with past medical history as indicated above Examination: Demonstrable impairment in strength, balance, and mobility level with underlying impairments and functional limitations as exhibited above as well as deficit score of 47% utilizing the [facility] Mobility Inpatient Short Form Presentation: Evolving Decision Makin moderate complexity Goals: Goals X1 week 1. Supine-Sit independent 2. Sit-Supine independent 3. Sit-Stand independent 4. Stand-Sit independent with 4WW 5. Bed-Chair independent with 4WW 6. Chair-Bed independent with 4WW 7. Independent gait on level surface with use of 4WW for at least 150 feet without report of pain nor dyspnea 8. Independent with home exercise program 9. Good static and dynamic standing balance/tolerance Plan of Care/Treatment Plan: 1-2x/day, 7 days/week x 1 week. Plan of care has been reviewed with the MEDICAL SECRETARY providing the service under Physical Therapy direction. Initiate Physical Therapy intervention for pain management as needed, strengthening, bed mobility, transfers, gait, stairs, balance training, and use of assistive device. DISCHARGE RECOMMENDATIONS: PT TREATMENT CODE/TIME: 60551 x 28 minutes for 1 unit (8:55-9:23). Thank you for the opportunity to participate in the care of this patient. Sia Cardozo PT, DPT, CLT [facility] [place], [place]
--- NOTE | 2024-09-28 08:56 | SCONE_ITS ---
Date of service: 09/28/24 Time of Service: 08:56 Assessment and Plan Assessment and plan (1) GIB (gastrointestinal bleeding): Status: Chronic Assessment and plan: Bright red blood per rectum. Hemorrhoids visible on external exam and reportedly present via proctoscope in the emergency department. Associated with anemia, hemoglobin stable not requiring pressors or transfusions. Last colonoscopy greater than 10 years ago -Recommend colonoscopy for further evaluation - Okay for bowel prep with stable hemoglobin - May need surgical intervention for hemorrhoid at same time - Okay for clear liquid diet (2) Anemia: Status: Chronic Assessment and plan: - Hold Eliquis - Trend hemoglobin - Send iron labs - Iron replacement as needed (3) Hemorrhoids: Status: Acute Assessment and plan: - Possible intervention such as hemorrhoidectomy or hemorrhoidal ligation at time of colonoscopy, all the bleeding risk associated and patient needs to be on anticoagulation long-term (4) Anticoagulated: Status: Acute (5) CAD (coronary artery disease): Assessment and plan: - May benefit from cardiology evaluation and restratification prior to procedure - Anesthesia eval prior to procedure (6) COPD (chronic obstructive pulmonary disease): Assessment and plan: - Anesthesia eval prior to procedure - Continue oxygen medications (7) Morbid obesity: Status: Chronic (8) Essential hypertension: Status: Chronic (9) Atrial fibrillation: (10) CVA (cerebral vascular accident): History of Present Illness History of Present Illness Chief Complaint: rectal bleeding Narrative: 79-year-old female with history of COPD, morbid obesity, history of A-fib with CVA on Eliquis. Patient has history of intermittent rectal bleeding. Last colonoscopy 10 to 15 years ago complicated by hypotension secondary to anesthesia. Most recent episode of bleeding started 4 days ago. Initially only with bowel movements and wiping but became progressively worse and patient was dripping blood. Presented to the emergency department where hemoglobins have been stable, but decreased to 10 from patient's baseline of 12. Denies bulge or pain with bowel movements. Denies abdominal pain. Denies heartburn or reflux. No chest pain, shortness of breath, fevers, chills, nausea, vomiting. Patient reports bedside rectal scope showed hemorrhoids in the emergency department Review of Systems Constitutional Constitutional: Denies chills, Denies fatigue, Denies fever(s), Denies lethargy, Denies malaise and Denies poor appetite Eyes Eyes: Denies loss of vision ENT Ears, Nose, Mouth, and Throat: Denies dizziness Cardiovascular Cardiovascular: Denies chest pain, Denies syncope, Denies irregular heart rhythm and Denies lightheadedness Respiratory Respiratory: Denies cough and Denies wheezing Gastrointestinal Gastrointestinal: Denies abdominal pain, Denies melena, Reports hematochezia, Denies constipation, Denies dyspepsia, Denies heartburn, Denies diarrhea, Denies loose stools, Denies nausea and Denies vomiting Neurologic Neurologic: Denies abnormal speech, Denies confusion, Denies dizziness, Denies syncope and Denies loss of vision Psychiatric Psychiatric: Denies confusion Endocrine Endocrine: Denies fatigue Hematologic/Lymphatic Hematologic/Lymphatic: Denies easy bruising Allergic/Immunologic Allergic/Immunologic: Denies wheezing PFSH All Active Problems (Updated 09/28/24 @ 13:12 by Dagoberto Marlow DO) Hemorrhoids (Acute) Anticoagulated (Acute) Anemia (Chronic) COPD with acute exacerbation (Acute 04/17/16) GIB (gastrointestinal bleeding) (Chronic) Rectal bleed (Acute) Foot pain, left (Acute) Left carotid stenosis (Acute) Numbness of left hand (Acute) Arthritis of carpometacarpal (CMC) joint of left thumb (Acute) B12 deficiency (Acute) Carpal tunnel syndrome of right wrist (Acute) S/P ECTR: 07/13/2024 Arthritis of right shoulder region (Acute) Arthritis of left shoulder region (Acute) Right shoulder pain (Acute) Leg cramps (Acute ~10/23/23) Trigger finger of left hand (Acute) Non-healing surgical wound (Acute) Abnormal renal function (Chronic) elevated creatinine Anxiety (Chronic) Depressive disorder (Chronic) Essential hypertension (Chronic) Urinary, incontinence, stress female (Chronic 08/24/12) 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 Hyperlipidemia (Chronic) 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) right sided sciatica w/ disc herniation L5- XRAY 2014 - djd Meralgia paresthetica (Chronic 01/08/02) right Morbid obesity (Chronic 08/06/15) Need for subacute bacterial endocarditis prophylaxis (Chronic 05/02/14) Clinda 600mg once - 60 min before procedure Osteopenia (Chronic) 2003 T-scores: -0.8, -0.2; -1.8 Palpitations (Chronic 08/24/12) Psoriasis (Chronic 08/30/12) Vitamin D deficiency (Chronic 05/26/08) Weight loss (Chronic 03/09/17) Coronary artery spasm (Acute 03/11/07) Tobacco use disorder (Acute) Acute UTI (Acute) COVID-19 (Acute) New onset-12/23/21 Advance care planning (Acute) Shortness of breath (Acute) Screening for HIV (human immunodeficiency virus) (Acute) Subcutaneous mass of toe of right foot (Acute) medial aspect base of right great toe Skin lesion (Acute) Urinary tract infection (Acute) Medical History (Updated 09/28/24 @ 13:12 by Dagoberto Marlow DO) CVA (cerebral vascular accident) Sleep apnea COPD (chronic obstructive pulmonary disease) Aortic stenosis Atrial fibrillation CAD (coronary artery disease) (03/29/13) Morbid obesity with BMI of 50.0-59.9, adult Diastolic dysfunction Abnormal mammogram (01/08/03) Appendicitis (03/11/07) Clostridium difficile infection (03/11/07) Disorder of gallbladder (03/11/07) Lipoma (03/11/07) Tobacco use disorder quit 2004 Abnormal mammogram, unspecified 01/08/03 Clostridium difficile infection 03/11/07 Unspecified appendicitis 03/11/07 Disorder of gallbladder 03/11/07 Lipoma 03/11/07 removed 04/05/12 by Fabrice Lares Ventral hernia with obstruction but no gangrene (03/11/07) epigastric and ventral Shortness of breath (11/05/15) Shingles (03/10/17) Hiatal hernia (03/11/07) EGD; inflammation Acute myocardial infarction (08/24/12) 2006 ECHO showing LVH 75% Surgical History (Updated 08/24/24 @ 00:03 by BASILIO SHERMAN) Status post abdominal hysterectomy Status post appendectomy Status post breast biopsy Status post cholecystectomy Status post hernia repair Status post total knee replacement S/P abdominal hysterectomy endometriosis S/P cholecystectomy S/P appendectomy S/P total knee replacement 02/09/95 left S/P breast biopsy, left 02/10/12 lipoma S/P hernia repair 07/10/13 Replacement of total knee joint 1995 LEFT 2004 RIGHT Abdominal hysterectomy endometriosis HERNIA REPAIR (~07/2013) Cholecystectomy Extraction of cataract 11/14/16 DR. MARISCAL; LEFT EYE Biopsy of breast (04/05/12) lipoma; left breast Appendectomy Family History Mother , age 61 Diabetes Essential hypertension Heart disease Hyperlipidemia DVT (deep venous thrombosis) Asthma Father , age 75 Essential hypertension Heart disease Hyperlipidemia Stroke Lung cancer Sister , age 41 Lung cancer Maternal Grandfather , age 88 No problems noted. Paternal Grandfather No problems noted. Maternal Grandmother , age 88 Hyperlipidemia Hypertension Paternal Grandmother Essential hypertension Hyperlipidemia Brother , age 70 Diabetes Essential hypertension Heart disease Alcohol abuse Brother , age 68 No problems noted. Son Depression Hyperlipidemia Alcohol abuse Heart disease Hypertension Son No problems noted. Daughter Essential hypertension Depression DVT (deep venous thrombosis) Asthma Alcohol abuse Hyperlipidemia Substance abuse Social History Smoking/Tobacco Use Status: Former Tobacco Use tobacco type: cigarettes Quit Date: 12/17/03 Tobacco: How many years used: 30 Smoking risk assessment performed?: Yes Alcohol Intake: never Drug use: Never Substance use type: does not use Caregiver/Support person: No Household members: none Housing: apartment Communication Needs: Hard of Hearing Pets and animals: No Sexually active: No Current gender identity: female and decline to answer What is your relationship status?: How often do you talk on the phone with friends or family?: twice per week How often do you get together with friends or relatives?: decline to answer How often do you attend amish or judaism services?: decline to answer Do you belong to any clubs or organized social groups?: decline to answer Panel score (0-1 are the most socially isolated patients): 0 What type of physical activity do you participate in: none and walking Frequency: 3-4 times per week Trish/Orthodox: Mosque Special trish needs: No Seatbelt use: always Helmet use: No Drive intox or ride w/intox tractor trailer truck driver: No Do you feel safe at home: Yes Do you feel safe in your relationship?: Yes Would you like helpful sources: No Exam Const General: cooperative, comfortable and no acute distress Nutritional Appearance: obese morbidly obese Resp Effort & Inspection: normal respiratory effort and no cough Cardio Rate: regular rate GI Palpation: soft and nontender Rectal Exam - female: heme positive stool, hemorrhoids (visible right side external hemorrhoid and maroon blood) and No tenderness Skin General skin exam: no ecchymosis, no erythema and no pallor Neuro General: patient alert, patient awake and patient oriented x3 Cognition: normal cognition Speech: speech normal Psych Mental Status: mental status grossly normal Mood: congruent mood Results Last Vital Signs Temp 36.7 C 09/27/24 20:20 Pulse 68 09/28/24 05:38 Resp 12 09/28/24 05:38 BP 129/65 09/28/24 05:38 Pulse Ox 94 09/28/24 05:38 Labs 09/28/24 05:55 09/28/24 06:00 Labs: Laboratory Results - last 24 hr 09/27/24 09/27/24 09/27/24 13:05 13:19 14:29 WBC 8.69 RBC 4.39 Hgb 10.8 L Hct 36.5 MCV 83 MCH 24.6 L MCHC 29.6 L RDW 20.0 H Plt Count 174 MPV 11.0 Immature Gran % 0.3 Neutrophils % 70.5 Lymphocytes % 16.1 Monocytes % 9.7 Eosinophils % 2.8 Basophils % 0.6 Nucleated RBC % 0.0 Absolute Neutrophils 6.13 Absolute Lymphocytes 1.40 Absolute Monocytes 0.84 H Absolute Eosinophils 0.24 Absolute Basophils 0.05 PT 11.4 H INR 1.1 Sodium 142 Potassium 3.3 L Chloride 103 Carbon Dioxide 29.5 Anion Gap 9.5 BUN 28 H Creatinine 1.4 H Est GFR (CKD-EPI 2020) 38.75 Glucose 104 Calcium 9.1 Total Bilirubin 0.7 AST 20 ALT 16 Alkaline Phosphatase 83 Troponin I 15 12 Total Protein 7.1 Albumin 3.6 ABO/Rh A Negative Antibody Screen NEGATIVE 09/27/24 09/28/24 09/28/24 15:55 05:55 06:00 WBC 6.89 RBC 4.44 Hgb 10.8 L Hct 36.6 MCV 82 MCH 24.3 L MCHC 29.5 L RDW 19.7 H Plt Count 145 MPV 10.2 Immature Gran % 0.3 Neutrophils % 67.2 Lymphocytes % 15.7 Monocytes % 11.5 Eosinophils % 4.6 Basophils % 0.7 Nucleated RBC % 0.0 Absolute Neutrophils 4.63 Absolute Lymphocytes 1.08 L Absolute Monocytes 0.79 Absolute Eosinophils 0.32 Absolute Basophils 0.05 PT INR Sodium 142 Potassium 3.6 Chloride 106 Carbon Dioxide 28.4 Anion Gap 7.6 BUN 22 H Creatinine 1.2 H Est GFR (CKD-EPI 2020) 46.62 Glucose 101 Calcium 9.1 Total Bilirubin 0.8 AST 30 ALT 14 Alkaline Phosphatase 83 Troponin I 12 Total Protein 6.9 Albumin 3.3 L ABO/Rh Antibody Screen
[2024-09-28] MEDS: Budesonide/Formoterol 160/4.5 6 GM 60 PUFF INH IH ×2 (09:21→20:00)
--- NOTE | 2024-09-28 11:21 | W.PC.ACHO ---
Registration Status: ADM IN Primary Language: Preferred Language: Amharic ED Information & Data Chief Complaint GI Bleed 09/27/24 14:19 Triage Note States she has been bleeding 09/27/24 12:49 profusely from a hemorrhoid for two days. Has changed the dressing 4 times today. Medical / Surgical History (Last Updated 09/28/24 @ 08:56 by Dagoberto Marlow DO) CVA (cerebral vascular accident) Sleep apnea COPD (chronic obstructive pulmonary disease) Aortic stenosis Atrial fibrillation CAD (coronary artery disease) (03/29/13) Morbid obesity with BMI of 50.0-59.9, adult Diastolic dysfunction Abnormal mammogram (01/08/03) Appendicitis (03/11/07) Clostridium difficile infection (03/11/07) Disorder of gallbladder (03/11/07) Lipoma (03/11/07) Tobacco use disorder Abnormal mammogram, unspecified Clostridium difficile infection Unspecified appendicitis Disorder of gallbladder Lipoma Ventral hernia with obstruction but no gangrene (03/11/07) Shortness of breath (11/05/15) Shingles (03/10/17) Hiatal hernia (03/11/07) Acute myocardial infarction (08/24/12) (Last Reviewed 07/13/24 @ 06:30 by Berta Conroy RN) Status post abdominal hysterectomy Status post appendectomy Status post breast biopsy Status post cholecystectomy Status post hernia repair Status post total knee replacement S/P abdominal hysterectomy S/P cholecystectomy S/P appendectomy S/P total knee replacement S/P breast biopsy, left S/P hernia repair Replacement of total knee joint Abdominal hysterectomy HERNIA REPAIR (~07/2013) Cholecystectomy Extraction of cataract Biopsy of breast (04/05/12) Appendectomy Most Recent Vital Signs Temperature 98.4 F 09/28/24 07:26 Temperature Source Temporal Artery Scan 09/27/24 20:20 Pulse 66 09/28/24 07:26 Pulse 73 09/28/24 07:26 Respiratory Rate 14 09/28/24 07:26 Respiratory Effort Normal 09/27/24 20:20 Respiratory Depth Normal 09/27/24 20:20 Respiratory Pattern Normal 09/27/24 20:20 Blood Pressure 143/66 H 09/28/24 07:26 Blood Pressure Mean 89 09/28/24 07:26 Blood Pressure Position Sitting 09/27/24 12:49 Pulse Oximetry 94 09/28/24 07:26 Oxygen Delivery Method Room Air 09/28/24 02:15 Oxygen Flow Rate 0 09/28/24 02:15 Pain Level 8 09/27/24 14:31 Allergies Tetanus Vaccines and Toxoid (Tetanus Vaccines \E&E\ Toxoid) Allergy (Severe, Verified 09/27/24 14:16) Massive Local Reaction amoxicillin Allergy (Unknown, Verified 09/27/24 14:16) HIVES atenolol Adverse Reaction (Intermediate, Verified 09/27/24 14:16) Fluid Retention bupropion (From Wellbutrin SR) Adverse Reaction (Intermediate, Verified 09/27/24 14:16) nausea morphine Adverse Reaction (Intermediate, Verified 09/27/24 14:16) Jittery COVID-19 (SARS-CoV-2) vaccine, [place] Adverse Reaction (Mild, Verified 09/27/24 14:16) redness (Pheizer) codeine Adverse Reaction (Unknown, Verified 09/27/24 14:16) ANXIETY Iodinated Contrast Media (Iodinated Contrast- Oral and IV Dye) Adverse Reaction (Unknown, Verified 09/27/24 14:16) ANXIETY meperidine Adverse Reaction (Unknown, Verified 09/27/24 14:16) NAUSEA/VOMITING promethazine Adverse Reaction (Unknown, Verified 09/27/24 14:16) ANXIETY Precautions Isolation Fall precaution 09/27/24 12:53 Active Medications Generic Name Dose Route Start Last Admin Trade Name Freq PRN Reason Stop Dose Admin Acetaminophen 0 mg 09/27/24 16:23 09/28/24 01:01 Acetaminophen 325 Mg Tab PO 650 mg Q4H PRN PRN Administration Atorvastatin Calcium 40 mg 09/27/24 20:13 09/27/24 20:38 Atorvastatin 40 Mg Tab PO 40 mg HS CHRISTINA Administration Budesonide/Formoterol Fumarate 0 puff 09/28/24 08:30 09/28/24 09:21 Budesonide/Formoterol 160/4.5 6 Gm 60 Puff Inh IH 2 inh BID CHRISTINA Administration Bupropion HCl 300 mg 09/28/24 08:30 09/28/24 08:42 Bupropion-Xl 150 Mg Tabcr PO 300 mg QAM CHRISTINA Administration Cholecalciferol 2,000 units 09/28/24 08:30 09/28/24 08:30 Cholecalciferol (Vitamin D3) 1,000 Unit Tab PO Not Given DAILY CHRISTINA Diltiazem HCl 240 mg 09/28/24 08:30 09/28/24 08:14 Diltiazem Cd 120 Mg Capcr PO 240 mg QAM CHRISTINA Administration Furosemide 60 mg 09/27/24 20:19 09/27/24 20:38 Furosemide 20 Mg Tab PO 60 mg DAILY CHRISTINA Administration Potassium Chloride/Sodium Chloride 1,000 mls @ 75 mls/hr 09/27/24 16:00 09/28/24 10:26 Kcl 20meq/Ns IV 75 mls/hr INFUSION CHRISTINA Infusion Omeprazole 20 mg 09/28/24 07:30 09/28/24 08:42 Omeprazole 20 Mg Capcr PO 20 mg 0730 CHRISTINA Administration Sodium Chloride 0 ml 09/27/24 13:18 09/28/24 06:14 Normal Saline Flush 10 Ml Syr IVP 80 ml PRN PRN Administration Sodium Chloride 0 ml 09/27/24 20:00 09/28/24 11:08 Normal Saline Flush 10 Ml Syr IVP Not Given BID CHRISTINA Sodium Chloride 0 ml 09/27/24 14:48 09/27/24 16:13 Normal Saline Flush 10 Ml Syr IVP 10 ml PRN PRN Administration IV IV Catheter Type [] Peripheral IV IV Catheter Type [Right Peripheral IV Forearm] IV Catheter Type [Right Saline Lock Antecubital] IV Catheter Gauge [] 20 IV Catheter Gauge [Right 20 Forearm] IV Catheter Gauge [Right 20 Antecubital] Diagnostics 09/28/24 09/28/24 09/27/24 Range/Units 06:00 05:55 15:55 WBC 6.89 (4.4-10.8) 10^3/uL RBC 4.44 (3.93-5.22) 10^6/uL Hgb 10.8 L (11.2-15.7) g/dL Hct 36.6 (36.0-46.0) % MCV 82 (80-95) fL MCH 24.3 L (27.0-33.0) pg MCHC 29.5 L (32.0-36.0) % RDW 19.7 H (11.7-14.6) % Plt Count 145 (130-400) 10^3/uL MPV 10.2 (8.0-11.0) fL Immature Gran % 0.3 % Neutrophils % 67.2 % Lymphocytes % 15.7 % Monocytes % 11.5 % Eosinophils % 4.6 % Basophils % 0.7 % Nucleated RBC % 0.0 (0.0-0.3) % Absolute Neutrophils 4.63 (1.2-6.7) 10^3/uL Absolute Lymphocytes 1.08 L (1.2-3.4) 10^3/uL Absolute Monocytes 0.79 (0.1-0.8) 10^3/uL Absolute Eosinophils 0.32 (0.0-0.7) 10^3/uL Absolute Basophils 0.05 (0.0-0.2) 10^3/uL PT (9.1-11.1) sec INR (0.9-1.1) Sodium 142 (136-145) mmol/L Potassium 3.6 (3.5-5.1) mmol/L Chloride 106 (98-107) mmol/L Carbon Dioxide 28.4 (21.0-32.0) mmol/L Anion Gap 7.6 (3-11) mmol/L BUN 22 H (7-18) mg/dL Creatinine 1.2 H (0.55-1.02) mg/dL Est GFR (CKD-EPI 2020) 46.62 (mL/min/1.73m2) Glucose 101 (74-106) mg/dL Calcium 9.1 (8.5-10.1) mg/dL Total Bilirubin 0.8 (0.2-1.0) mg/dL AST 30 (15-37) U/L ALT 14 (14-59) U/L Alkaline Phosphatase 83 (46-116) U/L Troponin I 12 (<or=51) ng/L Total Protein 6.9 (6.4-8.2) g/dL Albumin 3.3 L (3.4-5.0) g/dL ABO/Rh Antibody Screen 09/27/24 09/27/24 09/27/24 Range/Units 14:29 13:19 13:05 WBC 8.69 (4.4-10.8) 10^3/uL RBC 4.39 (3.93-5.22) 10^6/uL Hgb 10.8 L (11.2-15.7) g/dL Hct 36.5 (36.0-46.0) % MCV 83 (80-95) fL MCH 24.6 L (27.0-33.0) pg MCHC 29.6 L (32.0-36.0) % RDW 20.0 H (11.7-14.6) % Plt Count 174 (130-400) 10^3/uL MPV 11.0 (8.0-11.0) fL Immature Gran % 0.3 % Neutrophils % 70.5 % Lymphocytes % 16.1 % Monocytes % 9.7 % Eosinophils % 2.8 % Basophils % 0.6 % Nucleated RBC % 0.0 (0.0-0.3) % Absolute Neutrophils 6.13 (1.2-6.7) 10^3/uL Absolute Lymphocytes 1.40 (1.2-3.4) 10^3/uL Absolute Monocytes 0.84 H (0.1-0.8) 10^3/uL Absolute Eosinophils 0.24 (0.0-0.7) 10^3/uL Absolute Basophils 0.05 (0.0-0.2) 10^3/uL PT 11.4 H (9.1-11.1) sec INR 1.1 (0.9-1.1) Sodium 142 (136-145) mmol/L Potassium 3.3 L (3.5-5.1) mmol/L Chloride 103 (98-107) mmol/L Carbon Dioxide 29.5 (21.0-32.0) mmol/L Anion Gap 9.5 (3-11) mmol/L BUN 28 H (7-18) mg/dL Creatinine 1.4 H (0.55-1.02) mg/dL Est GFR (CKD-EPI 2020) 38.75 (mL/min/1.73m2) Glucose 104 (74-106) mg/dL Calcium 9.1 (8.5-10.1) mg/dL Total Bilirubin 0.7 (0.2-1.0) mg/dL AST 20 (15-37) U/L ALT 16 (14-59) U/L Alkaline Phosphatase 83 (46-116) U/L Troponin I 12 15 (<or=51) ng/L Total Protein 7.1 (6.4-8.2) g/dL Albumin 3.6 (3.4-5.0) g/dL ABO/Rh A Negative Antibody Screen NEGATIVE Intake and Output - 24 Hour Total 09/27/24 12:41 thru 09/28/24 10:26 Intake Total 805 Output Total 3760 Balance -2955 Weight 332 lb Intake: IV 805 Output: Urine 3580 Stool 180 Other: Urine Color Yellow [place] Urine Appearance Clear Urine Odor Strong Comment Purewick put in place due to administration of lasix and patient complaint of fatigue/exhaustion. Stool Characteristics Liquid Bloody Emesis Description None Falls Risk Assessment History of Falls Previous History 09/27/24 20:20 Contributing Factors Impairments 09/27/24 20:20 Ambulatory Aids Uses ambulatory device + 09/27/24 12:53 Tubes/Lines None 09/27/24 12:53 Gait Evaluation W/any additional score 09/27/24 12:53 Cognition No cognitive impairment 09/27/24 12:53 Fall Total Score 18 09/27/24 20:20 Level of Risk Standard/Low Risk 09/27/24 20:20 Problems (Last Updated 09/28/24 @ 08:56 by Dagoberto Marlow, ) Rectal bleed (Acute) v v v v v v v v v Sending and/or Receiving Nurses: Please use comment section below to note any information pertinent to the patient hand-off not included above. Information / Comments: Pt downgraded from ICU to [facility] Report received from: Barrett Yoon RN
--- NOTE | 2024-09-28 13:22 | W.PM.PROGNOT ---
Date of Service Date of service: 09/28/24 Time of Service: 13:22 Assessment and Plan Assessment and plan (1) GIB (gastrointestinal bleeding): Status: Chronic Assessment and plan: Per ED physician consulted general surgery has been placed and plan for further intervention on this hospitalization. I have not put the patient in the ICU precautionary as she does have some continued GI bleed and has been on Eliquis. Repeat CBC in the a.m. 09/28/24 per GS note, plan on colonoscopy in am. Hg stable at 10.8 over last 24 hours (2) CAD (coronary artery disease): Assessment and plan: No active chest pain or anginal equivalents at this time monitor (3) Atrial fibrillation: Assessment and plan: Patient had been on Eliquis but will need to see what her scope shows before resuming this medication. Will do has-bled score in the a.m. 09/28/24 Has-Bled score of 3 (age/meds/cva) placing her at high risk. DOAC score of 10 placing in high risk category (4) CVA (cerebral vascular accident): Assessment and plan: Recent admission for this problem in August. But as mentioned above for some reason her chart is not reflective of this history. Will reach out to IT in the a.m. 09/28/24 Pt's chart has repoplulated correctly (5) COPD with acute exacerbation: Status: Acute Assessment and plan: Continue with inhalers. Subjective Subjective Interval history since last seen: No new complaints. Able to ambulate to bathroom. POC d/w pt, bedside nurse as well as KIZZY (Ele) Exam Narrative Exam Narrative: HEENT-normocephalic atraumatic mucous membranes moist oropharynx is clear Neck-no lymphadenopathy no JVD no thyromegaly [id number] systolic ejection murmur regular rate and rhythm Pulm-clear to auscultation bilaterally good air exchange no accessory muscle use Abdomen-distended bowel sounds present x 4 no significant tenderness to palpation Extremities-1+ lower extremity bilaterally Neurologic-cranial nerves II through XII intact as tested reflexes upper lower extremity normal as tested Psych-alert and orient x 3 no apparent distress can give linear history Objective Last Vital Signs Temp 36.3 C L 09/28/24 13:19 Pulse 61 09/28/24 13:19 Resp 16 09/28/24 13:19 BP 146/79 H 09/28/24 13:19 Pulse Ox 94 09/28/24 13:19 Laboratory Results - last 24 hr 09/27/24 09/27/24 09/27/24 13:05 13:19 14:29 WBC 8.69 RBC 4.39 Hgb 10.8 L Hct 36.5 MCV 83 MCH 24.6 L MCHC 29.6 L RDW 20.0 H Plt Count 174 MPV 11.0 Immature Gran % 0.3 Neutrophils % 70.5 Lymphocytes % 16.1 Monocytes % 9.7 Eosinophils % 2.8 Basophils % 0.6 Nucleated RBC % 0.0 Absolute Neutrophils 6.13 Absolute Lymphocytes 1.40 Absolute Monocytes 0.84 H Absolute Eosinophils 0.24 Absolute Basophils 0.05 PT 11.4 H INR 1.1 Sodium 142 Potassium 3.3 L Chloride 103 Carbon Dioxide 29.5 Anion Gap 9.5 BUN 28 H Creatinine 1.4 H Est GFR (CKD-EPI 2020) 38.75 Glucose 104 Calcium 9.1 Total Bilirubin 0.7 AST 20 ALT 16 Alkaline Phosphatase 83 Troponin I 15 12 Total Protein 7.1 Albumin 3.6 ABO/Rh A Negative Antibody Screen NEGATIVE 09/27/24 09/28/24 09/28/24 15:55 05:55 06:00 WBC 6.89 RBC 4.44 Hgb 10.8 L Hct 36.6 MCV 82 MCH 24.3 L MCHC 29.5 L RDW 19.7 H Plt Count 145 MPV 10.2 Immature Gran % 0.3 Neutrophils % 67.2 Lymphocytes % 15.7 Monocytes % 11.5 Eosinophils % 4.6 Basophils % 0.7 Nucleated RBC % 0.0 Absolute Neutrophils 4.63 Absolute Lymphocytes 1.08 L Absolute Monocytes 0.79 Absolute Eosinophils 0.32 Absolute Basophils 0.05 PT INR Sodium 142 Potassium 3.6 Chloride 106 Carbon Dioxide 28.4 Anion Gap 7.6 BUN 22 H Creatinine 1.2 H Est GFR (CKD-EPI 2020) 46.62 Glucose 101 Calcium 9.1 Total Bilirubin 0.8 AST 30 ALT 14 Alkaline Phosphatase 83 Troponin I 12 Total Protein 6.9 Albumin 3.3 L ABO/Rh Antibody Screen Time Spent with Patient Time Spent with Patient: 35-49 minutes Time was spent: preparing to see the patient(eg.review tests), obtaining and/or reviewing separately otained hiistory, ordering medications,tests, procedures, referring, communicating with other health intensive care ambulance paramedic, indepentently interpreting results, counseling the patient and care coordination
--- NOTE | 2024-09-28 14:48 | PT.INTREAT ---
PT Notes Visit Reasons: [facility] Physical Therapy Inpatient Treatment Note Date: 09/29/2024 Precautions: Fall. Standard. Activity as tolerated. Subjective: Transferred from the ICU to [facility] level of care on 09/27. To have colonoscopy tomorrow morning. Complained of fatigue but was willing to work with PT, needed more encouragement for the afternoon session due to fatigue. Objective: General Observation: B leg swelling decreased. High BMI. Mental Status: Alert and oriented as to person, place, time, and purpose. Able to pay attention, focus, and respond appropriately. Pain: None reported Vital Signs: HR highest of 124 bpm during ambulation activity. Weighed 332 lbs as measured by Nurse Cristina prior to walking today. Bed Mobility/Transfers: Minimal cueing provided for use of B hands as needed for support, movement sequence, AD management, and posture to reduce fall risk and minimize pain report Sit to stand stand by assist with definite use of B hands for support Stand to sit stand by assist with definite use of B hands for support Bed to reclining chair stand by assist with definite use of B hands for support Reclining chair to bed stand by assist with definite use of B hands for support Gait: Today covered longer distance of 250 feet for bith sessions using the front-wheeeld walker. Cueing provided for direction change only. Minimal shortness of breath resolved with rest. Wheelchair follow was still provided today. THERA EX in AM: Instructed and guided patient with safe and great performance of seated exercises after ambulation activity as follows: Seated marches x 10 Ankle DF/PF x 10 Bilateral quadriceps sets with 5 sh x 10 reps Balance: Static Sitting: Normal Dynamic Sitting: Normal Static Standing: Fair Dynamic Standing: Fair Assessment: Not as short of breath as she was the previous day. Rectal bleeding subsiding but colonoscopy procedure still needed to ensure that needed management is done. Will progress to use of 4WW per PLOF in preparation to D/C back to [facility]. Plan of Care/Treatment Plan: 1-2x/day, 7 days/week x 1 week. Plan of care has been reviewed with the DECORATOR MANNEQUIN providing the service under Physical Therapy direction. Initiate Physical Therapy intervention for pain management as needed, strengthening, bed mobility, transfers, gait, stairs, balance training, and use of assistive device. Progress to 4WW tomorrow. Train and give HEP. DISCHARGE RECOMMENDATIONS: PT TREATMENT CODE/TIME: Session 1--83525 x 28 minutes for 2 units (8:55-9:23). Session 2--23 minutes for 2 units (14:43-15:11).
[2024-09-28] MEDS: POTASSIUM CHLORIDE/0.9% NACL 1,000 ML 75 MEQ IV (14:53)
[2024-09-28] MEDS: Patch Removal 1 EACH TP (15:59)
[2024-09-28] MEDS: Atorvastatin 40 MG TAB PO (20:51)
[2024-09-29] VITALS (7 sets, daily range): BP systolic 111–157; BP diastolic 53–72; PULSE 61–72; RESP 16–24; TEMP 36–36.5; O2SAT 90–98
[2024-09-29] MEDS: POTASSIUM CHLORIDE/0.9% NACL 1,000 ML 75 MEQ IV ×2 (04:31→18:17)
[2024-09-29] MEDS: Acetaminophen 325 MG TAB PO ×2 (04:37→16:42)
[2024-09-29 06:46] LABS: ALT 11 U/L (14-59); AST 21 U/L (15-37); Albumin 3.2 g/dL (3.4-5.0); Alkaline Phosphatase 78 U/L (46-116); Anion Gap 8.5 mmol/L (3-11); BUN 14 mg/dL (7-18); Bilirubin, Total 0.7 mg/dL (0.2-1.0); CO2 29.5 mmol/L (21.0-32.0); Calcium 9.2 mg/dL (8.5-10.1); Chloride 108 mmol/L (98-107); Estimated GFR 46.62 (mL/min/1.73m2); Glucose 102 mg/dL (74-106); Potassium 3.5 mmol/L (3.5-5.1); Sodium 146 mmol/L (136-145); Total Protein 6.4 g/dL (6.4-8.2)
[2024-09-29] MEDS: Budesonide/Formoterol 160/4.5 6 GM 60 PUFF INH IH ×2 (07:50→20:44)
--- NOTE | 2024-09-29 07:51 | RESPIRATORY ---
Spoke with pt about KHADRA diagnosis and pt advised she had sleep study but never prescribed Cpap/bipap
[2024-09-29] MEDS: Omeprazole 20 MG CAPCR PO (09:11)
[2024-09-29] MEDS: dilTIAZem CD 120 MG CAPCR 240 MG PO (09:11)
[2024-09-29] MEDS: Cholecalciferol (Vitamin D3) 1,000 UNIT TAB 2000 UNITS PO (09:11)
[2024-09-29] MEDS: Furosemide 20 MG TAB 60 MG PO (09:11)
[2024-09-29] MEDS: Normal Saline Flush 10 ML SYR IVP ×2 (09:12→20:45)
[2024-09-29] MEDS: buPROPion-XL 150 MG TABCR 300 MG PO (09:12)
--- NOTE | 2024-09-29 10:05 | PDOC.CMPRO ---
Date of service: 09/29/24 Time of Service: 10:07 Care Management Progress Note Progress Note Text Progress Note Text: Brielle was sitting up in her chair when CM met with her. She stated that she is feeling better today, and is looking forward to returning home. She stated that she spoke to the surgeon this morning, but was unsure of the plan of care. Per report, Brielle is not a candidate for surgery at [facility]. The hospitalist reached out to [facility] to determine the next steps. Per report, [facility] stated that since Brielle is medically stable at this time, her colonoscopy will be completed as an outpatient. MD will recheck her hgb in the morning, and she will likely discharge home tomorrow, if she continues to improve. CM will continue to follow. Discharge Potential Discharge Needs: PCP F/U Appt and Surgical F/U Appt Anticipated Barriers to Discharge: None Identified Patient/Family Education Needs: Review discharge instructions, discuss Ask Me Three Transportation: Private vehicle Plan: Anticipate Brielle will be discharged home with no new services when medically cleared. She will follow up with her PCP, surgeon and plan of care and transport with family. CM will follow and continue to assess for discharge needs. Social Determinants of Health Screening Social Determinants of health last assessed in clinic: 09/27/24 Will the Patient Participate in the Screening?: Declined to provide Do you worry about having a steady place to live?: no Problems where you live: no known problems In the past 12 months, have you had to go without electric, gas, oil or water in your home?: no Has lack of transportation kept you from medical appointments or from doing things needed for daily living?: no Has anyone in your life made you feel unsafe or unsupported?: no How hard is it for you to pay for the very basics like food, housing, medical care, and heating? Would you say it is:: Not hard at all Do you want help finding or keeping work or a job?: I do not need or want help If for any reason you need help with day-to-day activities such as bathing, preparing meals, shopping, managing finances, etc., do you get the help you need?: I don?t need any help How often do you feel lonely or isolated from those around you?: Never Do you speak a language other than Tajik at home?: No Does the patient want assistance with any of the above?: No Comments: Patient at this time is complaining of fatigue and does not wish to answer the questions presently.
[2024-09-29 11:54] LABS: HCT 35.5 % (36.0-46.0); HGB 10.6 g/dL (11.2-15.7)
--- NOTE | 2024-09-29 14:52 | PGE_ITS ---
Date of Service Date of service: 09/29/24 Time of Service: 14:52 Assessment and Plan Assessment and plan (1) GIB (gastrointestinal bleeding): Status: Chronic Assessment and plan: - Patient initially presented with bright red blood per rectum but was found to have a hemoglobin in the tens, relatively unchanged from previous - Patient was admitted with plan for colonoscopy/possible hemorrhoidectomy given the presence of external hemorrhoid - However, does not appear that case was initially discussed with anesthesia, who stated patient is a BMI too high that would preclude them from safely administering anesthesia during procedure - Discussed with general surgeon, thought patient would require transfer for procedure - Discussed with [facility] colorectal surgeon Dr. Conteh, who stated that given patient has not required transfusion, hemoglobin has been stable, he patient has been hemodynamically stable and has not rapidly actively bleeding that this is something that would not be done in the inpatient setting and recommended discharge with outpatient referral - Will monitor patient for additional night check hemoglobin again in the [facility], this was discussed with patient and she understands likely discharge tomorrow 09/30/2024 with plan for close follow-up/referral with [facility] [place] [place] colorectal surgery (2) CAD (coronary artery disease): Assessment and plan: - Without active chest pain - Continue home statin (3) Atrial fibrillation: Assessment and plan: - Eliquis has been on hold due to GI bleed as noted above - Continue home diltiazem (4) CVA (cerebral vascular accident): Assessment and plan: - History of, without residual deficit - Continue home statin (5) COPD with acute exacerbation: Status: Acute Assessment and plan: -Without acute exacerbation - Continue home inhaler regimen Subjective Subjective Interval history since last seen: Patient understands that procedure cannot be done here, and that after consultation with [facility] [place] [place] colorectal surgery, it is recommended that this be done as an outpatient given that patient has not required transfusion, hemoglobin has been stable, patient has been hemodynamically stable and was not actively bleeding. However, patient states that she has been bleeding, though nursing states that this is not the case. After discussion with patient, plan is to monitor her for an additional night to see if she has any active bleeding or change in hemoglobin, but understands that if there is no further bleeding this will likely need to be set up as an outpatient with referral to [facility] [place] [place] colorectal surgery. Exam Narrative Exam Narrative: Fatigued but otherwise well-appearing older female laying in bed in no acute distress, ANO x 4, heart regular rate rhythm, lungs clear to auscultation bilaterally, abdomen morbidly obese, nontender, nondistended Objective Last Vital Signs Temp 97.5 F L 09/29/24 12:49 Pulse 68 09/29/24 12:49 Resp 24 09/29/24 12:49 BP 111/72 09/29/24 12:49 Pulse Ox 95 09/29/24 12:49 Laboratory Results - last 24 hr 09/29/24 09/29/24 06:02 11:40 Hgb 10.6 L Hct 35.5 L Sodium 146 H Potassium 3.5 Chloride 108 H Carbon Dioxide 29.5 Anion Gap 8.5 BUN 14 Creatinine 1.2 H Est GFR (CKD-EPI 2020) 46.62 Glucose 102 Calcium 9.2 Total Bilirubin 0.7 AST 21 ALT 11 L Alkaline Phosphatase 78 Total Protein 6.4 Albumin 3.2 L Time Spent with Patient Time Spent with Patient: >50 minutes Time was spent: preparing to see the patient(eg.review tests), obtaining and/or reviewing separately otained hiistory, ordering medications,tests, procedures, referring, communicating with other health urgent care physician, indepentently interpreting results, counseling the patient and care coordination
[2024-09-29] MEDS: Atorvastatin 40 MG TAB PO (20:43)
[2024-09-30 03:00] VITALS: BP 139/67; PULSE 74; RESP 18; TEMP 36.4; O2SAT 90
[2024-09-30] MEDS: POTASSIUM CHLORIDE/0.9% NACL 1,000 ML 75 MEQ IV (05:56)
[2024-09-30] MEDS: Acetaminophen 325 MG TAB PO (06:10)
[2024-09-30] MEDS: Mylanta Suspension 30 ML CUP PO (06:12)
[2024-09-30 06:53] LABS: HCT 33.9 % (36.0-46.0); HGB 9.9 g/dL (11.2-15.7); MCH 24.4 pg (27.0-33.0); MCHC 29.2 % (32.0-36.0); MCV 84 fL (80-95); MPV 10.8 fL (8.0-11.0); Platelet Count 134 10^3/uL (130-400); RBC 4.06 10^6/uL (3.93-5.22); RDW 19.4 % (11.7-14.6); RDW-SD 59.6 fL; WBC 6.24 10^3/uL (4.4-10.8)
[2024-09-30 07:06] LABS: Anion Gap 10.7 mmol/L (3-11); BUN 9 mg/dL (7-18); CO2 25.3 mmol/L (21.0-32.0); Calcium 8.7 mg/dL (8.5-10.1); Chloride 107 mmol/L (98-107); Estimated GFR 58.02 (mL/min/1.73m2); Glucose 93 mg/dL (74-106); Potassium 3.6 mmol/L (3.5-5.1); Sodium 143 mmol/L (136-145)
[2024-09-30 07:41] VITALS: BP 145/66; PULSE 64; RESP 18; TEMP 36.5; O2SAT 92
[2024-09-30] MEDS: dilTIAZem CD 120 MG CAPCR 240 MG PO (07:51)
[2024-09-30] MEDS: Omeprazole 20 MG CAPCR PO (07:52)
[2024-09-30] MEDS: buPROPion-XL 150 MG TABCR 300 MG PO (07:52)
[2024-09-30] MEDS: Normal Saline Flush 10 ML SYR IVP (07:52)
[2024-09-30] MEDS: Cholecalciferol (Vitamin D3) 1,000 UNIT TAB 2000 UNITS PO (07:52)
[2024-09-30] MEDS: Budesonide/Formoterol 160/4.5 6 GM 60 PUFF INH IH (08:05)
--- NOTE | 2024-09-30 09:28 | CMDISCH_ITS ---
Date of service: 09/30/24 Time of Service: 09:28 LACE Index Scoring Tool Questions: Length of Stay (in days): 3 Was the patient admitted via the E.D.?: Yes Comorbidities: Previous M.I., Cerebrovascular Disease and Chronic Pulmonary Disease E.D. Visits: 3 Answers: Total Score: 14 Risk of Readmission: High Risk Care Management Discharge Plan Reason for Hospitalization: GIB Discharge Plan: Brielle will be discharged home with no new services. She will follow up with her PCP, surgeon and plan of care and transport with family. Patient/Family Education Needs: Review discharge instructions, discuss Ask Me Three SDOH Health Related Social Needs: Health related social needs daily activities Health related social needs details Feels like she cou ld use a little more help.
--- NOTE | 2024-09-30 10:13 | PT.INTREAT ---
PT Notes Visit Reasons: [facility] Physical Therapy Inpatient Treatment Note Date: 09/30/2024 Precautions: Fall. Standard. Activity as tolerated. Subjective: Pt reports she did not have the colonoscopy yesterday and that she is going home today. She states she would like to take a walk. Objective: General Observation: B leg swelling decreased. High BMI. Mental Status: Alert and oriented as to person, place, time, and purpose. Able to pay attention, focus, and respond appropriately. Pain: None reported Bed Mobility/Transfers: Minimal cueing provided for use of B hands as needed for support, movement sequence, AD management, and posture to reduce fall risk and minimize pain report Sit to stand Independent with definite use of B hands for support Stand to sit Independent with definite use of B hands for support Bed to reclining chair stand by assist/ Independent with FWW Reclining chair to bed stand by assist/independent with FWW Gait: ambulated SBA distance of 250 feet with FWW, reciprocal pattern. Pt able to carry conversation throughout walk. Pt declined need for stand rest Minimal shortness of breath resolved with rest. THERA EX : Instructed and guided patient with safe and great performance of seated exercises after ambulation activity as follows: Seated marches x 10 Ankle DF/PF x 10 Balance: Static Sitting: Normal Dynamic Sitting: Normal Static Standing: Normal Dynamic Standing:Good Assessment: Progressed to SBA/Independent with use of FWW. Attempted to trial 4WW/rollator however size is not appropriate. Pt able to manage turns with FWW without assistance. Pt has returned to baseline level of function and is appropriate for discharge to home with HHPT Plan of Care/Treatment Plan: 1-2x/day, 7 days/week x 1 week. Plan of care has been reviewed with the MANAGER OF NETWORK providing the service under Physical Therapy direction. Initiate Physical Therapy intervention for pain management as needed, strengthening, bed mobility, transfers, gait, stairs, balance training, and use of assistive device. DISCHARGE RECOMMENDATIONS: PT TREATMENT CODE/TIME: 98450/ [id number]
--- NOTE | 2024-09-30 11:31 | W.PM.DS.N ---
Date of service: 09/30/24 Time of Service: 11:31 DS: Diagnosis Discharge Diagnosis (1) GIB (gastrointestinal bleeding): Status: Chronic (2) CAD (coronary artery disease): (3) Atrial fibrillation: (4) CVA (cerebral vascular accident): (5) COPD with acute exacerbation: Status: Acute Discharge Plan Disposition Patient Disposition: Home Condition: Good Discharge Details Reason For Visit: GIB Admit Date/Time: 09/27/24 16:23 Admit Provider: Baljit Jauregui Attending Provider: Baljit Jauregui Primary Care Provider: Chanel Garcia [facility] Course Hospital Course: Patient initially presented with signs and symptoms of a lower GI bleed that was determined to be secondary to large external hemorrhoid. Patient was admitted, however after admission it was determined that patient was not a surgical candidate at this facility due to her BMI. Patient was monitored during hospitalization and her hemoglobin remained stable only with a small drop of about 0.7 though patient was on continuous IV fluids. No overt bleeding was noticed, patient remained hemodynamically stable, and did not require transfusion. Case was discussed with [facility] colorectal surgery who recommended outpatient appointment and coordination for surgical intervention. At which time it was determined that the patient was stable for discharge home. Home Meds and New Rx's Prescriptions: New polyethylene glycol 3350 [Miralax] 17 gram/dose powder 17 g PO BID Qty: 119 0RF Continued cholecalciferol (vitamin D3) 50 mcg (2,000 unit) capsule 50 mcg PO DAILY bupropion HCl 300 mg tablet extended release 24 hr 300 mg PO QAM Qty: 90 4RF triamcinolone acetonide 0.1 % ointment 1 applic Topical BID PRN (Reason: rash) Qty: 80 3RF Rx Instructions: use topically on area. dispense 0.1% oinment in 80 gm tube atorvastatin 40 mg tablet 40 mg PO QHS Qty: 90 4RF oxybutynin chloride 5 mg tablet 10 mg PO BID PRN (Reason: bladder spasms) Qty: 360 4RF omeprazole 20 mg capsule,delayed release(DR/EC) 20 mg PO DAILY Qty: 90 4RF furosemide 40 mg tablet 60 mg PO QDAY Qty: 135 4RF fluticasone propion-salmeterol [Advair Diskus] 500-50 mcg/dose blister with device 1 inh inhalation BID Qty: 180 5RF diltiazem HCl 240 mg capsule,extended release 24 hr 240 mg PO DAILY Qty: 90 5RF diltiazem HCl 30 mg tablet 30 mg PO BID PRN (Reason: Esophageal spasms) Qty: 100 0RF Rx Instructions: take for chest discomfort albuterol sulfate 90 mcg/actuation HFA aerosol inhaler 1 - 2 puff Inhalation Q4H PRN Qty: 3 5RF acetaminophen [Tylenol Extra Strength] 500 mg tablet 1,000 mg PO TID PRN (Reason: pain) Qty: 90 4RF Held Eliquis 5 mg tablet 5 mg PO BID Qty: 180 12RF Hold Instructions: Resume on 10/03/24. Discharge Instructions Activity:: Activity as Tolerated Equipment/Supplies:: No Equipment Needed Diet:: As Tolerated Discharge Orders Discharge Orders: Discharge Order (Routine); Ordered 09/30/24 Ordered By: Galen Lancaster DS: Summary Time Spent with Patient providing and/or coordinating discharge services: Greater than 30 minutes Status at Discharge Functional status at discharge: independent ambulation Overall status at discharge: patient is back to baseline Mental Status: mental status grossly normal Speech and Movement: speech and movement normal Mood: congruent mood Affect: normal affect Quality:SDOH Health Related Social Needs: Health related social needs daily activities Health related social needs details Feels like she could use a little more help. Exam Narrative Exam Narrative: well-appearing older female laying in bed in no acute distress, ANO x 4, heart regular rate rhythm, lungs clear to auscultation bilaterally, abdomen morbidly obese, nontender, nondistended Psych Mental Status: mental status grossly normal Speech and Movement: speech and movement normal Mood: congruent mood Affect: normal affect DS: Data Vitals/I&O Vitals and I&O: Vital Signs Temperature 97.7 F 09/30/24 07:41 Temperature Source Temporal Artery Scan 09/30/24 07:41 Pulse 64 09/30/24 07:41 Pulse 73 09/28/24 07:26 Respiratory Rate 18 09/30/24 07:41 Respiratory Effort Normal 09/27/24 20:20 Respiratory Depth Normal 09/27/24 20:20 Respiratory Pattern Normal 09/27/24 20:20 Blood Pressure 145/66 H 09/30/24 07:41 Blood Pressure Mean 92 09/30/24 07:41 Blood Pressure Position Sitting 09/27/24 12:49 Pulse Oximetry 92 09/30/24 07:41 Oxygen Delivery Method Room Air 09/30/24 07:41 Oxygen Flow Rate 0 09/30/24 07:41 Pain Level 0 09/30/24 07:41 Intake & Output 09/29/24 09/30/24 09/30/24 17:59 05:59 17:59 Intake Total 1570 / 1570 876.25 / 2446.25 Balance 1570 / 1570 876.25 / 2446.25 Weight 338 lb 6.553 oz Intake: IV 1000 / 1000 876.25 / 1876.25 Oral 570 / 570 Other: Urine Color Bright Red Pale Urine Appearance Clear Clear Urine Odor Normal None Comment per pt Unmeasured amount pt unknown void amount into toilet Stool Size Small Smear Smear Stool Characteristics Liquid Brown Brown Sinclair Data Completed and Pending Labs on day of discharge: Labs from last 24 hours 09/30/24 09/29/24 06:34 11:40 WBC 6.24 RBC 4.06 Hgb 9.9 L 10.6 L Hct 33.9 L 35.5 L MCV 84 MCH 24.4 L MCHC 29.2 L RDW 19.4 H Plt Count 134 MPV 10.8 Sodium 143 Potassium 3.6 Chloride 107 Carbon Dioxide 25.3 Anion Gap 10.7 BUN 9 Creatinine 1.0 Est GFR (CKD-EPI 2020) 58.02 Glucose 93 Calcium 8.7 PFSH All Active Problems (Updated 09/28/24 @ 13:12 by Dagoberto Marlow DO) Hemorrhoids (Acute) Anticoagulated (Acute) Anemia (Chronic) COPD with acute exacerbation (Acute 04/17/16) GIB (gastrointestinal bleeding) (Chronic) Rectal bleed (Acute) Foot pain, left (Acute) Left carotid stenosis (Acute) Numbness of left hand (Acute) Arthritis of carpometacarpal (CMC) joint of left thumb (Acute) B12 deficiency (Acute) Carpal tunnel syndrome of right wrist (Acute) S/P ECTR: 07/13/2024 Arthritis of right shoulder region (Acute) Arthritis of left shoulder region (Acute) Right shoulder pain (Acute) Leg cramps (Acute ~10/23/23) Trigger finger of left hand (Acute) Non-healing surgical wound (Acute) Abnormal renal function (Chronic) elevated creatinine Anxiety (Chronic) Depressive disorder (Chronic) Essential hypertension (Chronic) Urinary, incontinence, stress female (Chronic 08/24/12) 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 Hyperlipidemia (Chronic) 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) right sided sciatica w/ disc herniation L5- XRAY 2014 - djd Meralgia paresthetica (Chronic 01/08/02) right Morbid obesity (Chronic 08/06/15) Need for subacute bacterial endocarditis prophylaxis (Chronic 05/02/14) Clinda 600mg once - 60 min before procedure Osteopenia (Chronic) 2003 T-scores: -0.8, -0.2; -1.8 Palpitations (Chronic 08/24/12) Psoriasis (Chronic 08/30/12) Vitamin D deficiency (Chronic 05/26/08) Weight loss (Chronic 03/09/17) Coronary artery spasm (Acute 03/11/07) Tobacco use disorder (Acute) Acute UTI (Acute) COVID-19 (Acute) New onset-12/23/21 Advance care planning (Acute) Shortness of breath (Acute) Screening for HIV (human immunodeficiency virus) (Acute) Subcutaneous mass of toe of right foot (Acute) medial aspect base of right great toe Skin lesion (Acute) Urinary tract infection (Acute) Medical History (Updated 09/28/24 @ 13:12 by Dagoberto Marlow DO) CVA (cerebral vascular accident) Sleep apnea COPD (chronic obstructive pulmonary disease) Aortic stenosis Atrial fibrillation CAD (coronary artery disease) (03/29/13) Morbid obesity with BMI of 50.0-59.9, adult Diastolic dysfunction Abnormal mammogram (01/08/03) Appendicitis (03/11/07) Clostridium difficile infection (03/11/07) Disorder of gallbladder (03/11/07) Lipoma (03/11/07) Tobacco use disorder quit 2004 Abnormal mammogram, unspecified 01/08/03 Clostridium difficile infection 03/11/07 Unspecified appendicitis 03/11/07 Disorder of gallbladder 03/11/07 Lipoma 03/11/07 removed 04/05/12 by Fabrice Lares Ventral hernia with obstruction but no gangrene (03/11/07) epigastric and ventral Shortness of breath (11/05/15) Shingles (03/10/17) Hiatal hernia (03/11/07) EGD; inflammation Acute myocardial infarction (08/24/12) 2006 ECHO showing LVH 75% Surgical History (Updated 08/24/24 @ 00:03 by BASILIO SHERMAN) Status post abdominal hysterectomy Status post appendectomy Status post breast biopsy Status post cholecystectomy Status post hernia repair Status post total knee replacement S/P abdominal hysterectomy endometriosis S/P cholecystectomy S/P appendectomy S/P total knee replacement 02/09/95 left S/P breast biopsy, left 02/10/12 lipoma S/P hernia repair 07/10/13 Replacement of total knee joint 1995 LEFT 2005 RIGHT Abdominal hysterectomy endometriosis HERNIA REPAIR (~07/2013) Cholecystectomy Extraction of cataract 11/14/16 DR. MARISCAL; LEFT EYE Biopsy of breast (04/05/12) lipoma; left breast Appendectomy Family History Mother , age 61 Diabetes Essential hypertension Heart disease Hyperlipidemia DVT (deep venous thrombosis) Asthma Father , age 75 Essential hypertension Heart disease Hyperlipidemia Stroke Lung cancer Sister , age 41 Lung cancer Maternal Grandfather , age 88 No problems noted. Paternal Grandfather No problems noted. Maternal Grandmother , age 88 Hyperlipidemia Hypertension Paternal Grandmother Essential hypertension Hyperlipidemia Brother , age 70 Diabetes Essential hypertension Heart disease Alcohol abuse Brother , age 68 No problems noted. Son Depression Hyperlipidemia Alcohol abuse Heart disease Hypertension Son No problems noted. Daughter Essential hypertension Depression DVT (deep venous thrombosis) Asthma Alcohol abuse Hyperlipidemia Substance abuse Social History Smoking/Tobacco Use Status: Former Tobacco Use tobacco type: cigarettes Quit Date: 12/17/03 Tobacco: How many years used: 30 Smoking risk assessment performed?: Yes Alcohol Intake: never Drug use: Never Substance use type: does not use Caregiver/Support person: No Household members: none Housing: apartment Communication Needs: Hard of Hearing Pets and animals: No Sexually active: No Current gender identity: female and decline to answer What is your relationship status?: How often do you talk on the phone with friends or family?: twice per week How often do you get together with friends or relatives?: decline to answer How often do you attend denominational or hoahaoism services?: decline to answer Do you belong to any clubs or organized social groups?: decline to answer Panel score (0-1 are the most socially isolated patients): 0 What type of physical activity do you participate in: none and walking Frequency: 3-4 times per week Trish/Baptism: Taoist Special trish needs: No Seatbelt use: always Helmet use: No Drive intox or ride w/intox special needs bus driver: No Do you feel safe at home: Yes Do you feel safe in your relationship?: Yes Would you like helpful sources: No Time Spent with Patient Time Spent with Patient: <45 minutes Time was spent: preparing to see the patient(eg.review tests), obtaining and/or reviewing separately otained hiistory, ordering medications,tests, procedures, referring, communicating with other health home health care respiratory therapist, indepentently interpreting results, counseling the patient and care coordination
[2024-09-30 11:42] VITALS: PULSE 71
== END 2024-09-30 12:15 | disposition home or self-care (01) | DRG 394 ==
LOC: ER 17:02 → ICU 20:07 → MS 09-28 09:48
PROVIDERS: Admitting Provider Hospitalist; Emergency Provider General Practice; PCP Family Medicine; Responsible Provider Family Medicine; Visit Provider Hospitalist
DX: K64.8 Other hemorrhoids (principal); K62.5 Hemorrhage of anus and rectum; Z68.43 Body mass index [BMI] 50.0-59.9, adult; K64.4 Residual hemorrhoidal skin tags; D64.9 Anemia, unspecified; Z79.01 Long term (current) use of anticoagulants; E66.01 Morbid (severe) obesity due to excess calories; Z86.73 Personal history of transient ischemic attack (TIA), and cerebral infarction without residual deficits; I48.91 Unspecified atrial fibrillation; I65.22 Occlusion and stenosis of left carotid artery; E53.8 Deficiency of other specified B group vitamins; R20.2 Paresthesia of skin; F41.9 Anxiety disorder, unspecified; F32.A Depression, unspecified; N39.3 Stress incontinence (female) (male); G47.62 Sleep related leg cramps; E78.5 Hyperlipidemia, unspecified; G57.11 Meralgia paresthetica, right lower limb; L40.9 Psoriasis, unspecified; M51.16 Intervertebral disc disorders with radiculopathy, lumbar region; I25.111 Atherosclerotic heart disease of native coronary artery with angina pectoris with documented spasm; E55.9 Vitamin D deficiency, unspecified; I35.0 Nonrheumatic aortic (valve) stenosis; I25.2 Old myocardial infarction; Z87.891 Personal history of nicotine dependence; Z73.89 Other problems related to life management difficulty; J44.9 Chronic obstructive pulmonary disease, unspecified
CPT/HCPCS: 00123; 36415; 80048; 80053; 85027; 86850; 86900; 86901; 93005; 94640; 97110; 97162; 97530; 99222; 99285; 74174; 84484; 85014; 85018; 85025; 85610; 93010; 94664; 99232; 99233; 99238; J3490

== ENCOUNTER 2024-10-06 10:32 | Outpatient (CLI) | payer MEDICARE, SELFPAY ==
[2024-10-06 12:19] LABS: HCT 36.6 % (36.0-46.0); HGB 10.7 g/dL (11.2-15.7); MCH 24.2 pg (27.0-33.0); MCHC 29.2 % (32.0-36.0); MCV 83 fL (80-95); MPV 10.7 fL (8.0-11.0); Platelet Count 175 10^3/uL (130-400); RBC 4.42 10^6/uL (3.93-5.22); RDW 18.9 % (11.7-14.6); RDW-SD 56.9 fL; WBC 7.15 10^3/uL (4.4-10.8)
[2024-10-06 12:31] LABS: ALT 17 U/L (14-59); AST 17 U/L (15-37); Albumin 3.5 g/dL (3.4-5.0); Alkaline Phosphatase 88 U/L (46-116); Anion Gap 8.9 mmol/L (3-11); BUN 22 mg/dL (7-18); Bilirubin, Total 0.7 mg/dL (0.2-1.0); CO2 30.1 mmol/L (21.0-32.0); Calcium 8.9 mg/dL (8.5-10.1); Chloride 104 mmol/L (98-107); Estimated GFR 33.01 (mL/min/1.73m2); Glucose 107 mg/dL (74-106); Potassium 3.2 mmol/L (3.5-5.1); Sodium 143 mmol/L (136-145); Total Protein 7.0 g/dL (6.4-8.2)
== END 2024-10-06 10:33 | disposition home or self-care (01) ==
LOC: LOS 10:33
PROVIDERS: PCP Family Medicine; Referring Provider Family Medicine; Visit Provider Family Medicine
DX: R58 Hemorrhage, not elsewhere classified (principal); I10 Essential (primary) hypertension
CPT/HCPCS: 36415; 80053; 85027

== ENCOUNTER 2024-10-06 17:21 | Outpatient (REF) | payer MEDICARE, SELFPAY ==
[2024-10-06 14:01] LABS: Glucose Negative (Negative)
[2024-10-06 14:12] LABS: C & S Indicated? No; RBC Negative HPF (0-2); WBC 0-2 HPF (0-5)
== END 2024-10-06 17:22 | disposition home or self-care (01) ==
LOC: LBN 17:21
PROVIDERS: PCP Family Medicine; Visit Provider Family Medicine
DX: R30.0 Dysuria (principal)
CPT/HCPCS: 81003; 81015

== ENCOUNTER 2024-10-12 14:07 | Outpatient (CLI) | payer MEDICARE, SELFPAY ==
--- NOTE | 2024-10-12 05:45 | DI.MRI_ITS ---
Exam(s) MR LOWER EXTREMITY LT WO EXAM: MR LOWER EXTREMITY LT WO CLINICAL HISTORY: left lateral foot pain, xray normal M79.672 PAIN LEFT FOOT. TECHNIQUE: Multiplanar multisequence MRI was performed. COMPARISON: CR XR FOOT LT COMPLETE from 09/09/2024 FINDINGS: BONES/JOINTS: No evidence of fracture. No evidence of bone lesion. Degenerative changes are seen characterized by joint space narrowing, subchondral cysts, osteophytes and subchondral edema. The findings are most marked at the tarsometatarsal joints, particularly the 3rd TMT joint, with relative sparing of the 1st TMT joint. Findings are also seen at the articulation of the navicular with the cuneiform is. The MTP joints and interphalangeal joints show no significant signal abnormality. No joint effusion identified. LIGAMENTS: The medial and lateral collateral ligaments are intact. MUSCULOTENDINOUS STRUCTURES: Visualized portion of the planar fascia is unremarkable. The visualized intrinsic muscles and tendons of the foot are unremarkable. SOFT TISSUES: There is mild edema seen in the dorsal and lateral aspect of the foot without focal fluid collection or soft tissue mass. OTHER FINDINGS: None. IMPRESSION: 1. Degenerative changes are seen in the midfoot particularly at the TMT joints. 2. Edema seen in the soft tissues along the dorsal and at lateral aspect of the foot without focal fluid collection or soft tissue mass. Cellulitis should be considered. Please correlate clinically. DATA REPOSITORY:
== END 2024-10-12 14:27 ==
PROVIDERS: PCP Family Medicine; Visit Provider Family Medicine
DX: M79.672 Pain in left foot (principal)
CPT/HCPCS: 73718

== ENCOUNTER 2024-10-13 07:50 | Outpatient (CLI) | payer MEDICARE, SELFPAY ==
--- NOTE | 2024-10-13 07:45 | RT.EKG_ITS ---
APPROVED REPORT Exam: Resting ECG Reason for Exam: CAD, afib Patient Location: O HR:62 bpm ECG Measurements Heart Rate 62 AXIS NM [id number] P [id number] QRSd 125 QRS 15 QT 460 T 65 QTc 468 Conclusion Atrial fibrillation...V-rate 52- 70, irreg A-activity PVC Otherwise unremarkable
== END 2024-10-13 07:51 | disposition home or self-care (01) ==
LOC: DI.CARD 07:50
PROVIDERS: PCP Family Medicine; Visit Provider Internal Medicine Cardiovascular Disease
DX: R00.2 Palpitations (principal); I20.1 Angina pectoris with documented spasm; I48.91 Unspecified atrial fibrillation
CPT/HCPCS: 93010

== ENCOUNTER → 2024-10-13 11:04 | Outpatient (BNVA) | payer MEDICARE, SELFPAY | PROVIDERS: PCP Family Medicine; Referring Provider Family Medicine; Visit Provider Internal Medicine Cardiovascular Disease | DX: I35.0 Nonrheumatic aortic (valve) stenosis (principal); I48.91 Unspecified atrial fibrillation; I25.10 Atherosclerotic heart disease of native coronary artery without angina pectoris; R00.2 Palpitations; E11.9 Type 2 diabetes mellitus without complications; J44.9 Chronic obstructive pulmonary disease, unspecified | CPT/HCPCS: 99214; 93005 ==

== ENCOUNTER → 2024-10-25 13:04 | Outpatient (BNVA) | payer MEDICARE, SELFPAY | PROVIDERS: PCP Family Medicine; Referring Provider Family Medicine; Visit Provider Podiatrist | DX: M79.672 Pain in left foot (principal); B07.0 Plantar wart; I87.2 Venous insufficiency (chronic) (peripheral); L84 Corns and callosities | CPT/HCPCS: 99213; 17110 ==